=== PATIENT | male | born 1950 | race Caucasian/White ===

== ENCOUNTER 2024-02-05 09:58 | Outpatient (AMB) | payer MEDICARE, OTHER, SELFPAY ==
--- NOTE | 2024-02-05 10:40 | A.OFFVIS_ITS ---
Vital Signs 3 02/05/24 10:42 Height 6 ft Weight 185 lb 4 oz BMI 25.1 BP 123/82 Blood Pressure Location Rt brachial Position Sitting Pulse Source Pulse Oximeter Pulse Oximetry (%) 99 Oxygen Delivery Method Room Air Intake Visit Reasons: hand/elbow pain Intake Note: pain today 03/22 Vp Director Of Creative Strategy Required: No Accompanied by: Self / Same As Patient Allergies No Known Allergies Allergy (Verified 02/05/24 10:42) HPI HPI hand/elbow pain: Details: Patient is a pleasant 73-year-old male with prior history of cervical myelopathy, arthritis, s/p C5-C6 diskectomy and fusion (09/10/23) presents today for initial evaluation of chronic pain in the right hand and arm. Patient reports cervical spine surgery eliminated pressure pain but stiffness and numbness persist and can be quite debilitating to him. Patient denies any previous trauma, injury, or falls. 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 Preoperative cervical spine MRI showed cervical spinal stenosis with myelomalacia and nerve conduction study and EMG of upper extremities showed evidence of mild median neuropathy at the right wrist but also reduction of the right ulnar CMAP but no active denervation. His cervical myelopathy symptoms have significantly improved since surgery. Patient reports he tried to address right hand pain with physical therapy with no improvement, continues hand exercises. He tried pregabalin and baclofen which he stopped due to drowsiness. Patient recently started amitriptyline and noticed mild relief. He also states taking Magnesium 800 mg at bedtime. Patient reports hand exercises and light pressure or resting his arm against surfaces will significantly aggravate his right elbow and right 4th and 5th pain and cause numbness, stiffness and tingling. Pain is worst at night which he rates at 8/10 and least severe during middle of the day, rated it at 7/10. Pain affects his daily activities and functioning, sleep, social interactions and quality of life. Denies any fever, weight loss, chest pain, shortness of breath, dizziness, weakness, bladder or bowel dysfunction, or saddle anesthesia. Patient reports right upper extremity strength, numbness in the right hand and right foot has significantly improved since cervical spine surgery. He reports there is slight tingling in his right foot. Location: Right hand radiates to right elbow and distal forearm Duration: Chronic pain, worsened since 2022 Characteristics of symptom or complaint: Aching, stiffness, tingling, dull, sore, tight, stinging, burning Aggravating or associated factors: Movements, squeezing, gentle pressure, hand exercises Relieving factors: Ice packs, amitriptyline-mild relief; magnesium Treatment: PT, OT, acupunture, myofascial massage, TENS unit, C5-C6 fusion/diskectomy [facility] Medical History Anxiety Hearing loss in left ear Degenerative disc disease, cervical Cervical spondylosis Arthritis Right bundle branch block Right median nerve neuropathy Cervical myelopathy Surgical History (Updated 02/05/24 @ 20:41 by WILLIAM Monae) History of fusion of cervical spine (09/10/23) Review of Systems Const All systems reviewed & are unremarkable except as noted in HPI and below Physical Exam Vital Signs: Last Vital Signs BP 123/82 02/05/24 10:42 Pulse Ox 99 02/05/24 10:42 Oxygen Delivery Method Room Air 02/05/24 10:42 BMI result Body Mass Index 25.1 General: Appears afebrile. Alert and oriented. Mood and affect appropriate. Follows and participates in conversation appropriately. Respiratory effort is unlabored. No cough. Able to transition from sit to stand unassisted. Ambulates with bilaterally normal heel strike and toe off. Neck Neck: Yes no lymphadenopathy, Yes supple, No anterior neck swelling, Yes no JVD and No prominent dorsocervical fat pad Back/Spine/Pelvis Cervical Spine: No cervical muscular tenderness, No pain with cervical ROM, Cervical spine scars present and No Cervical spine tenderness Thoracic/Lumbar Spine: thoracic and lumbar spine normal to inspection, thoraco- lumbar ROM normal, Lasegue's sign negative, straight leg raise negative bilaterally, No thoracic spinal tenderness and No lumbar spinal tenderness Neuro Gait exam (Neuro): Normal gait present and No Assistive device used Motor exam (neuro): 5/5 motor strength present throughout (RUE 4/5) and Motor abnormalities not present Extrem General: Yes capillary refill normal, Yes no clubbing, cyanosis or edema and Yes no calf tenderness Right upper extremity: elbow/forearm Details: normal to inspection and normal ROM; no tenderness, no swelling and no ecchymosis and Extremity exam: right hand (Reports paresthesias 4th and 5th digits) Details: normal to inspection, normal capillary refill, normal ROM of fingers and no swelling; no tenderness, no unusual warmth, no ecchymosis and no crepitus Results Reviewed Results Reviewed: Assessment & Plan Assessment & Plan (1) Ulnar neuropathy of right upper extremity: Code(s): G56.21 - Lesion of ulnar nerve, right upper limb Category: Medical (2) Right hand pain: Code(s): M79.641 - Pain in right hand Category: Medical (3) Ulnar neuropathy of right upper extremity: Code(s): G56.21 - Lesion of ulnar nerve, right upper limb Category: Medical (4) Right hand pain: Code(s): M79.641 - Pain in right hand Category: Medical (5) Cervical spondylosis: Code(s): M47.812 - Spondylosis without myelopathy or radiculopathy, cervical region Category: Medical (6) Degenerative disc disease, cervical: Code(s): M50.30 - Other cervical disc degeneration, unspecified cervical region Category: Medical (7) History of fusion of cervical spine: Onset Date: 09/10/23 Comment: C5-C6 diskectomy and fusion Code(s): Z98.1 - Arthrodesis status Category: Surgical Plan Hand Surgery Referral to further evaluate chronic right hand and elbow numbness and tingling, which is worse at bedtime. Script provided for elbow bracing at bedtime. We will update his EMG and NVC studies and and follow-up on previous neurodiagnostic studies. Discuss interventional treatments for chronic right hand pain s/p recent cervical spine fusion, including PNS vs SCS trial and implants, diagnostic and therapeutic injections. Patient was encouraged to continue physical therapy and occupational therapy exercises to maintain strength and function. All questions and concerns have been answered and patient agreed with the plan. Follow-up for EMG/NCV results and sooner as needed. Orders: Orders 2 NE nerve conduction velocity Today G56.21 - Lesion of ulnar nerve, right upper limb, G95.9 - Disease of spinal cord, unspecified, M79.641 - Pain in right hand NE electromyogram (EMG) Today G56.21 - Lesion of ulnar nerve, right upper limb, G95.9 - Disease of spinal cord, unspecified, M79.641 - Pain in right hand Referrals 2 Hand Surgery Referral G56.21 - Lesion of ulnar nerve, right upper limb, M79.641 - Pain in right hand Medications: New 2 arm brace (FELICIA Elbow Brace) As directed 1 ea 0RF elbow support G56.21 - Lesion of ulnar nerve, right upper limb arm brace (FELICIA Elbow Brace) As directed 1 ea 0RF elbow support G56.21 - Lesion of ulnar nerve, right upper limb Coding Level of Care Code New Pt Level 4 (62206) Diagnoses Ulnar neuropathy of right upper extremity G56.21 Right hand pain M79.641 Cervical spondylosis M47.812 Degenerative disc disease, cervical M50.30 History of fusion of cervical spine Z98.1
[2024-02-05 10:42] VITALS: BP 123/82; O2SAT 99; BMI 25.1
== END 2024-02-05 11:36 | disposition home or self-care (01) ==
PROVIDERS: PCP Internal Medicine; Visit Provider Nurse Practitioner Family
DX: G56.21 Lesion of ulnar nerve, right upper limb (principal); M79.641 Pain in right hand; M47.812 Spondylosis without myelopathy or radiculopathy, cervical region; M50.30 Other cervical disc degeneration, unspecified cervical region; Z98.1 Arthrodesis status
CPT/HCPCS: 99204

== ENCOUNTER → 2024-02-05 09:58 | Outpatient (BNVA) | payer MEDICARE, OTHER, SELFPAY | PROVIDERS: PCP Internal Medicine; Visit Provider Nurse Practitioner Family | DX: G56.21 Lesion of ulnar nerve, right upper limb (principal); M79.641 Pain in right hand; M47.812 Spondylosis without myelopathy or radiculopathy, cervical region; M50.30 Other cervical disc degeneration, unspecified cervical region; Z98.1 Arthrodesis status | CPT/HCPCS: 99202 ==

== ENCOUNTER 2024-02-20 12:24 | Outpatient (REF) | payer MEDICARE, OTHER, SELFPAY ==
--- NOTE | 2024-02-20 12:27 | EMG_ITS ---
Chief complaint: Numbness along medial wrist, 4th and 5th digits, right prior history of cervical myelopathy, s/p C5-C6 diskectomy and fusion (09/10/[address] Zhang) Reason for referral: Evaluate for ulnar neuropathy Referred by: Mar Lopez NP Procedure done: Right upper extremity NCS/EMG Precautions and/or limitations: Prior cervical fusion The limb temperature was monitored continuously and remained between 32-36 degrees C during the performance of the NCS. Ulnar motor NCS was performed with moderate elbow flexion between 70-90 degrees, with across-elbow distance of 10 cm. Nerve Conduction Studies Anti Sensory Summary Table ?Stim Site NR Onset (ms) Norm Onset (ms) Peak (ms) Norm Peak (ms) O-P Amp (?V) Norm O-P Amp Site1 Site2 Delta-0 (ms) Dist (cm) Brandon (m/s) Norm Brandon (m/s) Left Median Anti Sensory (2nd Digit) Wrist ? 2.6 3.2 <3.6 13.2 >10 Wrist 2nd Digit 2.6 14.0 54 Left Radial Anti Sensory (Thumb) Forearm ? 1.5 1.9 <3.1 18.5 Forearm Thumb 1.5 0.0 Left Ulnar Anti Sensory (5th Digit) Wrist ? 2.8 3.7 <3.7 11.4 >15.0 Wrist 5th Digit 2.8 14.0 50 Motor Summary Table ?Stim Site NR Onset (ms) Norm Onset (ms) O-P Amp (mV) Norm O-P Amp iAmp (mV) Amp (1st) (%) Site1 Site2 Delta-0 (ms) Dist (cm) Brandon (m/s) Norm Brandon (m/s) Right Median Motor (Abd Poll Brev) Wrist ? 3.8 <3.9 13.1 >4.5 15.9 100.0 Elbow Wrist 4.2 22.0 52 >45 Elbow ? 8.0 12.8 16.1 97.7 Right Ulnar Motor (Abd Dig Minimi) Wrist ? 3.8 <3.0 3.5 >5 4.3 100.0 B Elbow Wrist 4.9 24.0 49 >45 B Elbow ? 8.7 3.5 4.2 100.0 A Elbow B Elbow 1.6 10.0 62 >45 A Elbow ? 10.3 3.5 4.1 100.0 Right Ulnar Motor (FDI) Wrist ? 5.2 <3.0 1.7 >5 2.0 100.0 B Elbow Wrist 4.5 24.0 53 >45 B Elbow ? 9.7 1.5 1.7 88.2 A Elbow B Elbow 1.6 10.0 62 >45 A Elbow ? 11.3 1.5 1.7 88.2 EMG ?Side Muscle Nerve Root Ins Act Fibs Psw Amp Dur Poly Recrt Int Pat Comment Right 1stDorInt Ulnar C8-T1 Incr 1+ 1+ Nml Nml 0 Reduced Complete Right FlexCarRad Median C6-7 Nml Nml Nml Nml Nml 0 Nml Complete Right Biceps Musculocut C5-6 Nml Nml Nml Nml Nml 0 Nml Complete Right Triceps Radial C6-7-8 Nml Nml Nml Incr Incr 0 Nml Complete Right Deltoid Axillary C5-6 Nml Nml Nml Nml Nml 0 Nml Complete Right FlexCarpiUln Ulnar C8,T1 Incr 1+ 1+ Nml Nml 0 Nml Complete Right ExtIndicis Radial (Post Int) C7-8 Nml Nml Nml Incr Incr 0 Nml Complete Right ExtDigCom Radial (Post Int) C7-8 Nml Nml Nml Incr Incr 0 Nml Complete FINDINGS: Right ulnar motor nerve, recording both ADM and FDI muscles, showed prolonged distal latency, small amplitudes but preserved conduction velocity. Right ulnar sensory nerve showed normal peak latency but small amplitude. All other nerves tested were within normal. Concentric needle EMG was performed in selected muscles of the right upper extremity. Study revealed signs of electric abnormalities as shown in the table below. Right triceps, EIP and EDC muscle showed increased duration and amplitude. Right FCU and FDI showed increased insertional activity, PSWs and fibrillations. Right FDI also showed reduced recruitment. IMPRESSION: 1. This is an abnormal study. 2. There is electrodiagnostic evidence for ulnar neuropathy, proximal to take off of FCU. 3. Chronic reinnervation changes are seen on muscles innervated by C7/C8 nerve roots, suggesting chronic radiculopathy. 4. There is no electrodiagnostic evidence for median neuropathy or brachial plexopathy. CLINICAL COMMENT: Comparison with previous EMG would be helpful. Thank you for your kind referral. Shima Rodarte MD, KAYLIE Board Certified, [place] Board [employer] and [employer] (ABPMR) Board Certified, [place] Board [employer] Electrodiagnostic Medicine (ABEM) [place] [id number] [facility]
== END 2024-02-20 12:25 | disposition home or self-care (01) ==
LOC: HO.NEURO 12:24
PROVIDERS: Visit Provider Nurse Practitioner Family
DX: G56.21 Lesion of ulnar nerve, right upper limb (principal); M79.641 Pain in right hand; G95.9 Disease of spinal cord, unspecified
CPT/HCPCS: 95886; 95909

== ENCOUNTER → 2024-02-20 12:27 | Outpatient (BNV) | payer MEDICARE, OTHER, SELFPAY | PROVIDERS: Visit Provider Physical Medicine & Rehabilitation | DX: G56.21 Lesion of ulnar nerve, right upper limb (principal) | CPT/HCPCS: 95886; 95909 ==

== ENCOUNTER 2024-03-25 10:46 | Outpatient (AMB) | payer MEDICARE, OTHER, SELFPAY ==
--- NOTE | 2024-03-25 10:54 | A.OFFVIS_ITS ---
Vital Signs 03/25/24 11:09 Height 6 ft Weight 185 lb BMI 25.1 Intake Visit Reasons: New Pt - right hand numbness Intake Note: Sha a 73 year old 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 male who presents today as a new patient for an evaluation of right hand numbness. EMG done. Patient reports pain, stiffness, and numbness in his right hand, mostly his 4th and 5th digit, radiating up to his shoulder. He states having a cervical surgery which had improved his symptoms however he continues to have discomfort that gets worse with activity. Finds no relief with amitriptyline, gabapentin, baclofen, or OTC ibuprofen/Tylenol as well as icing/heat and at home hand exercises that was given by PT. Allergies No Known Allergies Allergy (Verified 03/25/24 11:00) HPI HPI New Pt - right hand numbness: Details: 73-year-old 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 male who presents to the office today for an evaluation of right hand. He states he has pain, stiffness, numbness and tingling at the 4th and 5th metacarpal of right hand that radiates up to his shoulder. He has a history of cervical surgery which had improved his symptoms however he continues to have discomfort that is aggravated with activities. He finds no relief with amitriptyline, gabapentin, baclofen, OTC ibuprofen or Tylenol, ice, heat, and icy hot. He has tried hand exercises at home without benefits. 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 Review of Systems Const All systems reviewed & are unremarkable except as noted in HPI and below Physical Exam Vital Signs: BMI result Body Mass Index 25.1 Const General: cooperative, healthy appearing, comfortable, no acute distress, well developed and alert Orientation/consciousness: patient oriented x3 HEENT Head: Yes normal to inspection, Yes normocephalic and Yes atraumatic Eyes General: appearance normal, both eyes and all related structures Resp Effort & Inspection: normal respiratory effort and able to speak in complete sentences Cardio Rate: regular rate Peripheral pulses: Peripheral pulses 2+ throughout GI Palpation (GI): Soft to palpation Skin Lesions: no lesions Rashes: no rashes Neuro General: patient oriented x3 Extrem Other: Right wrist and elbow: Normal to inspection.? Mild Tenderness over the medial aspect of the elbow and Positive Tinel?s along the cubital tunnel.? He has good ROM of the elbow, no pain with supination or pronation. Negative Tinel?s along the carpal tunnel. Numbness and tingling over the ulnar nerve distribution of the left hand.? Able to make a full fist and fully extend all fingers. Results Reviewed Results Reviewed: IMPRESSION: 1. This is an abnormal study. 2. There is electrodiagnostic evidence for ulnar neuropathy, proximal to take off of FCU. 3. Chronic reinnervation changes are seen on muscles innervated by C7/C8 nerve roots, suggesting chronic radiculopathy. --> Patient is s/p cervical fusion 08/2023 4. There is no electrodiagnostic evidence for median neuropathy or brachial plexopathy. Assessment & Plan Assessment & Plan (1) Ulnar neuropathy of right upper extremity: Code(s): G56.21 - Lesion of ulnar nerve, right upper limb Category: Medical Plan We discussed the EMG findings at length and also discuss the benefits of steroid injection for what appears to be lateral epicondylitis of his right elbow. He will hold off on injection at this time and he will meet with Dr. Garg to discuss this further for cubital tunnel release for his right elbow which he is content with. Patient Instructions: Scribed for Harrison Antunez PA-C, by Rufino Pepe medical insurance coding specialist, on 03/25/2024 at 11:00 AM EST.? I, Harrison Antunez PA-C, have personally reviewed and agree with the information entered by the scribe. Coding Level of Care Code New Pt Level 3 (68958) Diagnoses Ulnar neuropathy of right upper extremity G56.21
[2024-03-25 11:09] VITALS: BMI 25.1
== END 2024-03-25 16:15 | disposition home or self-care (01) ==
PROVIDERS: PCP Internal Medicine; Visit Provider Physician Assistant
DX: G56.21 Lesion of ulnar nerve, right upper limb (principal); M77.11 Lateral epicondylitis, right elbow
CPT/HCPCS: 99203

== ENCOUNTER → 2024-03-25 10:46 | Outpatient (BNVA) | payer MEDICARE, OTHER, SELFPAY | PROVIDERS: PCP Internal Medicine; Visit Provider Physician Assistant ==

== ENCOUNTER 2024-05-12 10:05 | Outpatient (AMB) | payer MEDICARE, OTHER, SELFPAY ==
--- NOTE | 2024-05-12 10:35 | MHC.OFFVIS ---
Intake Visit Reasons: OV-RT ulnar neuropathy on EMG -Discuss surgery Intake Note: Sha is a 73 yo 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 male who presents today to discuss surgery for right ulnar neuropathy. Patient reports numbness and tingling on the right 4th and 5th fingers that radiate up the right elbow. There is also ocassional numbness on right 2nd and 3rd finger. Denies locking on fingers. Reports taking amitriptyline 30 mg QHS for pain, unsure if provides relief. Patient states EMG was done. Patient does not wish to have surgery. Allergies No Known Allergies Allergy (Verified 05/12/24 10:36) HPI HPI OV-RT ulnar neuropathy on EMG -Discuss surgery: Details: Sha is a 73 year old 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 man who presents for a NCS review of his right hand numbness. He complains of constant numbness primarily in his right ring & small fingers. He also reports some tingling in his right thumb. He complains of pain in his hand with overuse as well. He has a hx of a C5-C6 fusion in 08/2023, at an outside clinic. He says this somewhat helped his symptoms of numbness & pain. He has been working on strengthening his hand for the last few months. 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 He also complains of pain in the dorsal ulnar aspect of his right forearm, extending up to the lateral epicondyle. This primarily occurs with heavy lifting and gripping activities, and is not particularly symptomatic today in clinic. He says he recently had a Hernia repair a few weeks ago. 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 Review of Systems Const All systems reviewed & are unremarkable except as noted in HPI and below Physical Exam Const General: cooperative, healthy appearing and no acute distress Orientation/consciousness: patient oriented x3 HEENT Head: Yes normocephalic and Yes atraumatic Eyes EOM: EOMs intact bilaterally Resp Effort & Inspection: normal respiratory effort and able to speak in complete sentences Cardio Jugular venous distension: no JVD Skin General skin exam: turgor normal Rashes: no rashes Neuro General: patient oriented x3 Extrem Other: Evaluation of Right Upper Extremity: The patient is alert, oriented, and in no acute distress Neuro: Tingling in the thumb today in clinic, dense numbness in the ulnar nerve distribution today in clinic. Normal sensation to the index & middle fingers. Some intrinsic wasting & significant wasting of 1st interosseous Good APB muscle belly firing and good finger cross He can ABduct & ADduct his fingers, with only weak adduction of the small finger. Vascular: Cap refill brisk ROM: He can make a fist and extend all his digits No locking or catching Skin: No lacerations or abrasions. General: No Ecchymosis. No Erythema or evidence of infection. Patient reports pain in the dorsal ulnar aspect of his forearm, extending up to the lateral epicondyle. This primarily occurs with activities and is not particularly symptomatic today in clinic. No pain with resisted wrist or finger extension . He demonstrates a discomfort mostly when his arm is extended in his wrist is brought into flexion. Nerve Conduction Study: Right-side only IMPRESSION: 1. This is an abnormal study. 2. There is electrodiagnostic evidence for ulnar neuropathy, proximal to take off of FCU. 3. Chronic reinnervation changes are seen on muscles innervated by C7/C8 nerve roots, suggesting chronic radiculopathy. 4. There is no electrodiagnostic evidence for median neuropathy or brachial plexopathy. CLINICAL COMMENT: Comparison with previous EMG would be helpful. Shima Rodarte MD, KAYLIE 02/20/24 Psych Appearance: grossly normal Affect: normal affect Attitude: cooperative Assessment & Plan Assessment & Plan (1) Ulnar neuropathy of right upper extremity: Code(s): G56.21 - Lesion of ulnar nerve, right upper limb Category: Medical (2) History of fusion of cervical spine: Onset Date: 09/10/23 Comment: C5-C6 diskectomy and fusion Code(s): Z98.1 - Arthrodesis status Category: Surgical (3) Cervical radiculopathy: Comment: Affecting C7-C8, seen on NCS Code(s): M54.12 - Radiculopathy, cervical region Category: Medical (4) Right lateral epicondylitis: Code(s): M77.11 - Lateral epicondylitis, right elbow Category: Medical Plan Assessment & Plan: 1. Right cubital tunnel syndrome With some intrinsic wasting & significant wasting of 1st interosseous With dense numbness in the ulnar nerve distribution 2. Possible chronic right-side radiculopathy Affecting C7-C8, seen on NCS from 02/20/24 3. History of right C-spine fusion Of C5-C6, DOS: 09/10/23 at an outside clinic I educated him about this condition I discussed operative and non-operative treatment options I recommend surgery for his cubital tunnel syndrome, with the goal of hopefully preserving muscle function and prevent further loss. I explained that he is likely to not regain any sensation following surgery, but the goal again is to preserve the intrinsic muscle function that he has. I also explained the possibility that he has a double-crush injury and may need further C-spine surgery, which he should discuss with his spine surgeon. He expressed understanding & would like to proceed. He feels he is not ready to discuss surgery at this time He will follow up in 6-8 weeks to see how he is doing. He says he is meeting with his neurologist early next month and will discuss the C7-C8 radiculopathy findings on nerve conduction study.. 4. Right lateral epicondylitis I educated him about this condition I recommend activity modification, he should limit or avoid any heavy gripping or lifting activities. Please note that greater than 35 minutes was spent with this patient going over the history, evaluating the patient and radiographs, formulating possible treatment options, discussing them with the patient, and documenting the visit. Scribed for Miracle Garg MD by Sukh Lara, medical imaging director, on 05/12/24 at 11:20 AM, EST. Coding Level of Care Code Est Pt Level 4 (03957) Diagnoses Ulnar neuropathy of right upper extremity G56.21 History of fusion of cervical spine Z98.1 Cervical radiculopathy M54.12 Right lateral epicondylitis M77.11
== END 2024-05-12 11:54 | disposition home or self-care (01) ==
PROVIDERS: PCP Internal Medicine; Visit Provider Orthopaedic Surgery
DX: G56.21 Lesion of ulnar nerve, right upper limb (principal); M77.11 Lateral epicondylitis, right elbow; Z98.1 Arthrodesis status
CPT/HCPCS: 99214

== ENCOUNTER → 2024-05-12 10:05 | Outpatient (BNVA) | payer MEDICARE, OTHER, SELFPAY | PROVIDERS: PCP Internal Medicine; Visit Provider Orthopaedic Surgery | DX: G56.21 Lesion of ulnar nerve, right upper limb (principal); M54.12 Radiculopathy, cervical region; M77.11 Lateral epicondylitis, right elbow; Z98.1 Arthrodesis status | CPT/HCPCS: 99212 ==

== ENCOUNTER 2024-07-28 14:45 | Outpatient (AMB) | payer MEDICARE, OTHER, SELFPAY ==
--- NOTE | 2024-07-28 14:52 | A.OFFVIS_ITS ---
Vital Signs 07/28/24 14:53 Height 6 ft Weight 175 lb BMI 23.7 Handedness Left Intake Visit Reasons: OV- RT cubital tunnel Intake Note: Sha is a 73 year old 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 male who presents today for a follow up visit for his ulnar neuropathy of right upper extremity. Patient reports he is having numbness, tingling, and discomfort in his 4th and 5th digits that radiates into his elbow. He has been working on strengthening exercises but his symptoms have not improved but have not worsened. He is interested in discussing possible surgery. Allergies No Known Allergies Allergy (Verified 07/28/24 14:54) HPI HPI OV- RT cubital tunnel: Details: Sha is a 73 year old 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 man who returns to discuss his right cubital tunnel syndrome He complains of constant numbness primarily in his right ring & small fingers. He also reports some tingling in his right thumb. He complains of pain in his hand with overuse as well. He has a hx of a C5-C6 fusion in 08/2023, at an outside clinic. He says this somewhat helped his symptoms of numbness & pain. He has been working on strengthening his hand for the last few months. 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 He says he has had no improvement in his symptoms of ulnar-sided hand numbness and discomfort with these exercises. He feels ready to discuss surgery. He complains of weakness & stiffness in his ring and small fingers, and he says this has not improved with at-home exercises. He also complains of pain in the dorsal ulnar aspect of his right forearm, extending up to the lateral epicondyle. This primarily occurs with heavy lifting and gripping activities, and is not particularly symptomatic today in clinic. 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 Normal sensation to the median nerve distribution Some intrinsic wasting & significant wasting of 1st interosseous Pos Froment's sign Good APB muscle belly firing and good finger cross He can ABduct & ADduct his fingers, with only weak adduction of the small finger. Vascular: Cap refill brisk ROM: He can make a fist and extend all his digits No locking or catching Patient reports pain in the dorsal ulnar aspect of his forearm, extending up to the lateral epicondyle. This primarily occurs with activities and is not particularly symptomatic today in clinic. No pain with resisted wrist or finger extension. He demonstrates a discomfort mostly when his arm is extended in his wrist is brought into flexion. Nerve Conduction Study: Right-side only IMPRESSION: 1. This is an abnormal study. 2. There is electrodiagnostic evidence for ulnar neuropathy, proximal to take off of FCU. 3. Chronic reinnervation changes are seen on muscles innervated by C7/C8 nerve roots, suggesting chronic radiculopathy. 4. There is no electrodiagnostic evidence for median neuropathy or brachial plexopathy. CLINICAL COMMENT: Comparison with previous EMG would be helpful. Shima Rodarte MD, KAYLIE 02/20/24 Assessment & Plan Assessment & Plan (1) Ulnar neuropathy of right upper extremity: Code(s): G56.21 - Lesion of ulnar nerve, right upper limb Category: Medical (2) History of fusion of cervical spine: Onset Date: 09/10/23 Comment: C5-C6 diskectomy and fusion Code(s): Z98.1 - Arthrodesis status Category: Surgical (3) Cervical radiculopathy: Comment: Affecting C7-C8, seen on NCS Code(s): M54.12 - Radiculopathy, cervical region Category: Medical (4) Right lateral epicondylitis: Code(s): M77.11 - Lateral epicondylitis, right elbow Category: Medical Plan Assessment & Plan: 1. Right cubital tunnel syndrome With some intrinsic wasting & significant wasting of 1st interosseous With dense numbness in the ulnar nerve distribution 2. Possible chronic right-side radiculopathy Affecting C7-C8, seen on NCS from 02/20/24 3. History of right C-spine fusion Of C5-C6, DOS: 09/10/23 at an outside clinic I educated him about this condition I discussed operative and non-operative treatment options I recommend surgery for his cubital tunnel syndrome, with the goal of hopefully preserving muscle function and prevent further loss. I explained that he is likely to not regain any sensation following surgery, but the goal again is to preserve the intrinsic muscle function that he has. I also explained the possibility that he has a double-crush injury related to his C-spine nerve compression, which he should discuss with his spine surgeon. This may have been addressed in his surgery in August of 2023. He expressed understanding & would like to proceed. The risks and benefits of operative treatment were discussed with the patient and the patient wishes to proceed with surgery. These risks include, but are not limited to risk of damage to blood vessels, nerves, tendons, infection, recurrence, incomplete relief of preoperative symptoms, persistent pain, possible need for further surgery and the risks associated with regional blocks and anesthesia. The plan is to take the patient to the operating room sometime in the next few weeks for the following procedures: 1. Right cubital tunnel release, under general All of the preoperative paperwork including the consent was reviewed today. All the patient's questions were answered. The patient understands that they will be contacted by our supervisor print line soon to schedule this procedure He denies Diabetes, blood thinners, asthma, heart, lung, kidney issues 4. Right lateral epicondylitis vs radial tunnel sxs I educated him about this condition I explained that having a cubital tunnel release will not alleviate these symptoms. I recommend activity modification. Please note that greater than 40 minutes was spent with this patient going over the history, evaluating the patient and radiographs, formulating possible treatment options, discussing them with the patient, and documenting the visit. Scribed for Miracle Garg MD by Sukh Lara, medical assisting program director, on 07/28/24 at 3:25 PM, EST. Coding Level of Care Code Est Pt Level 5 (71774) Diagnoses Ulnar neuropathy of right upper extremity G56.21 History of fusion of cervical spine Z98.1 Cervical radiculopathy M54.12 Right lateral epicondylitis M77.11
[2024-07-28 14:53] VITALS: BMI 23.7
== END 2024-07-28 16:16 | disposition home or self-care (01) ==
PROVIDERS: PCP Internal Medicine; Visit Provider Orthopaedic Surgery
DX: G56.21 Lesion of ulnar nerve, right upper limb (principal); Z98.1 Arthrodesis status; M77.11 Lateral epicondylitis, right elbow
CPT/HCPCS: 99215

== ENCOUNTER → 2024-07-28 14:45 | Outpatient (BNVA) | payer MEDICARE, OTHER, SELFPAY | PROVIDERS: PCP Internal Medicine; Visit Provider Orthopaedic Surgery | DX: G56.21 Lesion of ulnar nerve, right upper limb (principal); M77.11 Lateral epicondylitis, right elbow; M54.12 Radiculopathy, cervical region; Z98.1 Arthrodesis status | CPT/HCPCS: 99212 ==

== ENCOUNTER 2024-10-04 09:48 | Outpatient (AMB) | payer MEDICARE, OTHER, SELFPAY ==
--- NOTE | 2024-10-04 09:50 | A.OFFVIS_ITS ---
Vital Signs 10/04/24 09:55 Height 6 ft Weight 175 lb BMI 23.7 Handedness Left Intake Visit Reasons: Preop RT Cubital 10/11/24 AR Intake Note: Sha is a 73 year old 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 male who presents today pre operatively for his scheduled left cubital tunnel release w/ Dr Garg DOS: 10/11/2024. Allergies No Known Allergies Allergy (Verified 10/04/24 09:55) HPI HPI Preop RT Cubital 10/11/24 AR: Details: Patient is a 73-year-old male who presents for preoperative evaluation prior to right cubital tunnel release, DOS 10/11/[address] Garg. Today, the patient reports that his symptoms have remained consistent since previous evaluation, and proceed with operative intervention. No other acute complaints or concerns at this time. 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 Normal sensation to the median nerve distribution Some intrinsic wasting & significant wasting of 1st interosseous Pos Froment's sign Good APB muscle belly firing and good finger cross He can ABduct & ADduct his fingers, with only weak adduction of the small finger. Vascular: Cap refill brisk ROM: He can make a fist and extend all his digits No locking or catching Patient reports pain in the dorsal ulnar aspect of his forearm, extending up to the lateral epicondyle. This primarily occurs with activities and is not particularly symptomatic today in clinic. No pain with resisted wrist or finger extension. He demonstrates a discomfort mostly when his arm is extended in his wrist is brought into flexion. Nerve Conduction Study: Right-side only IMPRESSION: 1. This is an abnormal study. 2. There is electrodiagnostic evidence for ulnar neuropathy, proximal to take off of FCU. 3. Chronic reinnervation changes are seen on muscles innervated by C7/C8 nerve roots, suggesting chronic radiculopathy. 4. There is no electrodiagnostic evidence for median neuropathy or brachial plexopathy. CLINICAL COMMENT: Comparison with previous EMG would be helpful. Shima Rodarte MD, KAYLIE 02/20/24 Assessment & Plan Assessment & Plan (1) Ulnar neuropathy of right upper extremity: Code(s): G56.21 - Lesion of ulnar nerve, right upper limb Category: Medical Plan 1. Right cubital tunnel syndrome I educated the patient about the condition. I discussed both operative and nonoperative treatment options. The patient would like to proceed with surgery. The risks and benefits of operative treatment were discussed with the patient and the patient wishes to proceed with surgery. These risks include, but are not limited to, risk of damage to blood vessels, nerves, tendons, infection, recurrence, incomplete relief of preoperative symptoms, persistent pain, possible need for further surgery, and the risks associated with regional blocks and/or anesthesia. Plan is to take the patient to the operating room at some point in the next few weeks for the following procedures: 1. Right cubital tunnel release under general anesthesia All of the preoperative paperwork including the consent was discussed today. All of the patient's questions were answered in the clinic today. The patient understands that they will be in contact with our surgical instruments inspector to discuss scheduling their procedure. Patient denies diabetes, blood thinners, asthma, heart issues, lung issues, kidney issues, or current smoking. Coding Level of Care Code Est Pt Level 4 (37639) Diagnoses Ulnar neuropathy of right upper extremity G56.21
--- OUTSIDE RECORDS SUMMARY | 2024-10-04 09:51 | XMS_ITS | Continuity of Care Document ---
Author Organization [facility] ter Address [address] [place] [id number]- Care Team Providers Care Fleet Sales Manager Name Role Phone Monie RIZVI, [facility] Primary Care Physician Encounter 10/01/24 - 10/02/[address] [address]- Attending Physician: Not on Staff, Attending MD Referring Physician: Not on Staff, Referring MD Encounter Type: [facility] Allergies, Adverse Reactions, Alerts No Known Allergies Immunizations Given and Recorded Vaccine Date Status Refusal Reason Hepatitis B Vaccine (old term) 1 05/19/12 Given Hepatitis B Vaccine (old term) 2 04/09/12 Given Poliovirus Vaccine, Inactivated 04/09/12 Given tetanus/diphtheria/pertussis, acel(Tdap) 04/09/12 Given Hepatitis A Vaccine (oldterm) 3 04/09/12 Given 1Admin Note: hep b #2 2Admin Note: hep B #1 3Admin Note: hep A #1 Medications Alprazolam 1 mg, By Mouth, Daily, PRN, Refills 0, Maintenance, as needed for anxiety, 09/09/23 2:25:00 PM EST,Partial fill upon patient request if the prescription is for a schedule II opioid drug. Start Date: 09/09/23 Status: Ordered Repeat number: 1 aspirin 81 mg oral capsule 1 capsule = 81 mg, By Mouth, Every 24 hours, 0 Refills, Maintenance, 08/21/23 8:14:00 AM EST, Partial fill upon patient request if the prescription is for a schedule II opioid drug. Start Date: 08/21/23 Status: Ordered Repeat number: 1 Compression Stockings See Instructions, # 1 pair, Refills 3, Tot. Refills 3, Maintenance, surgical, knee length 20-30 mm Hg, 06/07/13 1:27:46 PM EDT, Compound Start Date: 06/07/13 Status: Ordered Quantity: 1.0 Unit: pair Repeat number: 4 Docusate 0 Refills, Maintenance, 09/10/23 6:01:00 AM EST, Partial fill upon patient request if the prescription is for a schedule II opioid drug. Start Date: 09/10/23 Status: Ordered Repeat number: 1 Fish Oil = 2,000 mg, By Mouth, 0 Refills, Maintenance, 06/07/13 1:07:02 PM EDT Start Date: 06/07/13 Status: Ordered Repeat number: 1 Flax Seed Oil oral capsule 0 Refills, Maintenance, 06/07/13 1:06:42 PM EDT Start Date: 06/07/13 Status: Ordered Repeat number: 1 Gabapentin = 600 mg, By Mouth, Daily, 0 Refills, Maintenance, 08/21/23 8:14:00 AM EST, Partial fill upon patient request if the prescription is for a schedule II opioid drug. Start Date: 08/21/23 Status: Ordered Repeat number: 1 zolpidem 5 mg oral tablet 1 tablet = 5 mg, By Mouth, Daily at bedtime, PRN as needed for sleep, 0 Refills, Maintenance, 06/07/13 1:07:34 PM EDT Start Date: 06/07/13 Status: Ordered Repeat number: 1 Problem List Condition Confirmation Course Effective Dates Status Health St [facility] Informant Travel vaccinations Confirmed Active Patient Care team information Care Team Personnel Name: Sammi Lomax MD Position: [facility] Outreach Member Role: PCP Address: [address] [place], [place] [id number] Telecom: Care Team Related Persons Name: KAVITHA SAMPSON Insurance Providers Guarantor name: CELENA RAHAT Health Plan Information #: 1 Payer: MEDICARE PART B OUTPT Member Number: NA Policy Number: NA Group Number: NA Health Plan Information #: 2 Payer: NATE LYNN JUANI SUP Member Number: NA Policy Number: NA Group Number: NA
--- OUTSIDE RECORDS SUMMARY | 2024-10-04 09:52 | XMS_ITS | Data Portability ---
Author Organization [facility], [facility] Address [address] [place] [address] Care Team Providers Care Director Medical Science Name Role Phone YEMI LUCERO [facility] Sleep Medicine [facility]utter [phone] KAVON LOMAX Primary Care Provider [phone] [facility] OTHER [facility] NEUROSURGERY Neurosurgeon TAMICA EDUARDO General Surgeon ANDREI LIN Neurologist [facility] PAIN MANAGEMENT Pain Management [phone] [facility] Orthopedic Surgeon [phone] Assessment Encounter Date Assessment Date Assessment LastModified by Organization Details LastModified Time 08/01/2023 08/01/2023 Plan: 1-2 x/week for 12 weeks. OT visit # 1 A: Pt is a 72 year old referred to outpatient occupational therapy by Oscar Valerio NP with signs and symptoms consistent with: R ulnar nerve paresthesias Exam findings reveal: Constant numbness R hand ulnar n. 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 new Treatments may include (as appropriate/as indicated): Therapeutic exercise/Neuromus cular Reeducation/Thera peutic Activities/ROM, flexibility, endurance, power, functional mechanics/posture s/activities; coordination/gonsalo r planning/motor control; balance; proprioception; stability; self care/ADL management; home exercise instruction; modalities; taping; orthotics/splint fabrication/train ing/management [email or web address] Not available 08/01/2023 14:04:56 08/13/2023 08/13/2023 Patient agreed t o this visit via a secure telehealth platform. Patient understands this is a scheduled visit and the usual procedures with regard to billing and confidentiality apply. Patient was notified that [place] [facility] During the visit the patient? s medical history and medical record were reviewed. The patient was notified to call our office for worsening or urgent symptoms. [email or web address] Not available 08/13/2023 13:49:49 09/22/2023 09/22/2023 Patient agreed t o this visit via a secure telehealth platform. Patient understands this is a scheduled visit and the usual procedures with regard to billing and confidentiality apply. Patient was notified that the provider [place] [facility] [place] During the visit the patient? s medical history and medical record were reviewed. The patient was notified to call our office for worsening or urgent symptoms. [email or web address] Not available 09/22/2023 11:26:45 11/24/2023 11/24/2023 We completed you r Medicare Wellness exam today. This was an opportunity to assess your overall well being including your ability to care for yourself, your mobility, memory, mental health, as well as your safety. With advancing age, it is important to assign someone in your life as your Health Care Proxy (HCP). This person should know what is important to you and what your wishes are for medical procedures if you cannot communicate your wishes yourself (severe illness, unconsciousness). We discussed having a completed Health Care Proxy form today. This is in place. Vision and Hearing are senses that are critically important as we age. When impaired, they can contribute to memory loss, falls, and make it harder to drive, talk to family and friends, and engage in the world. Please get your vision checked yearly and your hearing checked when you start to notice hearing loss. We discussed approaches to lowering your risk of heart disease and stroke . Your blood pressure is at goal. Your cholesterol is at goal. We discussed cancer screening you may need as well as vaccines to prevent infections. Colon Cancer : Your risk of colon cancer is higher than average due to personal history of colon polyps. Due for colorectal screenin.. if you are not planning to have a colonoscopy please screen with stool cards yearly. Prostate Cancer : PSA testing for ages 55-69 risks and benefits discussed will not test. Aortic Aneurysm Screening : is indicated if you have a history of smoking and is due once at age 65. Influenza Vaccine : Flu shot yearly. Tetanus Vaccine : Every 10 years. Due: 2031. The following vaccines are available from your pharmacy: Pneumonia Vaccine : PCV20: once after age 65. Shingles Vaccine : 2 shots after age 50. Covid Vaccine : Make sure you have received the most up to date covid vaccine. Your personal health goal for the year is: continue with healthy life style choices. [email or web address] Not available 11/24/2023 10:50:21 Plan of Treatment Reminders Order Date Submit Date Provider Last Modified By Organization Details Last Modified Time Details Appointments LAB Follow- Up 2024 08:10A M [facility] Lab Not available Not available Not available Medicar william Rosenthal s Visit 2024 09:00A M ENRICO KEN MD Not available Not available Not available Lab HbA1c (hemogl obin A1c), blood [address] [facility], [address] [place], [address], 12/01/2023 14:32:09 lipid panel, serum [address] [facility], [address] [place], [address], 12/01/2023 16:08:10 CMP, serum or plasma 2023 024 [facility], [address] [facility], [place], [address], 12/01/2023 16:08:09 Referral general surgeon laura lorenz 2023 024 SARAH Eduardo MD, [address] , [place], [address], 12/09/2023 13:41:03 Procedures None recorde d. Surgeries None recorde d. Imaging None recorde d. Medication Orders nirmatr bienvenido 300 mg (150 mg x2)-rit onavir 100 mg tablet, dose pack 2022 023 [facility]/Pharmacy #[id number], [address] [place], [address], 11/23/2023 19:25:03 Paxlovi d 300 mg (150 mg x 2)-100 mg tablets in a dose pack 2023 024 [facility]/Pharmacy #[id number], [address] [place], [address], 03/04/2024 10:55:26 Patient TargetsNo targets recorded. Patient Instructions Encounter Date Encounter Id Patient Instructions Last Modified By Organization Details Last Modified Time 08/01/2023 [id number] Access Code: [email or web address] URL: [email or web address] Date: 08/01/2023 Prepared by: Marianna Jain Exercises - Ulnar Nerve [place]- Full Arm - 3 x daily - 7 x weekly - 1 sets - 10 reps - Ulnar nerve towel sliders - 1 x daily - 7 x weekly - 3 sets - 10 reps - Doorway Pec Stretch at 60 Elevation - 1 x daily - 7 x weekly - 3 sets - 10 reps -4 FA stretch ash Not available 08/01/2023 12:35:33 09/22/2023 [id number] A discussion regarding the use of Paxlovid treatment in the setting of COVID-19 infection was had with the patient. The patient qualifies for Paxlovid treatment. They are 12 years old or older and weight at least 40kg (88lbs). They have a positive COVID test (either PCR or antigen). Symptom onset was within 5 days. They do not have severe renal impairment (GFR >30). If the GFR is 30-60, the dose of the medication is reduced. eGFR >60: 300mg nirmatrelvir (two 150mg tablets) with 100mg ritonavir (one tablet). All 3 tablets taken together twice daily for 5 days, with or without food. ? ? eGFR 30-60: 150mg nirmatrelvir with 100mg ritonavir. Both tablets taken together twice daily for 5 days, with or without food. The patient was advised that the treatment is sent to a local pharmacy. We have checked availability through this website: https://www.[employer]. gov/info-details/ qexnucebkee-opv-k esgitzgh-odost-xl erapeflic-treatme jic-tie-jlbrz-19# [id number] tic-dial maker- This medication is authorized by the FDA for emergency use only. Data from clinical trials have shown that these treatments reduce the risk of ER visits, hospitalization, and in patients with mild to moderate symptoms, and those at high risk of complications. Side effects were discussed: 1. Allergic reactions are possible, notify the nurse with any concerning symptoms 2. Liver problems ? notify your provider if you experience loss of appetite, yellowing of the skin or eyes, dark colored urine, or pale colored stools. 3. Altered sense of taste 4. Nausea 5. High blood pressure 6. Muscle aches 7. This is medication is still being investigated so not all side effects are known at this time. 8. Risks for or women are currently unknown. 9. This medication may interact with oral control options. Please use condoms or a barrier method while on this medication. Your provider has reviewed interactions with all of your medications and the following need to be stopped or the dose reduced: xxx How do I take PAXLOVID? PAXLOVID consists of 2 medicines: nirmatrelvir and ritonavir. - Take 2 pink tablets of nirmatrelvir with 1 white tablet of ritonavir by mouth 2 times each day (in the morning and in the evening) for 5 days. For each dose, take all 3 tablets at the same time. - If you have kidney disease, talk to your healthcare provider. You may need a different dose. - Swallow the tablets whole. Do not chew, break, or crush the tablets. - Take PAXLOVID with or without food. - Do not stop taking PAXLOVID without talking to your healthcare provider, even if you feel better. - If you miss a dose of PAXLOVID within 8 hours of the time it is usually taken, take it as soon as you remember. If you miss a dose by more than 8 hours, skip the missed dose and take the next dose at your regular time. Do not take 2 doses of PAXLOVID at the same time. [email or web address] Not available 09/22/2023 11:37:08 11/24/2023 [id number] preventing falls : care instructions [email or web address] Not available 11/24/2023 10:53:27 hearing loss information [email or web address] Not available 11/24/2023 10:53:28 advance directives: care instructions [email or web address] Not available 11/24/2023 10:53:28 well visit, over 65: care instructions [email or web address] Not available 11/24/2023 10:53:28 Prostate Cancer Screening was discussed. The U.S. Preventive Services Task Force advises not to make a PSA test a part of the standard exam for men ages 55-69. Instead they recommend the uncertainties about the test be discussed and ordered only if a patient still wants it. Over their lifetimes as many as 50% or more of men will develop prostate cancer but only 2% of men will of prostate cancer. For men who chose to be screened for prostate cancer if 1000 men are screened with a psa test over a 15 year period there might be 1-2 deaths prevented however 235 men will have a biopsy with risk of infection, bleeding and Pain, 100 men will have their prostate removed by surgery or radiation treatments and 60-70 of those will suffer incontinence or impotence. There is also the risk of anesthesia or radiation complications. For men over 70 prostate cancer screening offered no benefit and risked pain, worry, expense and possibly shorter life expectancy. [email or web address] Not available 11/20/2023 17:00:23 Reason for Referral General Surgeon Referral for Left inguinal hernia Referring Physician: Kavon Lomax, Family Medicine, Encounter Date: 11/24/2023 Results Created Date Observation Date Name Description Value Unit Range Abnormal Flag Note LastModifiedBy Organization Detail LastModifiedTime 08/18/2008/19/2023 GLUCO SE glucose 102 mg/dL 70-100 high Not Available [address], [address], 08/19/2023 10:56:33 08/18/2008/20/2023 VITAM IN B12 vitamin B12 501 pg/mL 230-10 50 Not Available [address], [address], 08/20/2023 15:40:10 08/18/2008/20/2023 LYME SCREE N, REFLE X TO IGG AND IGM borrelia burgdorferi IgG/IgM Ab NEG negati ve normal <=0.9 0 - Negat sarahi 0.91 - 1.09 - Equiv ocal >=1.1 0 - Posit sarahi Inter preta tion: If Borre mahogany VlsE1 pep C10 (IgG, IgM) Antib adonis is posit sarahi, the sampl e is refle xed to B. burgd orfer i IgG and B. burgd orfer i IgM. If the infec tion is recen t and the B. burgd orfer i IgM is posit sarahi, then this is good evide nce to confi rm recen t infec tion. If the infec tion is more than 30 days, and B. burgd orfer i IgG resul t is posit sarahi, then this is good evide nce of curre nt or past infec tion. A negat sarahi B. burgd orfer i VlsE1 pepC1 0 (IgG, IgM) scree n is consi dered negat sarahi for infec tion. Not Available [address], [address], 08/20/2023 15:42:06 08/18/2008/21/2023 YESICA SCREE N, IFA, W/REF L TITER AND PATTE RN YESICA screen, ifa NEGATI VE negati ve normal YESICA IFA is a first line scree n for detec ting the prese nce of up to appro ximat cori 150 autoa ntibo dies in vario us autoi mmune disea ses. A negat sarahi YESICA IFA resul t sugge sts an YESICA-a ssoci ated autoi mmune disea se is not prese nt at this time, but is not defin itive . If there is high clini tr suspi cion for Sjogr en's syndr ome, testi ng for anti- SS-A/ Ro antib adonis shoul d be consi dered . Anti- Khushi-1 antib adonis shoul d be consi dered for clini stephani suspe cted infla mmato ry myopa vadim . AC-0: Negat sarahi Inter natio nal Conse nsus on YESICA Riojas rns (http s://d oi.or g/10. 5135/ [facility]- 2017- 0052) For addit ional infor joe acuña, madhavi e refer to http: //[facility] acuña.Que stDia gnost ics.c om/fa q/FAQ 177 (This link is being provi ded for infor matio nal/ educa monika l purpo ses only. ) Not Available [facility] [address] [place] [address], [place], [address], 08/21/2023 13:58:40 08/18/20 23 08/21/2023 ANCA SCREE N WITH REFLE X TO TITER anca screen NEGATI VE negati ve normal ANCA Scree n inclu tru evalu ation for p-ANC A, c-ANC A and atypi tr p-ANC A. A posit sarahi ANCA scree n refle xes to titer and beulah rn(s) , e.g., cytop glenn riojas rn (c-AN CA), perin madisyn riojas rn (p-AN CA), or atypi tr p-ANC A beulah rn. c-ANC A and p-ANC A are obser belle in vascu litis , where as atypi tr p-ANC A is obser belle in IBD (Infl ammat ory Bowel Disea se). Atypi tr p-ANC A is detec carmen in about 55% to 80% of patie nts with ulcer ative colit is but only 5% to 25% of patie nts with Crohn 's disea se. Not Available [facility] [address] [place], [place], [address], 08/21/2023 13:58:42 08/18/20 23 08/21/2023 RPR RPR NON-RE ACTIVE nonrea ctive Not Available [address], [address], 08/21/2023 14:44:38 12/01/19 24 12/01/2023 HGB A1C hemoglobin A1C 5.5 % 4.8-6. 0 Goal: <7% in Patie nts with Diabe gege An A1c betwe en 5.7-6 .4% is ident ified as pre-d iabet es and sugge sts risk for progr essio n to diabe gege Two a1c value s of 6.5% or highe r is consi stent with a diagn osis of diabe gege but may need furth er confi rmati on Not Available [address], [address], 12/01/2023 14:32:09 12/01/19 24 12/01/2023 HGB A1C estimated average glucose 111.2 mg/dL Not Available [address], [address], 12/01/2023 14:32:09 12/01/19 24 12/01/2023 COMP. METAB OLIC PANEL glucose 96 mg/dL 70-100 Not Available [address], [address], 12/01/2023 16:08:09 12/01/19 24 12/01/2023 COMP. METAB OLIC PANEL BUN 12 mg/dL 7-18 Not Available [address], [address], 12/01/2023 16:08:09 12/01/19 24 12/01/2023 COMP. METAB OLIC PANEL creatinine 1.1 mg/dL 0.8-1. 3 Not Available [address], [address], 12/01/2023 16:08:09 12/01/19 24 12/01/2023 COMP. METAB OLIC PANEL B/C 10.9 ratio Not Available [address], [address], 12/01/2023 16:08:09 12/01/19 24 12/01/2023 COMP. METAB OLIC PANEL GFR >=60ML /MIN mL/mi n normal >=60m L/min - Corina l or midly reduc ed <60mL /min- Decre ased kidne y funct ion <15mL /min - Kidne y failu re [facility] calcu lates estim ated Glome rular Filtr ation Rate (eGFR ) using the Chron ic Kidne y Disea se Epide miolo gy Colla borat ion (CKD- EPI) Equat ion (Fabiola r et. al 2020) as recom wang d by the Natio nal Kidne y Found ation . eGFR is based on age, serum creat inine , and sex. CKD-E PI does not calcu late eGFR by race, does not apply to child isauro (age <18 years ), and shoul d not be used in pregn gianna. Not Available [address], [address], 12/01/2023 16:08:09 12/01/19 24 12/01/2023 COMP. METAB OLIC PANEL sodium 141 mmol/ L 136-14 5 Not Available [address], [address], 12/01/2023 16:08:09 12/01/19 24 12/01/2023 COMP. METAB OLIC PANEL potassium 4.5 mmol/ L 3.5-5. 1 Not Available [address], [address], 12/01/2023 16:08:09 12/01/19 24 12/01/2023 COMP. METAB OLIC PANEL chloride 104 mmol/ L 96-107 Not Available [address], [address], 12/01/2023 16:08:09 12/01/19 24 12/01/2023 COMP. METAB OLIC PANEL anion gap 9.1 5.0-15 .0 Not Available [address], [address], 12/01/2023 16:08:09 12/01/19 24 12/01/2023 COMP. METAB OLIC PANEL CO2 28 mmol/ L 21-32 Not Available [address], [address], 12/01/2023 16:08:09 12/01/19 24 12/01/2023 COMP. METAB OLIC PANEL calcium 8.9 mg/dL 8.5-10 .3 Not Available [address], [address], 12/01/2023 16:08:09 12/01/19 24 12/01/2023 COMP. METAB OLIC PANEL total protein 6.1 g/dL 6.4-8. 2 low Not Available [address], [address], 12/01/2023 16:08:09 12/01/19 24 12/01/2023 COMP. METAB OLIC PANEL albumin 3.5 g/dL 3.4-5. 0 Not Available [address], [address], 12/01/2023 16:08:09 12/01/19 24 12/01/2023 COMP. METAB OLIC PANEL globulin 2.6 g/dL Not Available [address], [address], 12/01/2023 16:08:09 12/01/19 24 12/01/2023 COMP. METAB OLIC PANEL A/G 1.3 ratio 0.8-2. 0 Not Available [address], [address], 12/01/2023 16:08:09 12/01/19 24 12/01/2023 COMP. METAB OLIC PANEL total bilirubin 1.00 mg/dL 0.00-1 .00 Not Available [address], [address], 12/01/2023 16:08:09 12/01/19 24 12/01/2023 COMP. METAB OLIC PANEL AST 30 U/L 0-37 Not Available [address], [address], 12/01/2023 16:08:09 12/01/19 24 12/01/2023 COMP. METAB OLIC PANEL ALT 37 U/L 6-63 Not Available [address], [address], 12/01/2023 16:08:09 12/01/19 24 12/01/2023 COMP. METAB OLIC PANEL alk. phos. 67 U/L 50-136 Not Available [address], [address], 12/01/2023 16:08:09 12/01/19 24 12/01/2023 LIPID PANEL cholesterol 214 mg/dL <200 mg/dl Reginaldo able 200-2 39 mg/dl Borde rline High >240 mg/dl High Not Available [address], [address], 12/01/2023 16:08:10 12/01/19 24 12/01/2023 LIPID PANEL triglyceride s 74 mg/dL <150 mg/dL Corina l 150-1 99 mg/dL Borde rline High 200-4 99 mg/dL High >500 mg/dL Very High Not Available [address], [address], 12/01/2023 16:08:10 12/01/19 24 12/01/2023 LIPID PANEL direct HDL 70 mg/dL <40 mg/dl - Major Risk for CHD >60 mg/dl - Negat sarahi Risk for CHD Not Available [address], [address], 12/01/2023 16:08:10 12/01/19 24 12/01/2023 LDL - CALCU LATED LDL - calculated 129.2 RISK CATEG ORY LDL GOAL _ CHD or CHD Risk Equiv alent s <100 mg/dl (10-y ear risk >20%) 2+ Risk Facto rs <130 mg/dl (10-y ear risk <= 20%) 0-1 Risk Facto r??? <160 mg/dl ??? Almos t all peopl e with 0-1 risk facto r have a 10 year risk <10%, thus 10 year risk asses ment in peopl e with 0-1 risk facto r is not neces aviva. Not Available [address], [address], 12/01/2023 16:08:11 07/30/20 23 07/30/2023 XR, cervi tr spine CLINIC AL HISTOR Y: Pain and discom fort in the finger s. Radicu lopath y. No injury . TECHNI QUE: AP, latera l and odonto id views of the cervic al spine obtain ed. Bilate ral obliqu e views added. COMPAR HAIM: None. FINDIN GS: Verteb ral body alignm ent is within physio logic limits . There is diffus e modera te osteop hytic spurri ng from C3-4 throug h C6-7. There is severe disc space narrow ing at C5-6. There is modera te disc space narrow ing television news photographer iorly at C6-7. The neural forami na are not optima lly visual ized howeve r there appear s to be neural forami nal narrow ing at these levels bilate rally. There is no fractu re. The prever tebral soft tissue s are unrema rkable . IMPRES KEIRY: 1. Diffus e degene rative disc diseas e that is most severe at C5-6 and C6-7. Suspec t bilate ral C5, C6 and C7 neural forami nal narrow ing. 2. No acute bony abnorm ality. Marjorie estrada Physic paige: Dot Godfrey ms [facility] (Imaging) [address] [place], [address], 08/01/2023 14:14:33 08/16/2008/15/2023 nerve condu ction study No observ ation record ed. [facility] Available 01/2023 11:42:35 08/19/2008/16/2023 MRI, cervi tr spine , w/o contr ast No observ ation record ed. BAR[facility] Not Available 2022 07:43:01 08/05/20 24 08/04/2024 nerve condu ction study No observ ation record ed. [facility] [address], [place], [address], 08/05/2024 09:31:35 Result Notes None recorded. Problems Name Problem SNOMED Code Status Onset Date Resolution Date Notes Provider Name and Address Organization Details Recorded Time Mixed hyperlipi demia 377731752 Active 2003 Not Available [facility] 3 11:44:38 Injury of shoulder region 446958783 Completed 200402/15/2013 Not Available [facility] 3 03:03:32 Varicose veins of lower extremity 03339280 Completed 02/15/2013 Not Available [facility] 3 03:03:32 Presbyopi a 40305535 Completed 200501/31/2012 Not Available [facility] 3 03:03:32 Precordia l pain 95554409 Completed 200202/15/2013 Not Available [facility] 3 03:03:32 Migraine without aura 73306322 Completed 200708/17/2010 Not Available [facility] 3 03:03:32 Phlebitis and thromboph lebitis Completed 200008/17/2010 Not Available [facility] 3 03:03:32 Lateral epicondyl itis 092032723 Completed 200202/15/2013 Not Available [facility] 3 03:03:32 Neck pain 69256494 Completed 200401/31/2012 Not Available [facility] 3 03:03:32 Allergic rhinitis 70334453 Completed 200108/17/2010 Not Available [facility] 3 03:03:32 Epidermoi d cyst of skin 269572461 Completed 200201/31/2012 Not Available [facility] 3 03:03:32 Acute suppurati ve otitis media without spontaneo us rupture of ear drum 69753879 Completed 200008/17/2010 Not Available [facility] 3 03:03:32 Sciatica 03203576 Completed 200102/15/2013 Not Available [facility] 3 03:03:32 Knee pain Completed 200108/17/2010 Not Available [facility] 3 03:03:32 Sprain of shoulder and upper arm Completed 200402/15/2013 Not Available [facility] 3 03:03:32 Hyperlipi demia 75713088 Completed 200108/17/2010 Not Available [facility] 3 03:03:32 Acute bronchiti s 25669406 Completed 200502/15/2013 Not Available [facility] 3 03:03:32 Otogenic otalgia 37378461 Completed 200108/17/2010 Not Available [facility] 3 03:03:32 Headache 75353742 Completed 200508/17/2010 Not Available [facility] 3 03:03:32 Disorder of tendon of shoulder region 52000061 Completed 200408/17/2010 Not Available [facility] 3 03:03:32 Migraine variants 273388980 Completed 200608/17/2010 Not Available [facility] 3 03:03:32 Cough 30100495 Completed 200508/17/2010 Not Available [facility] 3 03:03:32 Shoulder pain 43475941 Completed 01/31/2012 Not Available [facility] 3 03:03:32 Shoulder pain 01332298 Completed 200408/17/2010 Not Available [facility] 3 03:03:32 Generaliz ed anxiety disorder 33718624 Active Not Available [facility] 3 11:44:38 Migraine with aura 9062054 Completed 200402/15/2013 Not Available [facility] 3 03:03:32 Astigmati sm 48363675 Completed 200502/15/2013 Not Available [facility] 3 03:03:32 Impacted cerumen 62956668 Completed 200708/17/2010 Not Available [facility] 3 03:03:32 Abnormali ty of systemic vein [id number] Completed 200002/15/2013 Not Available [facility] 3 03:03:32 Allergic asthma without status asthmatic 60892456 Completed 200102/15/2013 Not Available [facility] 3 03:03:32 Insomnia 465308928 Completed 01/31/2012 Harjinder Raymond MD [address] [place] [address], [phone] , [facility] 7 11:37:01 Common cold 12210933 Completed 200408/17/2010 Not Available [facility] 3 03:03:32 Hand joint pain 094636351 Completed 01/31/2012 Not Available [facility] 3 03:03:32 Inflammat ory disorder of extremity 895927961 Completed 200008/17/2010 Not Available [facility] 3 03:03:32 On examinati on - a rash Completed 200708/17/2010 Not Available [facility] 3 03:03:32 Non-organ ic sleep disorder 947021771 Completed 200501/31/2012 Not Available [facility] 3 03:03:32 Injury of knee 746613980 Completed 200102/15/2013 Not Available [facility] 3 03:03:32 Hearing loss 77047321 Active 2007 Not Available [facility] 3 11:44:38 Thromboph lebitis of superfici al veins of upper extremiti es 30003730 Completed 200002/15/2013 Not Available [facility] 3 03:03:32 Migraine 69772886 Completed 200602/15/2013 [facility] Available [facility] 3 03:03:32 Tinnitus 79505783 Completed 01/31/2012 Not Available [facility] 3 03:03:32 Pain in limb 90778784 Completed 200008/17/2010 Not Available [facility] 3 03:03:32 Inguinal hernia 843273422 Active 2016 Not Available [facility] 3 11:44:38 Venous varices 242821126 Active 2016 Not Available [facility] 3 11:44:38 Insomnia 090184863 Active 2016 Not Available [facility] 3 11:44:38 M??ni??re 's disease 90717808 Active 2016 Not Available [facility] 3 11:44:38 Bilateral arthritis of hip [id number] 57160 Active 2019 Not Available [facility] 3 11:44:38 Right bundle branch block 74436902 Active 2022 Not Available [facility] 3 11:44:38 Pruritus ani 59945531 Active 2022 Not Available [facility] 3 11:44:38 Impaired fasting glycemia 587836084 Active 2023 very mild Kavonousmane Lomax . [address] [place] [address], [phone] , [facility] 19:13:09 Cervical myelopath y 338871095 Active 2023 Kavon Lomax . [place], [address] , [facility] 19:13:33 Problem Notes None recorded. Procedures Surgical History Date Name Laterality Status Provider Name and Address Organization Details Recorded Time 11/24/19 Medicare Wellness Visit completed BRIAN Brown [facility] 11/20/2023 17:00:24 11/24/19 24 Cardiovascular disease risk reduction counseling completed BRIAN Brown [facility] 11/20/2023 17:01:00 11/24/19 prevention-annual alcohol misuse screening completed BRIAN Brown [facility] 11/20/2023 17:00:59 10/10/20 excision of cervical intervertebral disc completed [place], [address], [facility] 11/23/2023 19:32:02 08/19/20 23 16823: Therapeutic Exercise cancelled Marianna Jain, OTR/L, CHT [address] [place], [address], [facility] 08/17/2023 18:02:48 08/19/20 23 86962: Manual Therapy cancelled Marianna Cristobal, OTR/L, CHT [address] [place], [address], [facility] 08/17/2023 18:02:44 08/12/20 23 81630: Therapeutic Exercise cancelled Marianna Iapazitecelinai, OTR/L, CHT [address] [place], [address], [facility] 08/10/2023 19:40:25 08/12/20 23 54446: Manual Therapy cancelled Marianna Amyitecelinai, OTR/L, CHT [address] [place], [address], [facility] 08/10/2023 19:40:20 08/01/20 23 Physical Activity Counselling completed Marianna Jain, OTR/L, CHT [address] [place], [address], [facility] 08/01/2023 09:22:38 08/01/20 23 90568: OT Eval, Low Complexity completed Marianna Jain, OTR/L, CHT [address] [place], [address], [facility] 08/01/2023 09:22:35 11/21/19 23 Medicare Wellness Visit completed Christa Palma [facility] 11/20/2022 16:28:06 11/21/19 23 Depression Screening completed Kavon Shoushtari. [address] [place] [address], [phone], [facility] 11/21/2022 09:51:03 11/21/19 23 prevention-annual alcohol misuse screening completed Kavon Shoushtari. [address] [place] [address], [phone], [facility] 11/21/2022 09:51:13 07/26/20 21 Tassoni - Colonoscopy completed Jadon Gifford MD [address] [place], [address], [facility] 07/26/2021 10:17:09 07/26/20 21 colonoscopy completed Kavon Shoushtari. [address] [place], [address], [facility] 07/30/2021 20:12:48 04/19/20 21 Medicare Wellness Visit completed Liliya Pitt [facility] 04/19/2021 11:59:20 04/19/20 21 prevention-cardiov ascular risk reduction counseling completed Liliya Pitt [facility] 04/19/2021 11:59:20 04/19/20 21 prevention-annual alcohol misuse screening completed Liliya Pitt [facility] 04/19/2021 11:59:20 04/19/20 21 Advanced Care Planning completed Kavon Shoushtari. [address] [place], [place] [address] [place], [address], [facility] 04/19/2021 12:19:26 04/12/20 20 Medicare Wellness Visit completed [facility] 04/12/2020 09:44:58 04/12/20 20 prevention-cardiov ascular risk reduction counseling completed [facility] 04/12/2020 09:44:58 04/12/20 20 prevention-annual alcohol misuse screening completed [facility] 04/12/2020 09:44:58 01/14/20 19 Medicare Wellness Visit completed Carmina De Leon LPN [facility] 01/13/2019 10:28:26 01/09/20 18 Medicare Wellness Visit completed Chrissy Rust LPN [facility] 01/08/2018 11:15:16 06/30/20 14 Aspiration Intermediate Joint/Bursa completed Sushil Simmons PA-C [address] [place] [address], [phone], [facility] 06/30/2014 17:05:51 02/05/20 11 Treatment and Advice completed Nhi Collazo, OT [address] [place], [address], [facility] 02/04/2011 12:50:47 Imaging Results Imaging Date Name Status LastModified by Organiz ation Details LastModified Time 07/30/2023 XR, cervical spine completed [facility] ([facility] [address] [place], [address], 08/01/2023 14:14:33 08/15/2023 nerve conduction study completed [facility] Information not available 08/16/2023 11:42:35 08/16/2023 MRI, cervical spine, w/o contrast completed [facility] Information not available 08/19/2023 07:43:01 08/04/2024 nerve conduction study completed [facility] [address] [place], [address], 08/05/2024 09:31:35 Procedure Notes None recorded. Medical Equipment None Reported. Allergies No known drug allergies Medications Name Sig Start Date Stop Date Status Note LastModified by Organization Details LastModified Time cyclobenz aprine 10 mg tablet TAKE 1 TABLET BY MOUTH EVERY DAY AT BEDTIME FOR 20 DAYS 09/22 completed Not Available Not Available Not Available flaxseed oil 2000 mg active Not Available Not Available Not Available gabapenti n 600 mg tablet 09/22 completed Not Available Not Available Not Available trazodone 50 mg tablet take one half tab to begin and may increase up to 2 tabs for insomnia 2009 active Not Available Not Available Not Avai lable alprazola m 1 mg tablet TAKE 1 TABLET BY MOUTH EVERY DAY NEEDED active Not Available Not Available No t Available hydrocodo ne 5 mg-acetam inophen 325 mg tablet Take 1-2 TABLET EVERY 6 HOURS by oral route. For pain 2012 active Not Available Not Available Not Avai lable Keflex 500 mg capsule Take 1 capsule 4 times a day by oral route. 2013 active Not Available Not Available Not Avai lable ibuprofen 200 mg capsule active 2-3 daily prn Not Available Not Available Not Available Remeron 15 mg tablet Take 1 tablet every day by oral route at bedtime for 10 days. 06/11 completed Not Available Not Available Not Available prednison e 20 mg tablet TAKE 1 TABLET BY MOUTH TWICE A DAY IN THE MORNING & EARLY AFTERNOO N WITH FOOD FOR 5 DAYS 08/13 completed Not Available Not Available Not Available doxepin 10 mg capsule TAKE 1 CAPSULE BY MOUTH EVERY NIGHT AT BEDTIME 05/24 completed pt states not taken this med 04/12/2020 TG Not Available Not Available Not Available baclofen 20 mg tablet 1/2-1 tab HS 03/04 completed Not Available Not Available Not Available Kenalog 40 mg/mL suspensio n for injection 60 mg IM x 1 2012 active Not Available Not Available Not Avai lable alprazola m 0.5 mg tablet TAKE 1 TABLET BY MOUTH EVERY 6 HOURS NEEDED 2008 active Not Available Not Available Not Avai lable amitripty line 10 mg tablet TAKE 2 TABLETS BEFORE BED. active Not Available Not Available No t Available meclizine 25 mg tablet Take 1 tablet 3 times a day by oral route as needed for 5 days. 04/06 completed Not Available Not Available Not Available clotrimaz ole-betam ethasone 1 %-0.05 % topical cream APPLY TO AFFECTED AREA TWICE A DAY FOR 2 WEEKS TOPICALL Y IN THE MORNING AND EVENING active Not Available Not Available No t Available docusate sodium 100 mg capsule TAKE 1 CAPSULE BY MOUTH TWICE DAILY 09/22 completed Not Available Not Available Not Available gabapenti n 300 mg capsule TAKE 1 CAPSULE BY MOUTH EVERYDAY AT BEDTIME 11/23 completed NOT USING 09/22/23 mh Not Available Not Available Not Available hydrochlo rothiazid e 25 mg tablet Take 1 tablet every day by oral route. 2009 active Not Available Not Available Not Avai lable zolpidem 10 mg tablet TAKE 1 TABLET BY MOUTH EVERY DAY AT BEDTIME NEEDED active half tablest has needed -- 11/24/23 NR Not Available Not Available Not Available ketorolac 60 mg/2 mL intramusc ular solution 60 mg IM 06/26 completed Not Available Not Available Not Available celecoxib 100 mg capsule Take 1 capsule twice a day by oral route with meals for 10 days. 04/19 completed Not Available Not Available Not Available Percocet 5 mg-325 mg tablet Take 1 tablet every 6 hours by oral route as needed. 2012 active Not Available Not Available Not Avai lable fluticaso ne propionat e 50 mcg/actua tion nasal spray,kiki pension SPRAY 1 SPRAY BY INTRANAS AL ROUTE EVERY DAY DIRECTED FOR 30 DAYS 03/04 completed Not Available Not Available Not Available doxycycli ne hyclate 100 mg tablet TAKE 2 TABLETS BY MOUTH ONCE WITH FOOD 06/10 completed Not Available Not Available Not Available amoxicill in 875 mg-potass ium clavulana te 125 mg tablet Take 1 tablet every 12 hours by oral route for 10 days. 08/27 completed Not Available Not Available Not Available oxycodone 5 mg tablet TAKE 1 TABLET (5 MG TOTAL) BY MOUTH EVERY 4 HOURS NEEDED active Not Available Not Available No t Available Lyrica 100 mg capsule TAKE 1 CAPSULE BY MOUTH EVERYDAY AT BEDTIME 03/04 completed Not Available Not Available Not Available Rozerem 8 mg tablet Take 1 tablet every day by oral route. 07/20 completed Not Available Not Available Not Available Fish Oil active 1 daily Not Available Not Chelsey ilable Not Available Vitamin D 2000unit daily active Not Available Not Available No t Available Ginkoba 05/24 completed pt states not taken this med 04/12/2020 TG Not Available Not Available Not Available Baby Aspirin Takes half of 81mg daily active Not Available Not Available No t Available Vitamin D3 10 mcg (400 unit) capsule active 1 daily Not Available Not Available Not Available PreviDent 5000 Sensitive 1.1 %-5 % dental paste USE TWICE A DAY 01/08 completed Not Available Not Available Not Available oxycodone 10 mg tablet 11/23 completed NOT USING 09/22/23 mh Not Available Not Available Not Available GaviLyte- G 236 gram-22.7 4 gram-6.74 gram-5.86 gram oral solution DRINK 8 OUNCES OF LIQUID EVERY 10 MINUTES INTERVAL UNTIL RECTAL EFFULENT IS CLEAR OR BOWEL MOVEMENT 03/04 completed Not Available Not Available Not Available Fluzone High-Dose 2246-2196 (PF) 180 mcg/0.5 mL intramusc ular syringe TO BE ADMINIST ERED BY Vicampo FOR IMMUNIZA TION 01/02 completed Not Available Not Available Not Available Fish Oil 1,000 mg (120 mg-180 mg) capsule Take 1 capsule every day by oral route. active Not Available Not Available No t Available Afluria Qd 2019- (36 mos up)(PF)60 mcg (15 mcg x4)/0.5 mL IM syringe ADM 0.5ML IM UTD 01/04 completed Not Available Not Available Not Available Paxlovid 300 mg (150 mg x 2)-100 mg tablets in a dose pack TAKE 3 TABLETS BY MOUTH TWICE A DAY FOR 5 DAYS active Not Available Not Available No t Available Vitals Date Recorded Body height Body mass index (BMI) Body weight Provider Name and Address Organization Details Last Updated DateTime 08/13/2023 180.34 cm 25.1 kg/m2 39787.63 g Paola Marie Daiana [facility] 08/13/2023 13:11:04 Date Recorded Body height Provider Name an d Address Organization Details Last Updated DateTime 09/22/2023 180.34 cm Christa Palma [facility] 09/22/2023 11:20:42 Date Recorded Body height Body mass index (BMI) Body weight Oxygen saturation Oxygen saturation in Arterial blood by Pulse oximetry Heart rate Systolic blood pressure Diastolic blood pressure Provider Name and Address Organization Details Last Updated DateTime 4 180.34 cm 25.8 kg/m2 72307.5 9 g 98 % 98 % 63 /min 110 mm[Hg] 80 mm[Hg] BRIAN Brown [facility] 4 10:23:44 Date Recorded Body height Heart rate Body temperature Systolic blood pressure Diastolic blood pressure Provider Name and Address Organization Details Last Updated DateTime 03/04/2024 180.34 cm 62 /min 98.9 [degF] 127 mm[Hg] 78 mm[Hg] Kavon gastelum MD [address] [place] [address], [phone] [place] [address] 4 10:48:51 Social History Question Answer Notes LastModified by Organizat ion Details LastModified Time Tobacco Smoking Status Never Smoker LupemarvinBRIAN Neri [facility] 06/11/2022 13:30:52 What Is Your Level Of Alcohol Consumption? Moderate 1-2 Nightly. Information not available 11/24/2023 Do You Wear A Helmet When Biking? Yes Information not available 11/10/2015 What Is Your Level Of Caffeine Consumption? Moderate 2 Cups Coffee Qd Information not available 02/16/2013 How Much Tobacco Do You Chew? None Information not available 02/16/2013 Are You Currently Employed? Yes Information not available 11/21/2022 What Type Of Diet Are You Following? REGULAR Information not available 02/16/2013 Which Illicit Or Recreational Drugs Have You Used? None Information not available 04/19/2021 Do You Or Have You Ever Used E-cigarettes Or Vape? Never Used Electronic Cigarettes Information not available 06/11/2022 Education Post Graduate Masters Information not available 02/16/2013 What Is The Highest Grade Or Level Of School You Have Completed Or The Highest Degree You Have Received? 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 Yes Loss His Dog 3 Weeks Ago 11/24/23 NR [email or web address] Information not available 11/24/2023 How Many Days In The Past Year Have You Had A Heavy Drinking Consumption (4+ Female, 5+ Male)? 0 Information not available 11/10/2015 Are There Any Guns Present In Your Home? No Information not available 02/16/2013 Do You Use Insect Repellent Routinely? No [email or web address] Information not available 11/21/2022 Live Alone Or With Others? [email or web address] Information not available 04/19/2021 CSRP Contract Signed And Discussed Yes [email or web address] Information not available 03/25/2017 Does The Patient Have Difficulty Speaking Swedish? No Information not available 02/16/2013 Does The Patient Have Difficulty Reading Swedish? No Information not available 02/16/2013 Patient Has Health Care Proxy Signed And In Chart Yes 03/25/17 [email or web address] Information not available 04/20/2021 CCM Consent Discussion 03/26/2017 [email or web address] Information not available 09/25/2017 Marital Status [email or web address] Informatio n not available 02/16/2013 Mosquito Repellent Used Routinely Yes Information not available 02/16/2013 What Was The Date Of Your Most Recent Tobacco Screening? 09/22/2023 [email or web address] Information not available 11/24/2023 How Many Children Do You Have? [facility] Information not available 11/24/2023 What Is Your Relationship Status? Female [facility]ouse [facility] Information not available 11/21/2022 Do You Use Your Seat Belt Or Car Seat Routinely? Yes [email or web address] Information not available 11/21/2022 Seat Belts Used Routinely Yes Information not available 02/16/2013 Smoke Alarm In Home Yes Information not available 02/16/2013 Do You Have Smoke And Carbon Monoxide Detectors In Your Home? Yes [email or web address] Information not available 11/21/2022 Are You Passively Exposed To Smoke? No [email or web address] Information not available 11/21/2022 Do You Or Have You Ever Used Smokeless Tobacco? Never Used Smokeless Tobacco [email or web address] Information not available 06/11/2022 General Stress Level [email or web address] Information not available 02/16/2013 Do You Use Any Illicit Or Recreational Drugs? Yes Cannabis Information not available 11/21/2022 Do You Use Sunscreen Routinely? Yes Information not available 02/16/2013 Sex: Male Functional Status Question Answer Note LastModified by Organizat ion Details LastModified Time What is your exercise level? Moderate biking in good weather, home exercises, walking and light weight in winter [email or web address] Information not available 11/24/2023 Mental Status None recorded. Family History Relationship Description Onset Age of this Age Resolved Age Notes LastModified by Organization Details LastModified Time Father Essential hypertension 63 [email or web address] Not available 0 04/19/2021 12:11:27 Father Aortic aneurysm 63 [email or web address] Not available 05/2021 12:11:52 Father Hyperlipidem ia [email or web address] Not available 05/2021 12:12:42 Mother Crohn's disease 81 [email or web address] Not available 05/2021 12:12:16 Sister Diabetes mellitus [email or web address] Not available 05/2021 12:12:30 Sister Hyperlipidem ia [email or web address] Not available 05/2021 12:12:42 Sister Malignant tumor of breast [email or web address] Not available 05/2021 12:12:55 Notes:Cardiovascular: Family history is remarkable for hypertension. Gastrointestinal: Family history is remarkable for Crohn's disease. Endocrine: Family history is remarkable for diabetes mellitus and hyperlipidemia. Medical History No medical history recorded. Immunizations Vaccine Type Date Status Note Provider Nam e and Address Organization Details Recorded Time Td(adult) unspecified formulation 6 completed LISSETH Yeh, [facility] 06/30/2023 12:15:10 influenza, unspecified formulation 7 completed Laurence Pinto RN null, [facility] 06/30/2023 12:15:10 Influenza, split virus, quadrivalent, PF 5 completed Not Available [facility] 10/30/2019 02:27:11 zoster live 6 completed Not Available [facility] 10/30/2019 02:33:41 pneumococcal polysaccharide PPV23 6 completed Not Available [facility] 10/30/2019 02:20:15 Pneumococcal conjugate PCV 13 7 completed Not Available [facility] 10/30/2019 02:38:50 Tdap 2 completed Laurence Pinto RN null, [facility] 06/30/2023 12:15:10 influenza, unspecified formulation 4 completed Laurence Pinto RN null, [facility] 06/30/2023 12:15:10 Influenza, high-dose, trivalent, PF 7 completed Not Available [facility] 10/30/2019 02:21:40 Influenza, high-dose, trivalent, PF 8 completed Not Available [facility] 10/30/2019 02:23:02 Influenza, high-dose, trivalent, PF 6 completed Laurence Pinto RN null, [facility] 06/30/2023 12:15:10 Td (adult), 2 Lf tetanus toxoid, preservative free, adsorbed 2 completed Kavon Lomax. [address] [place] [address], [phone], [facility] 06/11/2022 14:22:55 pneumococcal polysaccharide PPV23 2 completed Kavon Lomax. [address] [place] [address], [phone], [facility] 06/11/2022 14:22:55 COVID-19, mRNA, LNP-S, PF, 30 mcg/0.3 mL dose 1 completed Laurence Pinto RN null, [facility] 06/30/2023 12:15:10 COVID-19, mRNA, LNP-S, PF, 30 mcg/0.3 mL dose 1 completed Laurence Pinto RN null, [facility] 06/30/2023 12:15:10 Influenza, split virus, quadrivalent, preservative 0 completed Laurence Pinto RN null, [facility] 06/30/2023 12:15:10 COVID-19, mRNA, LNP-S, PF, 30 mcg/0.3 mL dose 1 completed Laurence Pinto RN null, [facility] 06/30/2023 12:15:10 Influenza, split virus, quadrivalent, preservative 1 completed Laurence Pinto RN null, [facility] 06/30/2023 12:15:10 COVID-19, mRNA, LNP-S, PF, 30 mcg/0.3 mL dose 2 completed Laurence Pinto RN null, [facility] 06/30/2023 12:15:10 Influenza, split virus, quadrivalent, PF 0 completed Laurence Pinto RN null, [facility] 06/30/2023 12:15:10 influenza, unspecified formulation 2 completed Laurence Pinto RN null, [facility] 06/30/2023 12:15:10 COVID-19, mRNA, LNP-S, bivalent, PF, 3 mcg/0.2 mL dose 2 completed Laurence Pinto RN null, [facility] 06/30/2023 12:15:10 RSV, recombinant, protein subunit RSVpreF, adjuvant reconstituted, 0.5 mL, PF 3 completed Laurence Pinto RN null, [facility] 06/30/2023 12:15:10 zoster recombinant 1 completed BRIAN Brown null, [facility] 07/22/2023 16:16:01 zoster recombinant 1 completed BRIAN Brown null, [facility] 07/22/2023 16:16:11 Influenza, high-dose, quadrivalent, PF 3 completed BRIAN Brown null, [facility] 07/22/2023 16:16:41 COVID-19, mRNA, LNP-S, PF, willis-sucrose, 10 mcg/0.3 mL 3 completed Stephanie, BRIAN Daron [facility] 07/22/2023 16:16:55 Past Encounters Encounter ID Performer Location Encounter Start Date Encounter Closed Date Diagnosis/Indication Diagnosis SNOMED-CT Code Diagnosis ICD10 Code [id number] [facility] , [facility] [address] [place] [id number] 02/03/2001 15:00:00 11/02/2008 02:02:29 [id number] SADIE [facility], OFFICE [address] [place] [address] 02/03/2001 08:15:00 11/02/2008 02:02:29 [id number] SADIE [facility], OFFICE [address] [place] [address] 02/19/2001 13:30:00 11/02/2008 02:02:29 [id number] SADIE [facility], OFFICE [address] [place] [address] 03/12/2001 13:00:00 11/02/2008 02:02:29 [id number] Radiology , [facility] [address] [place] [id number] 03/20/2001 15:00:00 11/02/2008 02:02:29 [id number] [facility], OFFICE [address] [place] [address] 03/20/2001 10:00:00 11/02/2008 02:02:29 [id number] [facility], OFFICE [address] [place] [address] 04/10/2001 12:45:00 11/02/2008 02:02:29 [id number] SADIE [facility], OFFICE [address] [place] [address] 10/12/2001 14:30:00 11/02/2008 02:02:29 [id number] SADIE [facility], OFFICE [address] [place] [address] 10/26/2001 11:30:00 11/02/2008 02:02:29 [id number] SADIE [facility], OFFICE [address] [place] [address] 05/05/2002 09:03:50 11/02/2008 02:02:29 [id number] [facility] - [facility] [address] [place] [id number] 05/05/2002 07:41:57 11/02/2008 02:02:29 [id number] Radiology , [facility] [address] [place] [id number] 05/31/2002 17:21:50 11/02/2008 02:02:29 [id number] SADIE [facility], OFFICE [address] [place] [address] 05/31/2002 16:40:58 11/02/2008 02:02:29 [id number] SADIE [facility], OFFICE [address] [place] [address] 1 08/24/2002 11:25:12 11/02/2008 02:02:29 [id number] SADIE [facility], OFFICE [address] [place] [address] 1 06/29/2003 11:30:23 06/29/2003 17:45:12 [id number] LAB - [facility] [place] [address] 1 06/30/2003 07:39:51 06/30/2003 12:56:35 [id number] ASPC, [facility] [address] [place] [id number] 1 01/18/2004 10:14:28 01/18/2004 17:48:28 [id number] SADIE [facility], OFFICE [address] [place] [address] 1 05/15/2004 13:13:42 05/16/2004 08:39:31 [id number] LAB - [facility] [place] [address] 1 05/18/2004 07:31:25 05/18/2004 08:59:02 [id number] SADIE [facility], OFFICE [address] [place] [address] 1 01/15/2005 09:34:53 01/17/2005 08:36:24 [id number] Radiology , [facility] [address] [place] [id number] 1 02/01/2005 11:10:01 02/01/2005 15:52:52 [id number] Radiology , [facility] [address] [place] [address] 1 02/01/2005 00:00:00 11/02/2008 02:02:29 [id number] Physical Therapy, [facility] [place] [place] [address] 1 02/05/2005 08:12:44 02/05/2005 08:29:55 [id number] Physical Therapy, [facility] [address] [place] [address] 1 02/15/2005 08:24:31 02/18/2005 10:04:56 [id number] , [facility], OFFICE [address] [place] [address] 1 02/01/2005 10:54:42 02/01/2005 16:29:03 [id number] , [facility], OFFICE [address] [place] [address] 1 02/21/2005 14:22:21 02/21/2005 16:04:19 [id number] Radiology , [address] [place] [address] 1 02/21/2005 14:50:47 02/21/2005 15:41:55 [id number] Radiology , [address] [place] [address] 1 02/21/2005 00:00:00 11/02/2008 02:02:29 [id number] , [facility], OFFICE [address] [place] [address] 06/29/2005 13:33:03 06/30/2005 09:35:19 [id number] , [facility], OFFICE [address] [place] [address] 1 12/27/2005 11:49:15 12/30/2005 08:51:54 [id number] [facility], OFFICE [address] [place] [address] 1 01/13/2006 08:47:15 01/13/2006 14:43:40 [id number] Radiology , [address] [place] [address] 1 02/10/2006 09:05:08 02/10/2006 10:03:13 [id number] Radiology , [address] [place] [id number] 1 02/10/2006 00:00:00 11/02/2008 02:02:29 [id number] Eye Care, [facility] [place] [address] 1 04/21/2006 09:52:50 04/21/2006 12:55:24 [id number] , [facility], OFFICE [address] [place] [address] 1 07/09/2006 07:55:47 07/10/2006 07:11:21 [id number] [facility], OFFICE [address] [place] [address] 1 03/05/2007 16:39:52 03/06/2007 08:14:04 [id number] Radiology , [facility] [address] [place] [address] 1 03/05/2007 17:13:21 03/05/2007 17:23:05 [id number] Radiology , [facility] [address] [place] [address] 1 03/05/2007 00:00:00 11/02/2008 02:02:29 [id number] FP, [facility], OFFICE [address] [place] [address] 1 08/17/2007 10:02:01 08/18/2007 11:31:32 [id number] FP, [facility], OFFICE [address] [place] [address] 1 04/08/2008 12:04:44 11/02/2008 02:02:29 [id number] FP, [facility], OFFICE [address] [place] [address] 1 07/21/2008 10:26:14 11/02/2008 02:02:29 [id number] FP, [facility], OFFICE [address] [place] [address] 1 10/23/2009 14:46:20 10/23/2009 16:15:48 [id number] FP, [facility], OFFICE [address] [place] [address] 1 12/04/2009 13:29:35 12/05/2009 10:05:56 [id number] FP, [facility], OFFICE [address] [place] [address] 1 05/29/2010 09:11:13 05/29/2010 14:06:34 [id number] FP, [facility], OFFICE [address] [place] [address] 1 07/17/2010 10:03:30 07/17/2010 11:20:53 [id number] Radiology , [facility] [address] [place] [id number] 1 07/17/2010 10:22:12 07/18/2010 11:06:53 [id number] FP, [facility], OFFICE [address] [place] [address] 1 08/17/2010 08:49:20 08/17/2010 09:26:46 [id number] Radiology , [facility] [address] [place] [id number] 1 09/21/2010 08:56:13 09/24/2010 11:02:45 [id number] FP, [facility], OFFICE [address] [place] [address] 1 01/31/2011 09:03:08 02/01/2011 08:54:47 [id number] Physical Therapy, [facility] [place] [address] 1 02/04/2011 12:02:28 02/05/2011 11:15:33 [id number] Physical Therapy, [facility] [place] [address] 1 02/07/2011 09:23:39 02/08/2011 10:04:06 [id number] Physical Therapy, [facility] [place] [address] 1 02/13/2011 09:23:27 02/14/2011 11:16:55 [id number] SADIE [facility], OFFICE [address] [place] [address] 1 11/25/2011 08:43:52 11/25/2011 09:18:15 [id number] Physical Therapy, [facility] [place] [address] 1 01/07/2012 13:41:13 01/08/2012 16:15:11 [id number] Physical Therapy, [facility] [place] [address] 1 01/20/2012 14:26:25 01/21/2012 14:31:15 [id number] SADIE [facility], OFFICE [address] [place] [address] 1 01/31/2012 14:59:37 01/31/2012 15:57:55 [id number] Physical Therapy, [facility] [place] [address] 1 02/10/2012 15:00:15 02/11/2012 09:24:11 [id number] Physical Therapy, [facility] [place] [address] 1 02/18/2012 14:32:02 02/19/2012 10:14:44 [id number] Physical Therapy, [facility] [place] [address] 1 02/25/2012 14:28:13 02/26/2012 09:51:59 [id number] Physical Therapy, [facility] [place] [address] 1 03/11/2012 14:25:26 03/12/2012 10:23:45 [id number] Physical Therapy, [facility] [place] [address] 1 03/12/2012 12:41:13 03/12/2012 12:41:20 [id number] Fabrizio Dotson III, MD , [facility], OFFICE [address] [place] [address] [place] [address] 1 11/12/2012 14:31:15 11/12/2012 14:47:44 [id number] Karon Sims LPN , [facility], OFFICE [address] [place] [address] [place] [address] 1 02/16/2013 09:23:45 02/16/2013 09:57:11 [id number] Fabrizio Dotson III, MD , [facility], OFFICE [address] [place] [address] 1 04/07/2013 14:22:56 04/07/2013 14:47:16 [id number] Karon Sims LPN , [facility], OFFICE [address] [place] [address] [place] [address] 1 07/02/2013 16:42:01 07/02/2013 17:38:01 Low back pain 356335077 [id number] Deanna Prasad , [facility], OFFICE [address] [place] [address] [place] [address] 1 07/06/2013 14:21:27 07/06/2013 14:51:25 Low back pain 067801400 Acute sciatica 556828264 [id number] Skye BowenKatharina holloway Physical Therapy, [address] [place] [address] 1 07/12/2013 14:58:33 07/13/2013 15:26:03 [id number] Sandrita Ron, PT Physical Therapy, [address] [place] [id number] 1 07/13/2013 14:45:20 07/13/2013 14:45:32 [id number] [facility], [address] [place] [id number] 1 07/16/2013 08:17:59 07/20/2013 11:08:26 [id number] Skye BowenKatharina holloway Physical Therapy, [address] [place] [address] 1 07/23/2013 08:56:20 07/26/2013 07:39:55 [id number] Skye BowenKatharina holloway Physical Therapy, [address] [place] [address] 1 08/06/2013 08:55:56 08/11/2013 08:46:05 [id number] [facility], [facility] [address] [place] [address] 1 08/13/2013 09:24:57 08/16/2013 08:52:10 Low back pain 646382956 [id number] Sherin Carlin MA , [facility], OFFICE [address] [place] [address] 1 06/30/2014 15:41:30 06/30/2014 17:00:50 Varicella vaccination 19465377 Olecranon bursitis 62535 0002 [id number] Rose España MA , [facility], OFFICE [address] [place] [address] 1 07/01/2014 13:36:10 07/01/2014 14:16:28 Olecranon bursitis 776853558 [id number] Deanna Prasad , [facility], OFFICE [address] [place] [address] 1 08/04/2014 10:30:44 08/04/2014 11:00:48 Mixed hyperlipidemia 993272436 Adult heal th examination 920068544 Counseling 651493308 Hearing loss 68834538 Olecranon bursitis 93001 0002 Primary insomnia 1024988 Anxiety disorder 2425913 06 Hernia of abdominal cavity 98065852 [id number] [facility], OFFICE [address] [place] [address] 1 08/11/2014 10:10:49 08/11/2014 10:32:15 Olecranon bursitis 000461843 [id number] [facility], OFFICE [address] [place] [address] 1 06/27/2015 08:59:18 06/28/2015 13:33:20 Generalized anxiety disorder 98883777 Primary insomnia 2104803 Influenza vaccine needed 5647255622 106 Cervical radiculitis 110 20825 Spinal bruno nosis in cervical region 92127790 [id number] Harjinder Raymond MD , [facility], OFFICE [address] [place] [address] 1 11/10/2015 13:39:27 11/10/2015 14:50:46 Screening for disorder 696273315 Z11.59 Varicella vaccination 68 239011 Z23 Mixed hyperlipidemia 267 562442 E78.2 Adult heal th examination 729358165 Z00.00 Counseling 340184316 Z71 .9 Generalize d anxiety disorder 74648073 F41.1 Hernia of abdominal cavity 36332902 K46.9 Lesion of eyelid 1977554 02 H02.89 Active or passive immunization 474746915 Z23 [id number] Harjinder Raymond MD , [facility], OFFICE [address] [place] [address] 1 01/02/2017 10:57:07 01/03/2017 13:21:00 Mixed hyperlipidemia 679473260 E78.2 Adult heal th examination 833696342 Z00.00 Counseling 729240919 Z71 .9 Insomnia 875069756 G47.0 0 Active or passive immunization 040657341 Z23 Venous varices 156328688 I83.90 [id number] Cristal Butt NP , [facility], OFFICE [address] [place] [address] 1 03/25/2017 09:00:16 03/26/2017 09:41:26 Screening for malignant neoplasm of colon 697386752 Z12.11 Laceration of finger 274 942842 S61.211A [id number] Harjinder Raymond MD , [facility], OFFICE [address] [place] [address] 1 06/11/2017 11:29:52 06/11/2017 11:58:15 Venous varices 823086319 I83.90 Active or passive immunization 253898656 Z23 M??ni??re's disease 1344 5001 H81.03 [id number] Carmina De Leon LPN , [facility], OFFICE [address] [place] [address] 1 09/25/2017 09:43:27 09/25/2017 10:12:01 M??ni??re's disease 94916935 H81.03 Generalize d anxiety disorder 15534430 F41.1 Mixed hyperlipidemia 267 599520 E78.2 Insomnia 460547559 G47.0 0 [id number] Harjinder Raymond MD , [facility], OFFICE [address] [place] [address] 1 01/08/2018 10:56:52 01/08/2018 11:59:03 Mixed hyperlipidemia 393739100 E78.2 Adult heal th examination 487494988 Z00.00 Counseling 579354649 Z71 .9 Depression screening 171 021786 Z13.89 Anxiety 48364685 F41.9 Insomnia 819120176 G47.0 0 [id number] Chen Lopez NP , [facility], OFFICE [address] [place] [address] 1 04/06/2018 09:31:46 04/06/2018 10:52:18 Strain of tendon of medial thigh muscle 628317996 S76.811A Injury of hip region 125 768034 S79.911A [id number] Harjinder Raymond MD , [facility], OFFICE [address] [place] [address] 1 07/09/2018 09:05:49 07/09/2018 09:38:29 Insomnia 471032275 G47.00 Anxiety 75476712 F41.9 Active or passive immunization 881483823 Z23 [id number] Harjinder Raymond MD , [facility], OFFICE [address] [place] [address] 1 01/13/2019 10:13:48 01/13/2019 11:00:12 Adult health examination 522651663 Z00.00 Counseling 336234595 Z71 .9 Depression screening 171 772405 Z13.89 Mixed hyperlipidemia 267 338301 E78.2 Venous varices 032474037 I83.90 Anxiety 39887742 F41.9 Insomnia 124882709 G47.0 0 [id number] Harjinder Raymond MD , [facility], OFFICE [address] [place] [address] 1 04/12/2020 10:23:57 04/12/2020 10:47:45 Adult health examination 856472032 Z00.00 Counseling 517225546 Z71 .9 Depression screening 171 767536 Z13.89 Screening for alcohol abuse 014404110 Z13.39 Mixed hyperlipidemia 267 430498 E78.2 Venous varices 658004931 I83.90 Insomnia 964053702 G47.0 0 Bilateral arthritis of hip 0149994737 015335 M13.672 [id number] Harjinder Raymond MD , [facility], OFFICE [address] [place] [address] 1 05/24/2020 14:48:22 05/25/2020 11:40:31 Low back pain 669495421 M54.5 Bilateral arthritis of hip 7229465632 200682 M13.261 [id number] Олег Garcia MD , [facility], OFFICE [address] [place] [address] 1 06/23/2020 13:37:45 06/28/2020 18:18:58 Headache 33279382 R51 [id number] Harjinder Raymond MD , [facility], OFFICE [address] [place] [address] 1 06/26/2020 14:35:48 06/28/2020 16:55:15 Groin mass 067683457 R19.00 [id number] Harjinder Raymond MD , [facility], OFFICE [address] [place] [address] 1 07/06/2020 10:46:06 07/07/2020 15:51:20 Epidermoid cyst 050054500 L72.0 [id number] Kavon Shoushtari . , [facility], OFFICE [address] [place] [address] 1 01/04/2021 14:24:38 01/05/2021 13:41:45 Sacroiliac joint pain 403063291 M53.3 Insomnia 956285531 G47.0 0 [id number] Kavon Shoushtari . , [facility], OFFICE [address] [place] [address] 1 02/23/2021 11:27:32 02/23/2021 12:16:41 Sacroiliac joint pain 617562302 M53.3 [id number] Kavon Shoushtari . , [facility], OFFICE [address] [place] [address] 1 04/19/2021 11:17:44 04/19/2021 12:39:47 Adult health examination 371615285 Z00.00 Counseling 641406138 Z71 .9 Depression screening 171 892991 Z13.31 Screening for alcohol abuse 857588488 Z13.39 Advance di rective discussed with patient 770650011 Z71.89 Mixed hyperlipidemia 267 263847 E78.2 Bilateral arthritis of hip 1223782218 768663 M13.851 Varicose v eins of lower extremity 02447238 I83.93 M??ni??re's disease 1344 5001 H81.01 Insomnia 074967612 G47.0 0 Generalize d anxiety disorder 20194537 F41.1 Screening for malignant neoplasm of colon 626232160 Z12.11 [id number] Agustina Romero RN ASP, [facility] [address] [place] [address] 1 07/26/2021 08:52:26 07/26/2021 14:11:05 [id number] Maria A Hernández , [facility], OFFICE [address] [place] [address] 1 06/11/2022 13:24:58 06/11/2022 16:31:57 Active or passive immunization 167994331 Z23 Swelling of eyelid 48258 7004 R22.0 Insomnia 267908401 G47.0 0 Generalize d anxiety disorder 53270820 F41.1 Mixed hyperlipidemia 267 889122 E78.2 Venous varices 285389513 I83.90 Tachycardia 0431259 R00. 0 [id number] Carmina De Leon LPN , [facility], OFFICE [address] [place] [address] 1 06/13/2022 11:27:04 06/13/2022 11:33:07 Tachycardia 2721209 R00.0 [id number] Kavon Lomax . MD NOEL, [facility], OFFICE [address] [place] [address] 1 11/21/2022 08:45:31 11/21/2022 09:52:26 Adult health examination 947211178 Z00.00 Depression screening 171 025037 Z13.31 Screening for alcohol abuse 621962578 Z13.39 Mixed hyperlipidemia 267 025714 E78.2 Venous varices 397328681 I83.90 Pruritus ani 62133350 L2 9.0 Right bund le branch block 74229866 I45.0 Bilateral arthritis of hip 5254997853 124897 M13.851 M??ni??re's disease 1344 5001 H81.01 Insomnia 370049669 G47.0 0 Generalize d anxiety disorder 04124307 F41.1 Pain in left thumb 30100 33081 843903 M79.645 Family his tory of Aortic aneurysm 428360736 Z82.49 [id number] MITRA PIPER DNP , [facility], OFFICE [address] [place] [address] 1 06/10/2023 16:03:33 06/10/2023 16:57:07 Congestion of nasal sinus 33913130 R09.81 [id number] , [facility], OFFICE [address] [place] [address] [place] [address] 1 07/24/2023 10:32:50 07/24/2023 12:17:14 Paresthesia of lower extremity 229956332 R20.2 Paresthesi a of upper limb 19348629 R20.2 [id number] Bethanie Ricketts er, CD REACTOR OPERATOR HEAD , [facility], OFFICE [address] [place] [address] 1 07/30/2023 08:25:43 07/30/2023 16:38:24 Paresthesia of upper limb 72882261 R20.2 Paresthesi a of lower extremity 239549094 R20.2 Insomnia 593311429 G47.0 0 [id number] Marianna Jain , OTR/L, CHT Physical Therapy, [address] [place] [address] 08/01/2023 11:45:05 08/01/2023 14:17:16 Neuritis of left ulnar nerve 4049839335 2602476 G56.22 [id number] Cristal De La Rosa MD , [facility], OFFICE [address] [place] [address] [place] [address] 1 08/13/2023 13:07:51 08/13/2023 15:19:40 Spinal stenosis in cervical region 29795967 M48.02 [id number] Bethanie hubbard, CD REACTOR OPERATOR HEAD , [facility], OFFICE [address] [place] [address] [place] [address] 1 09/22/2023 11:18:00 09/22/2023 17:14:47 COVID-19 927888737 U07.1 Generalize d anxiety disorder 79351531 F41.1 Spinal bruno nosis in cervical region 22689906 M48.02 [id number] Kavon Nettles MD , [facility], OFFICE [address] [place] [address] [place] [address] 1 11/24/2023 10:02:26 11/24/2023 11:01:03 Adult health examination 732311599 Z00.00 Depression screening 171 546905 Z13.31 Screening for alcohol abuse 938013843 Z13.39 Screening for malignant neoplasm of prostate 892988941 Z12.5 Cervical myelopathy 2025 12111 G95.9 Impaired f asting glycemia 454576900 R73.01 Right bund le branch block 54636571 I45.0 M??ni??re's disease 1344 5001 H81.01 Insomnia 804611130 G47.0 0 Generalize d anxiety disorder 12424289 F41.1 Mixed hyperlipidemia 267 460425 E78.2 Left inguinal hernia 236 568582 K40.90 [id number] Kavon Lomax . MD NOEL, [facility], OFFICE [address] [place] [address] 1 03/04/2024 10:37:03 03/04/2024 14:30:38 COVID-19 942573078 U07.1 Health Concerns Section Related Observation LastModified by Organization Detai ls LastModified Time None Recorded Concern Status LastModified by Organization Details LastModified Time None Recorded Advance Directives Directive None Recorded Payers Encounter Date Sequence Insurance Name Policy Number Policy Vega Covered Member ID Vega Member ID Guarantor Name 08/01/2023 1 [place] [employer] Sha Batista [id number] Sha Batista 08/01/2023 2 [facility] (MEDICARE SUPPLEMENT) Sha Batista [id number] Sha Batista 08/13/2023 1 [place] Sha Batista [id number] Sha Batista 08/13/2023 2 [facility] (MEDICARE SUPPLEMENT) Sha Batista [id number] Sha Batista 09/22/2023 1 [place] [employer] Sha Batista [id number] Sha Batista 09/22/2023 2 [facility] (MEDICARE SUPPLEMENT) Sha Batista [id number] Sha Batista 11/24/2023 1 [place] [employer] Sha Batista [id number] Sha Batista 11/24/2023 2 [facility] (MEDICARE SUPPLEMENT) Sha Batista [id number] Sha Batista 03/04/2024 1 [place] [employer] Sha Batista [id number] Sha Batista 03/04/2024 2 [facility] (MEDICARE SUPPLEMENT) Sha Batista [id number] Sha Batista Notes Date Note Type Note Provider Name and Address Organization Details Recorded Time 08/01/2023 text/html Physical Therapy History of Present IllnessReported bypatient.History:72 y.o. referred to OT w/ dx of R ulnar n. numbness. Has taken gabapentin over 2 weeks. 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 Flaherty 72yo non-smoker with known cervical spinal stenosis (see MRI 2011), now with R arm pain and R lateral toe paresthesias x 1mo.Can identify no trigger/trauma. Started with tingling R last 2 fingers.Kept biking and ? exacerbated it. Now also involving lateral arm to neck dull continuous ache. Worse at night and first thing in am when after getting up.As a result of neck/arm pain, feels like all surrounding mm very tight and that is why he is requesting muscle relaxant.Although he initially denied weakness, now he is wondering if R hand is weak. 2016 treated for L C7 radiculopathy (primarily neck pain) with PT; benefited from manual manipulation, HEP. Has been treated with acupuncture, po steroid burst, gabapentin 300mg + Aleve tid, PT (only 1 session so far) without lasting benefit. Has been doing home cervical traction off/on; again feels good only while doing it.Has appt with Dr. Lin in 2d ? to include EMGs.Will also be seeing [facility] later that day on 08/15. Cristal De La Rosa MD [address] [place] [address], [phone], [facility] 08/13/2023 14:06:08 11/24/2023 text/html Risk Assessment and Lifestyle Change Counseling 65+ (Medicare)Reported bypatient.Coronary Artery Disease Risk Assessment:No Family history of coronary artery disease; No personal history of diabetes; No history of peripheral vascular disease, AAA, or carotid disease; No personal history of coronary artery disease Breast Cancer Risk Assessment:Family history of breast cancer one first degree relative; No history of breast cancer or dcis Colon Cancer Risk Assessment:No family history of pre cancerous colon polyps or cancer; history of colon polyp Lung Cancer Risk Assessment:Never smoked Fracture Risk Assessment:No unexplained fracture; balance is normal Cognitive/Behavioral Risk Assessment:No personal history of mental illness; No family history of mental illness; Do you or anyone else have concerns about your memory? no; BMI reviewed normal ; Reviewed depression screening less than 7.5 minutes; no cognitive impairment Safety Risk Assessment:No grab bars in bathroom; Has rails on steps; No falls; No evidence of abuse/neglect; Do you feel safe in your current relationship?YES; Have you ever been a victim of physical/emotional/sex ual abuse?NO Functional Status:Patient has trouble hearing the television or radio when others do not.;Patient has to strain or struggle to hear/understand conversations.; Patient does not need help with preparing meals, transportation, shopping, taking medicine, managing finances, or other activities of daily living.; Patient does not have visual loss that interferes with daily activities; Does not live alone; Patient was not unsteady and did not take longer than 30 seconds during the timed get up and go test.; Patient reports no falls in the past 6 months.; related to Meniere's, left ear significant hearing loss, no hearing aids Diet:Counseled about appropriate portion size; Counseled about eating a diet low in trans and saturated fats and high in fiber, fruits and vegetables Exercise counseling:Discussed the importance of daily physical activity; Discussed the importance of weight bearing exercise Safety:Counseled about protecting skin from the sun and lowering the risk of skin cancer; Counseled about use of helmets for high velocity activiities; Counseled about home safety including use of smoke detectors, CO detectors, keeping home water temperature less than 120; Counseled about use of seat belts; Counseled about fall risk from throw rugs and the need for hand rails on steps and in bath Patient with history of Meniere's, osteoarthritis of hips, hyperlipidemia, mild IFG, RBBB, insomnia and anxiety presents for wellness exam. Wants to have a hernia checked, it is chronic, left side, states he notices it more. He uses alprazolam as needed for sleep. Not on a daily basis. Takes a half tablet at most 2 x week.Uses about 30 tablets every 6 months.Zolpidem, takes half a tablet may be once a week. Years ago had sudden hearing loss, saw ENT and was told could be a capillary that feeds inner ear. As soon as he stopped salt vertigo resolved, he may have it once a year. Also has had phlebitis of varicose veins so he takes an aspirin daily.No bleeding or excessive bruising. HLD is not treated. 10 Y CV risk 15.5%. does not want to take a statin. Hx of cervical myelopathy with residual pain in right forearm and R 4, 5 fingers and numbness R 4th and 5th finger. Had discectomy and fusion C5-C6 by Dr. Zhang 10-10-23. saw Dr. Lin recently, told to continue with PT. His fingers feel swollen but they are not.He started lyrica recently for nerve pain. Constitutional; no feverENT; no LAROSE, no dizzinessCardiac; no CP, no QUIÑONES, no palpitations, no orthopneaPulmonary; no shortness of breath, no cough, no wheezingGI; no abdominal pain, No N/V, no bloody stoolsUrinary; No hematuria, no dysuriaMusculoskeletal ; no myalgia, arthritis left thumb, does not hurt anymore Kavon Lomax. [address] [place] [address], [phone], [facility] 11/24/2023 11:00:02 03/04/2024 text/html tested Positive for COVID yesterdaysymptoms of fatigue, fever and cough started yesterday using ibuprofen, not today.No shortness of breath.No fever today yet.No severe LAROSE. No new neurologic sx or abdominal pain. Kavon Lomax. [address] [place] [address], [phone], [facility] 03/04/2024 10:57:24
[2024-10-04 09:55] VITALS: BMI 23.7
== END 2024-10-04 10:08 | disposition home or self-care (01) ==
PROVIDERS: PCP Internal Medicine
DX: G56.21 Lesion of ulnar nerve, right upper limb (principal)
CPT/HCPCS: 99214

== ENCOUNTER → 2024-10-04 09:48 | Outpatient (BNVA) | payer MEDICARE, OTHER, SELFPAY | PROVIDERS: PCP Internal Medicine | DX: G56.21 Lesion of ulnar nerve, right upper limb (principal) | CPT/HCPCS: 99212 ==

== ENCOUNTER 2024-10-11 09:56 | Day surgery (SDC) | payer MEDICARE, OTHER, SELFPAY ==
[2024-10-07 08:22] VITALS: BMI 23.7
--- OUTSIDE RECORDS SUMMARY | 2024-10-11 10:01 | XMS_ITS | Data Portability ---
Author Organization [facility], [facility] Address [address] [place] [address] Care Team Providers Care Hearing Aid Mechanic Name Role Phone YEMI LUCERO Forms Analyst [facility] Sleep Medicine [facility] Knife Blade Polisher [phone] KAVON LOMAX Primary Care Provider [phone] [facility] OTHER [facility] NEUROSURGERY Neurosurgeon TAMICA EDUARDO General Surgeon ANDREI LIN Neurologist [facility] PAIN MANAGEMENT Pain Management [phone] [facility] Orthopedic Surgeon [phone] Assessment Encounter Date Assessment Date Assessment LastModified [...] ADL new STG 4 weeks 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 new Treatments may include (as appropriate/as indicated): [...] was notified that the provider location is [facility] Patient location: home During the visit the [...] was notified that the provider location is [facility] Patient location: home During the visit the [...] Appointments LAB Follow- Up 2024 08:10A [place] [facility] Not available Not available Not available Medicar william Rosenthal s Visit 2024 09:00A M ENRICO KEN MD Not available Not available Not available Lab HbA1c (hemogl obin A1c), blood [address] [facility], [address] [place], [address], 12/01/2023 14:32:09 lipid panel, serum [address] [facility], [address] [place], [address], 12/01/2023 16:08:10 CMP, serum or plasma 2023 024 [facility], [address] [facility], [place], [address], 12/01/2023 16:08:09 Referral general surgeon laura lorenz 2023 024 SARAH Eduardo MD, [address] , [place], [address], 12/09/2023 13:41:03 Procedures None recorde d. Surgeries None recorde d. Imaging None recorde d. Medication Orders nirmatr bienvenido 300 mg (150 mg x2)-rit onavir 100 mg tablet, dose pack 2022 023 [facility]acy #[id number], [address] [place], [address], 11/23/2023 19:25:03 Paxlovi d 300 mg (150 mg x 2)-100 mg tablets in a dose pack 2023 024 [facility]/Pharmacy #[id number], [address] [place], [address], 03/04/2024 10:55:26 Patient TargetsNo targets recorded. Patient Instructions Encounter Date Encounter Id Patient Instructions Last Modified By Organization Details Last Modified Time 08/01/2023 [id number] Access Code: [email or web address] URL: [email or web address] Date: 08/01/2023 Prepared by: Marianna Jain Exercises - Ulnar Nerve [place]- Full Arm - 3 x daily - [...] stretch ash Not available 08/01/2023 12:35:33 09/22/2023 [id number] A discussion regarding the use of Paxlovid [...] We have checked availability through this website: [email or web address]://[email or web address]. gov/info-details/ vfutqamikvx-xad-e jweyxrox-ljprt-ol erapegaic-treatme yee-dvv-fsymk-19# noziq-96-vvxkvgxi tic-pourer buggy ladle- This medication is authorized by the FDA [...] time. danyelle Not available 09/22/2023 11:37:08 11/24/2023 [id number] preventing falls : care instructions nshoushtari Not [...] worry, expense and possibly shorter life expectancy. Not available 11/20/2023 17:00:23 Reason for Referral General Surgeon Referral for Left inguinal hernia Referring Physician: Kavon Lomax, Family Medicine, Encounter Date: 11/24/2023 Results Created Date Observation Date Name Description Value Unit Range Abnormal Flag Note LastModifiedBy Organization Detail LastModifiedTime 08/18/2008/19/2023 GLUCO SE glucose 102 mg/dL 70-100 high Not Available [address], [address], 08/19/2023 10:56:33 08/18/2008/20/2023 VITAM IN B12 vitamin B12 501 pg/mL 230-10 50 Not Available [address], [address], 08/20/2023 15:40:10 08/18/2008/20/2023 LYME SCREE N, REFLE [...] negat sarahi for infec tion. Not Available [address], [address], 08/20/2023 15:42:06 08/18/2008/21/2023 YESICA SCREE N, IFA, [...] YESICA Riojas rns (http s://d oi.or g/10. 1275/ [facility]- 2017- 0052) For addit ional infor joe acuña, madhavi e refer to http: //[facility] acuña.Que stDia gnost ics.c om/fa q/FAQ 177 (This link is being provi ded for infor matio nal/ educa monika l purpo ses only. ) Not Available [facility] [address] [place] [address], [place], [address], 08/21/2023 13:58:40 08/18/20 23 08/21/2023 ANCA SCREE [...] with Crohn 's disea se. Not Available [facility] [address] Bruno B, [place], [address], 08/21/2023 13:58:42 08/18/20 23 08/21/2023 RPR RPR NON-RE ACTIVE nonrea ctive Not Available [address], [address], 08/21/2023 14:44:38 12/01/19 24 12/01/2023 HGB A1C [...] furth er confi rmati on Not Available [address], [address], 12/01/2023 14:32:09 12/01/19 24 12/01/2023 HGB A1C estimated average glucose 111.2 mg/dL Not Available [address], [address], 12/01/2023 14:32:09 12/01/19 24 12/01/2023 COMP. METAB OLIC PANEL glucose 96 mg/dL 70-100 Not Available [address], [address], 12/01/2023 16:08:09 12/01/19 24 12/01/2023 COMP. METAB OLIC PANEL BUN 12 mg/dL 7-18 Not Available [address], [address], 12/01/2023 16:08:09 12/01/19 24 12/01/2023 COMP. METAB OLIC PANEL creatinine 1.1 mg/dL 0.8-1. 3 Not Available [address], [address], 12/01/2023 16:08:09 12/01/19 24 12/01/2023 COMP. METAB OLIC PANEL B/C 10.9 ratio Not Available [address], [address], 12/01/2023 16:08:09 12/01/19 24 12/01/2023 COMP. METAB [...] be used in pregn gianna. Not Available [address], [address], 12/01/2023 16:08:09 12/01/19 24 12/01/2023 COMP. METAB OLIC PANEL sodium 141 mmol/ L 136-14 5 Not Available [address], [address], 12/01/2023 16:08:09 12/01/19 24 12/01/2023 COMP. METAB OLIC PANEL potassium 4.5 mmol/ L 3.5-5. 1 Not Available [address], [address], 12/01/2023 16:08:09 12/01/19 24 12/01/2023 COMP. METAB OLIC PANEL chloride 104 mmol/ L 96-107 Not Available [address], [address], 12/01/2023 16:08:09 12/01/19 24 12/01/2023 COMP. METAB OLIC PANEL anion gap 9.1 5.0-15 .0 Not Available [address], [address], 12/01/2023 16:08:09 12/01/19 24 12/01/2023 COMP. METAB OLIC PANEL CO2 28 mmol/ L 21-32 Not Available [address], [address], 12/01/2023 16:08:09 12/01/19 24 12/01/2023 COMP. METAB OLIC PANEL calcium 8.9 mg/dL 8.5-10 .3 Not Available [address], [address], 12/01/2023 16:08:09 12/01/19 24 12/01/2023 COMP. METAB OLIC PANEL total protein 6.1 g/dL 6.4-8. 2 low Not Available [address], [address], 12/01/2023 16:08:09 12/01/19 24 12/01/2023 COMP. METAB OLIC PANEL albumin 3.5 g/dL 3.4-5. 0 Not Available [address], [address], 12/01/2023 16:08:09 12/01/19 24 12/01/2023 COMP. METAB OLIC PANEL globulin 2.6 g/dL Not Available [address], [address], 12/01/2023 16:08:09 12/01/19 24 12/01/2023 COMP. METAB OLIC PANEL A/G 1.3 ratio 0.8-2. 0 Not Available [address], [address], 12/01/2023 16:08:09 12/01/19 24 12/01/2023 COMP. METAB OLIC PANEL total bilirubin 1.00 mg/dL 0.00-1 .00 Not Available [address], [address], 12/01/2023 16:08:09 12/01/19 24 12/01/2023 COMP. METAB OLIC PANEL AST 30 U/L 0-37 Not Available [address], [address], 12/01/2023 16:08:09 12/01/19 24 12/01/2023 COMP. METAB OLIC PANEL ALT 37 U/L 6-63 Not Available [address], [address], 12/01/2023 16:08:09 12/01/19 24 12/01/2023 COMP. METAB OLIC PANEL alk. phos. 67 U/L 50-136 Not Available [address], [address], 12/01/2023 16:08:09 12/01/19 24 12/01/2023 LIPID PANEL cholesterol 214 mg/dL <200 mg/dl Reginaldo able 200-2 39 mg/dl Borde rline High >240 mg/dl High Not Available [address], [address], 12/01/2023 16:08:10 12/01/19 24 12/01/2023 LIPID PANEL triglyceride s 74 mg/dL <150 mg/dL Corina l 150-1 99 mg/dL Borde rline High 200-4 99 mg/dL High >500 mg/dL Very High Not Available [address], [address], 12/01/2023 16:08:10 12/01/19 24 12/01/2023 LIPID PANEL direct HDL 70 mg/dL <40 mg/dl - Major Risk for CHD >60 mg/dl - Negat sarahi Risk for CHD Not Available [address], [address], 12/01/2023 16:08:10 12/01/19 24 12/01/2023 LDL - [...] r is not neces aviva. 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 The neural forami na [...] estrada Physic paige: Dot Godfrey ms [facility] (Imaging) [address] [place], [address], 08/01/2023 14:14:33 08/16/2008/15/2023 nerve condu ction study No observ ation record ed. [facility] Available 01/2023 11:42:35 08/19/2008/16/2023 MRI, cervi tr spine , w/o contr ast No observ ation record ed. [facility] Not Available 2022 07:43:01 08/05/20 24 08/04/2024 nerve condu ction study No observ ation record ed. [facility] [address], [place], [address], 08/05/2024 09:31:35 Result Notes None recorded. Problems Name Problem SNOMED Code Status Onset Date Resolution Date Notes Provider Name and Address Organization Details Recorded Time Mixed hyperlipi demia 200357383 Active 2003 Not Available [facility] 3 11:44:38 Injury of shoulder region 709402982 Completed 200402/15/2013 Not Available [facility] 3 03:03:32 Varicose veins of lower extremity 91955617 Completed 02/15/2013 Not Available [facility] 3 03:03:32 Presbyopi a 56965385 Completed 200501/31/2012 Not Available [facility] 3 03:03:32 Precordia l pain 74768147 Completed 200202/15/2013 Not Available [facility] 3 03:03:32 Migraine without aura 99091133 Completed 200708/17/2010 Not Available [facility] 3 03:03:32 Phlebitis and thromboph lebitis Completed 200008/17/2010 Not Available [facility] 3 03:03:32 Lateral epicondyl itis 603972880 Completed 200202/15/2013 Not Available [facility] 3 03:03:32 Neck pain 95450092 Completed 200401/31/2012 Not Available [facility] 3 03:03:32 Allergic rhinitis 55895046 Completed 200108/17/2010 Not Available [facility] 3 03:03:32 Epidermoi d cyst of skin 754738176 Completed 200201/31/2012 Not Available [facility] 3 03:03:32 Acute suppurati ve otitis media without spontaneo us rupture of ear drum 00093366 Completed 200008/17/2010 Not Available [facility] 3 03:03:32 Sciatica 41664586 Completed 200102/15/2013 Not Available [facility] 3 03:03:32 Knee pain Completed 200108/17/2010 Not Available [facility] 3 03:03:32 Sprain of shoulder and upper arm Completed 200402/15/2013 Not Available [facility] 3 03:03:32 Hyperlipi demia 17158599 Completed 200108/17/2010 Not Available [facility] 3 03:03:32 Acute bronchiti s 69285356 Completed 200502/15/2013 Not Available [facility] 3 03:03:32 Otogenic otalgia 78038472 Completed 200108/17/2010 Not Available [facility] 3 03:03:32 Headache 83696413 Completed 200508/17/2010 Not Available [facility] 3 03:03:32 Disorder of tendon of shoulder region 27362438 Completed 200408/17/2010 Not Available [facility] 3 03:03:32 Migraine variants 178924092 Completed 200608/17/2010 Not Available [facility] 3 03:03:32 Cough 26783571 Completed 200508/17/2010 Not Available [facility] 3 03:03:32 Shoulder pain 09290457 Completed 01/31/2012 Not Available [facility] 3 03:03:32 Shoulder pain 33495924 Completed 200408/17/2010 Not Available [facility] 3 03:03:32 Generaliz ed anxiety disorder 81544109 Active Not Available [facility] 3 11:44:38 Migraine with aura 9648303 Completed 200402/15/2013 Not Available [facility] 3 03:03:32 Astigmati sm 58583525 Completed 200502/15/2013 Not Available [facility] 3 03:03:32 Impacted cerumen 53501265 Completed 200708/17/2010 Not Available [facility] 3 03:03:32 Abnormali ty of systemic vein 221544681 Completed 200002/15/2013 Not Available [facility] 3 03:03:32 Allergic asthma without status asthmatic 99125616 Completed 200102/15/2013 Not Available [facility] 3 03:03:32 Insomnia 295192573 Completed 01/31/2012 Harjinder Raymond MD [address] [place] [address], [address] , [facility] 7 11:37:01 Common cold 50436672 Completed 200408/17/2010 Not Available [facility] 3 03:03:32 Hand joint pain 445066387 Completed 01/31/2012 Not Available [facility] 3 03:03:32 Inflammat ory disorder of extremity 655572560 Completed 200008/17/2010 Not Available [facility] 3 03:03:32 On examinati on - a rash Completed 200708/17/2010 Not Available [facility] 3 03:03:32 Non-organ ic sleep disorder 282970926 Completed 200501/31/2012 Not Available [facility] 3 03:03:32 Injury of knee 732270138 Completed 200102/15/2013 Not Available [facility] 3 03:03:32 Hearing loss 89760340 Active 2007 Not Available [facility] 3 11:44:38 Thromboph lebitis of superfici al veins of upper extremiti es 87336375 Completed 200002/15/2013 Not Available [facility] 3 03:03:32 Migraine 10107000 Completed 200602/15/2013 Not Available [facility] 3 03:03:32 Tinnitus 02754124 Completed 01/31/2012 Not Available [facility] 3 03:03:32 Pain in limb 79951361 Completed 200008/17/2010 Not Available [facility] 3 03:03:32 Inguinal hernia 930806774 Active 2016 Not Available [facility] 3 11:44:38 Venous varices 846690674 Active 2016 Not Available [facility] 3 11:44:38 Insomnia 441627991 Active 2016 Not Available [facility] 3 11:44:38 M??ni??re 's disease 03738151 Active 2016 Not Available [facility] 3 11:44:38 Bilateral arthritis of hip 87159725728 93155 Active 2019 Not Available [facility] 3 11:44:38 Right bundle branch block 37686300 Active 2022 Not Available [facility] 3 11:44:38 Pruritus ani 03457458 Active 2022 Not Available [facility] 3 11:44:38 Impaired fasting glycemia 937246885 Active 2023 very mild Kavonousmane Lomax . [address] [place] [address], [address] , [facility] 19:13:09 Cervical myelopath y 053441086 Active 2023 Kavon Lomax [place], [address] , [facility] 19:13:33 Problem Notes None recorded. Procedures Surgical History Date Name Laterality Status Provider Name and Address Organization Details Recorded Time 11/24/19 Medicare Wellness Visit completed BRIAN Brown [facility] 11/20/2023 17:00:24 11/24/19 24 Cardiovascular disease risk reduction counseling completed BRIAN Brown [facility] 11/20/2023 17:01:00 11/24/19 prevention-annual alcohol misuse screening completed BRIAN Brown [facility] 11/20/2023 17:00:59 10/10/20 excision of cervical intervertebral disc completed Kavon [place], [address], [facility] 11/23/2023 19:32:02 08/19/20 23 [address]: Therapeutic Exercise cancelled Marianna Jain, OTR/L, CHT [address] [place], [address], [facility] 08/17/2023 18:02:48 08/19/20 23 [address]: Manual Therapy cancelled Marianna Cristobal, OTR/L, CHT [address] [place], [address], [facility] 08/17/2023 18:02:44 08/12/20 23 [address]: Therapeutic Exercise cancelled Marianna Iapazitecelinai, OTR/L, CHT [address] [place], [address], [facility] 08/10/2023 19:40:25 08/12/20 23 [id number]: Manual Therapy cancelled Marianna Amyitecelinai, OTR/L, CHT [address] [place], [address], [facility] 08/10/2023 19:40:20 08/01/20 23 Physical Activity Counselling completed Marianna Jain, OTR/L, CHT [address] [place], [address], [facility] 08/01/2023 09:22:38 08/01/20 23 [address]: OT Eval, Low Complexity completed Marianna Jain, OTR/L, CHT [address] [place], [address], [facility] 08/01/2023 09:22:35 11/21/19 23 Medicare Wellness Visit completed Christa Palma [facility] 11/20/2022 16:28:06 11/21/19 23 Depression Screening completed Kavon Shoushtari. [address] [place] [address], [address], [facility] 11/21/2022 09:51:03 11/21/19 23 prevention-annual alcohol misuse screening completed Kavon Shoushtari. [address] [place] [address], [address], [facility] 11/21/2022 09:51:13 07/26/20 21 Tassoni - Colonoscopy completed Jadon Gifford MD [address] [place], [address], [facility] 07/26/2021 10:17:09 07/26/20 21 colonoscopy completed Kavon Shoushtari. [address] [place], [address], [facility] 07/30/2021 20:12:48 04/19/20 21 Medicare Wellness Visit completed Liliya Pitt [facility] 04/19/2021 11:59:20 04/19/20 21 prevention-cardiov ascular risk reduction counseling completed Liliya Pitt [facility] 04/19/2021 11:59:20 04/19/20 21 prevention-annual alcohol misuse screening completed Liliya Pitt [facility] 04/19/2021 11:59:20 04/19/20 21 Advanced Care Planning completed Kavon Shoushtari. [address] [place], [place] [address] [place], [address], [facility] 04/19/2021 12:19:26 04/12/20 20 Medicare Wellness Visit completed [facility] 04/12/2020 09:44:58 04/12/20 20 prevention-cardiov ascular risk reduction counseling completed [facility] 04/12/2020 09:44:58 04/12/20 20 prevention-annual alcohol misuse screening completed [facility] 04/12/2020 09:44:58 01/14/20 19 Medicare Wellness Visit completed Carmina De Leon LPN [facility] 01/13/2019 10:28:26 01/09/20 18 Medicare Wellness Visit completed Chrissy Rust LPN [facility] 01/08/2018 11:15:16 06/30/20 14 Aspiration Intermediate Joint/Bursa completed Sushil Simmons PA-C [address] [place] [address], [address], [facility] 06/30/2014 17:05:51 02/05/20 11 Treatment and Advice completed Nhi Collazo, OT [address] [place], [address], [facility] 02/04/2011 12:50:47 Imaging Results Imaging Date Name Status LastModified by Organiz ation Details LastModified Time 07/30/2023 XR, cervical spine completed [facility] [address] [place], [address], 08/01/2023 14:14:33 08/15/2023 nerve conduction study completed [facility] Information not available 08/16/2023 11:42:35 08/16/2023 MRI, cervical spine, w/o contrast completed [facility] Information not available 08/19/2023 07:43:01 08/04/2024 nerve conduction study completed [facility] [address] [place], [address], 08/05/2024 09:31:35 Procedure Notes None recorded. Medical [...] Available Not Available Not Available Fluzone High-Dose 1680-2701 (PF) 180 mcg/0.5 mL intramusc ular syringe TO BE ADMINIST ERED BY Elastra FOR IMMUNIZA TION 01/02 completed Not Available [...] Updated DateTime 08/13/2023 180.34 cm 25.1 kg/m2 48262.63 g Paola Marie Daiana [facility] 08/13/2023 13:11:04 Date Recorded Body height Provider Name an d Address Organization Details Last Updated DateTime 09/22/2023 180.34 cm Christa Palma [facility] 09/22/2023 11:20:42 Date Recorded Body height Body mass index (BMI) Body weight Oxygen saturation Oxygen saturation in Arterial blood by Pulse oximetry Heart rate Systolic blood pressure Diastolic blood pressure Provider Name and Address Organization Details Last Updated DateTime 4 180.34 cm 25.8 kg/m2 34232.5 9 g 98 % 98 % 63 /min 110 mm[Hg] 80 mm[Hg] BRIAN Brown [facility] 4 10:23:44 Date Recorded Body height Heart rate Body temperature Systolic blood pressure Diastolic blood pressure Provider Name and Address Organization Details Last Updated DateTime 03/04/2024 180.34 cm 62 /min 98.9 [degF] 127 mm[Hg] 78 mm[Hg] Kavon gastelum MD [address] [place] [address], [phone] [place] [address] 4 10:48:51 Social History Question Answer Notes LastModified by Organizat ion Details LastModified Time Tobacco Smoking Status Never Smoker LupemarvinBRIAN Neri [facility] 06/11/2022 13:30:52 What Is Your Level Of [...] E-cigarettes Or Vape? Never Used Electronic Cigarettes [email or web address] Information not available 06/11/2022 Education Post Graduate Masters Information not available 02/16/2013 What Is The Highest Grade Or Level Of School You Have Completed Or The Highest Degree You Have Received? 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 Yes Loss His Dog 3 Weeks Ago 11/24/23 NR [email or web address] Information not available 11/24/2023 How Many Days In The Past Year Have You Had A Heavy Drinking Consumption (4+ Female, 5+ Male)? 0 Information not available 11/10/2015 Are There Any Guns Present In Your Home? No Information not available 02/16/2013 Do You Use Insect Repellent Routinely? No [email or web address] Information not available 11/21/2022 Live Alone Or With Others? [facility] Information not available 04/19/2021 CSRP Contract Signed And Discussed Yes [email or web address] Information not available 03/25/2017 Does The Patient Have Difficulty Speaking Tamazight? No Information not available 02/16/2013 Does The Patient Have Difficulty Reading Tamazight? No Information not available 02/16/2013 Patient Has Health Care Proxy Signed And In Chart Yes 03/25/17 [email or web address] Information not available 04/20/2021 CCM Consent Discussion 03/26/2017 [email or web address] Information not available 09/25/2017 Marital Status [email or web address] Informatio n not available 02/16/2013 Mosquito Repellent Used Routinely Yes Information not available 02/16/2013 What Was The Date Of Your Most Recent Tobacco Screening? 09/22/2023 [email or web address] Information not available 11/24/2023 How Many Children Do You Have? 1 D[facility] In [facility] Information not available 11/24/2023 What Is Your Relationship Status? Female [facility] Information not available 11/21/2022 Do You Use Your Seat Belt Or Car Seat Routinely? Yes [email or web address] Information not available 11/21/2022 Seat Belts Used Routinely Yes Information not available 02/16/2013 Smoke Alarm In Home Yes Information not available 02/16/2013 Do You Have Smoke And Carbon Monoxide Detectors In Your Home? Yes [email or web address] Information not available 11/21/2022 Are You Passively Exposed To Smoke? No [email or web address] Information not available 11/21/2022 Do You Or Have You Ever Used Smokeless Tobacco? Never Used Smokeless Tobacco Information not available 06/11/2022 General Stress Level Medium [email or web address] Information not available 02/16/2013 Do You Use Any Illicit Or Recreational Drugs? Yes Cannabis Information not available 11/21/2022 Do You Use Sunscreen Routinely? Yes Information not available 02/16/2013 Sex: Male Functional Status Question Answer Note LastModified by Organizat ion Details LastModified Time What is your exercise level? Moderate biking in good weather, home exercises, walking and light weight in winter Information not available 11/24/2023 Mental Status None [...] Td(adult) unspecified formulation 6 completed LISSETH Yeh, [facility] 06/30/2023 12:15:10 influenza, unspecified formulation 7 completed Laurence Pinto RN null, [facility] 06/30/2023 12:15:10 Influenza, split virus, quadrivalent, PF 5 completed Not Available [facility] 10/30/2019 02:27:11 [email or web address] live 6 completed Not Available [facility] 10/30/2019 02:33:41 pneumococcal polysaccharide PPV23 6 completed Not Available [facility] 10/30/2019 02:20:15 Pneumococcal conjugate PCV 13 7 completed Not Available [facility] 10/30/2019 02:38:50 Tdap 2 completed Laurence Pinto RN null, [facility] 06/30/2023 12:15:10 influenza, unspecified formulation 4 completed Laurence Pnito RN null, [facility] 06/30/2023 12:15:10 Influenza, high-dose, trivalent, PF 7 completed Not Available [facility] 10/30/2019 02:21:40 Influenza, high-dose, trivalent, PF 8 completed Not Available [facility] 10/30/2019 02:23:02 Influenza, high-dose, trivalent, PF 6 completed Laurence Pinto RN null, [facility] 06/30/2023 12:15:10 Td (adult), 2 Lf tetanus toxoid, preservative free, adsorbed 2 completed Kavon Lomax. [address] [place] [address], [phone], [facility] 06/11/2022 14:22:55 pneumococcal polysaccharide PPV23 2 completed Kavon Lomax. [address] [place] [address], [id number], [facility] 06/11/2022 14:22:55 COVID-19, mRNA, LNP-S, PF, 30 mcg/0.3 mL dose 1 completed Laurence Pinto RN null, [facility] 06/30/2023 12:15:10 COVID-19, mRNA, LNP-S, PF, 30 mcg/0.3 mL dose 1 completed Laurence Pinto RN null, [facility] 06/30/2023 12:15:10 Influenza, split virus, quadrivalent, preservative 0 completed Laurence Pinto RN null, [facility] 06/30/2023 12:15:10 COVID-19, mRNA, LNP-S, PF, 30 mcg/0.3 mL dose 1 completed Laurence Pinto RN null, [facility] 06/30/2023 12:15:10 Influenza, split virus, quadrivalent, preservative 1 completed Laurence Pinto RN null, [facility] 06/30/2023 12:15:10 COVID-19, mRNA, LNP-S, PF, 30 mcg/0.3 mL dose 2 completed Laurence Pinto RN null, [facility] 06/30/2023 12:15:10 Influenza, split virus, quadrivalent, PF 0 completed Laurence Pinto RN null, [facility] 06/30/2023 12:15:10 influenza, unspecified formulation 2 completed Laurence Pinto RN null, [facility] 06/30/2023 12:15:10 COVID-19, mRNA, LNP-S, bivalent, PF, 3 mcg/0.2 mL dose 2 completed Laurence Pinto RN null, [facility] 06/30/2023 12:15:10 RSV, recombinant, protein subunit RSVpreF, adjuvant reconstituted, 0.5 mL, PF 3 completed Laurence Pinto RN null, [facility] 06/30/2023 12:15:10 zoster recombinant 1 completed BRIAN Brown null, [facility] 07/22/2023 16:16:01 zoster recombinant 1 completed BRIAN Brown null, [facility] 07/22/2023 16:16:11 Influenza, high-dose, quadrivalent, PF 3 completed BRIAN Brown null, [facility] 07/22/2023 16:16:41 COVID-19, mRNA, LNP-S, PF, willis-sucrose, 10 mcg/0.3 mL 3 completed Stephanie, BRIAN Daron [facility] 07/22/2023 16:16:55 Past Encounters Encounter ID Performer Location Encounter Start Date Encounter Closed Date Diagnosis/Indication Diagnosis SNOMED-CT Code Diagnosis ICD10 Code [id number] [facility] , [facility] [address] [place] [id number] 02/03/2001 15:00:00 11/02/2008 02:02:29 [id number] [facility] [address] [place] [address] 1 02/03/2001 08:15:00 11/02/2008 02:02:29 [id number] [facility]ICE [address] [place] [address] 1 02/19/2001 13:30:00 11/02/2008 02:02:29 [id number] [facility] [place]ICE [address] [place] [address] 1 03/12/2001 13:00:00 11/02/2008 02:02:29 [id number] Radiology , [facility] [address] [place] [id number] 03/20/2001 15:00:00 11/02/2008 02:02:29 [id number] [facility] [place]ICE [address] [place] [address] 1 03/20/2001 10:00:00 11/02/2008 02:02:29 [id number] [facility] OFFICE [address] [place] [address] 1 04/10/2001 12:45:00 11/02/2008 02:02:29 [id number] [facility] [place]ICE [address] [place] [id number] 1 10/12/2001 14:30:00 11/02/2008 02:02:29 [id number] [facility] OFFICE [address] [place] [address] 1 10/26/2001 11:30:00 11/02/2008 02:02:29 [id number] [facility] [place]ICE [address] [place] [address] 1 05/05/2002 09:03:50 11/02/2008 02:02:29 [id number] [facility] [address] [id number] 05/05/2002 07:41:57 11/02/2008 02:02:29 [id number] Radiology , [facility] [address] [place] [id number] 1 05/31/2002 17:21:50 11/02/2008 02:02:29 [id number] [facility] [place]ICE [address] [place] [address] 1 05/31/2002 16:40:58 11/02/2008 02:02:29 [id number] [facility] OFFICE [address] [place] [address] 1 08/24/2002 11:25:12 11/02/2008 02:02:29 [id number] [facility] [place]ICE [address] [place] [address] 1 06/29/2003 11:30:23 06/29/2003 17:45:12 [id number] LAB - [facility] [place] [id number] 1 06/30/2003 07:39:51 06/30/2003 12:56:35 [id number] [facility], [facility] [address] [place] [id number] 01/18/2004 10:14:28 01/18/2004 17:48:28 [id number] [facility] OFFICE [address] [place] [address] 1 05/15/2004 13:13:42 05/16/2004 08:39:31 [id number] LAB - [facility] [place] [id number] 1 05/18/2004 07:31:25 05/18/2004 08:59:02 [id number] [facility] OFFICE [address] [place] [id number] 01/15/2005 09:34:53 01/17/2005 08:36:24 [id number] Radiology , [facility] [address] [place] [id number] 02/01/2005 11:10:01 02/01/2005 15:52:52 [id number] Radiology , [facility] [address] [place] [id number] 1 02/01/2005 00:00:00 11/02/2008 02:02:29 [id number] Physical Therapy, [facility] [place] [id number] 1 02/05/2005 08:12:44 02/05/2005 08:29:55 [id number] Physical Therapy, [facility] [address] [place] [id number] 1 02/15/2005 08:24:31 02/18/2005 10:04:56 [id number] , [facility], OFFICE [address] [place] [address] 1 02/01/2005 10:54:42 02/01/2005 16:29:03 [id number] , [facility] OFFICE [address] [place] [address] 1 02/21/2005 14:22:21 02/21/2005 16:04:19 [id number] Radiology , [address] [place] [address] 02/21/2005 14:50:47 02/21/2005 15:41:55 [id number] Radiology , [address] [place] [id number] 1 02/21/2005 00:00:00 11/02/2008 02:02:29 [id number] , [facility], OFFICE [address] [place] [address] 06/29/2005 13:33:03 06/30/2005 09:35:19 [id number] , [facility], OFFICE [address] [place] [address] 1 12/27/2005 11:49:15 12/30/2005 08:51:54 [id number] [facility], OFFICE [address] [place] [id number] 01/13/2006 08:47:15 01/13/2006 14:43:40 [id number] Radiology , [address] [place] [address] 1 02/10/2006 09:05:08 02/10/2006 10:03:13 [id number] Radiology , [address] [place] [id number] 02/10/2006 00:00:00 11/02/2008 02:02:29 [id number] Eye Care, [facility] [place] [id number] 1 04/21/2006 09:52:50 04/21/2006 12:55:24 [id number] , [facility], OFFICE [address] [place] [place] [id number] 07/09/2006 07:55:47 07/10/2006 07:11:21 [id number] [facility], OFFICE [address] [place] [id number] 03/05/2007 16:39:52 03/06/2007 08:14:04 [id number] Radiology , [facility] [address] [place] [id number] 03/05/2007 17:13:21 03/05/2007 17:23:05 [id number] Radiology , [facility] [address] [place] [id number] 03/05/2007 00:00:00 11/02/2008 02:02:29 [id number] FP, [facility], OFFICE [address] [place] [id number] 1 08/17/2007 10:02:01 08/18/2007 11:31:32 [id number] FP, [facility], OFF[address] [place] [id number] 04/08/2008 12:04:44 11/02/2008 02:02:29 [id number] FP, [facility], OFFICE [address] [place] [address] 1 07/21/2008 10:26:14 11/02/2008 02:02:29 [id number] FP, [facility], OFFICE [address] [place] [id number] 1 10/23/2009 14:46:20 10/23/2009 16:15:48 [id number] FP, [facility], OFF[address] [place] [id number] 1 12/04/2009 13:29:35 12/05/2009 10:05:56 [id number] FP, [facility], OFF[address] [place] [id number] 1 05/29/2010 09:11:13 05/29/2010 14:06:34 [id number] FP, [facility], OFFICE [address] [place] [id number] 1 07/17/2010 10:03:30 07/17/2010 11:20:53 [id number] Radiology , [facility] [address] [place] [id number] 07/17/2010 10:22:12 07/18/2010 11:06:53 [id number] FP, [facility], OFFICE [address] [place] [id number] 08/17/2010 08:49:20 08/17/2010 09:26:46 [id number] Radiology , [facility] [address] [place] [id number] 09/21/2010 08:56:13 09/24/2010 11:02:45 [id number] FP, [facility], OFFICE [address] [place] [id number] 1 01/31/2011 09:03:08 02/01/2011 08:54:47 [id number] Physical Therapy, [facility] [place] [id number] 1 02/04/2011 12:02:28 02/05/2011 11:15:33 [id number] Physical Therapy, [facility] [place] [id number] 1 02/07/2011 09:23:39 02/08/2011 10:04:06 [id number] Physical Therapy, [facility] [place] [id number] 1 02/13/2011 09:23:27 02/14/2011 11:16:55 [id number] [facility], OFFICE [address] [place] [id number] 1 11/25/2011 08:43:52 11/25/2011 09:18:15 [id number] Physical Therapy, [facility] [place] [id number] 1 01/07/2012 13:41:13 01/08/2012 16:15:11 [id number] Physical Therapy, [facility] [place] [id number] 1 01/20/2012 14:26:25 01/21/2012 14:31:15 [id number] [facility], OFFICE [address] [place] [id number] 1 01/31/2012 14:59:37 01/31/2012 15:57:55 [id number] Physical Therapy, [facility] [place] [id number] 1 02/10/2012 15:00:15 02/11/2012 09:24:11 [id number] Physical Therapy, [facility] [place] [id number] 1 02/18/2012 14:32:02 02/19/2012 10:14:44 [id number] Physical Therapy, [facility] [place] [id number] 1 02/25/2012 14:28:13 02/26/2012 09:51:59 [id number] Physical Therapy, [facility] [place] [address] 1 03/11/2012 14:25:26 03/12/2012 10:23:45 [id number] Physical Therapy, [facility] [place] [id number] 1 03/12/2012 12:41:13 03/12/2012 12:41:20 [id number] Fabrizio Dotson III, MD , [facility], OFFICE [address] [place] [address] [place] [address] 1 11/12/2012 14:31:15 11/12/2012 14:47:44 [id number] Karon Sims LPN , [facility], OFFICE [address] [place] [address] [place] [id number] 1 02/16/2013 09:23:45 02/16/2013 09:57:11 [id number] Fabrizio Dotson III, MD , [facility], OFFICE [address] [place] [address] 1 04/07/2013 14:22:56 04/07/2013 14:47:16 [id number] Karon Sims LPN , [facility], OFFICE [address] [place] [address] [place] [id number] 1 07/02/2013 16:42:01 07/02/2013 17:38:01 Low back pain 670584632 [id number] Deanna Prasad , [facility], OFFICE [address] [place] [address] [place] [address] 1 07/06/2013 14:21:27 07/06/2013 14:51:25 Low back pain 302437510 Acute sciatica 517746215 [id number] Skye BowenKatharina holloway Physical Therapy, [address] [place] [id number] 07/12/2013 14:58:33 07/13/2013 15:26:03 [id number] Sandrita Ron, PT Physical Therapy, [address] [place] [id number] 07/13/2013 14:45:20 07/13/2013 14:45:32 [id number] [facility], [address] [place] [id number] 1 07/16/2013 08:17:59 07/20/2013 11:08:26 [id number] Skye BowenKatharina holloway Physical Therapy, [address] [place] [id number] 1 07/23/2013 08:56:20 07/26/2013 07:39:55 [id number] Skye BowenKatharina holloway Physical Therapy, [address] [place] [id number] 1 08/06/2013 08:55:56 08/11/2013 08:46:05 [id number] [facility], [facility] [address] [place] [id number] 08/13/2013 09:24:57 08/16/2013 08:52:10 Low back pain 113408113 [id number] Sherin Carlin MA , [facility], OFFICE [address] [place] [address] 1 06/30/2014 15:41:30 06/30/2014 17:00:50 Varicella vaccination 81576157 Olecranon bursitis 53973 0002 [id number] Rose España MA , [facility], OFFICE [address] [place] [address] 1 07/01/2014 13:36:10 07/01/2014 14:16:28 Olecranon bursitis 001107857 [id number] Deanna Prasad , [facility], OFFICE [address] [place] [address] 1 08/04/2014 10:30:44 08/04/2014 11:00:48 Mixed hyperlipidemia 545928931 Adult heal th examination 627132464 Counseling 704660726 Hearing loss 82162742 Olecranon bursitis 06258 0002 Primary insomnia 2454696 Anxiety disorder 6165863 06 Hernia of abdominal cavity 49928623 [id number] [facility], OFFICE [address] [place] [address] 1 08/11/2014 10:10:49 08/11/2014 10:32:15 Olecranon bursitis 372866859 [id number] [facility] OFFICE [address] [place] [address] 1 06/27/2015 08:59:18 06/28/2015 13:33:20 Generalized anxiety disorder 83347906 Primary insomnia 0353345 Influenza vaccine needed 3377869769 106 Cervical radiculitis 110 10995 Spinal bruno nosis in cervical region 60676007 [id number] Harjinder Raymond MD , [facility], OFFICE [address] [place] [address] 1 11/10/2015 13:39:27 11/10/2015 14:50:46 Screening for disorder 112522142 Z11.59 Varicella vaccination 68 810882 Z23 Mixed hyperlipidemia 267 452746 E78.2 Adult heal th examination 974056169 Z00.00 Counseling 225174979 Z71 .9 Generalize d anxiety disorder 00550968 F41.1 Hernia of abdominal cavity 23524837 K46.9 Lesion of eyelid 8702927 02 H02.89 Active or passive immunization 479999142 Z23 [id number] Harjinder Raymond MD , [facility], OFFICE [address] [place] [address] 1 01/02/2017 10:57:07 01/03/2017 13:21:00 Mixed hyperlipidemia 501741198 E78.2 Adult heal th examination 783609363 Z00.00 Counseling 815272874 Z71 .9 Insomnia 363540974 G47.0 0 Active or passive immunization 113367324 Z23 Venous varices 170420104 I83.90 [id number] Cristal Butt NP , [facility], OFFICE [address] [place] [address] 1 03/25/2017 09:00:16 03/26/2017 09:41:26 Screening for malignant neoplasm of colon 858510627 Z12.11 Laceration of finger 274 821309 S61.211A [id number] Harjinder Raymond MD , [facility], OFFICE [address] [place] [address] 1 06/11/2017 11:29:52 06/11/2017 11:58:15 Venous varices 829642974 I83.90 Active or passive immunization 057978745 Z23 M??ni??re's disease 1344 5001 H81.03 [id number] Carmina De Leon LPN , [facility], OFFICE [address] [place] [address] 1 09/25/2017 09:43:27 09/25/2017 10:12:01 M??ni??re's disease 38472457 H81.03 Generalize d anxiety disorder 15606721 F41.1 Mixed hyperlipidemia 267 523532 E78.2 Insomnia 404327925 G47.0 0 [id number] Harjinder Raymond MD , [facility], OFFICE [address] [place] [address] 1 01/08/2018 10:56:52 01/08/2018 11:59:03 Mixed hyperlipidemia 478754681 E78.2 Adult heal th examination 140285238 Z00.00 Counseling 651685554 Z71 .9 Depression screening 171 623381 Z13.89 Anxiety 60398514 F41.9 Insomnia 088124098 G47.0 0 [id number] Chen Lopez NP , [facility], OFFICE [address] [place] [address] 1 04/06/2018 09:31:46 04/06/2018 10:52:18 Strain of tendon of medial thigh muscle 250150555 S76.811A Injury of hip region 125 980961 S79.911A [id number] Harjinder Raymond MD , [facility], OFFICE [address] [place] [address] 1 07/09/2018 09:05:49 07/09/2018 09:38:29 Insomnia 297134106 G47.00 Anxiety 61590811 F41.9 Active or passive immunization 669473702 Z23 [id number] Harjinder Raymond MD , [facility], OFFICE [address] [place] [address] 1 01/13/2019 10:13:48 01/13/2019 11:00:12 Adult health examination 905623960 Z00.00 Counseling 831780032 Z71 .9 Depression screening 171 256784 Z13.89 Mixed hyperlipidemia 267 669367 E78.2 Venous varices 292052873 I83.90 Anxiety 63106393 F41.9 Insomnia 326227300 G47.0 0 [id number] Harjinder Raymond MD , [facility], OFFICE [address] [place] [address] 1 04/12/2020 10:23:57 04/12/2020 10:47:45 Adult health examination 063937102 Z00.00 Counseling 352881654 Z71 .9 Depression screening 171 539854 Z13.89 Screening for alcohol abuse 595304101 Z13.39 Mixed hyperlipidemia 267 705748 E78.2 Venous varices 664545844 I83.90 Insomnia 024219119 G47.0 0 Bilateral arthritis of hip 8310162730 833142 M13.117 [id number] Harjinder Raymond MD , [facility], OFFICE [address] [place] [address] 1 05/24/2020 14:48:22 05/25/2020 11:40:31 Low back pain 169488973 M54.5 Bilateral arthritis of hip 8395834531 018346 M13.531 [id number] Олег Garcia MD , [facility], OFFICE [address] [place] [address] 1 06/23/2020 13:37:45 06/28/2020 18:18:58 Headache 36958399 R51 [id number] Harjinder Raymond MD , [facility], OFFICE [address] [place] [address] 1 06/26/2020 14:35:48 06/28/2020 16:55:15 Groin mass 186898023 R19.00 [id number] Harjinder Raymond MD , [facility], OFFICE [address] [place] [address] 1 07/06/2020 10:46:06 07/07/2020 15:51:20 Epidermoid cyst 108374754 L72.0 [id number] Kavon Shoushtari . , [facility], OFFICE [address] [place] [address] 1 01/04/2021 14:24:38 01/05/2021 13:41:45 Sacroiliac joint pain 073452930 M53.3 Insomnia 228969300 G47.0 0 [id number] Kavon Shoushtari . , [facility], OFFICE [address] [place] [address] 1 02/23/2021 11:27:32 02/23/2021 12:16:41 Sacroiliac joint pain 072008863 M53.3 [id number] Kavon Shoushtari . , [facility], OFFICE [address] [place] [address] 1 04/19/2021 11:17:44 04/19/2021 12:39:47 Adult health examination 832233241 Z00.00 Counseling 636947675 Z71 .9 Depression screening 171 892947 Z13.31 Screening for alcohol abuse 932681668 Z13.39 Advance di rective discussed with patient 210669902 Z71.89 Mixed hyperlipidemia 267 376654 E78.2 Bilateral arthritis of hip 0217620329 139076 M13.851 Varicose v eins of lower extremity 27564018 I83.93 M??ni??re's disease 1344 5001 H81.01 Insomnia 697256814 G47.0 0 Generalize d anxiety disorder 46747306 F41.1 Screening for malignant neoplasm of colon 222323947 Z12.11 [id number] Agustina Romero RN ASP, [facility] [address] [place] [address] 07/26/2021 08:52:26 07/26/2021 14:11:05 [id number] Maria A Hernández , [facility], OFFICE [address] [place] [address] 1 06/11/2022 13:24:58 06/11/2022 16:31:57 Active or passive immunization 707892489 Z23 Swelling of eyelid 96764 7004 R22.0 Insomnia 788880018 G47.0 0 Generalize d anxiety disorder 58479919 F41.1 Mixed hyperlipidemia 267 332380 E78.2 Venous varices 269201328 I83.90 Tachycardia 5130029 R00. 0 [id number] Carmina De Leon LPN , [facility], OFFICE [address] [place] [address] 1 06/13/2022 11:27:04 06/13/2022 11:33:07 Tachycardia 5475000 R00.0 [id number] Kavon Lomax . MD NOEL, [facility], OFFICE [address] [place] [address] 1 11/21/2022 08:45:31 11/21/2022 09:52:26 Adult health examination 194336206 Z00.00 Depression screening 171 062260 Z13.31 Screening for alcohol abuse 650093839 Z13.39 Mixed hyperlipidemia 267 173948 E78.2 Venous varices 235812594 I83.90 Pruritus ani 14099105 L2 9.0 Right bund le branch block 94913776 I45.0 Bilateral arthritis of hip 0675867963 929108 M13.851 M??ni??re's disease 1344 5001 H81.01 Insomnia 329093290 G47.0 0 Generalize d anxiety disorder 63155841 F41.1 Pain in left thumb 34060 80198 155952 M79.645 Family his tory of Aortic aneurysm 966609573 Z82.49 [id number] MITRA PIPER DNP , [facility], OFFICE [address] [place] [address] 1 06/10/2023 16:03:33 06/10/2023 16:57:07 Congestion of nasal sinus 75064928 R09.81 [id number] , [facility], OFFICE [address] [place] [address] [place] [address] 1 07/24/2023 10:32:50 07/24/2023 12:17:14 Paresthesia of lower extremity 699035420 R20.2 Paresthesi a of upper limb 61032556 R20.2 [id number] Bethanie Ricketts er, [employer]IST , [facility] [place] [address] [place] [id number] 07/30/2023 08:25:43 07/30/2023 16:38:24 Paresthesia of upper limb 68015484 R20.2 Paresthesi a of lower extremity 757129049 R20.2 Insomnia 202741140 G47.0 0 [id number] Marianna Jain , OTR/L, [facility], [address] [place] [id number] 08/01/2023 11:45:05 08/01/2023 14:17:16 Neuritis of left ulnar nerve [id number] G56.22 [id number] Cristal De La Rosa MD , [facility] [place] [address] [place] [address] [place] [address] 08/13/2023 13:07:51 08/13/2023 15:19:40 Spinal stenosis in cervical region 98659364 M48.02 [id number] Bethanie hubbard, [employer]IST , [facility] [place] [address] [place] [address] [place] [id number] 09/22/2023 11:18:00 09/22/2023 17:14:47 COVID-19 [id number] U07.1 Generalize d anxiety disorder 01909499 F41.1 Spinal bruno nosis in cervical region 17828713 M48.02 [id number] Kavon Nettles MD , [facility] [place] [address] [place] [address] [place] [address] 11/24/2023 10:02:26 11/24/2023 11:01:03 Adult health examination 836506189 Z00.00 Depression screening 171 004438 Z13.31 Screening for alcohol abuse 956653962 Z13.39 Screening for malignant neoplasm of prostate 028014543 Z12.5 Cervical myelopathy 2025 82116 G95.9 Impaired f asting glycemia 072124304 R73.01 Right bund le branch block 55894029 I45.0 M??ni??re's disease 1344 5001 H81.01 Insomnia 116534280 G47.0 0 Generalize d anxiety disorder 03273924 F41.1 Mixed hyperlipidemia 267 719423 E78.2 Left inguinal hernia 236 790342 K40.90 [id number] Kavon Lomax . MD NOEL, [facility] [place] [address] [place] [address] 03/04/2024 10:37:03 03/04/2024 14:30:38 COVID-19 012047043 U07.1 Health Concerns Section Related Observation LastModified by Organization Detai ls LastModified Time None Recorded Concern Status LastModified by Organization Details LastModified Time None Recorded Advance Directives Directive None Recorded Payers Encounter Date Sequence Insurance Name Policy Number Policy Vega Covered Member ID Vega Member ID Guarantor Name 08/01/2023 1 [place] [employer] Sha Batista [id number] Sha Batista 08/01/2023 2 [facility] (MEDICARE SUPPLEMENT) Sha Batista [id number] Sha Batista 08/13/2023 1 [place] Sha Batista [id number] Sha Batista 08/13/2023 2 [facility] (MEDICARE SUPPLEMENT) Sha Batista [id number] Sha Batista 09/22/2023 1 [place] [employer]ERNMENT SERVICES Sha Batista [id number] Sha Batista 09/22/2023 2 [facility] (MEDICARE SUPPLEMENT) Sha Batista [id number] Sha Batista 11/24/2023 1 [place] NATIONAL G[employer]ERNMENT SERVICES Sha Batista [id number] Sha Batista 11/24/2023 2 [facility] (MEDICARE SUPPLEMENT) Sha Batista [id number] Sha Batista 03/04/2024 1 [place]MENT [place] Sha Batista [id number] Sha Batista 03/04/2024 2 [facility] (MEDICARE SUPPLEMENT) Sha Batista [id number] Sha Batista Notes Date Note Type [...] pain: yes 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 08/01/2023 14:06:25 08/13/2023 text/html [address] [...] on 08/15. Cristal De La Rosa MD [address] [place] [address], [phone], [facility] 08/13/2023 14:06:08 11/24/2023 text/html Risk Assessment and [...] thumb, does not hurt anymore Kavon Lomax. [address] [place] [address], [phone], [facility] 11/24/2023 11:00:02 03/04/2024 text/html tested Positive for COVID yesterdaysymptoms of fatigue, fever and cough started yesterday using ibuprofen, not today.No shortness of breath.No fever today yet.No severe LAROSE. No new neurologic sx or abdominal pain. Kavon Lomax. [address] [place] [address], [phone], [facility] 03/04/2024 10:57:24
[2024-10-11 10:18] VITALS: BMI 23.5
--- NOTE | 2024-10-11 10:35 | MHC.SHP ---
Pre-Procedural Eval Section A - 24 Hr Update-Section A only Date of Service: 10/11/24 The patient is an INPATIENT: No Changes since office visit: No Cold of Flu in the past 2 weeks, No New Medical Problems, No Changes in Medication and No Patient answered all questions The patient has been examined within 24 hours of the surgical procedure. The History & Physical has been completed within 30 days and I have reviewed it.: Yes Section B - Complete if H&P > 30 days Chief Complaint: Lesion of ulnar nerve, right upper limb Allergies: Allergies Allergy/AdvReac Type Severity Reaction Status Date / Time No Known Allergies Allergy Verified 10/11/24 10:20 Plan I have reviewed the history and physical and performed a pertinent physical examination on my patient. No changes have occurred unless specified. Time Spent With Patient Time: Total time managing care of this patient today ____ minutes.
--- NOTE | 2024-10-11 10:35 | W.PM.OPN ---
Operative Note Operative Note Date of Service: 10/11/24 Narrative: Operative Note Narrative: Preop diagnosis: 1. Right Cubital tunnel syndrome Postop diagnosis: Same Procedure: 1. Right Cubital Tunnel Release Surgeon: Miracle Garg MD Train Reservation Clerk: None Anesthesia: General Anesthesia Findings: Thickening and fibrosis about the ulnar nerve at the cubital tunnel Implants: none Tourniquet time: 20 minutes EBL: 5.0 ml Specimen: none Drains: None Complications: None Disposition: Brought to the recovery room in stable condition Plan: Follow-up in 10-14 days for wound check, and suture removal Indications: The patient is 73 years old with right cubital tunnel syndrome and dense numbness . The risks and benefits of operative treatment, including but not limited to risk of damage to blood vessels, nerves, tendons, infection, recurrence, persistent pain or numbness, incomplete resolution of preoperative symptoms, or need for further surgery were discussed with the patient and they wished to proceed with surgery. Procedure: Once consent was obtained patient was brought back to the operating suite and placed in the operating table in a supine position. Perioperative antibiotics and anesthesia was administered by the anesthesia team. The limb was prepped and draped in a standard surgical fashion, and a sterile tourniquet applied to the proximal aspect of the right upper extremity. The limb was elevated exsanguinated with Esmarch bandage and the tourniquet inflated to 250 mm of mercury for a total tourniquet time of 20 minutes. A 6 cm gently curved but longitudinally oriented incision was made centered over the cubital tunnel of the right upper extremity. Incision was made through the skin to the subcutaneous tissues using a # 15 Blade. I then dissected down to the level of the medial epicondyle and the cubital tunnel using tenotomy scissors. Care was taken to protect the medial antebrachial cutaneous nerve. The ulnar nerve was identified just posterior to the medial intermuscular septum. The ulnar nerve was released in a proximal to distal direction using tenotomy in iris scissors while directly visualizing and protecting the ulnar nerve. Thickening and fibrosis was appreciated about the ulnar nerve as it passed through the cubital tunnel. The ulnar nerve was assessed as I passed the elbow through full flexion and extension and was found to remain stable within its groove. At this point the tourniquet was deflated and hemostasis obtained with a brief period of local pressure and bipolar electrocautery. The wound was copiously irrigated with normal saline. The subcutaneous layer was closed with 4-0 Vicryl suture, and the skin edges were reapproximated with 5-0 nylon suture. The wound was infiltrated with some 1% lidocaine with epinephrine for postop pain control and sterile dressings were applied. The patient appears to have tolerated the procedure well and with no complications. All digits were well vascularized at the conclusion of the case.
[2024-10-11 10:52] VITALS: BP 129/78; PULSE 56; RESP 18; TEMP 36.8; O2SAT 100
[2024-10-11] MEDS: Lactated Ringers 1,000 ML 50 ML IVCONT (10:54)
--- NOTE | 2024-10-11 12:09 | HO.ANESPROP2 ---
FORMERLY [facility] Active Problems Active Problems: All Active Problems Right lateral epicondylitis (Acute) Cervical radiculopathy (Acute) Right hand pain (Acute) Ulnar neuropathy of right upper extremity (Acute) History of fusion of cervical spine (Acute 09/10/23) Degenerative disc disease, cervical (Acute) Cervical spondylosis (Acute) Cervical myelopathy (Acute) Past Medical History Medical History Anxiety Hearing loss in left ear Degenerative disc disease, cervical Cervical spondylosis Arthritis Right bundle branch block Right median nerve neuropathy Cervical myelopathy Functional capacity: independent ambulation Family History Family history of problems with anesthesia: No Surgical History Surgical History Hx of colonoscopy Hx of hernia repair History of fusion of cervical spine (09/10/23) History of Problems with Anesthesia: No Social History Social History Are you a primary child care provider to a significant other at home: No Do you presently have visiting nurse or other home services: No Patient Tobacco Use Status: Never used Tobacco Substance Use Frequency: Occasionally Have you been hit, kicked, punched, or otherwise hurt by someone within the past year? 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 Meds Allergies Allergy/AdvReac Type Severity Reaction Status Date / Time No Known Allergies Allergy Verified 10/11/24 10:20 Active Medications: Current Medications Lactated Ringer's (Lr) 1,000 mls @ 50 mls/hr IVCONT .Q20H GAGANDEEP Last Admin: 10/11/24 10:54 Dose: 50 mls/hr Home Medications ?Medication ?Instructions ?Recorded ?Confirmed ?Last Taken ?Type Baby Aspirin 81 mg 10/11/24 10/10/24 History alprazolam 1 mg tablet 1 mg PO DAILY PRN Insomnia 10/11/24 10/11/24 Unknown History Exam Height,Weight and Vital Signs: Height 6 ft Weight 78.471 kg Last Vital Signs Temp 98.2 F 10/11/24 10:52 Pulse 56 10/11/24 10:52 Resp 18 10/11/24 10:52 BP 129/78 10/11/24 10:52 Pulse Ox 100 10/11/24 10:52 O2 Del Method Room Air 10/11/24 10:52 Airway Heart: RRR Lungs: CTA Assessment and Plan Assessment Anesthesia Assessment: Anesthesia Plan Discussed and Chart Reviewed Final Anesthetic Review Family History of Problems with Anesthesia: No History of Problems with Anesthesia: No NPO: Yes ASA Class: II Final Preanesthetic Review: Meds/Allgs Chart Reviewed, Consent Obtained/Reviewed and Anes Risks/Benef Reviewed Patient Risk: Low Procedure Risk: Low Anesthetic Plan Anesthetic Plan: GA Disposition: Standard PACU
[2024-10-11 14:11] VITALS: BP 123/74; PULSE 56; RESP 11; TEMP 36.4; O2SAT 94
[2024-10-11 14:16] VITALS: BP 113/71; PULSE 62; RESP 14; O2SAT 95
[2024-10-11 14:21] VITALS: BP 113/68; PULSE 62; RESP 14; O2SAT 95
[2024-10-11 14:26] VITALS: BP 136/67; PULSE 61; RESP 14; O2SAT 97
[2024-10-11 14:41] VITALS: BP 140/75; PULSE 54; RESP 16; TEMP 36.3; O2SAT 96
--- NOTE | 2024-10-11 15:24 | HO.POSTANES ---
Post Anesthesia Evaluation Post Anesthesia Evaluation Date of Service: 10/11/24 Vital Signs: Vital Signs Temp Pulse Resp BP Pulse Ox O2 Del Method 10/11/24 14:41 97.3 F 54 16 140/75 H 96 Room Air 10/11/24 14:26 61 14 136/67 97 Room Air 10/11/24 14:21 62 14 113/68 95 Room Air 10/11/24 14:16 62 14 113/71 95 Room Air 10/11/24 14:11 97.5 F 56 11 L 123/74 94 Room Air 10/11/24 10:52 98.2 F 56 18 129/78 100 Room Air Anesthesia: General LMA Mental Status: Awake Pain Control: Satisfactory Nausea/Vomiting: None Hydration: Adequate Anesthesia-Related Issues: No Anes. Related Issues
== END 2024-10-11 15:16 | disposition home or self-care (01) ==
PROVIDERS: PCP Physician Assistant; Visit Provider Orthopaedic Surgery
PROC: (CPT 64718; principal; 2024-10-11 12:00)
DX: G56.21 Lesion of ulnar nerve, right upper limb (principal); M77.11 Lateral epicondylitis, right elbow; M79.644 Pain in right finger(s); M25.521 Pain in right elbow; M47.12 Other spondylosis with myelopathy, cervical region; R20.0 Anesthesia of skin; R20.2 Paresthesia of skin; F41.9 Anxiety disorder, unspecified; H91.92 Unspecified hearing loss, left ear; I45.10 Unspecified right bundle-branch block; M50.30 Other cervical disc degeneration, unspecified cervical region; Z98.1 Arthrodesis status; Z79.82 Long term (current) use of aspirin; Z79.899 Other long term (current) drug therapy
CPT/HCPCS: 64718; J0690; J1100; J2003; J2004; J2250; J2405; J2704; J2795; J3010

== ENCOUNTER → 2024-10-11 09:56 | Outpatient (BNV) | payer MEDICARE, OTHER, SELFPAY | PROVIDERS: PCP Physician Assistant; Visit Provider Orthopaedic Surgery | DX: G56.21 Lesion of ulnar nerve, right upper limb (principal) | CPT/HCPCS: 64718 ==

== ENCOUNTER 2024-10-26 13:04 | Outpatient (AMB) | payer MEDICARE, OTHER, SELFPAY ==
--- NOTE | 2024-10-26 13:20 | MHC.OFFVIS ---
Intake Visit Reasons: PO RT Cubital 10/11/24 AR Intake Note: Sha is a 73 year old 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 male who presents today for a post operative visit s/p Right Cubital Tunnel Release DOS: 10/11/2024 w/ Dr Garg. Patient reports he has been doing well, states his pain has been tolerable after surgery. Allergies No Known Allergies Allergy (Verified 10/26/24 13:38) HPI HPI PO RT Cubital 10/11/24 AR: Details: Sha is a 73 year old 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 male who presents today for a post operative visit s/p Right Cubital Tunnel Release DOS: 10/11/2024 w/ Dr Garg. Patient reports he has been doing well, states his pain has been tolerable after surgery. Numbness and tingling has remained constant since surgery, but patient was densely numb prior. No other acute complaints concerns at this time. FOR[facility]LY [facility], [facility] Medical History Anxiety Hearing loss in left ear Degenerative disc disease, cervical Cervical spondylosis Arthritis Right bundle branch block Right median nerve neuropathy Cervical myelopathy Surgical History Hx of colonoscopy Hx of hernia repair History of fusion of cervical spine (09/10/23) Social History Are you a primary career services director to a significant other at home: No Do you presently have visiting nurse or other home services: No Patient Tobacco Use Status: Never used Tobacco Current occupational status: employed 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 Neuro: Diminished sensation of the tips of the digits of the ulnar nerve distribution of the right hand Normal sensation to all other digits of the right hand at this time Vascular: Cap refill brisk Pain: No tenderness to palpation about the incision site Pain with range of motion of the right elbow and wrist in the forearm ROM: Patient is able to flex and extend all digits of the right hand fully and without difficulty Skin: Well approximated and well healing incision site noted on the medial aspect patient's right elbow General: No ecchymosis, erythema, or evidence of infection. Psych: Appears grossly normal Affect normal Attitude cooperative Assessment & Plan Assessment & Plan (1) Ulnar neuropathy of right upper extremity: Code(s): G56.21 - Lesion of ulnar nerve, right upper limb Category: Medical Plan 1. Cubital tunnel syndrome of right elbow status post cubital tunnel release DOS 10/11/2024 Patient appears to be recovering well postoperatively Patient is educated about typical recovery course Patient is referred to occupational therapy for range of motion and strengthening of the right hand and elbow in the setting of postoperative stiffness after cubital tunnel release Patient was amenable to this plan Patient is in the clinic it take up to 9 months for normal sensation to return, and there is an increased risk of ongoing numbness even after This time due to the patient being densely numb before surgery Patient expresses understanding of the Patient follow-up as needed with any acute concerns Orders: Orders OT Evaluation and Treatment Today G56.21 - Lesion of ulnar nerve, right upper limb Coding Level of Care Code Global (59332) Diagnoses Ulnar neuropathy of right upper extremity G56.21
--- OUTSIDE RECORDS SUMMARY | 2024-10-26 15:19 | XMS_ITS | Data Portability ---
Author Organization [facility], FORMERLY [facility] Address [address] [place] [address] Care Team Providers Care Allied Health Professional Name Role Phone YEMI LUCERO Halftone Operator [facility] Sleep Medicine [phone] [facility] Examiner Rating Clerk [phone] KAVON LOMAX Primary Care Provider [phone] [facility] OTHER [facility] NEUR[facility] Neurosurgeon TAMICA EDUARDO General Surgeon [phone] ANDREI LIN Neurologist [facility] Pain Management [phone] [facility] Orthopedic Surgeon [phone] Assessment Encounter Date Assessment Date Assessment LastModified [...] ADL new STG 4 weeks Inc R set off blocker by 5lb for improvement in function new LTG 8 weeks new LTG 8 weeks new LTG 8 weeks Independent in comprehensive [facility]. new Treatments may include [...] was notified that the provider location is [facility] Patient location: home During the visit the [...] was notified that the provider location is [facility] Patient location: home During the visit the [...] HbA1c (hemogl obin A1c), blood 2023 024 [facility], [address] [place], [address], 12/01/2023 14:32:09 lipid panel, serum 2023 024 [facility], [address] [place], [address], 12/01/2023 16:08:10 CMP, serum or plasma 2023 024 [facility], [address] [facility], [place], [address], 12/01/2023 16:08:09 Referral general surgeon laura lorenz 2023 024 SARAH Eduardo MD, [address] , [place], [address], 12/09/2023 13:41:03 Procedures None recorde d. Surgeries None recorde d. Imaging None recorde d. Medication Orders nirmatr bienvenido 300 mg (150 mg x2)-rit onavir 100 mg tablet, dose pack [address] [facility]armacy #[id number], [address] [place], [address], 11/23/2023 19:25:03 Paxlovi d 300 mg (150 mg x 2)-100 mg tablets in a dose pack 2023 024 [facility]acy #[id number], [address] [place], [address], 03/04/2024 10:55:26 Patient TargetsNo targets recorded. Patient Instructions Encounter Date Encounter Id Patient Instructions Last Modified By Organization Details Last Modified Time 08/01/2023 [id number] Access Code: [email or web address] URL: [email or web address] Date: 08/01/2023 Prepared by: Marianna Jain Exercises - Ulnar Nerve Canadian- Full Arm - 3 x daily - [...] stretch ash Not available 08/01/2023 12:35:33 09/22/2023 [id number] A discussion regarding the use of Paxlovid [...] We have checked availability through this website: [email or web address]://[email or web address] gov/info-details/ ugrhuwpknjt-xnf-w xtrjoain-ehqfk-tf erapenjic-treatme bjk-crd-mvneg-19# [email or web address] tic-student development dean- This medication is authorized by the FDA [...] time. [email or web address] Not available 09/22/2023 11:37:08 11/24/2023 [id number] preventing falls : care instructions [email or web address] Not [...] worry, expense and possibly shorter life expectancy. [email or web address] Not available 11/20/2023 17:00:23 Reason for Referral General Surgeon Referral for Left inguinal hernia Referring Physician: Kavon Lomax, Family Medicine, Encounter Date: 11/24/2023 Results Created Date Observation Date Name Description Value Unit Range Abnormal Flag Note LastModifiedBy Organization Detail LastModifiedTime 08/18/2008/19/2023 GLUCO SE glucose 102 mg/dL 70-100 high Not Available [address], [address], 08/19/2023 10:56:33 08/18/2008/20/2023 VITAM IN B12 vitamin B12 501 pg/mL 230-10 50 Not Available [address], [address], 08/20/2023 15:40:10 08/18/2008/20/2023 LYME SCREE N, REFLE [...] negat sarahi for infec tion. Not Available [address], [address], 08/20/2023 15:42:06 08/18/2008/21/2023 YESICA SCREE N, IFA, [...] YESICA Riojas rns (http s://d oi.or g/10. 6475/ [facility]- 2017- 0052) For addit ional infor joe acuña, madhavi e refer to http: //[facility] acuña.Que stDia gnost ics.c om/fa q/FAQ 177 (This link is being provi ded for infor matio nal/ educa monika l purpo ses only. ) Not Available [facility] [address] [place] [address], [place], [address], 08/21/2023 13:58:40 08/18/20 23 08/21/2023 ANCA SCREE [...] with Crohn 's disea se. Not Available [employer] [facility] [address] Bruno B, [place], [address], 08/21/2023 13:58:42 08/18/20 23 08/21/2023 RPR RPR NON-RE ACTIVE nonrea ctive Not Available [address], [address], 08/21/2023 14:44:38 12/01/19 24 12/01/2023 HGB A1C [...] furth er confi rmati on Not Available [address], [address], 12/01/2023 14:32:09 12/01/19 24 12/01/2023 HGB A1C estimated average glucose 111.2 mg/dL Not Available [address], [address], 12/01/2023 14:32:09 12/01/19 24 12/01/2023 COMP. METAB OLIC PANEL glucose 96 mg/dL 70-100 Not Available [address], [address], 12/01/2023 16:08:09 12/01/19 24 12/01/2023 COMP. METAB OLIC PANEL BUN 12 mg/dL 7-18 Not Available [address], [address], 12/01/2023 16:08:09 12/01/19 24 12/01/2023 COMP. METAB OLIC PANEL creatinine 1.1 mg/dL 0.8-1. 3 Not Available [address], [address], 12/01/2023 16:08:09 12/01/19 24 12/01/2023 COMP. METAB OLIC PANEL B/C 10.9 ratio Not Available [address], [address], 12/01/2023 16:08:09 12/01/19 24 12/01/2023 COMP. METAB [...] shoul d not be used in pregn gianan. Not Available [address], [address], 12/01/2023 16:08:09 12/01/19 24 12/01/2023 COMP. METAB OLIC PANEL sodium 141 mmol/ L 136-14 5 Not Available [address], [address], 12/01/2023 16:08:09 12/01/19 24 12/01/2023 COMP. METAB OLIC PANEL potassium 4.5 mmol/ L 3.5-5. 1 Not Available [address], [address], 12/01/2023 16:08:09 12/01/19 24 12/01/2023 COMP. METAB OLIC PANEL chloride 104 mmol/ L 96-107 Not Available [address], [address], 12/01/2023 16:08:09 12/01/19 24 12/01/2023 COMP. METAB OLIC PANEL anion gap 9.1 5.0-15 .0 Not Available [address], [address], 12/01/2023 16:08:09 12/01/19 24 12/01/2023 COMP. METAB OLIC PANEL CO2 28 mmol/ L 21-32 Not Available [address], [address], 12/01/2023 16:08:09 12/01/19 24 12/01/2023 COMP. METAB OLIC PANEL calcium 8.9 mg/dL 8.5-10 .3 Not Available [address], [address], 12/01/2023 16:08:09 12/01/19 24 12/01/2023 COMP. METAB OLIC PANEL total protein 6.1 g/dL 6.4-8. 2 low Not Available [address], [address], 12/01/2023 16:08:09 12/01/19 24 12/01/2023 COMP. METAB OLIC PANEL albumin 3.5 g/dL 3.4-5. 0 Not Available [address], [address], 12/01/2023 16:08:09 12/01/19 24 12/01/2023 COMP. METAB OLIC PANEL globulin 2.6 g/dL Not Available [address], [address], 12/01/2023 16:08:09 12/01/19 24 12/01/2023 COMP. METAB OLIC PANEL A/G 1.3 ratio 0.8-2. 0 Not Available [address], [address], 12/01/2023 16:08:09 12/01/19 24 12/01/2023 COMP. METAB OLIC PANEL total bilirubin 1.00 mg/dL 0.00-1 .00 Not Available [address], [address], 12/01/2023 16:08:09 12/01/19 24 12/01/2023 COMP. METAB OLIC PANEL AST 30 U/L 0-37 Not Available [address], [address], 12/01/2023 16:08:09 12/01/19 24 12/01/2023 COMP. METAB OLIC PANEL ALT 37 U/L 6-63 Not Available [address], [address], 12/01/2023 16:08:09 12/01/19 24 12/01/2023 COMP. METAB OLIC PANEL alk. phos. 67 U/L 50-136 Not Available [address], [address], 12/01/2023 16:08:09 12/01/19 24 12/01/2023 LIPID PANEL cholesterol 214 mg/dL <200 mg/dl Reginaldo able 200-2 39 mg/dl Borde rline High >240 mg/dl High Not Available [address], [address], 12/01/2023 16:08:10 12/01/19 24 12/01/2023 LIPID PANEL triglyceride s 74 mg/dL <150 mg/dL Corina l 150-1 99 mg/dL Borde rline High 200-4 99 mg/dL High >500 mg/dL Very High Not Available [address], [address], 12/01/2023 16:08:10 12/01/19 24 12/01/2023 LIPID PANEL direct HDL 70 mg/dL <40 mg/dl - Major Risk for CHD >60 mg/dl - Negat sarahi Risk for CHD Not Available [address], [address], 12/01/2023 16:08:10 12/01/19 24 12/01/2023 LDL - [...] r is not neces aviva. 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 The neural forami na [...] Marjorie estrada Physic paige: Dot Godfrey ms [facility] ([facility]) [address] [place], [address], 08/01/2023 14:14:33 08/16/2008/15/2023 nerve condu ction study No observ ation record ed. [facility] Available 01/2023 11:42:35 08/19/2008/16/2023 MRI, cervi tr spine , w/o contr ast No observ ation record ed. [facility] Not Available 2022 07:43:01 08/05/20 24 08/04/2024 nerve condu ction study No observ ation record ed. [facility] [address], [place], [address], 08/05/2024 09:31:35 Result Notes None recorded. Problems Name Problem SNOMED Code Status Onset Date Resolution Date Notes Provider Name and Address Organization Details Recorded Time Mixed hyperlipi demia 543541168 Active 2003 Not Available [facility] 3 11:44:38 Injury of shoulder region 798357761 Completed 200402/15/2013 Not Available [facility] 3 03:03:32 Varicose veins of lower extremity 84123965 Completed 02/15/2013 Not Available [facility] 3 03:03:32 Presbyopi a 99167423 Completed 200501/31/2012 Not Available [facility] 3 03:03:32 Precordia l pain 19718646 Completed 200202/15/2013 Not Available [facility] 3 03:03:32 Migraine without aura 18564708 Completed 200708/17/2010 Not Available [facility] 3 03:03:32 Phlebitis and thromboph lebitis Completed 200008/17/2010 Not Available [facility] 3 03:03:32 Lateral epicondyl itis 104756850 Completed 200202/15/2013 Not Available [facility] 3 03:03:32 Neck pain 74056644 Completed 200401/31/2012 Not Available [facility] 3 03:03:32 Allergic rhinitis 96380091 Completed 200108/17/2010 Not Available [facility] 3 03:03:32 Epidermoi d cyst of skin 595934464 Completed 200201/31/2012 Not Available [facility] 3 03:03:32 Acute suppurati ve otitis media without spontaneo us rupture of ear drum 82618306 Completed 200008/17/2010 Not Available [facility] 3 03:03:32 Sciatica 75441883 Completed 200102/15/2013 Not Available [facility] 3 03:03:32 Knee pain Completed 200108/17/2010 Not Available [facility] 3 03:03:32 Sprain of shoulder and upper arm Completed 200402/15/2013 Not Available [facility] 3 03:03:32 Hyperlipi demia 92721378 Completed 200108/17/2010 Not Available [facility] 3 03:03:32 Acute bronchiti s 29085401 Completed 200502/15/2013 Not Available [facility] 3 03:03:32 Otogenic otalgia 12454744 Completed 200108/17/2010 Not Available [facility] 3 03:03:32 Headache 14232382 Completed 200508/17/2010 Not Available [facility] 3 03:03:32 Disorder of tendon of shoulder region 50730213 Completed 200408/17/2010 Not Available [facility] 3 03:03:32 Migraine variants 586079116 Completed 200608/17/2010 Not Available [facility] 3 03:03:32 Cough 20508581 Completed 200508/17/2010 Not Available [facility] 3 03:03:32 Shoulder pain 56687604 Completed 01/31/2012 Not Available [facility] 3 03:03:32 Shoulder pain 88571729 Completed 200408/17/2010 Not Available [facility] 3 03:03:32 Generaliz ed anxiety disorder 64038151 Active Not Available [facility] 3 11:44:38 Migraine with aura 4345179 Completed 200402/15/2013 Not Available [facility] 3 03:03:32 Astigmati sm 19032187 Completed 200502/15/2013 Not Available [facility] 3 03:03:32 Impacted cerumen 40776120 Completed 200708/17/2010 Not Available [facility] 3 03:03:32 Abnormali ty of systemic vein 694145728 Completed 200002/15/2013 Not Available [facility] 3 03:03:32 Allergic asthma without status asthmatic 09221939 Completed 200102/15/2013 Not Available [facility] 3 03:03:32 Insomnia 811630976 Completed 01/31/2012 Harjinder Raymond MD [address] [place] [address], [address] , [facility] 7 11:37:01 Common cold 15136947 Completed 200408/17/2010 Not Available [facility] 3 03:03:32 Hand joint pain 305240717 Completed 01/31/2012 Not Available [facility] 3 03:03:32 Inflammat ory disorder of extremity 217242948 Completed 200008/17/2010 Not Available [facility] 3 03:03:32 On examinati on - a rash Completed 200708/17/2010 Not Available [facility] 3 03:03:32 Non-organ ic sleep disorder 595790637 Completed 200501/31/2012 Not Available [facility] 3 03:03:32 Injury of knee 810455741 Completed 200102/15/2013 Not Available [facility] 3 03:03:32 Hearing loss 14047149 Active 2007 Not Available [facility] 3 11:44:38 Thromboph lebitis of superfici al veins of upper extremiti es 22930739 Completed 200002/15/2013 Not Available [facility] 3 03:03:32 Migraine 13899180 Completed 200602/15/2013 Not Available [facility] 3 03:03:32 Tinnitus 61518050 Completed 01/31/2012 Not Available [facility] 3 03:03:32 Pain in limb 78789827 Completed 200008/17/2010 Not Available [facility] 3 03:03:32 Inguinal hernia 028958839 Active 2016 Not Available [facility] 3 11:44:38 Venous varices 769874070 Active 2016 Not Available [facility] 3 11:44:38 Insomnia 659868507 Active 2016 Not Available [facility] 3 11:44:38 M??ni??re 's disease 71626003 Active 2016 Not Available [facility] 3 11:44:38 Bilateral arthritis of hip 88944746805 72081 Active 2019 Not Available [facility] 3 11:44:38 Right bundle branch block 74553901 Active 2022 Not Available [facility] 3 11:44:38 Pruritus ani 20789575 Active 2022 Not Available [facility] 3 11:44:38 Impaired fasting glycemia 983803817 Active 2023 very mild Kavonousmane Lomax . [address] [place] [address], [address] , [facility] 19:13:09 Cervical myelopath y 412223595 Active 2023 Kavon Lomax . [place], [address] , [facility] 19:13:33 Problem Notes None recorded. Procedures Surgical History Date Name Laterality Status Provider Name and Address Organization Details Recorded Time 11/24/19 Medicare Wellness Visit completed BRIAN Brown [facility] 11/20/2023 17:00:24 11/24/19 24 Cardiovascular disease risk reduction counseling completed BRIAN Brown [facility] 11/20/2023 17:01:00 11/24/19 prevention-annual alcohol misuse screening completed BRIAN Brown [facility] 11/20/2023 17:00:59 10/10/20 excision of cervical intervertebral disc completed K[place], [address], [facility] 11/23/2023 19:32:02 08/19/20 23 [address]: Therapeutic Exercise cancelled Marianna Jain, OTR/L, CHT [address] [place], [address], [facility] 08/17/2023 18:02:48 08/19/20 23 [address]: Manual Therapy cancelled Marianna Cristobal, OTR/L, CHT [address] [place], [address], [facility] 08/17/2023 18:02:44 08/12/20 23 [address]: Therapeutic Exercise cancelled Marianna Iapazitecelinai, OTR/L, CHT [address] [place], [address], [facility] 08/10/2023 19:40:25 08/12/20 23 [address]: Manual Therapy cancelled Marianna Amyitecelinai, OTR/L, CHT [address] [place], [address], [facility] 08/10/2023 19:40:20 08/01/20 23 Physical Activity Counselling completed Marianna Jain, OTR/L, CHT [address] [place], [address], [facility] 08/01/2023 09:22:38 08/01/20 23 [address]: OT Eval, Low Complexity completed Marianna Jain, OTR/L, CHT [address] [place], [address], [facility] 08/01/2023 09:22:35 11/21/19 23 Medicare Wellness Visit completed Christa Palma [facility] 11/20/2022 16:28:06 11/21/19 23 Depression Screening completed Kavon Shoushtari. [address] [place] [address], [address], [facility] 11/21/2022 09:51:03 11/21/19 23 prevention-annual alcohol misuse screening completed Kavon Shoushtari. [address] [place] [address], [address], [facility] 11/21/2022 09:51:13 07/26/20 21 Tassoni - Colonoscopy completed Jadon Gifford MD [address] [place], [address], [facility] 07/26/2021 10:17:09 07/26/20 21 colonoscopy completed Kavon Shoushtari. [address] [place], [address], [facility] 07/30/2021 20:12:48 04/19/20 21 Medicare Wellness Visit completed Liliya Pitt [facility] 04/19/2021 11:59:20 04/19/20 21 prevention-cardiov ascular risk reduction counseling completed Liliya Pitt [facility] 04/19/2021 11:59:20 04/19/20 21 prevention-annual alcohol misuse screening completed Liliya Pitt [facility] 04/19/2021 11:59:20 04/19/20 21 Advanced Care Planning completed Kavon Shoushtari. [address] [place], [place] [address] [place], [address], [facility] 04/19/2021 12:19:26 04/12/20 20 Medicare Wellness Visit completed [facility] 04/12/2020 09:44:58 04/12/20 20 prevention-cardiov ascular risk reduction counseling completed [facility] 04/12/2020 09:44:58 04/12/20 20 prevention-annual alcohol misuse screening completed [facility] 04/12/2020 09:44:58 01/14/20 19 Medicare Wellness Visit completed Carmina De Leon LPN [facility] 01/13/2019 10:28:26 01/09/20 18 Medicare Wellness Visit completed Chrissy Rust LPN [facility] 01/08/2018 11:15:16 06/30/20 14 Aspiration Intermediate Joint/Bursa completed Sushil Simmons PA-C [address] [place] [address], [address], [facility] 06/30/2014 17:05:51 02/05/20 11 Treatment and Advice completed Nhi Collazo, OT [address] [place], [address], [facility] 02/04/2011 12:50:47 Imaging Results Imaging Date Name Status LastModified by Organiz ation Details LastModified Time 07/30/2023 XR, cervical spine completed [facility] [address] [place], [address], 08/01/2023 14:14:33 08/15/2023 nerve conduction study completed [email or web address] Information not available 08/16/2023 11:42:35 08/16/2023 MRI, cervical spine, w/o contrast completed [facility] Information not available 08/19/2023 07:43:01 08/04/2024 nerve conduction study completed [facility] [address] [place], [address], 08/05/2024 09:31:35 Procedure Notes None recorded. Medical [...] Available Not Available Not Available Fluzone High-Dose 5261-0515 (PF) 180 mcg/0.5 mL intramusc ular syringe TO BE ADMINIST ERED BY [employer] FOR IMMUNIZA TION 01/02 completed Not Available [...] Updated DateTime 08/13/2023 180.34 cm 25.1 kg/m2 08132.[address] [facility] 08/13/2023 13:11:04 Date Recorded Body height Provider Name an d Address Organization Details Last Updated DateTime 09/22/2023 180.34 cm Christa Palma [facility] 09/22/2023 11:20:42 Date Recorded Body height Body mass index (BMI) Body weight Oxygen saturation Oxygen saturation in Arterial blood by Pulse oximetry Heart rate Systolic blood pressure Diastolic blood pressure Provider Name and Address Organization Details Last Updated DateTime 4 180.34 cm 25.8 kg/m2 63031.5 9 g 98 % 98 % 63 /min 110 mm[Hg] 80 mm[Hg] BRIAN Brown [facility] 4 10:23:44 Date Recorded Body height Heart rate Body temperature Systolic blood pressure Diastolic blood pressure Provider Name and Address Organization Details Last Updated DateTime 03/04/2024 180.34 cm 62 /min 98.9 [degF] 127 mm[Hg] 78 mm[Hg] Kavon gastelum MD [address] [place] [address], [address] [place] [address] 4 10:48:51 Social History Question Answer Notes LastModified by Organizat ion Details LastModified Time Tobacco Smoking Status Never Smoker LupemarvinBRIAN Neri [facility] 06/11/2022 13:30:52 What Is Your Level [...] E-cigarettes Or Vape? Never Used Electronic Cigarettes [email or web address] Information not available 06/11/2022 Education Post Graduate Masters Information not available 02/16/2013 What Is The Highest Grade Or Level Of School You Have Completed Or The Highest Degree You Have Received? 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 Yes Loss His Dog 3 Weeks Ago 11/24/23 NR Information not available 11/24/2023 How Many Days In The Past Year Have You Had A Heavy Drinking Consumption (4+ Female, 5+ Male)? 0 Information not available 11/10/2015 Are There Any Guns Present In Your Home? No Information not available 02/16/2013 Do You Use Insect Repellent Routinely? No [email or web address] Information not available 11/21/2022 Live Alone Or With Others? With Others [email or web address] Information not available 04/19/2021 CSRP Contract Signed And Discussed Yes [email or web address] Information not available 03/25/2017 Does The Patient Have Difficulty Speaking Guyanese? No Information not available 02/16/2013 Does The Patient Have Difficulty Reading Guyanese? No Information not available 02/16/2013 Patient Has Health Care Proxy Signed And In Chart Yes 03/25/17 [email or web address] Information not available 04/20/2021 CCM Consent Discussion 03/26/2017 [email or web address] Information not available 09/25/2017 Marital Status [email or web address] Informatio n not available 02/16/2013 Mosquito Repellent Used Routinely Yes Information not available 02/16/2013 What Was The Date Of Your Most Recent Tobacco Screening? 09/22/2023 [email or web address] Information not available 11/24/2023 How Many Children Do You Have? 1 Daughter In [facility], [place] [facility] Information not available 11/24/2023 What Is Your Relationship Status? Female Sp[email or web address] Information not available 11/21/2022 Do You Use Your Seat Belt Or Car Seat Routinely? Yes Information not available 11/21/2022 Seat Belts Used Routinely Yes Information not available 02/16/2013 Smoke Alarm In Home Yes Information not available 02/16/2013 Do You Have Smoke And Carbon Monoxide Detectors In Your Home? Yes [email or web address] Information not available 11/21/2022 Are You Passively Exposed To Smoke? No [email or web address] Information not available 11/21/2022 Do You Or Have You Ever Used Smokeless Tobacco? Never Used Smokeless Tobacco Information not available 06/11/2022 General Stress Level Medium [email or web address] Information not available 02/16/2013 Do You [...] Td(adult) unspecified formulation 6 completed LISSETH Yeh, [facility] 06/30/2023 12:15:10 influenza, unspecified formulation 7 completed Laurence Pinto RN null, [facility] 06/30/2023 12:15:10 Influenza, split virus, quadrivalent, PF 5 completed Not Available [facility] 10/30/2019 02:27:11 zoster live 6 completed Not Available [facility] 10/30/2019 02:33:41 pneumococcal polysaccharide PPV23 6 completed Not Available [facility] 10/30/2019 02:20:15 Pneumococcal conjugate PCV 13 7 completed Not Available [facility] 10/30/2019 02:38:50 Tdap 2 completed Laurence Pinto RN null, [facility] 06/30/2023 12:15:10 influenza, unspecified formulation 4 completed Laurence Pinto RN null, [facility] 06/30/2023 12:15:10 Influenza, high-dose, trivalent, PF 7 completed Not Available [facility] 10/30/2019 02:21:40 Influenza, high-dose, trivalent, PF 8 completed Not Available [facility] 10/30/2019 02:23:02 Influenza, high-dose, trivalent, PF 6 completed Laurence Pinto RN null, [facility] 06/30/2023 12:15:10 Td (adult), 2 Lf tetanus toxoid, preservative free, adsorbed 2 completed Kavon Lomax. [address] [place] [address], [phone], [facility] 06/11/2022 14:22:55 pneumococcal polysaccharide PPV23 2 completed Kavon Lomax. [address] [place] [address], [id number], [facility] 06/11/2022 14:22:55 COVID-19, mRNA, LNP-S, PF, 30 mcg/0.3 mL dose 1 completed Laurence Pinto RN null, [facility] 06/30/2023 12:15:10 COVID-19, mRNA, LNP-S, PF, 30 mcg/0.3 mL dose 1 completed Laurence Pinto RN null, [facility] 06/30/2023 12:15:10 Influenza, split virus, quadrivalent, preservative 0 completed Laurence Pinto RN null, [facility] 06/30/2023 12:15:10 COVID-19, mRNA, LNP-S, PF, 30 mcg/0.3 mL dose 1 completed Laurence Pinto RN null, [facility] 06/30/2023 12:15:10 Influenza, split virus, quadrivalent, preservative 1 completed Laurence Pinto RN null, [facility] 06/30/2023 12:15:10 COVID-19, mRNA, LNP-S, PF, 30 mcg/0.3 mL dose 2 completed Laurence Pinto RN null, [facility] 06/30/2023 12:15:10 Influenza, split virus, quadrivalent, PF 0 completed Laurence Pinto RN null, [facility] 06/30/2023 12:15:10 influenza, unspecified formulation 2 completed Laurence Pinto RN null, [facility] 06/30/2023 12:15:10 COVID-19, mRNA, LNP-S, bivalent, PF, 3 mcg/0.2 mL dose 2 completed Laurence Pinto RN null, [facility] 06/30/2023 12:15:10 RSV, recombinant, protein subunit RSVpreF, adjuvant reconstituted, 0.5 mL, PF 3 completed Laurence Pinto RN null, [facility] 06/30/2023 12:15:10 zoster recombinant 1 completed BRIAN Brown null, [facility] 07/22/2023 16:16:01 zoster recombinant 1 completed BRIAN Brown null, [facility] 07/22/2023 16:16:11 Influenza, high-dose, quadrivalent, PF 3 completed BRIAN Brown null, [facility] 07/22/2023 16:16:41 COVID-19, mRNA, LNP-S, PF, willis-sucrose, 10 mcg/0.3 mL 3 completed BRIAN Brown [facility] 07/22/2023 16:16:55 Past Encounters Encounter ID Performer Location Encounter Start Date Encounter Closed Date Diagnosis/Indication Diagnosis SNOMED-CT Code Diagnosis ICD10 Code Diagnosis Note [id number] [facility] , [facility] [address] [place] [id number] 02/03/2001 15:00:00 11/02/2008 02:02:29 [id number] SADIE [facility], OFFICE [address] [place] [address] 1 02/03/2001 08:15:00 11/02/2008 02:02:29 [id number] SADIE [facility], OFFICE [address] [place] [address] 1 02/19/2001 13:30:00 11/02/2008 02:02:29 [id number] SADIE [facility], OFFICE [address] [place] [address] 1 03/12/2001 13:00:00 11/02/2008 02:02:29 [id number] Radiology , [facility] [address] [place] [id number] 03/20/2001 15:00:00 11/02/2008 02:02:29 [id number] SADIE [facility], OFFICE [address] [place] [address] 1 03/20/2001 10:00:00 11/02/2008 02:02:29 [id number] [facility], OFFICE [address] [place] [address] 1 04/10/2001 12:45:00 11/02/2008 02:02:29 [id number] SADIE [facility] [address] [place] [address] 1 10/12/2001 14:30:00 11/02/2008 02:02:29 [id number] SADIE [facility], OFFICE [address] [place] [address] 1 10/26/2001 11:30:00 11/02/2008 02:02:29 [id number] SADIE [facility], OFFICE [address] [place] [address] 1 05/05/2002 09:03:50 11/02/2008 02:02:29 [id number] [facility] - [facility] [address] [id number] 05/05/2002 07:41:57 11/02/2008 02:02:29 [id number] Radiology , [facility] [address] [place] [id number] 05/31/2002 17:21:50 11/02/2008 02:02:29 [id number] SADIE [facility], OFFICE [address] [place] [address] 1 05/31/2002 16:40:58 11/02/2008 02:02:29 [id number] SADIE [facility], OFFICE [address] [place] [address] 1 08/24/2002 11:25:12 11/02/2008 02:02:29 [id number] SADIE [facility], OFFICE [address] [place] [address] 1 06/29/2003 11:30:23 06/29/2003 17:45:12 [id number] LAB - [facility] [place] [place] [id number] 1 06/30/2003 07:39:51 06/30/2003 12:56:35 [id number] [facility], [facility] [address] [place] [id number] 01/18/2004 10:14:28 01/18/2004 17:48:28 [id number] SADIE [facility], OFFICE [address] [place] [address] 1 05/15/2004 13:13:42 05/16/2004 08:39:31 [id number] LAB - [facility] [address] [place] [address] 1 05/18/2004 07:31:25 05/18/2004 08:59:02 [id number] SADIE [facility], OFFICE [address] [place] [address] 1 01/15/2005 09:34:53 01/17/2005 08:36:24 [id number] Radiology , [facility] [address] [place] [id number] 02/01/2005 11:10:01 02/01/2005 15:52:52 [id number] Radiology , [facility] [address] [place] [id number] 02/01/2005 00:00:00 11/02/2008 02:02:29 [id number] Physical Therapy, [facility] [address] [place] [id number] 1 02/05/2005 08:12:44 02/05/2005 08:29:55 [id number] Physical Therapy, [facility] [address] [place] [id number] 02/15/2005 08:24:31 02/18/2005 10:04:56 [id number] [facility], OFFICE [address] [place] [id number] 02/01/2005 10:54:42 02/01/2005 16:29:03 [id number] [facility], OFFICE [address] [place] [id number] 02/21/2005 14:22:21 02/21/2005 16:04:19 [id number] Radiology , [address] [place] [address] 02/21/2005 14:50:47 02/21/2005 15:41:55 [id number] Radiology , [address] [place] [address] 1 02/21/2005 00:00:00 11/02/2008 02:02:29 [id number] [facility], OFFICE [address] [place] [address] 06/29/2005 13:33:03 06/30/2005 09:35:19 [id number] SADIE [facility], OFFICE [address] [place] [address] 1 12/27/2005 11:49:15 12/30/2005 08:51:54 [id number] [facility], OFFICE [address] [place] [address] 01/13/2006 08:47:15 01/13/2006 14:43:40 [id number] Radiology , [address] [place] [address] 1 02/10/2006 09:05:08 02/10/2006 10:03:13 [id number] Radiology , [address] [place] [id number] 02/10/2006 00:00:00 11/02/2008 02:02:29 [id number] Eye Care, [address] [place] [address] 1 04/21/2006 09:52:50 04/21/2006 12:55:24 [id number] [facility], OFFICE [address] [place] [id number] 07/09/2006 07:55:47 07/10/2006 07:11:21 [id number] SADIE [facility], OFFICE [address] [place] [id number] 03/05/2007 16:39:52 03/06/2007 08:14:04 [id number] Radiology , [facility] [address] [place] [id number] 03/05/2007 17:13:21 03/05/2007 17:23:05 [id number] Radiology , [facility] [address] [place] [id number] 03/05/2007 00:00:00 11/02/2008 02:02:29 [id number] FP, [facility], OFFICE [address] [place] [address] 1 08/17/2007 10:02:01 08/18/2007 11:31:32 [id number] FP, [facility], OFFICE [address] [place] [address] 1 04/08/2008 12:04:44 11/02/2008 02:02:29 [id number] FP, [facility], OFFICE [address] [place] [address] 1 07/21/2008 10:26:14 11/02/2008 02:02:29 [id number] FP, [facility], OFFICE [address] [place] [id number] 10/23/2009 14:46:20 10/23/2009 16:15:48 [id number] FP, [facility], OFFICE [address] [place] [id number] 12/04/2009 13:29:35 12/05/2009 10:05:56 [id number] , [facility], OFFICE [address] [place] [id number] 1 05/29/2010 09:11:13 05/29/2010 14:06:34 [id number] FP, [facility], OFFICE [address] [place] [id number] 07/17/2010 10:03:30 07/17/2010 11:20:53 [id number] Radiology , [facility] [address] [place] [id number] 07/17/2010 10:22:12 07/18/2010 11:06:53 [id number] FP, [facility], OFFICE [address] [place] [id number] 08/17/2010 08:49:20 08/17/2010 09:26:46 [id number] Radiology , [facility] [address] [place] [id number] 09/21/2010 08:56:13 09/24/2010 11:02:45 [id number] FP, [facility], OFFICE [address] [place] [address] 1 01/31/2011 09:03:08 02/01/2011 08:54:47 [id number] Physical Therapy, [facility] [place] [address] 1 02/04/2011 12:02:28 02/05/2011 11:15:33 [id number] Physical Therapy, [facility] [place] [address] 1 02/07/2011 09:23:39 02/08/2011 10:04:06 [id number] Physical Therapy, [facility] [place] [address] 1 02/13/2011 09:23:27 02/14/2011 11:16:55 [id number] SADIE [facility], OFFICE [address] [place] [address] 1 11/25/2011 08:43:52 11/25/2011 09:18:15 [id number] Physical Therapy, [facility] [place] [address] 1 01/07/2012 13:41:13 01/08/2012 16:15:11 [id number] Physical Therapy, [facility] [place] [id number] 1 01/20/2012 14:26:25 01/21/2012 14:31:15 [id number] [facility], OFFICE [address] [place] [id number] 1 01/31/2012 14:59:37 01/31/2012 15:57:55 [id number] Physical Therapy, [facility] [place] [address] 1 02/10/2012 15:00:15 02/11/2012 09:24:11 [id number] Physical Therapy, [facility] [place] [address] 1 02/18/2012 14:32:02 02/19/2012 10:14:44 [id number] Physical Therapy, [facility] [place] [address] 1 02/25/2012 14:28:13 02/26/2012 09:51:59 [id number] Physical Therapy, [facility] [place] [address] 1 03/11/2012 14:25:26 03/12/2012 10:23:45 [id number] Physical Therapy, [facility] [place] [id number] 1 03/12/2012 12:41:13 03/12/2012 12:41:20 [id number] Fabrizio Dotson III, MD , [facility], OFFICE [address] [place] [address] 11/12/2012 14:31:15 11/12/2012 14:47:44 [id number] Karon Sims LPN [facility], OFFICE [address] [place] [address] 02/16/2013 09:23:45 02/16/2013 09:57:11 [id number] Fabrizio Dotson III, MD , [facility], OFFICE [address] [place] [id number] 04/07/2013 14:22:56 04/07/2013 14:47:16 [id number] Karon Sims LPN [facility], OFFICE [address] [place] [id number] 07/02/2013 16:42:01 07/02/2013 17:38:01 Low back pain [id number] left sided pain, acute onset with radiculopa thy. no known injury or precipitan t. some mild weakness of left leg. suspect herniated disc. discussed xray or mri, which he prefers to defer for now will have close f.u with PCP within 7 days. if any numbness or weakness, will call. if slowly improving, recommend PT in 1 week [id number] Deanna Prasad , [facility], OFFICE [address] [place] [address] 07/06/2013 14:21:27 07/06/2013 14:51:25 Low back pain [id number] Acute sciatica 591439660 [id number] Skye holloway Physical Therapy, [facility] [address] [place] [id number] 07/12/2013 14:58:33 07/13/2013 15:26:03 [id number] Sandrita Ron, JACQUELYN Physical Therapy, [address] [place] [id number] 07/13/2013 14:45:20 07/13/2013 14:45:32 [id number] Skye holloway Physical Therapy, [address] [place] [id number] 07/16/2013 08:17:59 07/20/2013 11:08:26 [id number] [facility], [address] [place] [address] 07/23/2013 08:56:20 07/26/2013 07:39:55 [id number] [facility] [address] [place] [address] 1 08/06/2013 08:55:56 08/11/2013 08:46:05 [id number] [facility], [address] [place] [address] 1 08/13/2013 09:24:57 08/16/2013 08:52:10 Low back pain 540501021 [id number] Sherin Carlin MA , [facility], OFFICE [address] [place] [address] 06/30/2014 15:41:30 06/30/2014 17:00:50 Varicella vaccination 26997986 Olecranon bursitis 471296798 drained 10cc and injected. compressio n bandage aplied. rest/ice/n saids [id number] Rose España MA , [facility], OFFICE [address] [place] [address] 1 07/01/2014 13:36:10 07/01/2014 14:16:28 Olecranon bursitis 680951091 NSAIDS and a warm pack. Possible cellulitis . [id number] Deanna Prasad [facility], OFFICE [address] [place] [address] 1 08/04/2014 10:30:44 08/04/2014 11:00:48 Mixed hyperlipidemia 306618392 Cholestero l is at goal Continue to work on diet and exercise as discussed Adult heal th examination 811826230 see Risk Assessment and Lifestyle Change Counseling section above Counseling [id number] Hearing loss 33526792 Olecranon bursitis 303847905 Gradually healing Primary insomnia 9149341 Anxiety disorder 178334653 Uses prn meds Hernia of abdominal cavity 87849063 [id number] [facility], OFFICE [address] [place] [address] 1 08/11/2014 10:10:49 08/11/2014 10:32:15 Olecranon bursitis 609109691 Discomfort persisting . [id number] [facility], OFFICE [address] [place] [address] 1 06/27/2015 08:59:18 06/28/2015 13:33:20 Generalized anxiety disorder 75097455 Primary insomnia 4033890 Influenza vaccine needed 6711317993 106 Cervical radiculitis 66643289 Spinal bruno nosis in cervical region 70941621 [id number] Harjinder Raymond MD [facility], OFFICE [address] [place] [address] 1 11/10/2015 13:39:27 11/10/2015 14:50:46 Screening for disorder 796394815 Z11.59 Varicella vaccination 68 823964 Z23 Mixed hyperlipidemia 267 293216 E78.2 Cholestero l is at goal Cholestero l is not at goal Continue to work on diet and exercise as discussed Adult heal th examination 895248261 Z00.00 see Risk Assessment and Lifestyle Change Counseling section above Counseling 947315448 Z71 .9 Generalize d anxiety disorder 63608938 F41.1 Hernia of abdominal cavity 92509763 K46.9 Lesion of eyelid 1429154 02 H02.89 Active or passive immunization 534268622 Z23 [id number] Harjinder Raymond MD [facility], OFFICE [address] [place] [address] 1 01/02/2017 10:57:07 01/03/2017 13:21:00 Mixed hyperlipidemia 879995885 E78.2 Cholestero l is at goal Cholestero l is not at goal Continue to work on diet and exercise as discussed Adult heal th examination 059440405 Z00.00 see Risk Assessment and Lifestyle Change Counseling section above Counseling 011505947 Z71 .9 Insomnia 939059702 G47.0 0 Active or passive immunization 001247597 Z23 Venous varices 131231532 I83.90 [id number] Cristal Butt NP , [facility], OFFICE [address] [place] [address] 03/25/2017 09:00:16 03/26/2017 09:41:26 Screening for malignant neoplasm of colon 296789604 Z12.11 done 04/24/2011 with 10 yr repeat Laceration of finger 274 709612 S61.211A L finger wound closed5 sutures removed easilyf/u prn [id number] Harjinder Raymond MD [facility], OFFICE [address] [place] [address] 1 06/11/2017 11:29:52 06/11/2017 11:58:15 Venous varices 525725341 I83.90 Active or passive immunization 950760194 Z23 M??ni??re's disease 1344 5001 H81.03 [id number] Carmina De Leon LPN [facility], OFFICE [address] [place] [address] 1 09/25/2017 09:43:27 09/25/2017 10:12:01 M??ni??re's disease 34615511 H81.03 Generalize d anxiety disorder 14301959 F41.1 Mixed hyperlipidemia 267 632164 E78.2 Cholestero l is at goal Cholestero l is not at goal Continue to work on diet and exercise as discussed Insomnia 790800493 G47.0 0 [id number] Harjinder Raymond MD , [facility], OFFICE [address] [place] [address] 1 01/08/2018 10:56:52 01/08/2018 11:59:03 Mixed hyperlipidemia 284660006 E78.2 Cholestero l is at goal Cholestero l is not at goal Continue to work on diet and exercise as discussed Adult heal th examination 540874555 Z00.00 see Risk Assessment and Lifestyle Change Counseling section above Counseling 570330857 Z71 .9 Depression screening 171 780118 Z13.89 depression screening tool administer ed, entered into emr, scored and discussed, time greater than 7.5 minutes Anxiety 10738474 F41.9 Insomnia 274467405 G47.0 0 [id number] Chen Lopez NP , [facility], OFFICE [address] [place] [address] 1 04/06/2018 09:31:46 04/06/2018 10:52:18 Strain of tendon of medial thigh muscle 541028121 S76.811A Injury of hip region 125 224589 S79.911A [id number] Harjinder Raymond MD , [facility], OFFICE [address] [place] [address] 1 07/09/2018 09:05:49 07/09/2018 09:38:29 Insomnia 958179713 G47.00 Anxiety 59883064 F41.9 Active or passive immunization 720338280 Z23 [id number] Harjinder Raymond MD , [facility], OFFICE [address] [place] [address] 1 01/13/2019 10:13:48 01/13/2019 11:00:12 Adult health examination 045532635 Z00.00 see Risk Assessment and Lifestyle Change Counseling section above Counseling 290740528 Z71 .9 Depression screening 171 445592 Z13.89 depression screening tool administer ed, entered into emr, scored and discussed, time greater than 7.5 minutes Mixed hyperlipidemia 267 914373 E78.2 Cholestero l is at goal Cholestero l is not at goal Continue to work on diet and exercise as discussed Venous varices 923793016 I83.90 Anxiety 77685164 F41.9 Insomnia 453437574 G47.0 0 [id number] Harjinder Raymond MD , [facility], OFFICE [address] [place] [address] 1 04/12/2020 10:23:57 04/12/2020 10:47:45 Adult health examination 888094407 Z00.00 see Risk Assessment and Lifestyle Change Counseling section above Counseling 185723937 Z71 .9 including cardiovasc ular risk reduction counseling Depression screening 171 202656 Z13.89 depression screening tool administer ed, entered into emr, scored and discussed, time greater than 7.5 minutes Screening for alcohol abuse 845371036 Z13.39 Mixed hyperlipidemia 267 223555 E78.2 Cholestero l is at goal Cholestero l is not at goal Continue to work on diet and exercise as discussed Venous varices 667173462 I83.90 Insomnia 213961438 G47.0 0 Bilateral arthritis of hip 8327653974 978094 M13.830 [id number] Harjinder Raymond MD , [facility], OFFICE [address] [place] [address] 1 05/24/2020 14:48:22 05/25/2020 11:40:31 Low back pain 803353359 M54.5 Bilateral arthritis of hip 4922854762 819840 M13.673 [id number] Олег Garcia MD , [facility], OFFICE [address] [place] [address] 1 06/23/2020 13:37:45 06/28/2020 18:18:58 Headache 43690931 R51 band like temples parietal to occiputawo joi from bed with same, r/w naproxenis caffeine addicted - as a routine gets intense ROBERSON if misses his 3 AM cupsbut this ROBERSON persists despite caffineuse d to get migraines with visual aura, warded off my ibuprofen , last 2014this event was preceeded by visual auras (periphera l spots sat morning)no other symptomscy cling still will schedule toradol 60 IMseen on office , no TA tenderness , optic disc seen and is normal ODNAD, MAEWtorado l givenrto if needed [id number] Harjinder Raymond MD , [facility], OFFICE [address] [place] [address] 1 06/26/2020 14:35:48 06/28/2020 16:55:15 Groin mass 696524243 R19.00 [id number] Harjinder Raymond MD , [facility], OFFICE [address] [place] [address] 1 07/06/2020 10:46:06 07/07/2020 15:51:20 Epidermoid cyst 971306195 L72.0 [id number] Kavon Lomax . MD NOEL, [facility], OFFICE [address] [place] [address] 1 01/04/2021 14:24:38 01/05/2021 13:41:45 Sacroiliac joint pain 852393932 M53.3 I am going to refer him to physical therapy and obtain x-ray of his SI joints. He may continue low-dose ibuprofen if needed in the evening. Call with any concerns. Insomnia 714282448 G47.0 0 He wishes to have a refill on his alprazolam . Warned of dependency , also chronic use may lead to cognitive impairment with aging. He is not using it on a regular basis. Will refill today and revisit the issue at next visit. [id number] Kavon Lomax . , [facility], OFFICE [address] [place] [address] 02/23/2021 11:27:32 02/23/2021 12:16:41 Sacroiliac joint pain 371159147 M53.3 He will continue with physical therapy, stop ibuprofen and I will put him on Celebrex as well as a muscle relaxer for bedtime. Call with any concerns. [id number] Kavon Lomax . MD NOEL, [facility], OFFICE [address] [place] [address] 04/19/2021 11:17:44 04/19/2021 12:39:47 Adult health examination 664329212 Z00.00 USPSTF guidelines reviewed and discussed with patient.wi ll need tetanus booster in October.roberson s first Shingrix end of March.colon oscopy April 2011, refer back. Counseling 645435405 Z71 .9 including cardiovasc ular risk reduction counseling , on asa, declines statin with 10 Y CV event risk 13%, see below. Depression screening 171 462440 Z13.31 depression screening tool administer ed, entered into emr, scored and discussed, time greater than 7.5 minutes, negative screen. Screening for alcohol abuse 743984531 Z13.39 negative screen. Advance di rective discussed with patient 748243605 Z71.89 discussed, form given to complete. Mixed hyperlipidemia 267 335420 E78.2 LDL ideally should be below 100, is hesitant to take statin, 10 Y CV event geovanna is mildly elevated at 13%, work on diet further, less cheese, more vegetables . Bilateral arthritis of hip [id number] 200057 M13.851 celebrex, PT and myofascial massage helped. Varicose v eins of lower extremity [id number] I83.93 has had phlebitis on the left, has spider veins and bluish hue on the left foot with good pedal pulses. remains on asa. M??ni??re's disease 1344 5001 H81.01 no recent vertigo since cutting back on salt, has left hearing loss much worse than right. Insomnia [id number] G47.0 0 uses lorazepam and alprazolam , not daily. Warned of dependency if used regularly. also chronic use may lead to cognitive impairment with aging. He is not using it on a regular basis. Generalize d anxiety disorder [id number] F41.1 gets sx only if he cannot sleep. Screening for malignant neoplasm of colon [id number] Z12.11 last colonoscop y on record April 2011. refer for repeat. [id number] Agustina Romero RN ASP, [facility] [address] [place] [address] 07/26/2021 08:52:26 07/26/2021 14:11:05 [id number] Maria A Hernández , [facility], OFFICE [address] [place] [address] 06/11/2022 13:24:58 06/11/2022 16:31:57 Active or passive immunization [id number] Z23 needs Td and Pneumovax today. Swelling of eyelid [id number] [id number] R22.0 I do not find any stye or redundant tissue in lower eyelids, wonder about problems with his tear ducts, I advised him to see his ophthalmol ogist first, use warm compresses meanwhile, may need to discuss it with a plastic surgeon. Insomnia [id number] G47.0 0 uses lorazepam and alprazolam , not daily. Warned of dependency if used regularly. He is not using it on a regular basis. will call when needs a refill. Generalize d anxiety disorder 72739400 F41.1 gets sx only if he cannot sleep. Mixed hyperlipidemia 267 011062 E78.2 LDL ideally should be below 100, is hesitant to take statin, 10 Y CV event risk was mildly elevated at 13%, work on diet further, less cheese, more vegetables . recheck labs. Venous varices [id number] I83.90 left leg with large varicositi es since he had phlebitis several years ago, now takes half a baby aspirin daily, no phlebitis recurrence . Tachycardia 0586379 R00. 0 ECH showed SR at 68 BPM, axis 66, RBBB, no old tracing available. will do a 24 H Holter and schedule for stress echo to rule out cardiac ischemia or arrhythmia as cause for his sx. [id number] aCrmina De Leon LPN , [facility], OFFICE [address] [place] [address] 06/13/2022 11:27:04 06/13/2022 11:33:07 Tachycardia 9950398 R00.0 ECH showed SR at 68 BPM, axis 66, RBBB, no old tracing available. will do a 24 H Holter and schedule for stress echo to rule out cardiac ischemia or arrhythmia as cause for his sx. [id number] Kavon Lomax . , [facility], OFFICE [address] [place] [address] 11/21/2022 08:45:31 11/21/2022 09:52:26 Adult health examination [id number] Z00.00 USPSTF guidelines reviewed and discussed with patient. Depression screening 171 771472 Z13.31 depression screening tool administer ed, negative screen Screening for alcohol abuse 533064981 Z13.39 Alcohol use screening tool administer ed, negative screen Mixed hyperlipidemia 267 370155 E78.2 Cholestero l is at goal, LDL below 19317 Y CV risk is over 10% but given lack of other CV risks he does not wish to take a statin.Con micheal to work on diet and exercise as discussed Venous varices 557605271 I83.90 left leg with large varicositi es since he had phlebitis several years ago, now takes half a baby aspirin daily, ( on hold for eye surgery) no phlebitis recurrence . Pruritus ani 24389366 L2 9.0 uses topical cream prn. 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 Bilateral arthritis of hip [id number] 811998 M13.851 PT and myofascial massage helped. M??ni??re's disease 1344 5001 H81.01 no recent vertigo since cutting back on salt, has left hearing loss much worse than right. Insomnia 400333060 G47.0 0 uses lorazepam and alprazolam , not daily. aware of risk of dependency if used regularly. He is not using it on a regular basis. will call when needs a refill. Generalize d anxiety disorder 29716708 F41.1 gets sx only if he cannot sleep. Pain in left thumb 29786 47269 175287 M79.645 He may use a short course of over-the-c ounter NSAIDs and use a thumb spica splint to immobilize the thumb and help to decrease inflammati on. Joint hypertroph y will persist. Family his tory of Aortic aneurysm 268347683 Z82.49 Father of ruptured aortic aneurysm in his 60s. The patient never smoked but he would be prudent to screen for aortic aneurysm. [id number] JANUARY KAREN PIPER DNP FP, [facility], OFFICE [address] [place] [address] 06/10/2023 16:03:33 06/10/2023 16:57:07 Congestion of nasal sinus 67549037 R09.81 URI symptoms started 1.5 weeks ago and were improving on Friday and rebounded Friday. Congestant main complaint- no longer with fever. No facial pain. LCTA egophony EE>AA, no bronchospa stic coughing.- -Has been doing conservati ve care rest, pushing fluids, Luana pot, afrin, tea, decongesta nts, antihistam ine(s).--w ill send in flonase and mucinex to use as directed.- -will reach out in the next 2-3 days; should consider abx for continued symptomsRe turn precaution s discussed [id number] , [facility], OFFICE [address] [place] [address] 07/24/2023 10:32:50 07/24/2023 12:17:14 Paresthesia of lower extremity 331607098 R20.2 it would be dermatome C7-C8, ? ulnar nerve neuropathy , but he also has paresthesi as of feet toes 4 and 5 right side, ? more central nerve entrapment . may need EMG or imaging, refer to neurology to decide. Paresthesi a of upper limb 34529066 R20.2 it would be dermatome L5-S1, as above. [id number] Bethanie Ricketts er, NURSE , [facility], OFFICE [address] [place] [address] 07/30/2023 08:25:43 07/30/2023 16:38:24 Paresthesia of upper limb 16726799 R20.2 See last week by Dr Lomax ,possibly ulnar nerve entraptmen t, but has pain radiation from neck down whole arm, also has paresthesi as of R LE, was referred to Neuro for eval, emg vs imaging Pt reports pain bothersome , difficulty sleeping-- referred to OT for further eval / treatment of possible ulnar nerve injury-- gabapentin 300 mg HS prn for pain, reviewed possible side effects, pt aware to not take zolpidem with the gabapentin - x-ray of c-spine Paresthesi a of lower extremity 791434993 R20.2 see above Insomnia 268654847 G47.0 0 start gabapentin for pain and sleepdo not take zolpidem if taking gabapentin [id number] Marianna Jain , OTR/L, CHT Physical Therapy, [facility] [address] [place] [id number] 08/01/2023 11:45:05 08/01/2023 14:17:16 Neuritis of left ulnar nerve [id number] 2965172 G56.22 [id number] Cristal De La Rosa MD , [facility], [address]ICE [address] [place] [address] 08/13/2023 13:07:51 08/13/2023 15:19:40 Spinal stenosis in cervical region 01586564 M48.02 So far has not had lasting benefit from conservati ve therapy, but has just started PT and home traction. Did not benefit from po steroid. New c/o weakness concerning . Advised upcoming licensed tax consultant appts to help delineate if other pathology present, ? direct to neurosurge ry consult. He may trial half dose alprazolam and requested muscle relaxant as he already has this on hand, and familiar with med side effects. He will start weaning gabapentin , since not effective. [id number] Bethanie Ricketts er, NURSE , [facility], [address]ICE [address] [place] [address] 09/22/2023 11:18:00 09/22/2023 17:14:47 COVID-19 987425643 U07.1 Tested positive Sat night.Symp toms started Friday night include fever, chills, lethargy, dry cough. No dyspneaHad neck surgery 10 days agoFully vaccinated against covid Risk factors include age Shared decision to treat w paxlovid. Normal renal function. Advised to HOLD alprazolam while on med. Discussed risks, benefits, side effects including rebound covid.COus neled on CDC isolation recommenda tionsRest, fluids, apap/nsaid s prn for fever and pain advised If worsening, dyspnea call office Generalize d anxiety disorder 07570123 F41.1 hold alprazolam while on paxlovid (takes PRN) Spinal bruno nosis in cervical region 86534418 M48.02 reports spinal surgery 10 days ago went well, consult note not on file will request [id number] Kavon Lomax . , [facility], OFFICE [address] [place] [address] 11/24/2023 10:02:26 11/24/2023 11:01:03 Adult health examination 955688925 Z00.00 USPSTF guidelines reviewed and discussed with patient.co lonoscopy 07-26-21, redo 5 Y.Health care proxy in place.vacc inations UTD.CV counseling done. takes aspirin daily for V Veins. declines statin. Depression screening 171 956339 Z13.31 depression screening tool administer ed, negative Screening for alcohol abuse 680890855 Z13.39 Alcohol use screening tool administer ed, negative Screening for malignant neoplasm of prostate 388057574 Z12.5 PSA testing for ages 55-69 risks and benefits discussed {{patient declines testing te st ordered wi ll not test#}}. Cervical myelopathy 2025 42619 G95.9 right forearm and fingers with pain, started lyrica, also numb 4 and 5th fingers. Impaired f asting glycemia 183333076 R73.01 very mild, BS 102-103 fasting. Right bund le branch block 09270143 I45.0 benign, no sx. M??ni??re's disease 1344 5001 H81.01 no recent vertigo since cutting back on salt, has left hearing loss much worse than right. Insomnia 147959515 G47.0 0 uses lorazepam and alprazolam , not daily. aware of risk of dependency if used regularly. He is not using it on a regular basis. will call when needs a refill. Generalize d anxiety disorder 17655271 F41.1 gets sx only if he cannot sleep. Mixed hyperlipidemia 267 713439 E78.2 Cholestero l is at goal, LDL below 02232 Y CV risk is over 10% but given lack of other CV risks he does not wish to take a statin.Con tinue to work on diet and exercise as discussed Left inguinal hernia 236 770313 K40.90 he feels it is larger, would like surgical consult. [id number] Kavon Lomax . , [facility], OFFICE [address] [place] [address] 03/04/2024 10:37:03 03/04/2024 14:30:38 COVID-19 767532601 U07.1 A discussion regarding the use of Paxlovid treatment in the setting of COVID-19 infection was had with the patient.Th e patient qualifies for Paxlovid treatment. They are 12 years old or older and weight at least 40kg (88lbs). They have a positive COVID test (either PCR or antigen). Symptom onset was within 5 days. They do not have severe renal impairment (GFR >30). If the GFR is 30-60, the dose of the medication is reduced. eGFR >60: 300mg nirmatrelv ir (two 150mg tablets) with 100mg ritonavir (one tablet). All 3 tablets taken together twice daily for 5 days, with or without food. ? ? eGFR 30-60: 150mg nirmatrelv ir with 100mg ritonavir. Both tablets taken together twice daily for 5 days, with or without food. The patient was advised that the treatment is sent to a local pharmacy. We have checked availabili ty through this website: https://ww w.[employer].gov /info-deta ils/inform ation-for- providers- about-ther apeutic-tr eatments-f or-covid-1 9#covid-19 -therapeut ic-student development dean - This medication is authorized by the FDA for emergency use only. Data from clinical trials have shown that these treatments reduce the risk of ER visits, hospitaliz ation, and in patients with mild to moderate symptoms, and those at high risk of complicati ons. Side effects were discussed: 1. Allergic reactions are possible, notify the nurse with any concerning symptoms2. Liver problems ? notify your provider if you experience loss of appetite, yellowing of the skin or eyes, dark colored urine, or pale colored stools.3. Altered sense of taste4. Nausea5. High blood pressure6. Muscle aches7. This is medication is still being investigat ed so not all side effects are known at this time.8. Risks for or breastfeed ing women are currently unknown.9. This medication may interact with oral control options. Please use condoms or a barrier method while on this medication .Your provider has reviewed interactio ns with all of your medication s and the following need to be stopped or the dose reduced: xxxHow do I take PAXLOVID?P AXLOVID consists of 2 medicines: nirmatrelv ir and ritonavir. - Take 2 pink tablets of nirmatrelv ir with 1 white tablet of ritonavir by mouth 2 times each day (in the morning and in the evening) for 5 days. For each dose, take all 3 tablets at the same time.- If you have kidney disease, talk to your healthcare provider. You may need a different dose.- Swallow the tablets whole. Do not chew, break, or crush the tablets.- Take PAXLOVID with or without food.- Do not stop taking PAXLOVID without talking to your healthcare provider, even if you feel better.- If you miss a dose of PAXLOVID within 8 hours of the time it is usually taken, take it as soon as you remember. If you miss a dose by more than 8 hours, skip the missed dose and take the next dose at your regular time. Do not take 2 doses of PAXLOVID at the same time. isolation and mask precaution s reviewed.n l GFR. full dose Paxlovid prescribed .warned of risk of rebound with paxlovid. we do not treat rebound.Fl uids, rest, Tylenol.re ach out with any concerns or new symptoms, shortness of breath, chest pain.Drug interactio ns checked. He wishes to have Paxlovid prescribed , if improves he will not take it, if feels worse tomorrow he will start it.Hold zolpidem and alprazolam with paxlovid.n l GFR. Health Concerns Section Related Observation LastModified by Organization Detai ls LastModified Time None Recorded Concern Status LastModified by Organization Details LastModified Time None Recorded Advance Directives Directive None Recorded Payers Encounter Date Sequence Insurance Name Policy Number Policy Vega Covered Member ID Vega Member ID Guarantor Name 08/01/2023 1 MEDICARE B-AL: [facility] [employer] Sha Batista [id number] Sha Batista 08/01/2023 2 [facility] (MEDICARE SUPPLEMENT) Sha Batista [id number] Sha Batista 08/13/2023 1 MEDICARE B-[place]: [facility] Sha Batista [id number] Sha Batista 08/13/2023 2 [facility] (MEDICARE SUPPLEMENT) Sha Batista [id number] Sha Batista 09/22/2023 1 MEDICARE B-AL: [facility] Sha Batista [id number] Sha Batista 09/22/2023 2 [facility] (MEDICARE SUPPLEMENT) Sha Soler Lynne [id number] Sha Batista 11/24/2023 1 MEDICARE B-AL: [facility] Sha Batista [id number] Sha Batista 11/24/2023 2 [facility] (MEDICARE SUPPLEMENT) Sha Ceeler [id number] Sha Batista 03/04/2024 1 MEDICARE B-AL: [facility] Sha Batista [id number] Sha Batista 03/04/2024 2 [facility] (MEDICARE SUPPLEMENT) Sha Ceeler [id number] Sha Batista Notes Date Note Type [...] due to pain: yes 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 [...] on 08/15. Cristal De La Rosa MD [address] [place] [address], [phone], [facility] 08/13/2023 14:06:08 11/24/2023 text/html Risk Assessment and [...] for nerve pain. Constitutional; no feverENT; no ROBERSON, no dizzinessCardiac; no CP, no QUIÑONES, no palpitations, no orthopneaPulmonary; no shortness of breath, no cough, no wheezingGI; no abdominal pain, No N/V, no bloody stoolsUrinary; No hematuria, no dysuriaMusculoskeletal ; no myalgia, arthritis left thumb, does not hurt anymore Kavon Lomax. [address] [place], [phone], [facility] 11/24/2023 11:00:02 03/04/2024 text/html tested Positive for COVID yesterdaysymptoms of fatigue, fever and cough started yesterday using ibuprofen, not today.No shortness of breath.No fever today yet.No severe ROBERSON. No new neurologic sx or abdominal pain. Kavon Lomax. [address] [place] [address], [phone], [facility] 03/04/2024 10:57:24
== END 2024-10-26 14:00 | disposition home or self-care (01) ==
PROVIDERS: PCP Physician Assistant
DX: G56.21 Lesion of ulnar nerve, right upper limb (principal)
CPT/HCPCS: 99024

== ENCOUNTER → 2024-10-26 13:04 | Outpatient (BNVA) | payer MEDICARE, OTHER, SELFPAY | PROVIDERS: PCP Physician Assistant | DX: Z47.89 Encounter for other orthopedic aftercare (principal); Z98.890 Other specified postprocedural states | CPT/HCPCS: 99212 ==

== ENCOUNTER 2024-12-31 10:15 | Outpatient (AMB) | payer MEDICARE, OTHER, SELFPAY ==
--- NOTE | 2024-12-31 10:34 | MHC.OFFVIS ---
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 States this started in jun 2023 after having due to spinal discectomy in his neck. States he has constant numbness, tingling and swelling in his right hand. States its worse when using his hand and weakness. He is currently attending O.T for the last 4 weeks with some improvement. EMG done. Hx of cubital repair jun [address]24 Dr. Garg. Allergies No Known Allergies Allergy (Verified 12/31/24 10:44) Medication List - Last Reconciled 12/31/24 by Shima Rodarte MD alprazolam 1 mg PO DAILY PRN arm brace (FELICIA Elbow Brace) As directed [Baby Aspirin 81 mg] HPI Comments Details: I have seen patient for EMG upper extremity 02/2024. He is now s/p Right Cubital Tunnel Release DOS: 10/11/2024 w/ Dr Garg. He did have OT few months after surgery. History of cervical fusion by Dr. Zhang 08/2023 for cervical fusion. Continues to have forearm burning and numbness on 4th, 5th and lateral hand. Original symptom in 2022 were acute onset right arm symptoms that spread as numbness on both legs/feet related to past cervical spine issue. Follows neurology for Dr. Babar [place]. Last time he saw Dr. Zhang 2022. Last MRI 4 months ago [facility]. Shows spinal stenosis but no nerve impingement. He is saying numbness on legs have gotten worse, numbness on hands spreading to other fingers. He understands etiology. He is here to see what we can do with pain. Tried gabapentin, lyrica, amitriptyline, baclofen. Tried accupuncture and TENS unit. Tried myofascial release. [ ] numbness [ ] weakness Treatment done so far: NSAIDs - [ ] therapy - [ ] injection - [ ] surgery - [ ] [facility] Medical History Anxiety Hearing loss in left ear Degenerative disc disease, cervical Cervical spondylosis Arthritis Right bundle branch block Right median nerve neuropathy Cervical myelopathy Surgical History Hx of colonoscopy Hx of hernia repair History of fusion of cervical spine (09/10/23) Social History Are you a primary director long term care to a significant other at home: No Do you presently have visiting nurse or other home services: No Patient Tobacco Use Status: Never used Tobacco Current occupational status: employed 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 Patient was appropriately conversant and oriented. Good historian. MSK: Inspection reveals appropriate head and neck positioning. Cervical ROM was full. Bilateral shoulder, elbow and wrist ROM WNL. No ligamentous laxity or crepitance. No increased effusion. Noted atrophy and FDI muscle. There is no intrinsic hand weakness. Tenderness over right wrist extensor tendons. +fasciculation. Neurological: Neurologic examination of the upper and lower extremities was nonfocal with intact sensation, muscle stretch reflexes and without focal motor deficits . Salas?s negative bilaterally. Gait is non-antalgic without loss of balance. Office Procedures Therapeutic Injection Therapeutic Injection Details: Trigger point injection, right wrist extensor tendon. Consent obtained. Needling performed with gauge 27 needle, subsequently injecting 1 ml of 2% Lidocaine. into proximal wrist extensor tendon. Patient tolerated procedure well. Post-injection instructions given. [id number]-[id number] Point Injection 1 or 2 sites All charges added?: Procedure code (CPT) selection complete Results Reviewed Results Reviewed: We went back and reviewed the EMG findings from 02/2024. IMPRESSION: 1. This is an abnormal study. 2. There is electrodiagnostic evidence for ulnar neuropathy, proximal to take off of FCU. 3. Chronic reinnervation changes are seen on muscles innervated by C7/C8 nerve roots, suggesting chronic radiculopathy. 4. There is no electrodiagnostic evidence for median neuropathy or brachial plexopathy. I reviewed records from the following: Ortho Pain management Assessment & Plan Assessment & Plan (1) Cervical radiculopathy: Comment: Affecting C7-C8, seen on NCS Code(s): M54.12 - Radiculopathy, cervical region Category: Medical (2) Muscle spasm: Code(s): M62.838 - Other muscle spasm Category: Medical (3) Ulnar neuropathy of right upper extremity: Code(s): G56.21 - Lesion of ulnar nerve, right upper limb Category: Medical Plan We went over past history and records. We agree that he continues to have symptoms of chronic radiculopathy, as seen on EMG. His pain/paresthesia/spasm/burning is mostly on right forearm, at/on wrist extensor muscles/tendons. The longer I look at it, the more I noticed that it tremors (almost like fasciculation seen in chronic radiculopathy) and it is prominent as compared to left. He is asking about trying Botox injection. We discussed how/why Botulinum toxin injections are done. I suggested trial of lidocain injection, like a trigger point injection, to that wrist extensor muscle. If it helps for at least 1 hour, there may be benefit into doing botulinum toxin injection. He will let me know by next week of any effects. Continue exercises to strengthen right upper extremity and hand. Assessment and plan discussed with patient, and patient was agreeable. All questions were answered thoroughly. Shima Rodarte MD, KAYLIE Board Certified, [place] [employer] and Rehabilitation (ABPMR) Board Certified, [place] Board of Electrodiagnostic Medicine (ABEM) Orders: Orders AMB Trigger Point Injection Today M62.838 - Other muscle spasm Coding Level of Care Code Est Pt Level 4 (24393) Diagnoses Cervical radiculopathy M54.12 Muscle spasm M62.838 Ulnar neuropathy of right upper extremity G56.21 CPT Codes Therapeutic Injection - Ther Injection 1: 68710-Xnwxxme Point Injection 1 or 2 sites ([id number])
[2024-12-31 10:45] VITALS: BMI 23.7
== END 2024-12-31 11:36 | disposition home or self-care (01) ==
LOC: HO.HOS 10:16
PROVIDERS: Visit Provider Physical Medicine & Rehabilitation
DX: M54.12 Radiculopathy, cervical region (principal); M62.838 Other muscle spasm; G56.21 Lesion of ulnar nerve, right upper limb
CPT/HCPCS: 20550; 99214

== ENCOUNTER → 2024-12-31 10:15 | Outpatient (BNVA) | payer MEDICARE, OTHER, SELFPAY | PROVIDERS: Visit Provider Physical Medicine & Rehabilitation | DX: M62.838 Other muscle spasm (principal); M54.12 Radiculopathy, cervical region | CPT/HCPCS: 20550; 20552; 99212; J2003 ==

== ENCOUNTER 2025-01-04 10:14 | Outpatient (RCR) | payer MEDICARE, OTHER, SELFPAY ==
--- NOTE | 2024-12-07 14:14 | MHC.OT.EP ---
[address] [phone] Occupational Therapy Plan of Care Patient Name: Sha Batista Date of Evaluation: 12/07/24 Diagnosis: R cubital Tunnel Release 10/11 Pain Location: FOREARM Pain Score: 3 Pain Scale Used: Numeric (0 - 10) Aggravating Factors: Alleviating Factors: Assessment: Pt is a L hand dominant 73 yr. old male who reports sx's from an ulnar nerve lesion for over a year before having Cubital Tunnel Release surgery. He reports numbness/ tingling is improving but still present (educated today on nerve regeneration), and an overall decrease of pain/ discomfort. 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 Pt is also concerned in regards to his intermittent swelling in his SF. Pt presents today w/ WNL AROM, inflammation of his SF, and decreased ulnar sided hand strength, pt. would benefit from skilled OT therapy to address these deficits and increase the functional use of his R UE. Frequency and Duration: The patient will be seen 1 x a week for weeks Short Term Goals: SEE BELOW Skilled Nursing Goals: Pt will have an ulnar sided (SF/RF/ thumb) pinch of 8 lbs Pt's SF edema will decrease to 6.5 cm Pt will be complaint w/ his HEP Treatment Plan: Therapeutic Exercise Therapeutic Activity Home Exercise Program Splinting Neuro Re-ed Patient Education Desensitization/Sensory Re-ed Edema Control ADL Training Ultrasound NMES Iontophoresis Paraffin Fluidotherapy MHP Cold Packs Joint Mobilization Soft Tissue Mobilization Kinesiotaping Other (see comments) Electronically Signed By: Roxana Pitts OTR/L Please Sign and return to therapist. Thank you once again for your referral.
== END 2025-01-28 14:39 | disposition home or self-care (01) ==
LOC: HO.OT 10:14
DX: G56.21 Lesion of ulnar nerve, right upper limb (principal)
CPT/HCPCS: 97110; 97140; 97165; 97535

== ENCOUNTER 2025-02-17 08:55 | Outpatient (AMB) | payer MEDICARE, OTHER, SELFPAY ==
--- NOTE | 2025-02-17 09:00 | MHC.OFFVIS ---
Vital Signs 02/17/25 09:04 Height 6 ft Weight 175 lb BMI 23.7 Intake Visit Reasons: OV f/u Spinal cord disease Intake Note: Sha 74 yr old male presents today for his follow up visit for his cervical radiculopathy & Muscle spasm s/p trigger injection from 12/31/24. States injection did not help not even for 1 hour. Allergies No Known Allergies Allergy (Verified 02/17/25 09:04) Medication List - Last Reconciled 02/17/25 by Shima Rodarte MD alprazolam 1 mg PO DAILY PRN arm brace (FELICIA Elbow Brace) As directed [Baby Aspirin 81 mg] HPI Comments Details: I have seen patient for EMG upper extremity 02/2024. He is now s/p Right Cubital Tunnel Release DOS: 10/11/2024 w/ Dr Garg. He did have OT few months after surgery. History of cervical fusion by Dr. Zhang 08/2023 for cervical fusion. Continues to have forearm burning and numbness on 4th, 5th and lateral hand. Original symptom in 2022 were acute onset right arm symptoms that spread as numbness on both legs/feet related to past cervical spine issue. Follows neurology for Dr. Babar [place]. Last time he saw Dr. Zhang 2022. Last MRI 4 months ago [facility]. Shows spinal stenosis but no nerve impingement. He is saying numbness on legs have gotten worse, numbness on hands spreading to other fingers. He understands etiology. He is here to see what we can do with pain. Tried gabapentin, lyrica, amitriptyline, baclofen. Tried accupuncture and TENS unit. Tried myofascial release. On last visit, we trialed a lidocaine trigger point injection to wrist extensor muscles as both diagnostic and therapeutic intervention. However patient reports no relief at all, even for less than an hour. That trial was done to see if his symptoms could be related to spasticity seen in cervical myelopathy, and would botulinum toxin injection in the future be beneficial. He has not felt any change. He mentions swelling on right 5th digit. 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 Patient was appropriately conversant and oriented. Good historian. MSK: Inspection reveals appropriate head and neck positioning. Cervical ROM was full. Bilateral shoulder, elbow and wrist ROM WNL. No ligamentous laxity or crepitance. No increased effusion. Noted atrophy on FDI muscle (1st webspace) There is no intrinsic hand weakness. Fasciculations seen on right forearm. Neurological: Neurologic examination of the upper and lower extremities was nonfocal with intact sensation, muscle stretch reflexes and without focal motor deficits. Reflexes intact and symmetric. Strength 5/5 upper and lower extremities. Salas?s negative bilaterally. Gait is non-antalgic without loss of balance. Assessment & Plan Assessment & Plan (1) Cervical radiculopathy: Comment: Affecting C7-C8, seen on NCS Code(s): M54.12 - Radiculopathy, cervical region Category: Medical (2) Ulnar neuropathy of right upper extremity: Code(s): G56.21 - Lesion of ulnar nerve, right upper limb Category: Medical Plan I can still see the chronic fasciculations he has on right forearm. He still has the atrophy in right FDI muscle. He complains of paresthesias and swelling on right 5th digit. All of these were present even prior to cervical surgery August 2023. And prior to ulnar surgery September 2024. Suspect this is a double crush injury: Chronic right cervical radiculopathy plus ulnar neuropathy. Unfortunately despite surgeries and physical therapy, the symptoms have not gotten better yet. He does not have any other fasciculations or any part of his body. There is no weakness on exam today even in the right arm. Right 5th digit does not really appears swollen to me in the sense that it does not appear to be arthritic joint related. We have trialed trigger point injection on those forearm/wrist extensor muscles without relief. I do not think botulinum toxin injection would really be helpful and there is a danger that it would further weekend his right forearm/wrist to the point of nonfunctional. We do not want that to happen. He is wondering about further intervention for the right 5th digits such as steroid injection. And he had questions regarding previous ulnar/elbow surgery. Therefore would defer him back to Dr. Garg. Advised to watch for any development of new weakness or new fasciculations on any other parts of his body besides right upper extremity. Assessment and plan discussed with patient, and patient was agreeable. All questions were answered thoroughly. Would like to see him again in 3 months to see where he is at. Total of 30 minute spent today including chart review, results review, history taking, physical examination, discussion of assessment and plan, and coordination of care. Shima Rodarte MD, KAYLIE Board Certified, [place] [employer] and [employer] (ABPMR) Board Certified, [place] [employer] Electro[employer] (ABEM) Coding Level of Care Code Est Pt Level 4 (24023) Diagnoses Cervical radiculopathy M54.12 Ulnar neuropathy of right upper extremity G56.21
[2025-02-17 09:04] VITALS: BMI 23.7
--- OUTSIDE RECORDS SUMMARY | 2025-02-17 09:21 | XMS_ITS | Data Portability ---
Author Organization [facility], [facility] Address [address] [place] [address] Care Team Providers Care Target Aircraft Technician Name Role Phone YEMI LUCERO Foster Care Worker [facility] Sleep Medicine [facility] Certified Recreational Therapist [facility] Neurosurgeon [phone] TAMICA EDUARDO General Surgeon ANDREI LIN Neurologist [facility] PAIN MANAGEMENT Pain Management [facility] Orthopedic Surgeon ENRICO KEN Primary Care Provider [phone] Assessment Encounter Date Assessment Date Assessment LastModified by Organization Details LastModified Time 11/24/2023 11/24/2023 We completed your Medicare Wellness exam today. This was an [...] cannot communicate your wishes yourself (severe illness, unconsciousness) . We discussed having a completed Health Care [...] is: continue with healthy life style choices. [email or web address] Not available 11/24/2023 10:50:21 01/10/2025 01/10/2025 We completed your Medicare Wellness exam today. This was an [...] cannot communicate your wishes yourself (severe illness, unconsciousness) . We discussed having a completed Health Care [...] testing for ages 55-69 risks and benefits not discussed today. Aortic Aneurysm Screening : is indicated if [...] is: continue with healthy life style choices. Not available 01/10/2025 12:39:34 02/10/2025 02/10/2025 We reviewed your chronic medical conditions and updated your plan for management. Please review instructions below. We have discussed your personal goals and discussed how to reach your goals. Please reach out to us via the Portal or phone if you have questions about your chronic conditions or if you or your caregivers require assistance in meeting your goals. Please visit our website [employer] for more patient resources. As part of your care plan, we will help coordinate your ongoing medical needs, arrange for durable medical equipment, renew prescriptions and necessary prior authorizations, facilitate getting referrals and collaborating with specialist, referrals for VNA services. [email or web address] Not available 02/10/2025 10:24:50 Plan of Treatment Reminders Order Date Submit Date Provider Last Modified By Organization Details Last Modified Time Details Appointments LAB Follow-Up 2025 09:05A [place] [facility] Not available Not available Not available Wellness Visit 30 2025 11:30A M ENRICO KEN MD Not available Not available Not available Lab [id number] genotype, blood 2024 025 [facility], [address] [place], [address], 02/16/2025 22:38:05 ESR (erythroc yte sedimenta tion rate), blood 2024 025 [facility], [address] [place], [address], 02/14/2025 15:18:49 C-reactiv e protein, quantitat sarahi, serum or plasma 2024 025 [facility], [address] [place] [address], [address], 02/14/2025 14:56:20 HbA1c (hemoglob in A1c), blood 2023 024 [facility], [address] [place] [address], [address], 12/01/2023 14:32:09 lipid panel, serum 2023 024 [facility], [address] [place] [address], [address], 12/01/2023 16:08:10 CMP, serum or plasma 2023 024 [facility], [address] [place] [address], [address], 12/01/2023 16:08:09 Referral general surgeon referral 2023 024 SARAH Eduardo MD, [address], [place], [address], 12/09/2023 13:41:03 Procedures None recorded. Surgeries None recorded. Imaging XR, sacroilia c joint(s) 2024 025 [facility] (Imaging), [address], [place], [address], 02/14/2025 13:35:28 XR, lumbar spine 2024 025 [facility] (Imaging), [address], [place], [address], 02/14/2025 13:33:39 Medication Orders celecoxib 400 mg capsule 2024 025 [facility] #[id number], [address], [place], [address], 02/10/2025 12:45:54 clotrimaz ole-betam ethasone 1 %-0.05 % topical cream 2024 025 [facility] #[id number], [address] [place], [address], 01/10/2025 12:29:52 acetazola mide 125 mg tablet 2024 025 [id number] [address] [place], [address], 01/10/2025 12:00:21 Paxlovid 300 mg (150 mg x 2)-100 mg tablets in a dose pack 2023 025 [id number] [address] [place], [address], 11/10/2024 11:55:22 Patient TargetsNo targets recorded. Patient Instructions Encounter Date Encounter Id Patient Instructions Last Modified By Organization Details Last Modified Time 11/24/2023 [id number] preventing falls : care instructions [email or web address] Not [...] worry, expense and possibly shorter life expectancy. [email or web address] Not available 11/20/2023 17:00:23 01/10/2025 [id number] preventing falls : care instructions Not available 01/10/2025 12:29:50 hearing loss information Not available 01/10/2025 12:29:50 advance directives: care instructions Not available 01/10/2025 12:29:50 well visit, over 65: care instructions Not available 01/10/2025 12:29:50 Reason for Referral General Surgeon Referral for Left inguinal hernia Referring Physician: Sammi Lomax, Family Medicine, Encounter Date: 11/24/2023 Results Created Date Observation Date Name Description Value Unit Range Abnormal Flag Note LastModifiedBy Organization Detail LastModifiedTime 12/01/19 24 12/01/2023 HGB A1C hemoglobin A1C [...] furth er confi rmati on Not Available [address], [address], 12/01/2023 14:32:09 12/01/19 24 12/01/2023 HGB A1C estimated average glucose 111.2 mg/dL Not Available [address], [address], 12/01/2023 14:32:09 12/01/19 24 12/01/2023 COMP. METAB OLIC PANEL glucose 96 mg/dL 70-100 Not Available [address], [address], 12/01/2023 16:08:09 12/01/19 24 12/01/2023 COMP. METAB OLIC PANEL BUN 12 mg/dL 7-18 Not Available [address], [address], 12/01/2023 16:08:09 12/01/19 24 12/01/2023 COMP. METAB OLIC PANEL creatinine 1.1 mg/dL 0.8-1. 3 Not Available [address], [address], 12/01/2023 16:08:09 12/01/19 24 12/01/2023 COMP. METAB OLIC PANEL B/C 10.9 ratio Not Available [address], [address], 12/01/2023 16:08:09 12/01/19 24 12/01/2023 COMP. METAB [...] be used in pregn gianna. Not Available [address], [address], 12/01/2023 16:08:09 12/01/19 24 12/01/2023 COMP. METAB OLIC PANEL sodium 141 mmol/ L 136-14 5 Not Available [address], [address], 12/01/2023 16:08:09 12/01/19 24 12/01/2023 COMP. METAB OLIC PANEL potassium 4.5 mmol/ L 3.5-5. 1 Not Available [address], [address], 12/01/2023 16:08:09 12/01/19 24 12/01/2023 COMP. METAB OLIC PANEL chloride 104 mmol/ L 96-107 Not Available [address], [address], 12/01/2023 16:08:09 12/01/19 24 12/01/2023 COMP. METAB OLIC PANEL anion gap 9.1 5.0-15 .0 Not Available [address], [address], 12/01/2023 16:08:09 12/01/19 24 12/01/2023 COMP. METAB OLIC PANEL CO2 28 mmol/ L 21-32 Not Available [address], [address], 12/01/2023 16:08:09 12/01/19 24 12/01/2023 COMP. METAB OLIC PANEL calcium 8.9 mg/dL 8.5-10 .3 Not Available [address], [address], 12/01/2023 16:08:09 12/01/19 24 12/01/2023 COMP. METAB OLIC PANEL total protein 6.1 g/dL 6.4-8. 2 low Not Available [address], [address], 12/01/2023 16:08:09 12/01/19 24 12/01/2023 COMP. METAB OLIC PANEL albumin 3.5 g/dL 3.4-5. 0 Not Available [address], [address], 12/01/2023 16:08:09 12/01/19 24 12/01/2023 COMP. METAB OLIC PANEL globulin 2.6 g/dL Not Available [address] [place], [address], 12/01/2023 16:08:09 12/01/19 24 12/01/2023 COMP. METAB OLIC PANEL A/G 1.3 ratio 0.8-2. 0 Not Available [address], [address], 12/01/2023 16:08:09 12/01/19 24 12/01/2023 COMP. METAB OLIC PANEL total bilirubin 1.00 mg/dL 0.00-1 .00 Not Available [address], [address], 12/01/2023 16:08:09 12/01/19 24 12/01/2023 COMP. METAB OLIC PANEL AST 30 U/L 0-37 Not Available [address], [address], 12/01/2023 16:08:09 12/01/19 24 12/01/2023 COMP. METAB OLIC PANEL ALT 37 U/L 6-63 Not Available [address], [address], 12/01/2023 16:08:09 12/01/19 24 12/01/2023 COMP. METAB OLIC PANEL alk. phos. 67 U/L 50-136 Not Available [address], [address], 12/01/2023 16:08:09 12/01/19 24 12/01/2023 LIPID PANEL cholesterol 214 mg/dL <200 mg/dl Reginaldo able 200-2 39 mg/dl Borde rline High >240 mg/dl High Not Available [address], [address], 12/01/2023 16:08:10 12/01/19 24 12/01/2023 LIPID PANEL triglyceride s 74 mg/dL <150 mg/dL Corina l 150-1 99 mg/dL Borde rline High 200-4 99 mg/dL High >500 mg/dL Very High Not Available [address], [address], 12/01/2023 16:08:10 12/01/19 24 12/01/2023 LIPID PANEL direct HDL 70 mg/dL <40 mg/dl - Major Risk for CHD >60 mg/dl - Negat sarahi Risk for CHD Not Available [address], [address], 12/01/2023 16:08:10 12/01/19 24 12/01/2023 LDL - CALCU LATED LDL - calculated 129.2 RISK CATEG ORY LDL GOAL _ CHD or CHD Risk Equiv alent s <100 mg/dl (10-y ear risk >20%) 2+ Risk Facto rs <130 mg/dl (10-y ear risk <= 20%) 0-1 Risk Facto r? <160 mg/dl ? Almos t all peopl e with 0-1 risk facto r have a 10 year risk <10%, thus 10 year risk asses ment in peopl e with 0-1 risk facto r is not neces aviva. Not Available [address], [address], 12/01/2023 16:08:11 12/09/1912/09/2024 HGB A1C hemoglobin A1C 5.6 % 4.8-6. 0 Goal: <7% in Patie [...] furth er confi rmati on Not Available [address], [address], 12/09/2024 11:54:15 12/09/1912/09/2024 HGB A1C estimated average glucose 114.0 mg/dL Not Available [address], [address], 12/09/2024 11:54:15 12/09/19 25 12/10/2024 LIPID PANEL cholesterol 146 mg/dL <200 mg/dl Reginaldo able 200-2 39 mg/dl Borde rline High >240 mg/dl High Not Available [address], [address], 12/10/2024 10:30:00 12/09/19 25 12/10/2024 LIPID PANEL triglyceride s 64 mg/dL <150 mg/dL Corina l 150-1 99 mg/dL Borde rline High 200-4 99 mg/dL High >500 mg/dL Very High Not Available [address], [address], 12/10/2024 10:30:00 12/09/19 25 12/10/2024 LIPID PANEL direct HDL 57 mg/dL <40 mg/dl - Major Risk for CHD >60 mg/dl - Negat sarahi Risk for CHD Not Available [address], [address], 12/10/2024 10:30:00 12/09/19 25 12/10/2024 GLUCO SE glucose 100 mg/dL 70-100 Not Available [address], [address], 12/10/2024 10:30:02 12/09/1912/10/2024 LDL - CALCU LATED LDL - calculated 76 RISK CATEG ORY LDL GOAL _ CHD or CHD Risk Equiv alent s <100 mg/dl (10-y ear risk >20%) 2+ Risk Facto rs <130 mg/dl (10-y ear risk <= 20%) 0-1 Risk Facto r? <160 mg/dl ? Almos t all peopl e with 0-1 risk facto r have a 10 year risk <10%, thus 10 year risk asses ment in peopl e with 0-1 risk facto r is not vinicio aviva. Not Available [address], [address], 12/10/2024 10:30:04 02/15/20 25 02/14/2025 C-BRENT CTIVE PROTE IN (RCRP ) C-reactive protein (rcrp) 1.1 mg/L 0.5-9. 0 Not Available [address], [address], 02/14/2025 14:56:20 02/15/20 25 02/14/2025 ESR sed rate 0.0 0.0-20 .0 Not Available [address], [address], 02/14/2025 15:18:49 08/05/20 24 08/04/2024 nerve condu ction study No observ ation record ed. [facility] [address] , [place], [address], 08/05/2024 09:31:35 02/15/20 25 02/14/2025 XR, lumba r spine CLINIC AL HISTOR Y: Pain in LB, especi ally on right side. TECHNI QUE: 3 views, 4 images FINDIN GS: Grade 1 kyree listhe sis at L4/L5. Grade 1 retrol isthes is of L3/L4. Grade 1 retrol isthes is of L2/L3. Degene rative disc and endpla te change s at multip le levels . Degene rative facet joint change s, most pronou nced within the lower lumbar spine. No substa ntial lumbar verteb ral body compre ssion deform ity seen. IMPRES KEIRY: Degene rative change s within the lumbar spine. Spondy lolist hesis at multip le levels . Readin g Physic paige: Javad miller [email or web address] [facility] (Imaging) [address], [place], [address], 02/16/2025 10:09:55 02/15/20 25 02/14/2025 XR, sacro iliac joint (s) CLINIC AL HISTOR Y: Pain in LB, especi ally on the right side. TECHNI QUE: 3 views of the sacroi liac joints are obtain ed. COMPAR HAIM: Lumbar spine radiog raph same day. FINDIN GS: [ No sacroi liac joint disloc ation seen. Sclero sis of both sacroi liac joints , right greate r than left, likely relate d to osteoa rthrit ic change s. Degene rative change s within the lumbar spine. No acute fractu re seen. IMPRES KEIRY: No acute bony abnorm ality seen. Marjorie estrada Physic paige: Javad miller [id number] [facility] (Imaging) [address], [place], [address], 02/16/2025 10:09:55 Result Notes None recorded. Problems Name Problem SNOMED Code Status Onset Date Resolution Date Notes Provider Name and Address Organization Details Recorded Time Mixed hyperlipi demia 202333216 Active 2003 Not Available [facility] 3 11:44:38 Injury of shoulder region 347022184 Completed 200402/15/2013 Not Available [facility] 3 03:03:32 Varicose veins of lower extremity 27591535 Completed 02/15/2013 Not Available [facility] 3 03:03:32 Presbyopi a 69564582 Completed 200501/31/2012 Not Available [facility] 3 03:03:32 Precordia l pain 94282622 Completed 200202/15/2013 Not Available [facility] 3 03:03:32 Migraine without aura 07962469 Completed 200708/17/2010 Not Available [facility] 3 03:03:32 Phlebitis and thromboph lebitis Completed 200008/17/2010 Not Available [facility] 3 03:03:32 Lateral epicondyl itis 469853855 Completed 200202/15/2013 Not Available [facility] 3 03:03:32 Neck pain 48045163 Completed 200401/31/2012 Not Available [facility] 3 03:03:32 Allergic rhinitis 01034583 Completed 200108/17/2010 Not Available [facility] 3 03:03:32 Epidermoi d cyst of skin 361495561 Completed 200201/31/2012 Not Available [facility] 3 03:03:32 Acute suppurati ve otitis media without spontaneo us rupture of ear drum 67240380 Completed 200008/17/2010 Not Available [facility] 3 03:03:32 Sciatica 52568119 Completed 200102/15/2013 Not Available [facility] 3 03:03:32 Knee pain Completed 200108/17/2010 Not Available [facility] 3 03:03:32 Sprain of shoulder and upper arm Completed 200402/15/2013 Not Available [facility] 3 03:03:32 Hyperlipi demia 33410412 Completed 200108/17/2010 Not Available [facility] 3 03:03:32 Acute bronchiti s 99032911 Completed 200502/15/2013 Not Available [facility] 3 03:03:32 Otogenic otalgia 15500746 Completed 200108/17/2010 Not Available [facility] 3 03:03:32 Headache 12273109 Completed 200508/17/2010 Not Available [facility] 3 03:03:32 Disorder of tendon of shoulder region 83660517 Completed 200408/17/2010 Not Available [facility] 3 03:03:32 Migraine variants 862655803 Completed 200608/17/2010 Not Available [facility] 3 03:03:32 Cough 19455178 Completed 200508/17/2010 Not Available [facility] 3 03:03:32 Pain of shoulder region 36639833 Completed 01/31/2012 Not Available [facility] 3 03:03:32 Pain of shoulder region 62310474 Completed 200408/17/2010 Not Available [facility] 3 03:03:32 Generaliz ed anxiety disorder 44192307 Active Not Available [facility] 3 11:44:38 Migraine with aura 9213279 Completed 200402/15/2013 Not Available [facility] 3 03:03:32 Astigmati sm 00360347 Completed 200502/15/2013 Not Available [facility] 3 03:03:32 Impacted cerumen 48590768 Completed 200708/17/2010 Not Available [facility] 3 03:03:32 Abnormali ty of systemic vein 993377130 Completed 200002/15/2013 Not Available [facility] 3 03:03:32 Allergic asthma without status asthmatic us 41059556 Completed 200102/15/2013 Not Available [facility] 3 03:03:32 Insomnia 265744439 Completed 01/31/2012 Harjinder Raymond MD [address] [place] [address], [address] , [facility] 7 11:37:01 Common cold 26467556 Completed 200408/17/2010 Not Available [facility] 3 03:03:32 Pain of joint of hand 422081241 Completed 01/31/2012 Not Available [facility] 3 03:03:32 Inflammat ory disorder of extremity 349939990 Completed 200008/17/2010 Not Available [facility] 3 03:03:32 On examinati on - a rash Completed 200708/17/2010 Not Available [facility] 3 03:03:32 Non-organ ic sleep disorder 448077607 Completed 200501/31/2012 Not Available [facility] 3 03:03:32 Injury of knee 651094346 Completed 200102/15/2013 Not Available [facility] 3 03:03:32 Hearing loss 54126322 Active 2007 Not Available [facility] 3 11:44:38 Thromboph lebitis of superfici al veins of upper extremiti es 96277947 Completed 200002/15/2013 Not Available [facility] 3 03:03:32 Migraine 23996793 Completed 200602/15/2013 Not Available [facility] 3 03:03:32 Tinnitus 80581792 Completed 01/31/2012 Not Available [facility] 3 03:03:32 Pain in limb 13122881 Completed 200008/17/2010 Not Available [facility] 3 03:03:32 Inguinal hernia 480402693 Active 2016 Not Available [facility] 3 11:44:38 Venous varices 947292205 Active 2016 Not Available [facility] 3 11:44:38 Insomnia 017777681 Active 2016 Not Available [facility] 3 11:44:38 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 [address] [place] [address], [address] , [facility] 4 19:13:09 Cervical myelopath y 516177245 Active 2023 Sammi Lomax . [place], [address] , [facility] 19:13:33 Problem Notes None recorded. Procedures Surgical History Date Name Laterality Status Provider Name and Address Organization Details Recorded Time 01/11/20 25 Medicare Wellness Visit completed Brittanie Colón CMA [facility] 01/10/2025 09:15:27 11/24/19 24 Medicare Wellness Visit completed BRIAN Brown [facility] 11/20/2023 17:00:24 11/24/19 24 Cardiovascular disease risk reduction counseling completed BRIAN Brown [facility] 11/20/2023 17:01:00 11/24/19 24 prevention-annual alcohol misuse screening completed BRIAN Brown [facility] 11/20/2023 17:00:59 10/10/20 23 excision of cervical intervertebral disc completed Sammi [place], [address], [facility] 11/23/2023 19:32:02 08/19/20 23 [address]: Therapeutic Exercise cancelled Marianna Jain, OTR/L, CHT [address] [place], [address], [facility] 08/17/2023 18:02:48 08/19/20 23 [address]: Manual Therapy cancelled Marianna Jain, OTR/L, CHT [address] [place], [address], [facility] 08/17/2023 18:02:44 08/12/20 23 [address]: Therapeutic Exercise cancelled Marianna Jain, OTR/L, CHT [address] [place], [address], [facility] 08/10/2023 19:40:25 08/12/20 23 [address]: Manual Therapy cancelled Marianna Jain, OTR/L, CHT [address] [place], [address], [facility] 08/10/2023 19:40:20 08/01/20 23 Physical Activity Counselling completed Marianna Jain OTR/L, CHT [address] [place] [address], [phone], [facility] 08/01/2023 09:22:38 08/01/20 23 [address]: OT Eval, Low Complexity completed Marianna Jain OTR/L, CHT [address] [place], [address], [facility] 08/01/2023 09:22:35 11/21/19 23 Medicare Wellness Visit completed Christa Palma [facility] 11/20/2022 16:28:06 11/21/19 23 Depression Screening completed Sammi Shoushtari. [address] [place] [address], [phone], [facility] 11/21/2022 09:51:03 11/21/19 23 prevention-annual alcohol misuse screening completed Sammi Shoushtazeke. [address] [place] [address], [address], [facility] 11/21/2022 09:51:13 07/26/20 21 Tassoni - Colonoscopy completed Jadon Gifford MD [address] [place] [address], [address], [facility] 07/26/2021 10:17:09 07/26/20 21 colonoscopy completed Sammi Shoushtazeke. [address] [place] [address], [address], [facility] 07/30/2021 20:12:48 04/19/20 21 Medicare Wellness Visit completed Liliya Pitt [facility] 04/19/2021 11:59:20 04/19/20 21 prevention-cardiov ascular risk reduction counseling completed Liliya Pitt [facility] 04/19/2021 11:59:20 04/19/20 21 prevention-annual alcohol misuse screening completed Liliya Pitt [facility] 04/19/2021 11:59:20 04/19/20 21 Advanced Care Planning completed Sammi [place]ous[place], [address], [facility] 04/19/2021 12:19:26 04/12/20 20 Medicare Wellness Visit completed [facility] 04/12/2020 09:44:58 04/12/20 20 prevention-cardiov ascular risk reduction counseling completed [facility] 04/12/2020 09:44:58 04/12/20 20 prevention-annual alcohol misuse screening completed [facility] 04/12/2020 09:44:58 01/14/20 19 Medicare Wellness Visit completed Carmina De Leon LPN [facility] 01/13/2019 10:28:26 01/09/20 18 Medicare Wellness Visit completed Chrissy Rust MANDARIN TUTOR [facility] 01/08/2018 11:15:16 06/30/20 14 Aspiration Intermediate Joint/Bursa completed Sushil Simmons PA-C [address] [place] [address], [address], [facility] 06/30/2014 17:05:51 02/05/20 11 Treatment and Advice completed Nhi Collazo, OT [address] [place], [address], [facility] 02/04/2011 12:50:47 Imaging Results Imaging Date Name Status LastModified by Organiz ation Details LastModified Time 08/04/2024 nerve conduction study completed [facility] [address], [place], [address], 08/05/2024 09:31:35 02/14/2025 XR, lumbar spine active [address] (Imaging) [address] [place], [address], 02/16/2025 10:09:55 02/14/2025 XR, sacroiliac joint(s) active [address] (Imaging) [address] [place], [address], 02/16/2025 10:09:55 Procedure Notes None recorded. Medical Equipment None [...] Not Available Not Available No t Available acetazola mide 125 mg tablet PLEASE SEE ATTACHED FOR DETAILED DIRECTIO NS 01/10 completed Not Available Not Available Not Available hydrocodo ne 5 mg-acetam inophen 325 [...] Not Available Not Available Not Avai lable oxycodone -acetamin ophen 5 mg-325 mg tablet Take 1 tablet every 6 hours by oral route as needed. 11/10 completed Not Available Not Available Not Available alprazola m 0.5 mg tablet TAKE 1 TABLET BY MOUTH EVERY 6 HOURS NEEDED 2008 active Not Available Not Available Not Avai lable amitripty line 10 mg tablet TAKE 2 TABLETS BEFORE BED. 11/10 completed Not Available Not Available Not Available meclizine 25 mg tablet Take 1 tablet 3 times a day by oral route as needed for 5 days. 04/06 completed Not Available Not Available Not Available clotrimaz ole-betam ethasone 1 %-0.05 % topical cream APPLY TO AFFECTED AREA TWICE A DAY FOR 2 WEEKS IN THE MORNING AND EVENING (AND SURROUND ING AREAS) active Not Available Not Available No t [...] completed Not Available Not Available Not Available fluticaso ne propionat e 50 mcg/actua tion [...] TOTAL) BY MOUTH EVERY 4 HOURS NEEDED 01/29 /2025 completed Not Available Not Available Not Available celecoxib 400 mg capsule TAKE 1 CAPSULE BY MOUTH EVERY DAY active Not Available Not Available No t Available Lyrica 100 mg capsule TAKE 1 CAPSULE BY MOUTH EVERYDAY AT BEDTIME 03/04 completed Not Available Not Available Not Available Rozerem 8 mg tablet Take 1 tablet every day by oral route. 07/20 completed Not Available Not Available Not Available Fish Oil active 1 daily Not Available Not Chelsey ilable Not Available magnesium gluconate active Not Available Not Available No t Available Vitamin D 2000unit daily active Not [...] completed Not Available Not Available Not Available B12 active Not Available Not Availa ble Not Available Fluzone High-Dose 7767-1909 (PF) 180 mcg/0.5 mL intramusc ular syringe TO BE ADMINIST ERED BY PHARMACI ST FOR IMMUNIZA TION 01/02 completed Not Available [...] MOUTH TWICE A DAY FOR 5 DAYS 11/10 completed Not Available Not Available Not Available Vitals Date Recorded Body height Body mass index (BMI) Body weight Oxygen saturation Oxygen saturation in Arterial blood by Pulse oximetry Heart rate Systolic blood pressure Diastolic blood pressure Provider Name and Address Organization Details Last Updated DateTime 4 180.34 cm 25.8 kg/m2 06344.5 9 g 98 % 98 % 63 /min 110 mm[Hg] 80 mm[Hg] LupeallanALEX alvarezDaiana Daron [facility] 4 10:23:44 Date Recorded Body height Heart rate Body temperature Systolic blood pressure Diastolic blood pressure Provider Name and Address Organization Details Last Updated DateTime 03/04/2024 180.34 cm 62 /min 98.9 [degF] 127 mm[Hg] 78 mm[Hg] Sammi gastelum MD [address] [place] [address], [phone] 1[facility] 4 10:48:51 Date Recorded Body height Body mass index (BMI) Body weight Oxygen saturation Oxygen saturation in Arterial blood by Pulse oximetry Heart rate Systolic blood pressure Diastolic blood pressure Provider Name and Address Organization Details Last Updated DateTime 5 180.34 cm 24.5 kg/m2 79764.2 6 g 98 % 98 % 90 /min 126 mm[Hg] 66 mm[Hg] Liliya Pitt [facility] 5 12:05:38 Date Recorded Body height Body mass index (BMI) Body weight Heart rate Oxygen saturation Oxygen saturation in Arterial blood by Pulse oximetry Systolic blood pressure Diastolic blood pressure Provider Name and Address Organization Details Last Updated DateTime 5 180.34 cm 24.4 kg/m2 74562.6 6 g 103 /min 98 % 98 % 128 mm[Hg] 78 mm[Hg] Brittanie Colón [facility] 5 11:58:46 Social History Question Answer Notes LastModified by Organizat ion Details LastModified Time Tobacco Smoking Status Never Smoker [facility] 11/10/2024 11:48:26 What Is Your Level Of Alcohol Consumption? [...] Type Of Diet Are You Following? REGULAR Low Sugar And Carb [email or web address] Information not available 01/10/2025 Which Illicit Or Recreational Drugs Have You Used? None Information not available 04/19/2021 Do You Or Have You Ever Used E-cigarettes Or Vape? Never Used Electronic Cigarettes Information not available 06/11/2022 Education Post Graduate Masters Information not available 02/16/2013 What Is The Highest Grade Or Level Of School You Have Completed Or The Highest Degree You Have Received? 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 No Loss His Dog 3 Weeks Ago 11/24/23 NR Information not available 01/10/2025 How Many Days In The Past Year Have You Had A Heavy Drinking Consumption (4+ Female, 5+ Male)? 0 Information not available 11/10/2015 Are There Any Guns Present In Your Home? No Information not available 02/16/2013 Do You Use Insect Repellent Routinely? No [email or web address] Information not available 11/21/2022 Live Alone Or With Others? With Others [email or web address] Information not available 04/19/2021 CSRP Contract Signed And Discussed Yes [email or web address] Information not available 03/25/2017 Patient Has Health Care Proxy Signed And In Chart Yes 03/25/17 [email or web address] Information not available 04/20/2021 CCM Consent Discussion 03/26/2017 [email or web address] Information not available 09/25/2017 Marital Status [email or web address] Informatio n not available 02/16/2013 Mosquito Repellent Used Routinely Yes Information not available 02/16/2013 What Was The Date Of Your Most Recent Tobacco Screening? 02/10/2025 [email or web address] Information not available 02/10/2025 How Many Children Do You Have? 1 Daughter In [place], [place] [facility] Information not available 11/24/2023 What Is Your Relationship Status? Female Spouse [facility] Information not available 11/21/2022 Do You Use Your Seat Belt Or Car Seat Routinely? Yes [email or web address] Information not available 11/21/2022 Seat Belts Used Routinely Yes Information not available 02/16/2013 Smoke Alarm In Home Yes Information not available 02/16/2013 Do You Have Smoke And Carbon Monoxide Detectors In Your Home? Yes [email or web address] Information not available 11/21/2022 Are You Passively Exposed To Smoke? No [email or web address] Information not available 11/21/2022 Do You Or Have You Ever Used Smokeless Tobacco? Never Used Smokeless Tobacco [email or web address] Information not available 06/11/2022 General Stress Level Medium Information not available 02/16/2013 Do You Use Any Illicit Or Recreational Drugs? Yes Cannabis [facility] Information not available 11/21/2022 Do You Use Sunscreen Routinely? Yes Information not available 02/16/2013 Sex: Male Functional Status Question Answer Note LastModified by Organizat ion Details LastModified Time What is your exercise level? Moderate biking in good weather, home exercises, walking and light weight in winter [email or web address] Information not available 11/24/2023 Mental Status None recorded. Family History Relationship Description Onset Age of this Age Resolved Age Notes LastModified by Organization Details LastModified Time Father Essential hypertension 63 [email or web address] Not available 0 04/19/2021 12:11:27 Father Aortic aneurysm 63 [email or web address] Not available 05/2021 12:11:52 Father Hyperlipidem ia [email or web address] Not available 05/2021 12:12:42 Mother Crohn's disease 81 [email or web address] Not available 05/2021 12:12:16 Sister Diabetes mellitus [email or web address] Not available 05/2021 12:12:30 Sister Hyperlipidem ia [email or web address] Not available 05/2021 12:12:42 Sister Malignant tumor of breast [email or web address] Not available 05/2021 12:12:55 Medical History No medical history recorded. Immunizations Vaccine Type Date Status Note Provider Nam e and Address Organization Details Recorded Time Td(adult) unspecified formulation 6 completed Laurence Pinto RN null, [facility] 06/30/2023 12:15:10 influenza, unspecified formulation 7 completed Laurence Pinto RN null, [facility] 06/30/2023 12:15:10 Influenza, split virus, quadrivalent, PF 5 completed Not Available [facility] 10/30/2019 02:27:11 zoster live 6 completed Not Available [facility] 10/30/2019 02:33:41 pneumococcal polysaccharide PPV23 6 completed Not Available [facility] 10/30/2019 02:20:15 Pneumococcal conjugate PCV 13 7 completed Not Available [facility] 10/30/2019 02:38:50 Tdap 2 completed Laurnece Pinto RN null, [facility] 06/30/2023 12:15:10 influenza, unspecified formulation 4 completed Laurence Pinto RN null, [facility] 06/30/2023 12:15:10 Influenza, high-dose, trivalent, PF 7 completed Not Available [facility] 10/30/2019 02:21:40 Influenza, high-dose, trivalent, PF 8 completed Not Available [facility] 10/30/2019 02:23:02 Influenza, high-dose, trivalent, PF 6 completed Laurence Pinto RN null, [facility] 06/30/2023 12:15:10 Td (adult), 2 Lf tetanus toxoid, preservative free, adsorbed 2 completed Sammi Lomax. [address] [place] [address], [phone], [facility] 06/11/2022 14:22:55 pneumococcal polysaccharide PPV23 2 completed Sammi Lomax. [address] [place] [address], [phone], [facility] 06/11/2022 14:22:55 COVID-19, mRNA, LNP-S, PF, 30 mcg/0.3 mL dose 1 completed Laurence Pinto RN null, [facility] 06/30/2023 12:15:10 COVID-19, mRNA, LNP-S, PF, 30 mcg/0.3 mL dose 1 completed Laurence Pinto RN null, [facility] 06/30/2023 12:15:10 Influenza, split virus, quadrivalent, preservative 0 completed LISSETH Yeh, [facility] 06/30/2023 12:15:10 COVID-19, mRNA, LNP-S, PF, 30 mcg/0.3 mL dose 1 completed Laurence Pinto RN null, [facility] 06/30/2023 12:15:10 Influenza, split virus, quadrivalent, preservative 1 completed LISSETH Yeh, [facility] 06/30/2023 12:15:10 COVID-19, mRNA, LNP-S, PF, 30 mcg/0.3 mL dose 2 completed LISSETH Yeh, [facility] 06/30/2023 12:15:10 Influenza, split virus, quadrivalent, PF 0 completed Laurence Pinto RN null, [facility] 06/30/2023 12:15:10 influenza, unspecified formulation 2 completed LISSETH Yeh, [facility] 06/30/2023 12:15:10 COVID-19, mRNA, LNP-S, bivalent, PF, 3 mcg/0.2 mL dose 2 completed LISSETH Yeh, [facility] 06/30/2023 12:15:10 RSV, recombinant, protein subunit RSVpreF, adjuvant reconstituted, 0.5 mL, PF 3 completed LISSETH Yeh, [facility] 06/30/2023 12:15:10 zoster recombinant 1 completed Nilmari, RMA Neri null, [facility] 07/22/2023 16:16:01 zoster recombinant 1 completed Nilmari, RMA Neri null, [facility] 07/22/2023 16:16:11 Influenza, high-dose, quadrivalent, PF 3 completed Nilmari, RMA Neri null, [facility] 07/22/2023 16:16:41 COVID-19, mRNA, LNP-S, PF, willis-sucrose, 10 mcg/0.3 mL 3 completed Nilmari, RMA Neri null, [facility] 07/22/2023 16:16:55 Past Encounters Encounter ID Performer Location Encounter Start Date Encounter Closed Date Diagnosis/Indication Diagnosis SNOMED-CT Code Diagnosis ICD10 Code Diagnosis Note [id number] [facility] , [facility] [id number] 1 02/03/2001 15:00:00 11/02/2008 02:02:29 [id number] Giovanni Orozco MD , [facility] [address] [place] [address] [place] [address] 1 02/03/2001 08:15:00 11/02/2008 02:02:29 [id number] Giovanni Orozco MD , [facility] [address] [place] [address] [place] [id number] 1 02/19/2001 13:30:00 11/02/2008 02:02:29 [id number] Chen Lopez NP , [facility] [address] [place] [address] [place] [id number] 1 03/12/2001 13:00:00 11/02/2008 02:02:29 [id number] [facility] Technolog[facility] st Radiology , [facility] [place] [id number] 1 03/20/2001 15:00:00 11/02/2008 02:02:29 [id number] Giovanni Orozco MD , [facility] [address] [place] [address] [place] [address] 1 03/20/2001 10:00:00 11/02/2008 02:02:29 [id number] Sue Vargas MD , [facility] [address] [place] [id number] 1 04/10/2001 12:45:00 11/02/2008 02:02:29 [id number] Sue Maki , [facility] [address] [place] [id number] 1 10/12/2001 14:30:00 11/02/2008 02:02:29 [id number] MD SADIE John, [facility] [place] [address] [place]VIACony [place] [id number] 1 10/26/2001 11:30:00 11/02/2008 02:02:29 [id number] AMY Patel, [facility] [address] [place] [id number] 1 05/05/2002 09:03:50 11/02/2008 02:02:29 [id number] [facility] - [facility] [address] [place] [id number] 1 05/05/2002 07:41:57 11/02/2008 02:02:29 [id number] [facility] Technologi Radiology , [facility] [address] [place] [id number] 1 05/31/2002 17:21:50 11/02/2008 02:02:29 [id number] MD SADIE John, [facility] [address] [place] [id number] 1 05/31/2002 16:40:58 11/02/2008 02:02:29 [id number] Dima Larios PA-C , [facility] [address] [place] [id number] 1 08/24/2002 11:25:12 11/02/2008 02:02:29 [id number] MD SADIE John, [facility] [address] [place] [id number] 1 06/29/2003 11:30:23 06/29/2003 17:45:12 [id number] [facility] - [facility] [address] [place] [id number] 1 06/30/2003 07:39:51 06/30/2003 12:56:35 [id number] ASP, CELENA BEGUM MD ASP, [facility] [address] [place] [id number] 1 01/18/2004 10:14:28 01/18/2004 17:48:28 [id number] Dima Larios PA-C , [facility] [place] [address] [place] [address] 1 05/15/2004 13:13:42 05/16/2004 08:39:31 [id number] [facility] - [address] [place] [id number] 1 05/18/2004 07:31:25 05/18/2004 08:59:02 [id number] Honey Luther NP , [facility] [place] [address] [place] [address] 1 01/15/2005 09:34:53 01/17/2005 08:36:24 [id number] [facility] Technologi st Radiology , [address] [place] [id number] 1 02/01/2005 11:10:01 02/01/2005 15:52:52 [id number] [facility] Techn[facility] Radiology , [address] [place] [id number] 1 02/01/2005 00:00:00 11/02/2008 02:02:29 [id number] Sandrita Ron, PT Physical Therapy, [address] [place] [id number] 02/05/2005 08:12:44 02/05/2005 08:29:55 [id number] Sandrita Ron, PT Physical Therapy, [address] [place] [id number] 1 02/15/2005 08:24:31 02/18/2005 10:04:56 [id number] Fabrizio Dotson III, MD , [facility] [address] [place] [id number] 02/01/2005 10:54:42 02/01/2005 16:29:03 [id number] Fabrizio Dotson III, MD , [facility] [address] [place] [id number] 1 02/21/2005 14:22:21 02/21/2005 16:04:19 [id number] [facility] Technologi st Radiology , [address] [place] [address] 1 02/21/2005 14:50:47 02/21/2005 15:41:55 [id number] [facility] Techn[facility] Radiology , [address] [place] [id number] 1 02/21/2005 00:00:00 11/02/2008 02:02:29 [id number] Oly Gregg M.D . , [facility], OFFICE [address] [place] [address] 06/29/2005 13:33:03 06/30/2005 09:35:19 [id number] Giovanni Orozco MD , [facility] [place] [address] [place] [id number] 1 12/27/2005 11:49:15 12/30/2005 08:51:54 [id number] Giovanni Orozco MD , [facility] [place] [address] [place] [id number] 1 01/13/2006 08:47:15 01/13/2006 14:43:40 [id number] [facility] Technologi st Radiology , [facility] 31 [facility] [place] [address] 1 02/10/2006 09:05:08 02/10/2006 10:03:13 [id number] [facility] Technologi st Radiology , [address] [place] [address] 02/10/2006 00:00:00 11/02/2008 02:02:29 [id number] Kevon Jones OD Eye Care, [facility] 31 [facility] [place] [address] 1 04/21/2006 09:52:50 04/21/2006 12:55:24 [id number] Giovanni Orozco MD , [facility] [place] [address] [place] [id number] 1 07/09/2006 07:55:47 07/10/2006 07:11:21 [id number] Eugenie ECHEVARRIA , [facility] [place] [address] [place] [id number] 1 03/05/2007 16:39:52 03/06/2007 08:14:04 [id number] [facility] Techn[facility]i [facility] Radiology , [address] [place] [address] 1 03/05/2007 17:13:21 03/05/2007 17:23:05 [id number] [facility] Techn[facility] Radiology , [address] [place] [address] 1 03/05/2007 00:00:00 11/02/2008 02:02:29 [id number] Giovanni Orozco MD , [facility] [place] [address] [place] [id number] 1 08/17/2007 10:02:01 08/18/2007 11:31:32 [id number] Giovanni Orozco MD , [facility] [address] [place] [id number] 1 04/08/2008 12:04:44 11/02/2008 02:02:29 [id number] Giovanni Orozco MD , [facility] [address] [place] [id number] 1 07/21/2008 10:26:14 11/02/2008 02:02:29 [id number] Kristie Dixon D.O. , [facility] [place] [id number] 1 10/23/2009 14:46:20 10/23/2009 16:15:48 [id number] Fabrizio Dotson III, MD , [facility] [address] [place] [address] [place] [id number] 1 12/04/2009 13:29:35 12/05/2009 10:05:56 [id number] Олег Garcia MD , [address] [place] [id number] 1 05/29/2010 09:11:13 05/29/2010 14:06:34 [id number] Cristal Butt NP , [address] [place], [place] [id number] 07/17/2010 10:03:30 07/17/2010 11:20:53 [id number] [facility] Technolog[facility] Radiology , [address] [place] [id number] 1 07/17/2010 10:22:12 07/18/2010 11:06:53 [id number] Fabrizio Dotson III, MD , [address] [place] [id number] 1 08/17/2010 08:49:20 08/17/2010 09:26:46 [id number] [facility] Techn[facility] Radiology , [address] [place] [id number] 1 09/21/2010 08:56:13 09/24/2010 11:02:45 [id number] Fabrizio Dotson III, MD , [facility] [address] [place] [address] [place] [id number] 1 01/31/2011 09:03:08 02/01/2011 08:54:47 [id number] Nhi Collazo, OT Physical Therapy, [address] [place] [address] 1 02/04/2011 12:02:28 02/05/2011 11:15:33 [id number] Nhi Collazo, OT Physical Therapy, [facility] [place] [address] 1 02/07/2011 09:23:39 02/08/2011 10:04:06 [id number] Nhi Collazo, OT Physical Therapy, [address] [place] [id number] 1 02/13/2011 09:23:27 02/14/2011 11:16:55 [id number] Fabrizio Dotson III, MD , [facility] [place] [address] [place] [address] 1 11/25/2011 08:43:52 11/25/2011 09:18:15 [id number] Sandrita Ron, PT Physical Therapy, [address] [place] [id number] 1 01/07/2012 13:41:13 01/08/2012 16:15:11 [id number] Sandrita Ron, PT Physical Therapy, [address] [place] [address] 1 01/20/2012 14:26:25 01/21/2012 14:31:15 [id number] Олег Garcia MD , [facility] [place] [address] [place] [address] 1 01/31/2012 14:59:37 01/31/2012 15:57:55 [id number] Sandrita Ron PT Physical Therapy, [address] [place] [id number] 1 02/10/2012 15:00:15 02/11/2012 09:24:11 [id number] Sandrita Ron PT Physical Therapy, [address] [place] [address] 1 02/18/2012 14:32:02 02/19/2012 10:14:44 [id number] Sandrita Ron PT Physical Therapy, [address] [place] [address] 1 02/25/2012 14:28:13 02/26/2012 09:51:59 [id number] Sandrita Ron PT Physical Therapy, [address] [place] [address] 1 03/11/2012 14:25:26 03/12/2012 10:23:45 [id number] Sandrita Ron PT Physical Therapy, [address] [place] [id number] 1 03/12/2012 12:41:13 03/12/2012 12:41:20 [id number] Fabrizio Dotson III, MD , [facility] [place] [address] [place] [address] [place] [address] 1 11/12/2012 14:31:15 11/12/2012 14:47:44 [id number] Fabrizio Dotson III, MD , [facility] [place] [address] [place] [address] [place] [id number] 1 02/16/2013 09:23:45 02/16/2013 09:57:11 [id number] Fabrizio Dotson III, MD , [facility] [address] [place] [address] [place] [id number] 1 04/07/2013 14:22:56 04/07/2013 14:47:16 [id number] Kristie Dixon D.O. , [facility], [address] [place] [address] 1 07/02/2013 16:42:01 07/02/2013 17:38:01 Low back pain 655617285 left sided pain, acute onset with radiculopa thy. no known injury or precipitan t. some mild weakness of left leg. suspect herniated disc. discussed xray or mri, which he prefers to defer for now will have close f.u with PCP within 7 days. if any numbness or weakness, will call. if slowly improving, recommend PT in 1 week [id number] Fabrizio Dotson III, MD , [facility] [address] [place] [address] [place] [id number] 1 07/06/2013 14:21:27 07/06/2013 14:51:25 Low back pain 698366861 Acute sciatica 550281239 [id number] Sandrita Ron PT Physical Therapy, [address] [place] [address] 1 07/12/2013 14:58:33 07/13/2013 15:26:03 [id number] Sandrita Ron PT Physical Therapy, [address] [place] [address] 1 07/13/2013 14:45:20 07/13/2013 14:45:32 [id number] Sandrita Ron, PT Physical Therapy, [address] [address] 1 07/16/2013 08:17:59 07/20/2013 11:08:26 [id number] Sandrita Ron PT Physical Therapy, [address] [id number] 1 07/23/2013 08:56:20 07/26/2013 07:39:55 [id number] Sandrita Ron, PT Physical Therapy, [address] [address] 1 08/06/2013 08:55:56 08/11/2013 08:46:05 [id number] Sandrita Ron, PT Physical Therapy, [address] [address] 1 08/13/2013 09:24:57 08/16/2013 08:52:10 Low back pain 393474277 [id number] Thai Irving MD , [facility] [address] [place] [address] [place] [id number] 1 06/30/2014 15:41:30 06/30/2014 17:00:50 Varicella vaccination 72483283 Olecranon bursitis 146978986 drained 10cc and injected. compressio n bandage aplied. rest/ice/n saids [id number] Fabrizio Dotson III, MD , [facility] [place] [address] [place] [address] [place] [address] 1 07/01/2014 13:36:10 07/01/2014 14:16:28 Olecranon bursitis 028376617 NSAIDS and a warm pack. Possible cellulitis . [id number] Fabrizio Dotson III, MD , [facility] OFFICE [address] [place] [address] [place] [address] 1 08/04/2014 10:30:44 08/04/2014 11:00:48 Mixed hyperlipidemia 850450083 Cholestero l is at goal Continue to work on diet and exercise as discussed Adult [facility] th examination [id number] see Risk Assessment and Lifestyle Change Counseling section above Counseling [id number] Hearing loss 80511374 Olecranon bursitis 111572588 Gradually healing Primary insomnia 4255498 Anxiety disorder 654952276 Uses prn meds Hernia of abdominal cavity 87453783 [id number] Fabrizio Dotson III, MD , [facility] [place] [address] [place] [address] 1 08/11/2014 10:10:49 08/11/2014 10:32:15 Olecranon bursitis 584767473 Discomfort persisting . 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 89326616 [id number] Harjinder Raymond MD , [facility] [place] [address] [place] [address] 1 11/10/2015 13:39:27 11/10/2015 14:50:46 Screening for disorder 050876899 Z11.59 Varicella vaccination 68 144084 Z23 Mixed hyperlipidemia 267 331291 E78.2 Cholestero l is at goal Cholestero l is not at goal Continue to work on diet and exercise as discussed Adult heal th examination 636699357 Z00.00 see Risk Assessment and Lifestyle Change Counseling section above Counseling 070803592 Z71 .9 Generalize d anxiety disorder 72925307 F41.1 Hernia of abdominal cavity 30467346 K46.9 Lesion of eyelid 3922441 02 H02.89 Active or passive immunization 638895633 Z23 [id number] Harjinder Raymond MD , [facility] [place] [address] [place] [address] 1 01/02/2017 10:57:07 01/03/2017 13:21:00 Mixed hyperlipidemia 205434484 E78.2 Cholestero l is at goal Cholestero l is not at goal Continue to work on diet and exercise as discussed Adult heal th examination 799252562 Z00.00 see Risk Assessment and Lifestyle Change Counseling section above Counseling 637923212 Z71 .9 Insomnia 871196330 G47.0 0 Active or passive immunization 873302661 Z23 Venous varices 073352653 I83.90 [id number] Kristie Dixon D.O. 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 11110154 H81.03 Generalize d anxiety disorder 32371275 F41.1 Mixed hyperlipidemia 267 949680 E78.2 Cholestero l is at goal Cholestero l is not at goal Continue to work on diet and exercise as discussed Insomnia 956292149 G47.0 0 [id number] Harjinder Raymond MD , [facility] [place] [address] [place] [address] 01/08/2018 10:56:52 01/08/2018 11:59:03 Mixed hyperlipidemia 533060948 E78.2 Cholestero l is at goal Cholestero l is not at goal Continue to work on diet and exercise as discussed Adult heal th examination 244810479 Z00.00 see Risk Assessment and Lifestyle Change Counseling section above Counseling 079189717 Z71 .9 Depression screening 171 138351 Z13.89 depression screening tool administer ed, entered into emr, scored and discussed, time greater than 7.5 minutes Anxiety 14505086 F41.9 Insomnia 272226971 G47.0 0 [id number] Kristie Dixon D.O. , [facility] [place] [address] [place] [address] 04/06/2018 09:31:46 04/06/2018 10:52:18 Strain of tendon of medial thigh muscle 334776627 S76.811A Injury of hip region 125 652456 S79.911A [id number] Harjinder Raymond MD , [facility] [place] [address] [place] [address] 07/09/2018 09:05:49 07/09/2018 09:38:29 Insomnia 869146370 G47.00 Anxiety 72155769 F41.9 Active or passive immunization 799462386 Z23 [id number] Harjinder Raymond MD , [facility] [place] [address] [place] [address] 01/13/2019 10:13:48 01/13/2019 11:00:12 Adult health examination 499550398 Z00.00 see Risk Assessment and Lifestyle Change Counseling section above Counseling 377313067 Z71 .9 Depression screening 171 172126 Z13.89 depression screening tool administer ed, entered into emr, scored and discussed, time greater than 7.5 minutes Mixed hyperlipidemia 267 460538 E78.2 Cholestero l is at goal Cholestero l is not at goal Continue to work on diet and exercise as discussed Venous varices 309643988 I83.90 Anxiety 46264247 F41.9 Insomnia 966181872 G47.0 0 [id number] Harjinder Raymond MD , [facility] [place] [address] [place] [address] 04/12/2020 10:23:57 04/12/2020 10:47:45 Adult health examination 174226195 Z00.00 see Risk Assessment and Lifestyle Change Counseling section above Counseling 188097451 Z71 .9 including cardiovasc ular risk reduction counseling Depression screening 171 929697 Z13.89 depression screening tool administer ed, entered into emr, scored and discussed, time greater than 7.5 minutes Screening for alcohol abuse 836073895 Z13.39 Mixed hyperlipidemia 267 824476 E78.2 Cholestero l is at goal Cholestero l is not at goal Continue to work on diet and exercise as discussed Venous varices 078941109 I83.90 Insomnia 894103869 G47.0 0 Bilateral arthritis of hip 7365113332 910196 M13.549 [id number] Harjinder Raymond MD , [facility] [place] [address] [place] [address] 05/24/2020 14:48:22 05/25/2020 11:40:31 Low back pain 494900850 M54.5 Bilateral arthritis of hip 2725989697 464103 M13.165 [id number] Олег Garcia MD , [facility] [place] [address] [place] [address] 06/23/2020 13:37:45 06/28/2020 18:18:58 Headache 91907678 R51 band like temples parietal to occiputawo [...] optic disc seen and is normal ODNAD, MAAhsan l givenrto if needed [id number] Harjinder Raymond MD , [facility] [place] [address] [place] [address] 06/26/2020 14:35:48 06/28/2020 16:55:15 Groin mass 848046654 R19.00 [id number] Harjinder Raymond MD , [facility] [place] [address] [place] [address] 07/06/2020 10:46:06 07/07/2020 15:51:20 Epidermoid cyst 224731313 L72.0 [id number] Sammi Lomax . , [facility] [place] [address] [place] [address] 01/04/2021 14:24:38 01/05/2021 13:41:45 Pain of sacroiliac joint 987938437 M53.3 I am going to refer him to physical therapy and obtain x-ray of his SI joints. He may continue low-dose ibuprofen if needed in the evening. Call with any concerns. Insomnia 998475180 G47.0 0 He wishes to have a refill on his alprazolam . Warned of dependency , also chronic use may lead to cognitive impairment with aging. He is not using it on a regular basis. Will refill today and revisit the issue at next visit. [id number] Sammi Lomax . , [facility] [place] [address] [place] [address] 02/23/2021 11:27:32 02/23/2021 12:16:41 Pain of sacroiliac joint 736505929 M53.3 He will continue with physical therapy, stop ibuprofen and I will put him on Celebrex as well as a muscle relaxer for bedtime. Call with any concerns. [id number] Sammi Lomax . MD NOEL, [facility] [address] [place], [place] [address] 04/19/2021 11:17:44 04/19/2021 12:39:47 Adult health examination 209259775 Z00.00 USPSTF guidelines reviewed and discussed with patient.wi ll need tetanus booster in October.roberson s first Shingrix end of March.colon oscopy April 2011, refer back. Counseling 371664322 Z71 .9 including cardiovasc ular risk reduction counseling , on asa, declines statin with 10 Y CV event risk 13%, see below. Depression screening 171 686117 Z13.31 depression screening tool administer ed, entered into emr, scored and discussed, time greater than 7.5 minutes, negative screen. Screening for alcohol abuse 939349226 Z13.39 negative screen. Advance di rective discussed with patient 691839908 Z71.89 discussed, form given to complete. Mixed hyperlipidemia 267 895480 E78.2 LDL ideally should be below 100, is hesitant to take statin, 10 Y CV event geovanna is mildly elevated at 13%, work on diet further, less cheese, more vegetables . Bilateral arthritis of hip 9622108594 840442 M13.851 celebrex, PT and myofascial massage helped. Varicose v eins of lower extremity 85862014 I83.93 has had phlebitis on the left, has spider veins and bluish hue on the left foot with good pedal pulses. remains on asa. 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 Insomnia 723571158 G47.0 0 uses lorazepam and alprazolam , not daily. Warned of dependency if used regularly. also chronic use may lead to cognitive impairment with aging. He is not using it on a regular basis. Generalize d anxiety disorder 97726312 F41.1 gets sx only if he cannot sleep. Screening for malignant neoplasm of colon 513039081 Z12.11 last colonoscop y on record April 2011. refer for repeat. [id number] Jadon Gifford MD [facility], [facility] [address] [place] [address] 07/26/2021 08:52:26 07/26/2021 14:11:05 [id number] Sammi Lomax . , [facility] [address] [place] [address] 06/11/2022 13:24:58 06/11/2022 16:31:57 Active or passive immunization 938602053 Z23 needs Td and Pneumovax today. Swelling of eyelid 04589 7004 R22.0 I do not find any stye or redundant tissue in lower eyelids, wonder about problems with his tear ducts, I advised him to see his ophthalmol ogist first, use warm compresses meanwhile, may need to discuss it with a plastic surgeon. Insomnia 589607210 G47.0 0 uses lorazepam and alprazolam , not daily. Warned of dependency if used regularly. He is not using it on a regular basis. will call when needs a refill. Generalize d anxiety disorder 67395048 F41.1 gets sx only if he cannot sleep. Mixed hyperlipidemia 267 665116 E78.2 LDL ideally should be below 100, is hesitant to take statin, 10 Y CV event risk was mildly elevated at 13%, work on diet further, less cheese, more vegetables . recheck labs. Venous varices 130906189 I83.90 left leg with large varicositi es since he had phlebitis several years ago, now takes half a baby aspirin daily, no phlebitis recurrence . Tachycardia 3247485 R00. 0 ECH showed SR at 68 BPM, axis 66, RBBB, no old tracing available. will do a 24 H Holter and schedule for stress echo to rule out cardiac ischemia or arrhythmia as cause for his sx. [id number] Sammi Lomax . , [facility] [place] [address] [place] [address] 06/13/2022 11:27:04 06/13/2022 11:33:07 Tachycardia 2427174 R00.0 ECH showed SR at 68 BPM, axis 66, RBBB, no old tracing available. will do a 24 H Holter and schedule for stress echo to rule out cardiac ischemia or arrhythmia as cause for his sx. [id number] Sammi Lomax . MD NOEL, [facility] [place] [address] [place] [address] 11/21/2022 08:45:31 11/21/2022 09:52:26 Adult health examination 629029279 Z00.00 USPSTF guidelines reviewed and discussed with patient. Depression screening 171 133643 Z13.31 depression screening tool administer ed, negative screen Screening for alcohol abuse 256409863 Z13.39 Alcohol use screening tool administer ed, negative screen Mixed hyperlipidemia 267 335503 E78.2 Cholestero l is at goal, LDL below 48612 Y CV risk is over 10% but given lack of other CV risks he does not wish to take a statin.Con micheal to work on diet and exercise as discussed Venous varices 263352397 I83.90 left leg with large varicositi es since he had phlebitis several years ago, now takes half a baby aspirin daily, ( on hold for eye surgery) no phlebitis recurrence . Pruritus ani 87717719 L2 9.0 uses topical cream prn. Right bund le branch block 23818753 I45.0 benign, no sx. Bilateral arthritis of hip 0962573777 888817 M13.851 PT and myofascial massage helped. 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 Insomnia 433671788 G47.0 0 uses lorazepam and alprazolam , not daily. aware of risk of dependency if used regularly. He is not using it on a regular basis. will call when needs a refill. Generalize d anxiety disorder 13339795 F41.1 gets sx only if he cannot sleep. Pain in left thumb 06661 01542 864556 M79.645 He may use a short course of over-the-c ounter NSAIDs and use a thumb spica splint to immobilize the thumb and help to decrease inflammati on. Joint hypertroph y will persist. Family his tory of Aortic aneurysm 067232900 Z82.49 Father of ruptured aortic aneurysm in his 60s. The patient never smoked but he would be prudent to screen for aortic aneurysm. [id number] Kristie Dixon D.O. , [facility] [place] [address] [place] [address] 06/10/2023 16:03:33 06/10/2023 16:57:07 Congestion of nasal sinus 80971631 R09.81 URI symptoms started 1.5 weeks ago [...] for continued symptomsRe turn precaution s discussed [id number] Sammi Lomax . , [facility] [place] [address] [place] [address] 07/24/2023 10:32:50 07/24/2023 12:17:14 Paresthesia of lower extremity 781325919 R20.2 it would be dermatome C7-C8, ? ulnar nerve neuropathy , but he also has paresthesi as of feet toes 4 and 5 right side, ? more central nerve entrapment . may need EMG or imaging, refer to neurology to decide. Paresthesi a of upper limb 29584360 R20.2 it would be dermatome L5-S1, as above. [id number] Sammi Lomax . MD NOEL, [facility] [place] [address] [place] [address] 07/30/2023 08:25:43 07/30/2023 16:38:24 Paresthesia of upper limb 99014677 R20.2 See last week by Dr Lomax [...] of c-spine Paresthesi a of lower extremity 928176657 R20.2 see above Insomnia 968654660 G47.0 0 start gabapentin for pain and sleepdo not take zolpidem if taking gabapentin [id number] Marianna Jain , OTR/L, [facility], [facility] [address] [place] [address] 08/01/2023 11:45:05 08/01/2023 14:17:16 Neuritis of left ulnar nerve 4461149417 7469564 G56.22 [id number] Cristal De La Rosa MD , [facility] [place] [address] [place] [address] 08/13/2023 13:07:51 08/13/2023 15:19:40 Spinal stenosis in cervical region 45501077 M48.02 So far has not had lasting benefit from conservati ve therapy, but has just started PT and home traction. Did not benefit from po steroid. New c/o weakness concerning . Advised upcoming sales consultant appts to help delineate if other pathology present, ? direct to neurosurge ry consult. He may trial half dose alprazolam and requested muscle relaxant as he already has this on hand, and familiar with med side effects. He will start weaning gabapentin , since not effective. [id number] Sammi Lomax . , [facility] [place] [address] [place] [address] 09/22/2023 11:18:00 09/22/2023 17:14:47 COVID-19 485228631 U07.1 Tested positive Sat night.Symp toms started Friday night include fever, chills, lethargy, dry cough. No dyspneaHad neck surgery 10 days agoFully vaccinated against covid Risk factors include age Shared decision to treat w paxlovid. Normal renal function. Advised to HOLD alprazolam while on med. Discussed risks, benefits, side effects including rebound covid.COus neled on [facility] isolation recommenda tionsRest, fluids, apap/nsaid s prn for fever and pain advised If worsening, dyspnea call office Generalize d anxiety disorder 60210390 F41.1 hold alprazolam while on paxlovid (takes PRN) Spinal sharon nosis in cervical region 20667057 M48.02 reports spinal surgery 10 days ago went well, consult note not on file will request [id number] Sammi Lomax . MD NOEL, [facility] [place] [address] [place] [address] 11/24/2023 10:02:26 11/24/2023 11:01:03 Adult health examination 506834278 Z00.00 USPSTF guidelines reviewed and discussed with patient.co lonoscopy 07-26-21, redo 5 Y.Health care proxy in place.vacc inations UTD.CV counseling done. takes aspirin daily for V Veins. declines statin. Depression screening 171 892507 Z13.31 depression screening tool administer ed, negative Screening for alcohol abuse 197665314 Z13.39 Alcohol use screening tool administer ed, negative Screening for malignant neoplasm of prostate 527877924 Z12.5 PSA testing for ages 55-69 risks and benefits discussed {{patient declines testing te st ordered wi ll not test#}}. Cervical myelopathy 2025 54667 G95.9 right forearm and fingers with pain, started lyrica, also numb 4 and 5th fingers. Impaired f asting glycemia 322752121 R73.01 very mild, BS 102-103 fasting. Right bund le branch block 83121310 I45.0 benign, no sx. 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 Insomnia 286880385 G47.0 0 uses lorazepam and alprazolam , not daily. aware of risk of dependency if used regularly. He is not using it on a regular basis. will call when needs a refill. Generalize d anxiety disorder 97625576 F41.1 gets sx only if he cannot sleep. Mixed hyperlipidemia 267 209349 E78.2 Cholestero l is at goal, LDL below 71443 Y CV risk is over 10% but given lack of other CV risks he does not wish to take a statin.Con tinue to work on diet and exercise as discussed Left inguinal hernia 236 813322 K40.90 he feels it is larger, would like surgical consult. [id number] Sammi Lomax . MD NOEL, [facility] [place] [address] [place] [address] 03/04/2024 10:37:03 03/04/2024 14:30:38 COVID-19 894128302 U07.1 A discussion regarding the use of [...] 5 days, with or without food. ? eGFR 30-60: 150mg nirmatrelv ir with 100mg ritonavir. Both tablets taken together twice daily for 5 days, with or without food. The patient was advised that the treatment is sent to a local pharmacy. 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 [id number] ENRICO KEN MD , [facility] [address] [place], [place] [address] 11/10/2024 10:27:53 11/10/2024 13:34:38 Effects of high altitude 37752162 T70.20XA Pt traveling to [facility], will be there for 6-7 days. Pt requesting diamox. No prior problems at high altitude. No contraindi cations for use. Normal renal function, liver function, electrolyt es-- med sent in as below, reviewed possible side effects-- adivsed to push fluids, avoid alcohol at mariia altitude [id number] ENRICO KEN MD , [facility] [place] [address] [place] [address] 01/10/2025 11:55:06 01/10/2025 13:40:39 Adult health examination 415382106 Z00.00 Doing well. Up to date with screenings . Continue healthy lifestyle measures including a diet rich in fruits and vegetables as well as regular exercise. Depression screening 171 614106 Z13.31 depression screening tool administer ed Screening for alcohol abuse 991090761 Z13.39 Alcohol use screening tool administer ed Impaired f asting glycemia 201481719 R73.01 A1c at 5.6%, at goal. Will continue to monitor. 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 Insomnia 901179990 G47.0 0 uses lorazepam and alprazolam , not daily. Mixed hyperlipidemia 267 877640 E78.2 Cholestero l is at goal, LDL below 95586 Y CV risk is over 10% but given lack of other CV risks he does not wish to take a statin.Con tinue to work on diet and exercise as discussed Pruritus ani 69195826 L2 9.0 Intermitte nt anal rash, improves with cream, will refill. Low back pain 427249288 M54.50 Some tightness/ tenderness to muscles of R lower back. Muscle tightness noted to that area on exam. Working on stretching . Discussed PT, he will call if he wants to pursue. [id number] Cristal De La Rosa MD , [facility] [place] [address] [place] [address] 02/10/2025 11:42:13 02/10/2025 13:21:56 Chronic low back pain 596331913 M54.50 G89.29 in a gentleman with hx ulnar neuropathy /cubital tunnel syndrome, FHx IBD, and prior SI Xrays showing early spondylosi s. Will rx antiinflam matory (celecoxib helped in past), and update xrays, inflammato ry markers and check HLA-B27 Health Concerns Section Related Observation LastModified by Organization Detai ls LastModified Time None Recorded Concern Status LastModified by Organization Details LastModified Time None Recorded Advance Directives Directive None Recorded Payers Encounter Date Sequence Insurance Name Policy Number Policy Vega Covered Member ID Vega Member ID Guarantor Name 11/24/2023 1 MEDICARE [place]: [facility] Celena Batista [id number] Celena Batista 11/24/2023 2 [facility] (MEDICARE SUPPLEMENT) Celena Batista [id number] Celena Batista 03/04/2024 1 MEDICARE [place]: [facility] Celena Batista [id number] Celena Batista 03/04/2024 2 [facility] (MEDICARE SUPPLEMENT) Celena Batista [id number] Celena Batista 11/10/2024 1 MEDICARE [place]: [facility] Celena Batista [id number] 24 Celena Batista 11/10/2024 2 [facility] (MEDICARE SUPPLEMENT) Celena Batista [id number] Celena Batista 01/10/2025 1 MEDICARE [place]: [facility] Celena Batista [id number] 24 Celena Batista 01/10/2025 2 [facility] (MEDICARE SUPPLEMENT) Celena Batista [id number] Celena Batista 02/10/2025 1 MEDICARE [place]: [facility] Celena Batista [id number] Celena Batista 02/10/2025 2 [facility] (MEDICARE SUPPLEMENT) Celena Batista [id number] Celena Batista Notes Date Note Type Note Provider Name and Address Organization Details Recorded Time 11/24/2023 text/html Risk Assessment and Lifestyle Change [...] arthritis left thumb, does not hurt anymore Sammi Lomax. [address] [place] [address], [phone], [facility] 11/24/2023 11:00:02 03/04/2024 text/html tested Positive for COVID yesterdaysymptoms of fatigue, fever and cough started yesterday using ibuprofen, not today.No shortness of breath.No fever today yet.No severe ROBERSON. No new neurologic sx or abdominal pain. Sammi Lomax. [address] [place] [address], [phone], [facility] 03/04/2024 10:57:24 01/10/2025 text/html Risk Assessment and Lifestyle Change Counseling (Medicare)Reported bypatient.Coronary Artery Disease Risk Assessment:No Family [...] illness; No family history of mental illness; no cognitive impairment Safety Risk Assessment:No grab bars in bathroom; Has rails on steps; No falls; No evidence of abuse/neglect Functional Status:Patient has trouble hearing the television [...] no falls in the past 6 months.; left ear significant hearing loss, R ear age related hearing loss Diet:Counseled about appropriate portion size; Counseled about eating a diet low in trans and saturated fats and high in fiber, fruits and vegetables Exercise counseling:Discussed the importance of daily physical activity; Discussed the importance of weight bearing exercise Patient with history of neuropathy, osteoarthritis of hips, hyperlipidemia, mild IFG, RBBB, insomnia presents for wellness exam. He uses alprazolam as needed for sleep. Not on a daily basis. Takes a half tablet at most 2 x week.Zolpidem, takes 1/3 a tablet may be once a week. Years ago had sudden hearing loss, saw ENT. No hearing in L ear. Right ear normal age related hearing loss. LDL improved significantly from last year. 10 Y CV risk elevated but does not want to take a statin. Elevated fasting glucose/pre-diabetes. A1c is 5.6%. Sister is diabetic. Hx of cervical myelopathy with residual pain in right forearm and R 4, 5 fingers and numbness R 4th and 5th finger. Had discectomy and fusion C5-C6 by Dr. Zhang 10-10-23. Sees Dr. Lin. Had an ulnar nerve entrapment fixed a few months ago. Still has pain in the right upper extremity. 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 Degroot. ENRICO KEN MD [address] [place] [address], [phone], [facility] 01/10/2025 12:42:09 02/10/2025 text/html Acute Low Back P ain - SciaticaReported bypatient.Patient presents for evaluation of acute low back pain.Present for 6 days (taking ibuprofen 600mg tid); no recent trauma; not experiencing fever/chills; no saddle anesthesia; no weakness in legs; no history of cancer; no change in bowel or bladder function; no history of osteoporosis; known severe c spine degenerative changes 2020 xray SI joints + ankylosis, ? early sacroiliitis 74yo non-smoker with hx OA hips, spine, IFG, Meniere's disease, TREVOR. Several months hx R low back pain, staying the same or slightly more problematic over time.Initially OK on arising, then worse after sitting/standing as day goes on.Localizes to R low back and feels deep.No radiating sx.Still biking.Sleeping is OK. 08/2023 c spine surgery C5-7 for spinal stenosis. Otherwise has been well/stable. rCistal De La Rosa MD [address] [place] [address], [place], [phone], [facility] 02/10/2025 12:46:21
== END 2025-02-17 09:27 | disposition home or self-care (01) ==
LOC: HO.HOS 08:56
PROVIDERS: Visit Provider Physical Medicine & Rehabilitation
DX: G56.21 Lesion of ulnar nerve, right upper limb (principal)
CPT/HCPCS: 99214

== ENCOUNTER → 2025-02-17 08:55 | Outpatient (BNVA) | payer MEDICARE, OTHER, SELFPAY | PROVIDERS: Visit Provider Physical Medicine & Rehabilitation | DX: M54.12 Radiculopathy, cervical region (principal) | CPT/HCPCS: 99212 ==

== ENCOUNTER 2025-03-16 14:08 | Outpatient (AMB) | payer MEDICARE, OTHER, SELFPAY ==
--- NOTE | 2025-03-16 14:21 | A.OFFVIS_ITS ---
Vital Signs 03/16/25 14:23 Height 6 ft Weight 175 lb BMI 23.7 Intake Visit Reasons: O/V rt hand S/P cubital tunnel 10/11/24 Intake Note: Sha 74 yr old 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 male presents today for follow up visit for his right hand s/p Right Cubital Tunnel Release DOS: 10/11/2024 w/ Dr Garg. States he is having increase numbness and tingling in his small finger. EMG done 02/2024 IMPRESSION: 1. This is an abnormal study. 2. There is electrodiagnostic evidence for ulnar neuropathy, proximal to take off of FCU. 3. Chronic reinnervation changes are seen on muscles innervated by C7/C8 nerve roots, suggesting chronic radiculopathy. 4. There is no electrodiagnostic evidence for median neuropathy or brachial plexopathy. Allergies No Known Allergies Allergy (Verified 03/16/25 14:24) HPI HPI O/V rt hand S/P cubital tunnel 10/11/24: Details: Sha is a 74 year old right hand dominant man who returns with complaints of right hand pain & numbness, S/P right cubital tunnel release, DOS: 10/11/24. His chief complaint is of pain in his small & ring fingers, which he radiates into his dorsal ulnar aspect of his forearm, extending up to the lateral epicondyle. This primarily occurs with heavy lifting and gripping activities He complains of ongoing numbness in the right ulnar nerve distribution, particularly the small finger. He continues to work on strengthening & ROM exercises at home but he feels he has not been able to improve his strength, or decrease the muscle loss in the 1st dorsal compartment. He also says that he can feel something snap across his elbow when he bends his arm. He had dense numbness prior to his cubital tunnel release, and dense numbness post-operatively in the small finger. He has a hx of a C5-C6 fusion in 08/2023, at an outside clinic. He says this somewhat helped his symptoms of numbness & pain. 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 Normal sensation to the median nerve distribution Some intrinsic wasting & significant wasting of 1st dorsal interosseous Pos Froment's sign Good APB muscle belly firing and good finger cross He can ABduct & ADduct his fingers, with only weak adduction of the small finger. Vascular: Cap refill brisk ROM: He can make a fist and extend all his digits No locking or catching Patient reports pain in the dorsal ulnar aspect of his forearm, extending up to the lateral epicondyle. This primarily occurs with activities and is not particularly symptomatic today in clinic. No pain with resisted wrist or finger extension. He demonstrates a discomfort mostly when his arm is extended in his wrist is brought into flexion. Nerve Conduction Study: Right-side only IMPRESSION: 1. This is an abnormal study. 2. There is electrodiagnostic evidence for ulnar neuropathy, proximal to take off of FCU. 3. Chronic reinnervation changes are seen on muscles innervated by C7/C8 nerve roots, suggesting chronic radiculopathy. 4. There is no electrodiagnostic evidence for median neuropathy or brachial plexopathy. CLINICAL COMMENT: Comparison with previous EMG would be helpful. Shima Rodarte MD, KAYLIE 02/20/24 Assessment & Plan Assessment & Plan (1) Right lateral epicondylitis: Code(s): M77.11 - Lateral epicondylitis, right elbow Category: Medical (2) Ulnar neuropathy of right upper extremity: Code(s): G56.21 - Lesion of ulnar nerve, right upper limb Category: Medical (3) History of fusion of cervical spine: Onset Date: 09/10/23 Comment: C5-C6 diskectomy and fusion Code(s): Z98.1 - Arthrodesis status Category: Surgical (4) Cervical radiculopathy: Comment: Affecting C7-C8, seen on NCS Code(s): M54.12 - Radiculopathy, cervical region Category: Medical (5) Right forearm pain: Code(s): M79.631 - Pain in right forearm Category: Medical Plan Assessment & Plan: 1. Right lateral epicondylitis vs radial tunnel sxs I educated him about this condition I explained that having a cubital tunnel release will not alleviate these symptoms. I recommend activity modification. I ordered an MRI to visualize his forearm to look for any possible inflammation or impingement I referred him to Dr. Du in pain Management for assessment, this should be scheduled after his MRI is completed. He will follow up when completed for review, this should be a 30 minute appointment 2. Right cubital tunnel syndrome, S/P release DOS: 10/11/24 With some intrinsic wasting & significant wasting of 1st interosseous Pre-operatively with dense numbness in the ulnar nerve distribution Post-operatively with dense numbness, unchanged following surgery 3. Possible chronic right-side radiculopathy Affecting C7-C8, seen on NCS from 02/20/24 4. History of right C-spine fusion Of C5-C6, DOS: 09/10/23 at an outside clinic Please note that greater than 30 minutes was spent with this patient going over the history, evaluating the patient and radiographs, formulating possible treatment options, discussing them with the patient, and documenting the visit. Scribed for Miracle Garg MD by Sukh Lara, medical coding auditor, on 03/16/25 at 2:35 PM, EST. Orders: Orders MR forearm RT wo con 03/16/25 G56.21 - Lesion of ulnar nerve, right upper limb, M77.11 - Lateral epicondylitis, right elbow, M79.631 - Pain in right forearm Referrals Pain Management Referral G56.21 - Lesion of ulnar nerve, right upper limb, M54.12 - Radiculopathy, cervical region, M77.11 - Lateral epicondylitis, right elbow, M79.631 - Pain in right forearm, Z98.1 - Arthrodesis status Coding Level of Care Code Est Pt Level 4 (95052) Diagnoses Right lateral epicondylitis M77.11 Ulnar neuropathy of right upper extremity G56.21 History of fusion of cervical spine Z98.1 Cervical radiculopathy M54.12 Right forearm pain M79.631
[2025-03-16 14:23] VITALS: BMI 23.7
== END 2025-03-16 15:05 | disposition home or self-care (01) ==
LOC: HO.HOS 14:09
PROVIDERS: Visit Provider Orthopaedic Surgery
DX: M77.11 Lateral epicondylitis, right elbow (principal); G56.21 Lesion of ulnar nerve, right upper limb; Z98.1 Arthrodesis status; M54.12 Radiculopathy, cervical region; M79.631 Pain in right forearm
CPT/HCPCS: 99214

== ENCOUNTER → 2025-03-16 14:08 | Outpatient (BNVA) | payer MEDICARE, OTHER, SELFPAY | PROVIDERS: Visit Provider Orthopaedic Surgery | DX: R20.0 Anesthesia of skin (principal); R20.2 Paresthesia of skin; M77.11 Lateral epicondylitis, right elbow; M54.12 Radiculopathy, cervical region; M79.631 Pain in right forearm; Z98.1 Arthrodesis status; Z98.890 Other specified postprocedural states | CPT/HCPCS: 99212 ==

== ENCOUNTER 2025-04-11 10:20 | Outpatient (AMB) | payer MEDICARE, OTHER, SELFPAY ==
[2025-04-11 10:23] VITALS: BP 136/76; PULSE 63; RESP 16; O2SAT 99; BMI 23.1
--- NOTE | 2025-04-11 10:23 | MHC.OFFVIS ---
Vital Signs 04/11/25 10:23 Height 6 ft Weight 170 lb BMI 23.1 BP 136/76 Blood Pressure Location Lt brachial Position Sitting Respiration 16 Pulse 63 Pulse Source Pulse Oximeter Pulse Oximetry (%) 99 Oxygen Delivery Method Room Air Intake Visit Reasons: Lateral Epicondylitis VITALIY 02/05/24 Prop Attendant Required: No Allergies No Known Allergies Allergy (Verified 04/11/25 10:26) Medication List - Last Reconciled 04/11/25 by Christine Gallegos, KAREEM alprazolam 1 mg PO DAILY PRN arm brace (FELICIA Elbow Brace) As directed [Baby Aspirin 81 mg] HPI HPI Lateral Epicondylitis VITALIY 02/05/24: Details: History of Present Illness The patient is a 74-year-old male presenting with persistent pain and numbness in the right upper extremity. The symptoms began acutely in 2022, initially presenting as forearm burning and numbness in the 4th and 5th digits, and later spreading to numbness in both legs and feet. He underwent cervical spine decompression and fusion surgery in August 2023 and right cubital tunnel release in September 2024, followed by occupational therapy. Despite these interventions, he continues to experience forearm burning and numbness, particularly in the 4th and 5th digits, with occasional swelling in the right fifth digit. The patient has tried various treatments including gabapentin, pregabalin, amitriptyline, baclofen, acupuncture, TENS units, myofascial release, and trigger point injections without significant relief. A recent MRI showed improved cervical spinal stenosis but persistent severe C7/T1 NF impingement, and physiatry noted atrophy in the right FDI muscle and fasciculations in the right forearm. He was deemed unsuitable for Botox injections due to lack of response to trigger point injections. The patient reports that the pain worsens with use of the affected arm and is not alleviated by topical treatments or anti-inflammatory medications. He experiences stiffness, particularly at night, and has a history of myelomalacia, which may contribute to his symptoms. Pain Description - Onset: Symptoms began acutely in 2022. - Quality: Burning and numbness in the forearm, particularly in the 4th and 5th digits. - Location: Right upper extremity, spreading to both legs and feet. - Exacerbating factors: Worsens with use of the affected arm. - Relieving factors: Not alleviated by topical treatments or anti-inflammatory medications. - Interference: Causes stiffness, particularly at night. Physical Exam - Appears afebrile. - Alert and oriented. - Mood and affect appropriate. - Follows and participates in conversation appropriately. - Respiratory effort is unlabored. - Burning, pain in the right C7/8 dermatomal distribution Results - MRI: Cervical spinal stenosis with multilevel neural foraminal narrowing, including severe neuroforaminal stenosis at C7-T1 bilaterally - Physiatry assessment: Atrophy in the right FDI muscle and fasciculations in the right forearm. Pain Management - Affect: Pain is bothersome and impacts daily activities. - Analgesia: Tried gabapentin, pregabalin, amitriptyline, baclofen without significant relief. - Adverse Effects: No specific adverse effects discussed. - Activities of Daily Living: Pain worsens with use of the affected arm, causing stiffness at night. - Aberrant Drug Related Behaviors: No aberrant behaviors discussed. 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, 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 Physical Exam Vital Signs: Last Vital Signs Pulse 63 04/11/25 10:23 Resp 16 04/11/25 10:23 BP 136/76 04/11/25 10:23 Pulse Ox 99 04/11/25 10:23 Oxygen Delivery Method Room Air 04/11/25 10:23 BMI result Body Mass Index 23.1 Assessment & Plan Assessment & Plan (1) Cervical myelopathy: Code(s): G95.9 - Disease of spinal cord, unspecified Category: Medical (2) History of fusion of cervical spine: Onset Date: 09/10/23 Comment: C5-C6 diskectomy and fusion Code(s): Z98.1 - Arthrodesis status Category: Medical (3) Cervical radiculopathy: Comment: Affecting C7-C8, seen on NCS Code(s): M54.12 - Radiculopathy, cervical region Category: Medical Plan Plan - Plan for a right C7-T1 interlaminar epidural steroid injection to address right cervical radicular symptoms. - Request insurance authorization for the procedure. - Consider spinal cord stimulation if the injection provides only temporary relief. - F/u w/ MRI of the right forearm to rule out right lateral epicondylitis. Patient was informed and verbally consented to the use of an ambient scribe for clinic note documentation during this visit. Discussion Notes I discussed with the patient the plan to perform a right C7-T1 interlaminar epidural steroid injection to address his right cervical symptoms, which have not responded to previous treatments. We reviewed the potential outcomes of the injection, including the possibility of temporary relief and the consideration of spinal cord stimulation if necessary. The patient was informed about the need for insurance authorization before scheduling the procedure. We also discussed the upcoming MRI of the right forearm to rule out right lateral epicondylitis. Patient Instructions - Await contact from the office regarding insurance authorization for the injection. - Prepare for the MRI of the right forearm as scheduled. - Arrange for transportation on the day of the injection procedure. Coding Level of Care Code New Pt Level 4 (72856) Diagnoses Cervical myelopathy G95.9 History of fusion of cervical spine Z98.1 Cervical radiculopathy M54.12
--- OUTSIDE RECORDS SUMMARY | 2025-04-11 10:59 | XMS_ITS | Data Portability ---
Author Organization [facility], [facility] Address [address] [place] [address] Care Team Providers Care Tie Man Name Role Phone YEMI LUCERO Billing Assistant [facility] Sleep Medicine [facility] Contract Technical Writer [phone] [facility] OTHER [facility] NEUROSURGERY Neurosurgeon [phone] TAMICA WHARTON General Surgeon ANDREI LIN Neurologist [facility] PAIN MANAGEMENT Pain Management [phone] [facility] Orthopedic Surgeon [phone] NATALIIA EDGE Primary Care Provider Assessment Encounter Date Assessment Date Assessment LastModified by Organization Details LastModified Time 01/10/2025 01/10/2025 We completed you Medicare Wellness exam today. This was an [...] meeting your goals. Please visit our website [employer] for more patient resources. As part of your care plan, we will help coordinate your ongoing medical needs, arrange for durable medical equipment, renew prescriptions and necessary prior authorizations, facilitate getting referrals and collaborating with specialist, referrals for VNA services. [email or web address] Not available 02/10/2025 10:24:50 03/02/2025 03/02/2025 Patient agreed t o this visit via a secure telehealth platform. Patient understands this is a scheduled visit and the usual procedures with regard to billing and confidentiality apply. Patient was notified that the provider location is [facility] [place] [facility] Patient location: home During the visit the patient s medical history and medical record were reviewed. The patient was notified to call our office for worsening or urgent symptoms. We reviewed your chronic medical conditions and updated your plan for management. Please review instructions below. We have discussed your personal goals and discussed how to reach your goals. Please reach out to us via the Portal or phone if you have questions about your chronic conditions or if you or your caregivers require assistance in meeting your goals. Please visit our website [employer] for more patient resources. As part of your care plan, we will help coordinate your ongoing medical needs, arrange for durable medical equipment, renew prescriptions and necessary prior authorizations, facilitate getting referrals and collaborating with specialist, referrals for VNA services. Not available 03/02/2025 11:14:49 03/21/2025 03/21/2025 A: Pt is a 74 ye ar old M referred to outpatient physical therapy with signs and symptoms consistent with low back pain. Please refer to ROS for PMH and chart for medications. Pt presents with impairments including increased low back pain pain and +TTP, decreased low back A/PROM, decreased core strength, decreased hip and low back flexibility, decreased balance, and compensatory gait pattern. The above impairments limits the patients ability to functionally perform ADL's, IADL's, walking, and lifting. Pt would benefit from skilled PT intervention 1-2x/week for 12 weeks in order to address the aforementioned impairments, maximize patient function, and achieve patient specific goals. Physical Therapy Treatments may include (as appropriate): 78000 Therapeutic exercise 66164 Neuromuscular Re-education, Taping. 66730 Gait Training 77947 Manual 34455 Therapeutic Activities, Patient education, HEP instruction. 95224 Self-care Management 93941 Attended Electrical Stimulation for strength, ROM, flexibility, endurance, power, functional mechanics. 61497: Ultrasound Rehab potential is . Next visit: review HEP. modify/progress/re janet as needed. RA Date: 06/21/25, Visit # 10/24 STG/LTG Time to Achieve Goal Progress per IE Comment STG 4 weeks Improve understanding of exacerbating movements contributing to pain. new STG 4 weeks Patient will improve low back PROM WNL in all planes with pain less than 2/10. new STG 8 weeks Patient will improve core MMT to 4/5 in all planes. new LTG 8 weeks Patient will improve B hip ext AROM 5 degrees back to promote neutral pelvic tilt in standing. new LTG 12 weeks Patient will low back AROM WNL in all planes and without pain. new LTG 12 weeks Independent in comprehensive HEP. new [email or web address] Not available 03/24/2025 08:07:39 Plan of Treatment Reminders Order Date Submit Date Provider Last Modified By Organization Details Last Modified Time Details Appointments Follow Up, 2024 08:30A M Ernesto Cardona DPT Not available Not available Not available LAB Follow-Up 2025 09:05A M [facility] Lab Not available Not available Not available Wellness Visit 2025 11:30A M NATALIIA EDGE MD Not available Not available Not available Lab hla-B27 genotype, blood 2024 025 [facility], [address] [place] [address], [id number], 02/16/2025 22:38:05 ESR (erythroc yte sedimenta tion rate), blood 2024 025 [facility], [address] [place] [address], [address], 02/14/2025 15:18:49 C-reactiv e protein, quantitat sarahi, serum or plasma 2024 025 [facility], [address] [place] [address], [address], 02/14/2025 14:56:20 Referral physical medicine and rehabilit ation referral 2024 025 [email or web address] [facility], [address] [place], [address], 03/16/2025 10:48:52 physical therapist referral 2024 025 [email or web address] [facility] [facility], [address], [place], [address], 03/24/2025 09:43:10 Procedures None recorded. Surgeries None recorded. Imaging XR, sacroilia c joint(s) 2024 025 [facility] (Imaging), [address], [place], [address], 02/14/2025 13:35:28 XR, lumbar spine 2024 025 [facility] ([facility]), [address], [place], [address], 02/14/2025 13:33:39 Medication Orders celecoxib 400 mg capsule 2024 025 [facility] #[id number], [address] [place], [address], 02/10/2025 12:45:54 clotrimaz ole-betam ethasone 1 %-0.05 % topical cream 2024 025 [facility] #[id number], [address] [place], [address], 01/10/2025 12:29:52 acetazola mide 125 mg tablet 2024 025 [id number] [address] [place], [address], 01/10/2025 12:00:21 Patient TargetsNo targets recorded. Patient Instructions Encounter Date Encounter Id Patient Instructions Last Modified By Organization Details Last Modified Time 01/10/2025 [id number] preventing falls : care instructions Not available 01/10/2025 12:29:50 hearing loss information Not available 01/10/2025 12:29:50 advance directives: care instructions Not available 01/10/2025 12:29:50 well visit, over 65: care instructions Not available 01/10/2025 12:29:50 Reason for Referral Physical Medicine And Rehabi litation Referral for Chronic low back pain Referring Physician: [facility], Encounter Date: 03/02/2025 Physical Therapist Referral for Chronic low back pain Referring Physician: [facility], Encounter Date: 03/02/2025 Results Created Date Observation Date Name Description Value Unit Range Abnormal Flag Note LastModifiedBy Organization Detail LastModifiedTime 12/09/1912/09/2024 HGB A1C hemoglobin A1C 5.6 % [...] furth er confi rmati on Not Available [address], [address], 12/09/2024 11:54:15 12/09/1912/09/2024 HGB A1C estimated average glucose 114.0 mg/dL Not Available [address], [address], 12/09/2024 11:54:15 12/09/1912/10/2024 LIPID PANEL cholesterol 146 mg/dL <200 mg/dl Reginaldo able 200-2 39 mg/dl Borde rline High >240 mg/dl High Not Available [address], [address], 12/10/2024 10:30:00 12/09/1912/10/2024 LIPID PANEL triglyceride s 64 mg/dL <150 mg/dL Corina l 150-1 99 mg/dL Borde rline High 200-4 99 mg/dL High >500 mg/dL Very High Not Available [address], [address], 12/10/2024 10:30:00 12/09/1912/10/2024 LIPID PANEL direct HDL 57 mg/dL <40 mg/dl - Major Risk for CHD >60 mg/dl - Negat sarahi Risk for CHD Not Available [address], [address], 12/10/2024 10:30:00 12/09/19 25 12/10/2024 GLUCO SE glucose 100 mg/dL 70-100 Not Available [address], [address], 12/10/2024 10:30:02 12/09/19 25 12/10/2024 LDL - CALCU LATED LDL - calculated 76 RISK CATEG ORY LDL GOAL _ CHD or CHD Risk Equiv alent s <100 mg/dl (10-y ear risk >20%) 2+ Risk Facto rs <130 mg/dl (10-y ear risk <= 20%) 0-1 Risk Facto r <160 mg/dl Almo st all peopl e with 0-1 risk facto r have a 10 year risk <10%, thus 10 year risk asses ment in peopl e with 0-1 risk facto r is not necjordyn aviva. Not Available [address], [address], 12/10/2024 10:30:04 02/15/20 25 02/14/2025 C-BRENT CTIVE PROTE IN (RCRP ) C-reactive protein (rcrp) 1.1 mg/L 0.5-9. 0 Not Available [address], [address], 02/14/2025 14:56:20 02/15/20 25 02/14/2025 ESR sed rate 0.0 0.0-20 .0 Not Available [address], [address], 02/14/2025 15:18:49 02/15/20 25 02/16/2025 HLA-B 27 ANTIG EN hla-B27 antigen NEGATI VE negati ve Not Available [facility] [address] [place] [address], [address], 02/16/2025 22:38:05 02/15/20 25 02/14/2025 XR, lumba r spine [...] lolist hesis at multip le levels . Marjorie estrada Physic paige: Javad miller [facility] (Imaging) [address] [place], [address], 02/23/2025 12:05:40 02/15/2002/14/2025 XR, sacro iliac joint (s) CLINIC AL [...] seen. Marjorie estrada Physic paige: Javad miller [email or web address] [facility] (Imaging) [address] [place], [address], 02/23/2025 12:05:40 Result Notes Documentation Provider Name and Address Organization Details Recorded Time Xr, Lumbar Spine : CLINICAL HISTORY: Pain in LB, especially on right side. TECHNIQUE: 3 views, 4 images FINDINGS: Grade 1 anterolisthesis at L4/L5. Grade 1 retrolisthesis of L3/L4. Grade 1 retrolisthesis of L2/L3. Degenerative disc and endplate changes at multiple levels. Degenerative facet joint changes, most pronounced within the lower lumbar spine. No substantial lumbar vertebral body compression deformity seen. IMPRESSION: Degenerative changes within the lumbar spine. Spondylolisthesis at multiple levels. Reading Physician: LISSETH Healy, [facility] 02/23/2025 12:05:40 Xr, Sacroiliac Joint(s) : CLINICAL HISTORY: Pain in LB, especially on the right side. TECHNIQUE: 3 views of the sacroiliac joints are obtained. COMPARISON: Lumbar spine radiograph same day. FINDINGS: [ No sacroiliac joint dislocation seen. Sclerosis of both sacroiliac joints, right greater than left, likely related to osteoarthritic changes. Degenerative changes within the lumbar spine. No acute fracture seen. IMPRESSION: No acute bony abnormality seen. Reading Physician: LISSETH Healy, [facility] 02/23/2025 12:05:40 Problems Name Problem SNOMED Code Status Onset Date Resolution Date Notes Provider Name and Address Organization Details Recorded Time Mixed hyperlipi demia 010519862 Active 2003 Not Available [facility] 3 11:44:38 Injury of shoulder region 805366926 Completed 200402/15/2013 Not Available [facility] 3 03:03:32 Varicose veins of lower extremity 49940233 Completed 02/15/2013 Not Available [facility] 3 03:03:32 Presbyopi a 11629437 Completed 200501/31/2012 Not Available [facility] 3 03:03:32 Precordia l pain 79612502 Completed 200202/15/2013 Not Available [facility] 3 03:03:32 Migraine without aura 71987044 Completed 200708/17/2010 Not Available [facility] 3 03:03:32 Phlebitis and thromboph lebitis Completed 200008/17/2010 Not Available [facility] 3 03:03:32 Lateral epicondyl itis 681756573 Completed 200202/15/2013 Not Available [facility] 3 03:03:32 Neck pain 05828836 Completed 200401/31/2012 Not Available [facility] 3 03:03:32 Allergic rhinitis 65441975 Completed 200108/17/2010 Not Available [facility] 3 03:03:32 Epidermoi d cyst of skin 706017001 Completed 200201/31/2012 Not Available [facility] 3 03:03:32 Acute suppurati ve otitis media without spontaneo us rupture of ear drum 63521543 Completed 200008/17/2010 Not Available [facility] 3 03:03:32 Sciatica 87479154 Completed 200102/15/2013 Not Available [facility] 3 03:03:32 Knee pain Completed 200108/17/2010 Not Available [facility] 3 03:03:32 Sprain of shoulder and upper arm Completed 200402/15/2013 Not Available [facility] 3 03:03:32 Hyperlipi demia 00607343 Completed 200108/17/2010 Not Available [facility] 3 03:03:32 Acute bronchiti s 21079694 Completed 200502/15/2013 Not Available [facility] 3 03:03:32 Otogenic otalgia 34198606 Completed 200108/17/2010 Not Available [facility] 3 03:03:32 Headache 81615244 Completed 200508/17/2010 Not Available [facility] 3 03:03:32 Disorder of tendon of shoulder region 05175341 Completed 200408/17/2010 Not Available [facility] 3 03:03:32 Migraine variants 965792630 Completed 200608/17/2010 Not Available [facility] 3 03:03:32 Cough 61992639 Completed 200508/17/2010 Not Available [facility] 3 03:03:32 Pain of shoulder region 90558390 Completed 01/31/2012 Not Available [facility] 3 03:03:32 Pain of shoulder region 33957302 Completed 200408/17/2010 Not Available [facility] 3 03:03:32 Generaliz ed anxiety disorder 79730763 Active Not Available [facility] 3 11:44:38 Migraine with aura 8656237 Completed 200402/15/2013 Not Available [facility] 3 03:03:32 Astigmati sm 37611776 Completed 200502/15/2013 Not Available [facility] 3 03:03:32 Impacted cerumen 21385056 Completed 200708/17/2010 Not Available [facility] 3 03:03:32 Abnormali ty of systemic vein 829137331 Completed 200002/15/2013 Not Available [facility] 3 03:03:32 Allergic asthma without status asthmatic us 03689117 Completed 200102/15/2013 Not Available [facility] 3 03:03:32 Insomnia 996703796 Completed 01/31/2012 Harjinder Raymond MD [address] [place] [address], [address] , [facility] 7 11:37:01 Common cold 04895665 Completed 200408/17/2010 Not Available [facility] 3 03:03:32 Pain of joint of hand 095487223 Completed 01/31/2012 Not Available [facility] 3 03:03:32 Inflammat ory disorder of extremity 449275047 Completed 200008/17/2010 Not Available [facility] 3 03:03:32 On examinati on - a rash Completed 200708/17/2010 Not Available [facility] 3 03:03:32 Non-organ ic sleep disorder 563000461 Completed 200501/31/2012 Not Available [facility] 3 03:03:32 Injury of knee 609953157 Completed 200102/15/2013 Not Available [facility] 3 03:03:32 Hearing loss 97923546 Active 2007 Not Available [facility] 3 11:44:38 Thromboph lebitis of superfici al veins of upper extremiti es 46547963 Completed 200002/15/2013 Not Available [facility] 3 03:03:32 Migraine 55136470 Completed 200602/15/2013 Not Available [facility] 3 03:03:32 Tinnitus 14541700 Completed 01/31/2012 Not Available [facility] 3 03:03:32 Pain in limb 72720534 Completed 200008/17/2010 Not Available [facility] 3 03:03:32 Inguinal hernia 454401793 Active 2016 Not Available [facility] 3 11:44:38 Venous varices 178789842 Active 2016 Not Available [facility] 3 11:44:38 Insomnia 301089746 Active 2016 Not Available [facility] 3 11:44:38 M ni re's disease 40379513 Active 2016 Not Available [facility] 3 11:44:38 Bilateral arthritis of hip 73045294661 20984 Active 2019 Not Available [facility] 3 11:44:38 Right bundle branch block 48100060 Active 2022 Not Available [facility] 3 11:44:38 Pruritus ani 35825290 Active 2022 Not Available [facility] 3 11:44:38 Impaired fasting glycemia 528995554 Active 2023 very mild Sammi Lomax . [address] [place] [address], [address] , [facility] 4 19:13:09 Cervical myelopath y 431087596 Active 2023 Sammi Lomax . [address] [place] [address], [address] , [facility] 4 19:13:33 Problem Notes None recorded. Procedures Surgical History Date Name Laterality Status Provider Name and Address Organization Details Recorded Time 03/21/20 25 25129: Therapeutic Exercise completed Ernesto Cardona DPT [address] [place] [address], [address], [facility] 03/24/2025 08:07:48 03/21/20 25 Smoking Cessation Counselling completed Ernesto Cardona DPT [address] [place], [address], [facility] 03/21/2025 09:00:34 03/21/20 25 Physical Activity Counselling completed Ernesto Cardona DPT [address] [place], [address], [facility] 03/21/2025 09:00:34 03/21/20 25 81441: PT Eval Low Complexity completed Ernesto Cardona DPT [address] [place], [address], [facility] 03/21/2025 09:00:34 03/21/20 25 Treatment and Advice completed Ernesto Cardona DPT [address] [place], [address], [facility] 03/21/2025 09:45:19 01/11/20 25 Medicare Wellness Visit completed Brittanie Colón [facility] 01/10/2025 09:15:27 11/24/19 24 Medicare Wellness Visit completed BRIAN Brown [facility] 11/20/2023 17:00:24 11/24/19 24 Cardiovascular disease risk reduction counseling completed BRIAN Brown [facility] 11/20/2023 17:01:00 11/24/19 24 prevention-annual alcohol misuse screening completed BRIAN Brown [facility] 11/20/2023 17:00:59 10/10/20 23 excision of cervical intervertebral disc completed Sammi Lomax. [address] [place], [address], [facility] 11/23/2023 19:32:02 08/19/20 23 54504: Therapeutic Exercise cancelled Marianna Jain OTR/L, CHT [address] [place], [address], [facility] 08/17/2023 18:02:48 08/19/20 23 [address]: Manual Therapy cancelled Marianna Jain, OTR/L, CHT [address] [place], [address], [facility] 08/17/2023 18:02:44 08/12/20 23 [address]: Therapeutic Exercise cancelled Marianna Jain, OTR/L, CHT [address] [place], [address], [facility] 08/10/2023 19:40:25 08/12/20 23 70005: Manual Therapy cancelled Marianna Jain, OTR/L, CHT [address] [place], [address], [facility] 08/10/2023 19:40:20 08/01/20 23 Physical Activity Counselling completed Marianna Jain, OTR/L, CHT [address] [place], [address], [facility] 08/01/2023 09:22:38 08/01/20 23 42053: OT Eval, Low Complexity completed Marianna Jain, OTR/L, CHT [address] [place], [address], [facility] 08/01/2023 09:22:35 11/21/19 23 Medicare Wellness Visit completed Christa Palma [facility] 11/20/2022 16:28:06 11/21/19 23 Depression Screening completed Sammi [place], [address], [facility] 11/21/2022 09:51:03 11/21/19 23 prevention-annual alcohol misuse screening completed Sammi Lomax. [place], [address], [facility] 11/21/2022 09:51:13 07/26/20 21 Tassoni - Colonoscopy completed Jadon Gifford MD [address] [place] [address], [address], [facility] 07/26/2021 10:17:09 07/26/20 21 colonoscopy completed Sammi Lomax. [address] [place] [address], [address], [facility] 07/30/2021 20:12:48 04/19/20 21 Medicare Wellness Visit completed Liliya Pitt [facility] 04/19/2021 11:59:20 04/19/20 21 prevention-cardiov ascular risk reduction counseling completed Liliya Pitt [facility] 04/19/2021 11:59:20 04/19/20 21 prevention-annual alcohol misuse screening completed Liliya Pitt [facility] 04/19/2021 11:59:20 04/19/20 21 Advanced Care Planning completed Sammi Lomax. [address] [place] [address], [address], [facility] 04/19/2021 12:19:26 04/12/20 20 [facility] Well[facility] 04/12/2020 09:44:58 04/12/20 20 prevention-cardiov ascular risk reduction counseling completed [facility] 04/12/2020 09:44:58 04/12/20 20 prevention-annual alcohol misuse screening completed [facility] 04/12/2020 09:44:58 01/14/20 19 Medicare Wellness Visit completed Carmina De Leon LPN [facility] 01/13/2019 10:28:26 01/09/20 18 Medicare Wellness Visit completed Chrissy Rust LPN [facility] 01/08/2018 11:15:16 06/30/20 14 Aspiration Intermediate Joint/Bursa completed Sushil Simmons PA-C [address] [place] [address], [address], [facility] 06/30/2014 17:05:51 02/05/20 11 Treatment and Advice completed Nhi Collazo OT [address] [place] [address], [address], [facility] 02/04/2011 12:50:47 Imaging Results None recorded. Procedure Notes None recorded. Medical Equipment None [...] TOTAL) BY MOUTH EVERY 4 HOURS NEEDED 11/10 completed Not Available Not Available Not [...] Not Availa ble Not Available Fluzone High-Dose (PF) 180 mcg/0.5 mL intramusc ular syringe TO BE ADMINIST ERED BY [employer] FOR IMMUNIZA TION 01/02 completed Not [...] Updated DateTime 5 180.34 cm 24.5 kg/m2 52272.2 6 g 98 % 98 % 90 /min 126 mm[Hg] 66 mm[Hg] Liliya Pitt [facility] 12:05:38 Date Recorded Body height Body mass index (BMI) Body weight Heart rate Oxygen saturation Oxygen saturation in Arterial blood by Pulse oximetry Systolic blood pressure Diastolic blood pressure Provider Name and Address Organization Details Last Updated DateTime 180.34 cm 24.4 kg/m2 58532.6 6 g 103 /min 98 % 98 % 128 mm[Hg] 78 mm[Hg] Brittanie Colón [facility] 11:58:46 Date Recorded Body height Body mass index (BMI) Body weight Provider Name and Address Organization Details Last Updated DateTime 03/02/2025 180.34 cm 23.6 kg/m2 41513.11 g [facility] 03/02/2025 10:50:17 Social History Question Answer Notes LastModified by Organizat ion Details LastModified Time Tobacco Smoking Status Never Smoker 11/10/24[facility] 11/10/2024 11:48:26 Do You Wear A Helmet When Biking? Yes Information not available 11/10/2015 What Is Your Level Of Caffeine Consumption? Moderate 2 Cups Coffee Qd Information not available 02/16/2013 How Much Tobacco Do You Chew? None Information not available 02/16/2013 What Type Of Diet Are You Following? REGULAR Low Sugar And Carb [email or web address] Information not available 01/10/2025 Which Illicit Or Recreational Drugs Have You Used? None Information not available 04/19/2021 Education Post Graduate Masters Information not available 02/16/2013 What Is The Highest Grade Or Level Of School You Have Completed Or The Highest Degree You Have Received? [id number] [email or web address] Information not available 11/24/2023 Have There Been Any Changes To Your Family Or Social Situation? No Loss His Dog 3 Weeks Ago 11/24/23 NR [email or web address] Information not available 01/10/2025 How Many Days In The Past Year Have You Had A Heavy Drinking Consumption (4+ Female, 5+ Male)? 0 Information not available 11/10/2015 Are There Any Guns Present In Your Home? No Information not available 02/16/2013 Do You Use Insect Repellent Routinely? No [email or web address] Information not available 11/21/2022 Live Alone Or With Others? [email or web address] Information not available 04/19/2021 CSRP Contract Signed And Discussed Yes [email or web address] Information not available 03/25/2017 Patient Has Health Care Proxy Signed And In Chart Yes 03/25/17 [email or web address] Information not available 04/20/2021 CCM Consent Discussion 03/26/2017 [email or web address] Information not available 09/25/2017 Marital Status vasile Informatio n not available 02/16/2013 Mosquito Repellent Used Routinely Yes Information not available 02/16/2013 What Was The Date Of Your Most Recent Tobacco Screening? 02/10/2025 [email or web address] Information not available 02/10/2025 How Many Children Do You Have? 1 Daughter In [place], [place] Information not available 11/24/2023 What Is Your Relationship Status? Female Spouse Information not available 11/21/2022 Do You Use Your Seat Belt Or Car Seat Routinely? Yes [email or web address] Information not available 11/21/2022 Seat Belts Used Routinely Yes Information not available 02/16/2013 Smoke Alarm In Home Yes Information not available 02/16/2013 Do You Have Smoke And Carbon Monoxide Detectors In Your Home? Yes [email or web address] Information not available 11/21/2022 Are You Passively Exposed To Smoke? No [email or web address] Information not available 11/21/2022 General Stress Level Medium Information not available 02/16/2013 Do You Use Sunscreen Routinely? Yes Information not available 02/16/2013 Sex: Male Functional Status Question Answer Note LastModified by Organizat ion Details LastModified Time Do you use any illicit or recreational drugs? Yes [facility] Information not available 11/21/2022 What is your level of alcohol consumption? Moderate 1-2 nightly. Information not available 11/24/2023 Do you or have you ever used smokeless tobacco? Never used smokeless tobacco [email or web address] Information not available 06/11/2022 Are you currently employed? Yes Information not available 11/21/2022 What is your occupation? Other [email or web address] Information not available 03/15/2025 Do you or have you ever used e-cigarettes or vape? Never used electronic cigarettes [email or web address] Information not available 06/11/2022 What is your exercise level? Moderate biking in good weather, home exercises, walking and light weight in winter [email or web address] Information not available 11/24/2023 Mental Status None [...] 05/2021 12:12:42 Sister Malignant tumor [email or web address] Not available 05/2021 12:12:55 Medical History No medical history recorded. Immunizations Vaccine Type Date Status Note Provider Nam e and Address Organization Details Recorded Time Td(adult) unspecified formulation 6 completed Laurence Pinto RN null, [facility] 06/30/2023 12:15:10 influenza, unspecified formulation 7 completed Laurence Pinto RN null, [facility] 06/30/2023 12:15:10 Influenza, split virus, quadrivalent, PF 5 completed Not Available [facility] 10/30/2019 02:27:11 zoster live 6 completed Not Available [facility] 10/30/2019 02:33:41 pneumococcal polysaccharide PPV23 6 completed Not Available [facility] 10/30/2019 02:20:15 Pneumococcal conjugate PCV 13 7 completed Not Available [facility] 10/30/2019 02:38:50 Tdap 2 completed Laurence Pinto RN null, [facility] 06/30/2023 12:15:10 influenza, unspecified formulation 4 completed Laurence Pinto RN null, [facility] 06/30/2023 12:15:10 Influenza, high-dose, trivalent, PF 7 completed Not Available [facility] 10/30/2019 02:21:40 Influenza, high-dose, trivalent, PF 8 completed Not Available [facility] 10/30/2019 02:23:02 Influenza, high-dose, trivalent, PF 6 completed Laurence Pinto RN null, [facility] 06/30/2023 12:15:10 Td (adult), 2 Lf tetanus toxoid, preservative free, adsorbed 2 completed Sammi Monie. [address] [place] [address], [phone], [facility] 06/11/2022 14:22:55 pneumococcal polysaccharide PPV23 2 completed Sammi Monie. [address] [place] [address], [phone], [facility] 06/11/2022 14:22:55 COVID-19, mRNA, LNP-S, PF, 30 mcg/0.3 mL dose 1 completed Laurence Pinto RN null, [facility] 06/30/2023 12:15:10 COVID-19, mRNA, LNP-S, PF, 30 mcg/0.3 mL dose 1 completed Laurence Pinto RN null, [facility] 06/30/2023 12:15:10 Influenza, split virus, quadrivalent, preservative 0 completed Laurence Pinto RN null, [facility] 06/30/2023 12:15:10 COVID-19, mRNA, LNP-S, PF, 30 mcg/0.3 mL dose 1 completed Laurence Pinto RN null, [facility] 06/30/2023 12:15:10 Influenza, split virus, quadrivalent, preservative 1 completed Laurence Pinto RN null, [facility] 06/30/2023 12:15:10 COVID-19, mRNA, LNP-S, PF, 30 mcg/0.3 mL dose 2 completed Laurence Pinto RN null, [facility] 06/30/2023 12:15:10 Influenza, split virus, quadrivalent, PF 0 completed Laurence Pinto RN null, [facility] 06/30/2023 12:15:10 influenza, unspecified formulation 2 completed Laurence Pinto RN null, [facility] 06/30/2023 12:15:10 COVID-19, mRNA, LNP-S, bivalent, PF, 3 mcg/0.2 mL dose 2 completed Laurence Pinto RN null, [facility] 06/30/2023 12:15:10 RSV, recombinant, protein subunit RSVpreF, adjuvant reconstituted, 0.5 mL, PF 3 completed Laurence Pinto RN null, [facility] 06/30/2023 12:15:10 zoster recombinant 1 completed NilallaniALEXA Daron null, [facility] 07/22/2023 16:16:01 zoster recombinant 1 completed Nilmari RMA Neri null, [facility] 07/22/2023 16:16:11 Influenza, high-dose, quadrivalent, PF 3 completed Nilmari RMA Daron null, [facility] 07/22/2023 16:16:41 COVID-19, mRNA, LNP-S, PF, willis-sucrose, 10 mcg/0.3 mL 3 completed Nilmari RMDaiana rinaldi [facility] 07/22/2023 16:16:55 Past Encounters Encounter ID Performer Location Encounter Start Date Encounter Closed Date Diagnosis/Indication Diagnosis SNOMED-CT Code Diagnosis ICD10 Code Diagnosis Note [id number] [facility] , [facility] [address] [place], [place] [address] 02/03/2001 15:00:00 11/02/2008 02:02:29 [id number] Giovanni Orozco MD , [facility] OFFICE [address] [place] [address] [place] [id number] 1 02/03/2001 08:15:00 11/02/2008 02:02:29 [id number] Giovanni Orozco MD , [facility] OFF[facility] [address] [place] [address] [place] [address] 1 02/19/2001 13:30:00 11/02/2008 02:02:29 [id number] Chen Lopez NP , [facility] OFF[facility] [address] [place] [address] [place] [id number] 1 03/12/2001 13:00:00 11/02/2008 02:02:29 [id number] [facility] , [facility] [address] [place], [place] [address] 03/20/2001 15:00:00 11/02/2008 02:02:29 [id number] Giovanni Orozco MD , [address] [place] [address] 1 03/20/2001 10:00:00 11/02/2008 02:02:29 [id number] Sue Vargas MD , [address] [place] [address] 1 04/10/2001 12:45:00 11/02/2008 02:02:29 [id number] Sue NOEL, [facility] OFF[facility] [address] [place] [address] [place] [address] 1 10/12/2001 14:30:00 11/02/2008 02:02:29 [id number] MD SADIE John, [address] [place] [address] 1 10/26/2001 11:30:00 11/02/2008 02:02:29 [id number] AMY Patel, [address] [place] [address] 1 05/05/2002 09:03:50 11/02/2008 02:02:29 [id number] [facility] LAB - [address] [place] [id number] 05/05/2002 07:41:57 11/02/2008 02:02:29 [id number] [facility] , [address] [place] [id number] 05/31/2002 17:21:50 11/02/2008 02:02:29 [id number] Giovanni Orozco MD , [facility], OFFICE [address] [place] [id number] 05/31/2002 16:40:58 11/02/2008 02:02:29 [id number] AMY Patel, [facility], OFFICE [address] [place] [id number] 1 08/24/2002 11:25:12 11/02/2008 02:02:29 [id number] Giovanni Orozco MD , [facility], OFFICE [address] [place] [id number] 1 06/29/2003 11:30:23 06/29/2003 17:45:12 [id number] [facility] - [address] [place] [id number] 06/30/2003 07:39:51 06/30/2003 12:56:35 [id number] ASP, CELENA BEGUM MD ASP, [address] [place] [id number] 01/18/2004 10:14:28 01/18/2004 17:48:28 [id number] AMY Patel, [facility], OFFICE [address] [place] [id number] 1 05/15/2004 13:13:42 05/16/2004 08:39:31 [id number] [facility] - [address] [place] [id number] 05/18/2004 07:31:25 05/18/2004 08:59:02 [id number] Honey Luther NP , [facility], OFFICE [address] [place] [id number] 01/15/2005 09:34:53 01/17/2005 08:36:24 [id number] [facility] Techn[facility]iology , [address] [place] [id number] 02/01/2005 11:10:01 02/01/2005 15:52:52 [id number] [facility] , [address] [address] 02/01/2005 00:00:00 11/02/2008 02:02:29 [id number] Sandrita Ron, PT Physical Therapy, [address] [address] 02/05/2005 08:12:44 02/05/2005 08:29:55 [id number] Sandrita Ron, PT Physical Therapy, [address] [address] 1 02/15/2005 08:24:31 02/18/2005 10:04:56 [id number] Fabrizio Dotson III, MD , [facility], OFFICE [address] [place] [id number] 02/01/2005 10:54:42 02/01/2005 16:29:03 [id number] Fabrizio Dotson III, MD , [facility], OFFICE [address] [place] [address] 1 02/21/2005 14:22:21 02/21/2005 16:04:19 [id number] [facility] , [address] [address] 02/21/2005 14:50:47 02/21/2005 15:41:55 [id number] [facility] , [address] [address] 02/21/2005 00:00:00 11/02/2008 02:02:29 [id number] Oly Gregg M.D . , [facility], OFFICE [address] [place] [address] 06/29/2005 13:33:03 06/30/2005 09:35:19 [id number] Giovanni Orozco MD , [facility], OFFICE [address] [place] [id number] 12/27/2005 11:49:15 12/30/2005 08:51:54 [id number] Giovanni Orozco MD , [facility], OFFICE [address] [place] [id number] 1 01/13/2006 08:47:15 01/13/2006 14:43:40 [id number] [facility] , [address] [place] [address] 02/10/2006 09:05:08 02/10/2006 10:03:13 [id number] [facility] Radiology , [facility] [address] [place] [id number] 02/10/2006 00:00:00 11/02/2008 02:02:29 [id number] Kevon Jones, OD Eye Care, [facility] [address] [place] [id number] 04/21/2006 09:52:50 04/21/2006 12:55:24 [id number] Giovanni Orozco MD , [facility], OFFICE [address] [place] [address] 1 07/09/2006 07:55:47 07/10/2006 07:11:21 [id number] Eugenie ECHEVARRIA , [facility], OFFICE [address] [place] [address] 1 03/05/2007 16:39:52 03/06/2007 08:14:04 [id number] [facility] Techn[facility] Radiology , [facility] [address] [place] [id number] 03/05/2007 17:13:21 03/05/2007 17:23:05 [id number] [facility] , [facility] [address] [place] [id number] 03/05/2007 00:00:00 11/02/2008 02:02:29 [id number] Giovanni Orozco MD , [facility], OFFICE [address] [place] [address] 1 08/17/2007 10:02:01 08/18/2007 11:31:32 [id number] Giovanni Orozco MD , [facility], OFFICE [address] [place] [address] 1 04/08/2008 12:04:44 11/02/2008 02:02:29 [id number] Giovanni Orozco MD , [facility], OFFICE [address] [place] [address] 1 07/21/2008 10:26:14 11/02/2008 02:02:29 [id number] Kristie Dixon D.O. , [facility], OFFICE [address] [place] [address] 1 10/23/2009 14:46:20 10/23/2009 16:15:48 [id number] Fabrizio Dotson III, MD , [facility], OFFICE [address] [place] [address] 1 12/04/2009 13:29:35 12/05/2009 10:05:56 [id number] Олег Garcia MD , [facility], OFFICE [address] [place] [address] 1 05/29/2010 09:11:13 05/29/2010 14:06:34 [id number] Cristal Butt NP , [facility], OFFICE [address] [place] [address] [place] [address] 1 07/17/2010 10:03:30 07/17/2010 11:20:53 [id number] [facility] , [address] [place] [address] 1 07/17/2010 10:22:12 07/18/2010 11:06:53 [id number] Fabrizio Dotson III, MD , [facility], OFFICE [address] [place] [address] 1 08/17/2010 08:49:20 08/17/2010 09:26:46 [id number] [facility] Radiology , [address] [place] [id number] 09/21/2010 08:56:13 09/24/2010 11:02:45 [id number] Fabrizio Dotson III, MD , [facility] OFFICE [address] [place] [address] [place] [address] 1 01/31/2011 09:03:08 02/01/2011 08:54:47 [id number] Nhi Collazo, OT Physical Therapy, [address] [place] [address] 1 02/04/2011 12:02:28 02/05/2011 11:15:33 [id number] Nhi Collazo, OT Physical Therapy, [address] [place] [id number] 02/07/2011 09:23:39 02/08/2011 10:04:06 [id number] Nhi Collazo, OT Physical Therapy, [address] [place] [address] 1 02/13/2011 09:23:27 02/14/2011 11:16:55 [id number] Fabrizio Dotson III, MD , [facility], OFFICE [address] [place] [address] [place] [id number] 1 11/25/2011 08:43:52 11/25/2011 09:18:15 [id number] Sandrita Ron PT Physical Therapy, [address] [place] [address] 01/07/2012 13:41:13 01/08/2012 16:15:11 [id number] Sandrita Ron PT Physical Therapy, [address] [place] [address] 1 01/20/2012 14:26:25 01/21/2012 14:31:15 [id number] Олег Garcia MD , [facility], OFFICE [address] [place] [address] 1 01/31/2012 14:59:37 01/31/2012 15:57:55 [id number] Sandrita Ron PT Physical Therapy, [address] [place] [address] 02/10/2012 15:00:15 02/11/2012 09:24:11 [id number] Sandrita Ron PT Physical Therapy, [address] [place] [address] 1 02/18/2012 14:32:02 02/19/2012 10:14:44 [id number] Sandrita Ron PT Physical Therapy, [address] [place] [address] 1 02/25/2012 14:28:13 02/26/2012 09:51:59 [id number] Sandrita Ron PT Physical Therapy, [address] [place] [address] 1 03/11/2012 14:25:26 03/12/2012 10:23:45 [id number] Sandrita Ron PT Physical Therapy, [address] [place] [address] 1 03/12/2012 12:41:13 03/12/2012 12:41:20 [id number] Fabrizio Dotson III, MD , [facility], OFFICE [address] [place] [address] 1 11/12/2012 14:31:15 11/12/2012 14:47:44 [id number] Fabrizio Dotson III, MD , [facility], OFFICE [address] [place] [address] 1 02/16/2013 09:23:45 02/16/2013 09:57:11 [id number] Fabrizio Dotson III, MD , [facility], OFFICE [address] [place] [address] 04/07/2013 14:22:56 04/07/2013 14:47:16 [id number] Kristie Dixon D.O. , [facility], OFFICE [address] [place] [id number] 07/02/2013 16:42:01 07/02/2013 17:38:01 Low back pain [id number] left sided pain, acute onset with radiculopa thy. no known injury or precipitan t. some mild weakness of left leg. suspect herniated disc. discussed xray or mri, which he prefers to defer for now will have close f.u with PCP within 7 days. if any numbness or weakness, will call. if slowly improving, recommend PT in 1 week [id number] Fabrizio Dotson III, MD , [facility], OFFICE [address] [place] [address] 07/06/2013 14:21:27 07/06/2013 14:51:25 Low back pain [id number] Acute sciatica 900093512 [id number] Sandrita Ron, PT Physical Therapy, [address] [address] 07/12/2013 14:58:33 07/13/2013 15:26:03 [id number] Sandrita Ron PT Physical Therapy, [address] [address] 1 07/13/2013 14:45:20 07/13/2013 14:45:32 [id number] Sandrita Ron PT Physical Therapy, [address] [address] 1 07/16/2013 08:17:59 07/20/2013 11:08:26 [id number] Sandrita Ron PT Physical Therapy, [address] [address] 1 07/23/2013 08:56:20 07/26/2013 07:39:55 [id number] Sandrita Ron PT Physical Therapy, [address] [place] [address] 08/06/2013 08:55:56 08/11/2013 08:46:05 [id number] Sandrita Ron PT Physical Therapy, [address] [place] [address] 1 08/13/2013 09:24:57 08/16/2013 08:52:10 Low back pain [id number] Thai Irving MD , [facility], OFFICE [address] [place] [address] 1 06/30/2014 15:41:30 06/30/2014 17:00:50 Varicella vaccination 01575977 Olecranon bursitis 728780250 drained 10cc and injected. compressio n bandage aplied. rest/ice/n saids [id number] Fabrizio Dotson III, MD , [facility], OFFICE [address] [place] [address] 07/01/2014 13:36:10 07/01/2014 14:16:28 Olecranon bursitis 161365318 NSAIDS and a warm pack. Possible cellulitis . [id number] Fabrizio Dotson III, MD , [facility], OFFICE [address] [place] [address] 08/04/2014 10:30:44 08/04/2014 11:00:48 Mixed hyperlipidemia 104129894 Renzo lorenz is at goal Continue to work on diet and exercise as discussed Adult [facility] th examination [id number] see Risk Assessment and Lifestyle Change Counseling section above Counseling [id number] Hearing loss 75963548 Olecranon bursitis 985106254 Gradually healing Primary insomnia 6961382 Anxiety disorder 939371415 Uses prn meds Hernia of abdominal cavity 41757193 [id number] Fabrizio Dotson III, MD , [facility], OFFICE [address] [place] [address] 1 08/11/2014 10:10:49 08/11/2014 10:32:15 Olecranon bursitis 929482463 Discomfort persisting . 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 91705682 [id number] Harjinder Raymond MD , [facility], OFFICE [address] [place] [address] 1 11/10/2015 13:39:27 11/10/2015 14:50:46 Screening for disorder 825044597 Z11.59 Varicella vaccination 68 758580 Z23 Mixed hyperlipidemia 267 771910 E78.2 Cholestero l is at goal Cholestero l is not at goal Continue to work on diet and exercise as discussed Adult heal th examination 716244769 Z00.00 see Risk Assessment and Lifestyle Change Counseling section above Counseling 857216803 Z71 .9 Generalize d anxiety disorder 82257308 F41.1 Hernia of abdominal cavity 53197855 K46.9 Lesion of eyelid 6861723 02 H02.89 Active or passive immunization 167142306 Z23 [id number] Harjinder Raymond MD , [facility], OFFICE [address] [place] [address] 01/02/2017 10:57:07 01/03/2017 13:21:00 Mixed hyperlipidemia 049961090 E78.2 Cholestero l is at goal Cholestero l is not at goal Continue to work on diet and exercise as discussed Adult heal th examination 060989292 Z00.00 see Risk Assessment and Lifestyle Change Counseling section above Counseling 979841859 Z71 .9 Insomnia 876341164 G47.0 0 Active or passive immunization 220208890 Z23 Venous varices 661440572 I83.90 [id number] Kristie Dixon D.O. , [facility], OFFICE [address] [place] [address] 1 03/25/2017 09:00:16 03/26/2017 09:41:26 Screening for malignant neoplasm of colon 670085287 Z12.11 done 04/24/2011 with 10 yr repeat Laceration of finger 274 208444 S61.211A L finger wound closed5 sutures removed easilyf/u prn [id number] Harjinder Raymond MD , [facility], OFFICE [address] [place] [address] 1 06/11/2017 11:29:52 06/11/2017 11:58:15 Venous varices 346008881 I83.90 Active or passive immunization 339945911 Z23 M ni re's disease 95151692 H81.03 [id number] Harjinder Raymond MD , [facility], OFFICE [address] [place] [address] 1 09/25/2017 09:43:27 09/25/2017 10:12:01 M ni re's disease 40469960 H81.03 Generalize d anxiety disorder 08033751 F41.1 Mixed hyperlipidemia 267 187024 E78.2 Cholestero l is at goal Cholestero l is not at goal Continue to work on diet and exercise as discussed Insomnia 692070605 G47.0 0 [id number] Harjinder Raymond MD , [facility], OFFICE [address] [place] [address] 01/08/2018 10:56:52 01/08/2018 11:59:03 Mixed hyperlipidemia 714267579 E78.2 Cholestero l is at goal Cholestero l is not at goal Continue to work on diet and exercise as discussed Adult heal th examination 753506679 Z00.00 see Risk Assessment and Lifestyle Change Counseling section above Counseling 798946190 Z71 .9 Depression screening 171 214061 Z13.89 depression screening tool administer ed, entered into emr, scored and discussed, time greater than 7.5 minutes Anxiety 16585061 F41.9 Insomnia 451159274 G47.0 0 [id number] Kristie Dixon D.O. , [facility], OFFICE [address] [place] [address] 1 04/06/2018 09:31:46 04/06/2018 10:52:18 Strain of tendon of medial thigh muscle 050780423 S76.811A Injury of hip region 125 147773 S79.911A [id number] Harjinder Raymond MD , [facility], OFFICE [address] [place] [address] 1 07/09/2018 09:05:49 07/09/2018 09:38:29 Insomnia 401642925 G47.00 Anxiety 79831142 F41.9 Active or passive immunization 121080667 Z23 [id number] Harjinder Raymond MD , [facility], OFFICE [address] [place] [address] 1 01/13/2019 10:13:48 01/13/2019 11:00:12 Adult health examination 892643176 Z00.00 see Risk Assessment and Lifestyle Change Counseling section above Counseling 479760355 Z71 .9 Depression screening 171 498659 Z13.89 depression screening tool administer ed, entered into emr, scored and discussed, time greater than 7.5 minutes Mixed hyperlipidemia 267 837077 E78.2 Cholestero l is at goal Cholestero l is not at goal Continue to work on diet and exercise as discussed Venous varices 725494658 I83.90 Anxiety 45606502 F41.9 Insomnia 791777331 G47.0 0 [id number] Harjinder Raymond MD , [facility], OFFICE [address] [place] [address] 1 04/12/2020 10:23:57 04/12/2020 10:47:45 Adult health examination 367093634 Z00.00 see Risk Assessment and Lifestyle Change Counseling section above Counseling 786106165 Z71 .9 including cardiovasc ular risk reduction counseling Depression screening 171 524839 Z13.89 depression screening tool administer ed, entered into emr, scored and discussed, time greater than 7.5 minutes Screening for alcohol abuse [id number] Z13.39 Mixed hyperlipidemia 267 [id number] E78.2 Cholestero l is at goal Cholestero l is not at goal Continue to work on diet and exercise as discussed Venous varices [id number] I83.90 Insomnia [id number] G47.0 0 Bilateral arthritis of hip [id number] M13.115 [id number] Harjinder Raymond MD , [facility] [place], OFFICE [address] [place] [address] 05/24/2020 14:48:22 05/25/2020 11:40:31 Low back pain [id number] M54.5 Bilateral arthritis of hip [id number] 170621 M13.275 [id number] Олег Garcia MD , [facility] [place], OFFICE [address] [place] [address] 06/23/2020 13:37:45 06/28/2020 18:18:58 Headache [id number] R51 band like temples parietal to occiputawo [...] , optic disc seen and is normal ODNADGirma givenrto if needed [id number] Harjinder Raymond MD , [facility] [place], [place]ICE [address] [place] [address] 06/26/2020 14:35:48 06/28/2020 16:55:15 Groin mass [id number] R19.00 [id number] Harjinder Raymond MD , [facility] [place], [place]ICE [address] [place] [address] 07/06/2020 10:46:06 07/07/2020 15:51:20 Epidermoid cyst 402460339 L72.0 [id number] Sammi Lomax . MD NOEL, [facility] [place], [address]ICE [address] [place] [address] 01/04/2021 14:24:38 01/05/2021 13:41:45 Pain of sacroiliac joint 777332487 M53.3 I am going to refer him to physical therapy and obtain x-ray of his SI joints. He may continue low-dose ibuprofen if needed in the evening. Call with any concerns. Insomnia 689880742 G47.0 0 He wishes to have a refill on his alprazolam . Warned of dependency , also chronic use may lead to cognitive impairment with aging. He is not using it on a regular basis. Will refill today and revisit the issue at next visit. [id number] Sammi Lomax . , [facility] [place], OFFICE [address] [place] [address] 02/23/2021 11:27:32 02/23/2021 12:16:41 Pain of sacroiliac joint 837869623 M53.3 He will continue with physical therapy, stop ibuprofen and I will put him on Celebrex as well as a muscle relaxer for bedtime. Call with any concerns. [id number] Sammi Lomax . MD NOEL, [facility] [place], OFFICE [address] [place] [address] 04/19/2021 11:17:44 04/19/2021 12:39:47 Adult health examination 807925811 Z00.00 USPSTF guidelines reviewed and discussed with patient.wi ll need tetanus booster in October.roberson s first Shingrix end of March.colon oscopy April 2011, refer back. Counseling 289346946 Z71 .9 including cardiovasc ular risk reduction counseling , on asa, declines statin with 10 Y CV event risk 13%, see below. Depression screening 171 647116 Z13.31 depression screening tool administer ed, entered into emr, scored and discussed, time greater than 7.5 minutes, negative screen. Screening for alcohol abuse 652661442 Z13.39 negative screen. Advance di rective discussed with patient 462198886 Z71.89 discussed, form given to complete. Mixed hyperlipidemia 267 070189 E78.2 LDL ideally should be below 100, is hesitant to take statin, 10 Y CV event geovanna is mildly elevated at 13%, work on diet further, less cheese, more vegetables . Bilateral arthritis of hip 4650489869 213053 M13.851 celebrex, PT and myofascial massage helped. Varicose v eins of lower extremity 23259193 I83.93 has had phlebitis on the left, has spider veins and bluish hue on the left foot with good pedal pulses. remains on asa. M ni re's disease 53836731 H81.01 no recent vertigo since cutting back on salt, has left hearing loss much worse than right. Insomnia 646702625 G47.0 0 uses lorazepam and alprazolam , not daily. Warned of dependency if used regularly. also chronic use may lead to cognitive impairment with aging. He is not using it on a regular basis. Generalize d anxiety disorder 50306439 F41.1 gets sx only if he cannot sleep. Screening for malignant neoplasm of colon 926326218 Z12.11 last colonoscop y on record April 2011. refer for repeat. [id number] Jadon Gifford MD [facility], [facility] [place] [address] [facility] [place] [address] 07/26/2021 08:52:26 07/26/2021 14:11:05 [id number] Sammi Lomax . , [facility] [place], OFFICE [address] [place] [address] 06/11/2022 13:24:58 06/11/2022 16:31:57 Active or passive immunization [id number] Z23 needs Td and Pneumovax today. Swelling of eyelid 08426 7004 R22.0 I do not find any stye or redundant tissue in lower eyelids, wonder about problems with his tear ducts, I advised him to see his ophthalmol ogist first, use warm compresses meanwhile, may need to discuss it with a plastic surgeon. Insomnia 293252705 G47.0 0 uses lorazepam and alprazolam , not daily. Warned of dependency if used regularly. He is not using it on a regular basis. will call when needs a refill. Generalize d anxiety disorder 33363836 F41.1 gets sx only if he cannot sleep. Mixed hyperlipidemia 267 508680 E78.2 LDL ideally should be below 100, is hesitant to take statin, 10 Y CV event risk was mildly elevated at 13%, work on diet further, less cheese, more vegetables . recheck labs. Venous varices 219790016 I83.90 left leg with large varicositi es since he had phlebitis several years ago, now takes half a baby aspirin daily, no phlebitis recurrence . Tachycardia 8036108 R00. 0 ECH showed SR at 68 BPM, axis 66, RBBB, no old tracing available. will do a 24 H Holter and schedule for stress echo to rule out cardiac ischemia or arrhythmia as cause for his sx. [id number] Sammi Lomax . MD NOEL, [facility] [place], OFFICE [address] [place] [address] 06/13/2022 11:27:04 06/13/2022 11:33:07 Tachycardia 0060963 R00.0 ECH showed SR at 68 BPM, axis 66, RBBB, no old tracing available. will do a 24 H Holter and schedule for stress echo to rule out cardiac ischemia or arrhythmia as cause for his sx. [id number] Sammi Lomax . MD NOEL, [facility] [place], OFFICE [address] [place] [address] 11/21/2022 08:45:31 11/21/2022 09:52:26 Adult health examination 126926265 Z00.00 USPSTF guidelines reviewed and discussed with patient. Depression screening 171 601705 Z13.31 depression screening tool administer ed, negative screen Screening for alcohol abuse 407766683 Z13.39 Alcohol use screening tool administer ed, negative screen Mixed hyperlipidemia 267 320141 E78.2 Cholestero l is at goal, LDL below 01035 Y CV risk is over 10% but given lack of other CV risks he does not wish to take a statin.Con tinue to work on diet and exercise as discussed Venous varices 799698032 I83.90 left leg with large varicositi es since he had phlebitis several years ago, now takes half a baby aspirin daily, ( on hold for eye surgery) no phlebitis recurrence . Pruritus ani 43111396 L2 9.0 uses topical cream prn. 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 Bilateral arthritis of hip 2374358995 565989 M13.851 PT and myofascial massage helped. M ni re's disease 92910455 H81.01 no recent vertigo since cutting back on salt, has left hearing loss much worse than right. Insomnia 407286132 G47.0 0 uses lorazepam and alprazolam , not daily. aware of risk of dependency if used regularly. He is not using it on a regular basis. will call when needs a refill. Generalize d anxiety disorder 21905353 F41.1 gets sx only if he cannot sleep. Pain in left thumb 82651 99606 397284 M79.645 He may use a short course of over-the-c ounter NSAIDs and use a thumb spica splint to immobilize the thumb and help to decrease inflammati on. Joint hypertroph y will persist. Family his tory of Aortic aneurysm 065722023 Z82.49 Father of ruptured aortic aneurysm in his 60s. The patient never smoked but he would be prudent to screen for aortic aneurysm. [id number] Kristie NOEL, [facility] [place], OFFICE [address] [place], [place] [address] 06/10/2023 16:03:33 06/10/2023 16:57:07 Congestion of nasal sinus 21174696 R09.81 URI symptoms started 1.5 weeks ago [...] for continued symptomsRe turn precaution s discussed [id number] Sammi Lomax . MD NOEL, [facility] [place], OFFICE [address] [place] [address] 07/24/2023 10:32:50 07/24/2023 12:17:14 Paresthesia of lower extremity 533412888 R20.2 it would be dermatome C7-C8, ? ulnar nerve neuropathy , but he also has paresthesi as of feet toes 4 and 5 right side, ? more central nerve entrapment . may need EMG or imaging, refer to neurology to decide. Paresthesi a of upper limb 63099611 R20.2 it would be dermatome L5-S1, as above. [id number] Sammi Lomax . MD NOEL, [facility] [place], OFFICE [address] [place] [address] 07/30/2023 08:25:43 07/30/2023 16:38:24 Paresthesia of upper limb 33447498 R20.2 See last week by Dr Lomax [...] of c-spine Paresthesi a of lower extremity 907718717 R20.2 see above Insomnia 025648270 G47.0 0 start gabapentin for pain and sleepdo not take zolpidem if taking gabapentin [id number] Marianna Jain , OTR/L, C[facility] Physical Therapy, [facility] [place] [address] [place] [address] 08/01/2023 11:45:05 08/01/2023 14:17:16 Neuritis of left ulnar nerve 6874239954 4659234 G56.22 [id number] MD SADIE Garner, [facility] [place], OFFICE [address] [place] [address] 08/13/2023 13:07:51 08/13/2023 15:19:40 Spinal stenosis in cervical region 97408405 M48.02 So far has not had lasting benefit from conservati ve therapy, but has just started PT and home traction. Did not benefit from po steroid. New c/o weakness concerning . Advised upcoming databases software consultant appts to help delineate if other pathology present, ? direct to neurosurge ry consult. He may trial half dose alprazolam and requested muscle relaxant as he already has this on hand, and familiar with med side effects. He will start weaning gabapentin , since not effective. [id number] Sammi Lomax . , [facility] [place], OFFICE [address] [place] [address] 09/22/2023 11:18:00 09/22/2023 17:14:47 COVID-19 363949406 U07.1 Tested positive Sat night.Symp toms started [...] dyspnea call office Generalize d anxiety disorder 31093778 F41.1 hold alprazolam while on paxlovid (takes PRN) Spinal sharon nosis in cervical region 91136162 M48.02 reports spinal surgery 10 days ago went well, consult note not on file will request [id number] Sammi Lomax . , [facility] [place], OFFICE [address] [place] [address] 11/24/2023 10:02:26 11/24/2023 11:01:03 Adult health examination 915447338 Z00.00 USPSTF guidelines reviewed and discussed with patient.co lonoscopy 07-26-21, redo 5 Y.Health care proxy in place.vacc inations UTD.CV counseling done. takes aspirin daily for V Veins. declines statin. Depression screening 171 123106 Z13.31 depression screening tool administer ed, negative Screening for alcohol abuse 423399632 Z13.39 Alcohol use screening tool administer ed, negative Screening for malignant neoplasm of prostate 985623169 Z12.5 PSA testing for ages 55-69 risks and benefits discussed will not test. Cervical myelopathy 2025 04882 G95.9 right forearm and fingers with pain, started lyrica, also numb 4 and 5th fingers. Impaired f asting glycemia 081597570 R73.01 very mild, BS 102-103 fasting. Right bund le branch block 61038127 I45.0 benign, no sx. M ni re's disease 84883734 H81.01 no recent vertigo since cutting back on salt, has left hearing loss much worse than right. Insomnia 669708447 G47.0 0 uses lorazepam and alprazolam , not daily. aware of risk of dependency if used regularly. He is not using it on a regular basis. will call when needs a refill. Generalize d anxiety disorder 96830632 F41.1 gets sx only if he cannot sleep. Mixed hyperlipidemia 267 664696 E78.2 Cholestero l is at goal, LDL below 00842 Y CV risk is over 10% but given lack of other CV risks he does not wish to take a statin.Armin burton to work on diet and exercise as discussed Left inguinal hernia 236 205044 K40.90 he feels it is larger, would like surgical consult. [id number] Sammi Lomax . , [facility] [place], OFFICE [address] [place] [address] 03/04/2024 10:37:03 03/04/2024 14:30:38 COVID-19 807932968 U07.1 A discussion regarding the use of [...] for 5 days, with or without food. eGFR 30-60: 150mg nirmatrelv ir with 100mg ritonavir. Both tablets taken together twice daily for 5 days, with or without food. The patient was advised that the treatment is sent to a local pharmacy. 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 Data from clinical trials have shown that these treatments reduce the risk of ER visits, hospitaliz ation, and in patients with mild to moderate symptoms, and those at high risk of complicati ons. Side effects were discussed: 1. Allergic reactions are possible, notify the nurse with any concerning symptoms2. Liver problems notify your provider if you experience loss [...] zolpidem and alprazolam with paxlovid.n l GFR. [id number] NATALIIA EDGE MD , [facility] [place], OFFICE [address] [place] [address] 11/10/2024 10:27:53 11/10/2024 13:34:38 Effects of high altitude 15096787 T70.20XA Pt traveling to [facility], will be there for 6-7 days. Pt requesting diamox. No prior problems at high altitude. No contraindi cations for use. Normal renal function, liver function, electrolyt es-- med sent in as below, reviewed possible side effects-- adivsed to push fluids, avoid alcohol at mariia altitude [id number] NATALIIA EDGE MD , [facility] [place], OFFICE [address] [place] [address] 01/10/2025 11:55:06 01/10/2025 13:40:39 Adult health examination 371834707 Z00.00 Doing well. Up to date with screenings . Continue healthy lifestyle measures including a diet rich in fruits and vegetables as well as regular exercise. Depression screening 171 699959 Z13.31 depression screening tool administer ed Screening for alcohol abuse 433578043 Z13.39 Alcohol use screening tool administer ed Impaired f asting glycemia 477472537 R73.01 A1c at 5.6%, at goal. Will continue to monitor. M ni re's disease 17855567 H81.01 Left hearing loss much worse than right. Insomnia 117682866 G47.0 0 uses lorazepam and alprazolam , not daily. Mixed hyperlipidemia 267 949659 E78.2 Cholestero l is at goal, LDL [place] 24204 Y CV risk is over 10% but given lack of other CV risks he does not wish to take a statin.Con tinue to work on diet and exercise as discussed Pruritus ani 82128113 L2 9.0 Intermitte nt anal rash, improves with cream, will refill. Low back pain 822145108 M54.50 Some tightness/ tenderness to muscles of R lower back. Muscle tightness noted to that area on exam. Working on stretching . Discussed PT, he will call if he wants to pursue. [id number] Cristal De La Rosa MD , [facility] [place], OFFICE [address] [place] [address] 02/10/2025 11:42:13 02/10/2025 13:21:56 Chronic low back pain 713980991 M54.50 G89.29 in a gentleman with hx ulnar neuropathy /cubital tunnel syndrome, FHx IBD, and prior SI Xrays showing early spondylosi s. Will rx antiinflam matory (celecoxib helped in past), and update xrays, inflammato ry markers and check HLA-B27 [id number] NATALIIA EDGE MD , [facility] [place], OFFICE [address] [place] [address] 03/02/2025 10:49:45 03/08/2025 15:10:16 Chronic low back pain 006368976 M54.50 G89.29 Back pain with prolonged activity, improves with bending forward, consistent with stenosis. Blood work reassuring . Will try Tylenol ES and/or Aleve. Ok to stop celecoxib. Will have him work with physiatry and PT to help improve symptoms and to discuss further pain control. [id number] Yasmin Simon Physical Therapy, [facility] [place] [address] [place] [address] 03/21/2025 08:58:13 03/24/2025 11:22:08 Low back pain 245846418 M54.50 Health Concerns Section Related Observation LastModified by Organization Detai ls LastModified Time None Recorded Concern Status LastModified by Organization Details LastModified Time None Recorded Advance Directives Directive None Recorded Payers Insurance Date Sequence Insurance Name Policy Number Policy Vega Covered Member ID Vega Member ID Guarantor Name 04/04/2025 2 [facility] (MEDICARE SUPPLEMENT) Celena Batista [id number] Celena Batista 09/28/2024 2 [facility] (O) [id number] Celena Soler Lynne [id number] Celena Batista 03/16/2025 1 MEDICARE [place]: [facility] Celena Ceeler [id number] Celena Lynne 03/17/2017 1 [facility] (HMO) [id number] Angélica Bro [id number] Celena Batista 03/17/2017 1 [facility] (O) [id number] Angélica Bro [id number] Celena Batista 09/28/2024 2 [facility] (O) [id number] Celena Soler Lynne [id number] Celena Batista 02/09/2025 [facility] Angélica Martin [id number] Celena Batista 03/17/2017 1 [facility] - [facility] - NAVIGATOR (POS) [id number] Angélica Bro [id number] Celena Batista Notes Date Note Type Note Provider Name and Address Organization Details Recorded Time 01/10/2025 text/html Risk Assessment and Lifestyle Change [...] upper extremity. 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 NATALIIA EDGE MD [address] [place] [address], [phone], [facility] 01/10/2025 12:42:09 02/10/2025 text/html Acute Low Back [...] for spinal stenosis. Otherwise has been well/stable. Cristal De La Rosa MD [address] [place], [address], [facility] 02/10/2025 12:46:21 03/02/2025 text/html Chronic low back pain, right side: saw Dr. De La Rosa on 02/10. Started celecoxib, helped briefly but then the deep pain recurred. Initially when he walks he doesn't have pain, but the more he walks the more uncomfortable it is. Stopped celecoxib after day 10 - no change in symptoms. Aching in the hips as well while he was sick. Got a massage recently, saw a muscular imbalance. NATALIIA EDGE MD [address] [place], [address], [facility] 03/03/2025 13:23:38 03/21/2025 text/html Pt referred to P T secondary to insidious onset of low back pain beginning about 5 months ago. First noticed while snorkel swimming with flippers in November 2024. Pt reports that 04/21 variable aching low back pain that has not changed but continues to be bothersome. Pt reprots that he has noticed increased weakness. Pt wakes up without low back pain and it increases with walking > ~1000 steps. Pt notes specific point of pain in R low back. Able to bike without pain. Increased pain with walking. Child's pose, cat/cow, bridges, but has not helped. Was prescribed celecoxib with only 3 days of relief. Pt works full-time in [employer] and is sitting for about 6 hours. Pt reports he enjoys hiking, walking, and bikes 12-15 miles, but does not usually stretch. XR 02/14/25 LS: FINDINGS: Grade 1 anterolisthesis at L4/L5. Grade 1 retrolisthesis of L3/L4.Grade 1 retrolisthesis of L2/L3. Degenerative disc and endplate changes at multiple levels. Degenerative facet joint changes, most pronounced within the lower lumbar spine. No substantial lumbar vertebral body compression deformity. IMPRESSION: Degenerative changes within the lumbar spine. Spondylolisthesis at multiple levels. XR SI joint 02/14/25: IMPRESSION: No acute bony abnormality seen. Patient Specific Functional Score:70 Percent limitation in walking.70 Percent limitation in standing. Ernesto Cardona, DPT [address] [place] [address], [phone], [facility] 03/24/2025 08:09:04
== END 2025-04-11 11:00 | disposition home or self-care (01) ==
LOC: HO.PMC 10:20
PROVIDERS: Referring Provider Orthopaedic Surgery; Visit Provider Internal Medicine
DX: G95.9 Disease of spinal cord, unspecified (principal); Z98.1 Arthrodesis status; M54.12 Radiculopathy, cervical region
CPT/HCPCS: 99204

== ENCOUNTER → 2025-04-11 10:20 | Outpatient (BNVA) | payer MEDICARE, OTHER, SELFPAY | PROVIDERS: Referring Provider Orthopaedic Surgery; Visit Provider Internal Medicine | DX: M54.12 Radiculopathy, cervical region (principal); G95.9 Disease of spinal cord, unspecified; Z98.1 Arthrodesis status | CPT/HCPCS: 99202 ==

== ENCOUNTER 2025-04-12 09:57 | Outpatient (REF) | payer MEDICARE, OTHER, SELFPAY ==
--- NOTE | ~2025-04-12 | MR_ITS ---
Examination: MRI of the right forearm without contrast. TECHNIQUE: Multiplanar multisequence MR imaging was performed through an upper extremity, without contrast. INDICATION: Right elbow pain, surgery in 2023 for ulnar nerve impingement Prior: None FINDINGS: SOFT TISSUES: There is low level edema within flexor carpi ulnaris muscle and mild patchy edema within the flexor digitorum profundus muscle. There is subtle edema like signal in the superficial aspect of the flexor digitorum superficialis, palmaris longus, flexor carpi radialis, and possibly pronator teres muscles which are innervated by median nerve There is mild edema within extensor carpi ulnaris muscle which is innervated by posterior interosseous nerve (C7+C8), branch of the radial nerve.. There is no fatty streaking or atrophy. NEUROVASCULAR: There is low intermediate signal in the subcutaneous soft tissues near the cubital tunnel at the elbow. Ulnar nerve signal on fluid sensitive sequences is mildly increased through the cubital tunnel, but hypointense relative to venous signal otherwise, negative signal is unremarkable. Neurovascular structures are otherwise unremarkable. MARROW/BONES: Tumor signal is physiologic. There are no marrow replacing lesions. There is no marrow edema. MR/MR forearm RT wo con IMPRESSION: Nonspecific patchy areas of muscle edema without a convincing single pattern of nerve compression related muscle edema. The highest level of muscle edema, which is still mild, does involve flexor carpi ulnaris and flexor digitorum profundus muscles which are innervated by ulnar nerve. However, there is a similar level of muscle edema within extensor carpi ulnaris muscle which is innervated by posterior interosseous nerve (or C7+C8). There is subtle muscle edema within other muscles in the flexor compartment better innervated by median nerve. Electronically signed by: Nash Caceres MD 04/12/2025 11:12 AM EDT
--- OUTSIDE RECORDS SUMMARY | 2025-04-12 10:58 | XMS_ITS | Data Portability ---
Author Organization [facility], [facility] Address [address] [place] [address] Care Team Providers Care Medicine Worker Name Role Phone YEMI LUCERO [facility] Sleep Medicine [facility] Sleeve Turner [phone] [facility] OTHER [facility] NEUROSURGERY Neurosurgeon [phone] TAMICA WHARTON General Surgeon ANDREI LIN Neurologist [facility] Orthopedic Surgeon [phone] NATALIIA EDGE Primary Care Provider [phone] Assessment Encounter Date Assessment Date Assessment LastModified [...] meeting your goals. Please visit our website [employer] for more patient resources. As part of your care plan, we will help coordinate your ongoing medical needs, arrange for durable medical equipment, renew prescriptions and necessary prior authorizations, facilitate getting referrals and collaborating with specialist, referrals for VNA services. [email or web address] Not available 02/10/2025 10:24:50 03/02/2025 03/02/2025 Patient agreed t o this visit via a secure telehealth platform. Patient understands this is a scheduled visit and the usual procedures with regard to billing and confidentiality apply. Patient was notified that the provider location is [facility] Patient location: home During the visit the [...] meeting your goals. Please visit our website [employer] for more patient resources. As part of [...] Physical Therapy Treatments may include (as appropriate): 24724 Therapeutic exercise 03417 Neuromuscular Re-education, Taping. 98933 Gait Training 59232 Manual 09115 Therapeutic Activities, Patient education, HEP instruction. 86565 Self-care Management 14965 Attended Electrical Stimulation for strength, ROM, flexibility, endurance, power, functional mechanics. 43388: Ultrasound Rehab potential is . Next visit: [...] Not available LAB Follow-Up 2025 09:05A M [facility] Not available Not available Not available Wellness Visit 2025 11:30A M NATALIIA EDGE MD Not available Not available Not available Lab hla-B27 genotype, blood 2024 025 [facility], [address] [place] [address], [address], 02/16/2025 22:38:05 ESR (erythroc yte sedimenta tion rate), blood 2024 025 [facility], [address] [place] [address], [address], 02/14/2025 15:18:49 C-reactiv e protein, quantitat sarahi, serum or plasma 2024 025 [facility], [address] [place] [address], [address], 02/14/2025 14:56:20 Referral physical medicine and rehabilit ation referral 2024 025 [email or web address] [facility], [address] [place], [address], 03/16/2025 10:48:52 physical therapist referral 2024 025 [email or web address] [facility], [address], [place], [address], 03/24/2025 09:43:10 Procedures None recorded. Surgeries None recorded. Imaging XR, sacroilia c joint(s) 2024 025 [facility] (Imaging), [address], [place], [address], 02/14/2025 13:35:28 XR, lumbar spine 2024 025 [facility] ([facility]), [address], [place], [address], 02/14/2025 13:33:39 Medication Orders celecoxib 400 mg capsule 2024 025 [facility]/Pharmacy #[id number], [address] [place], [address], 02/10/2025 12:45:54 clotrimaz ole-betam ethasone 1 %-0.05 % topical cream 2024 025 [facility]/Pharmacy #[id number], [address] [place], [address], 01/10/2025 12:29:52 acetazola mide 125 mg tablet 2024 025 [id number] [address] [place], [address], 01/10/2025 12:00:21 Patient TargetsNo targets recorded. Patient Instructions Encounter Date Encounter Id Patient Instructions Last Modified By Organization Details Last Modified Time 01/10/2025 [id number] preventing falls : care instructions Not available [...] furth er confi rmati on Not Available [address], [address], 12/09/2024 11:54:15 12/09/1912/09/2024 HGB A1C estimated average glucose 114.0 mg/dL Not Available [address], [address], 12/09/2024 11:54:15 12/09/1912/10/2024 LIPID PANEL cholesterol 146 mg/dL <200 mg/dl Reginaldo able 200-2 39 mg/dl Borde rline High >240 mg/dl High Not Available [address], [address], 12/10/2024 10:30:00 12/09/1912/10/2024 LIPID PANEL triglyceride s 64 mg/dL <150 mg/dL Corina l 150-1 99 mg/dL Borde rline High 200-4 99 mg/dL High >500 mg/dL Very High Not Available [address], [address], 12/10/2024 10:30:00 12/09/1912/10/2024 LIPID PANEL direct HDL 57 mg/dL <40 mg/dl - Major Risk for CHD >60 mg/dl - Negat sarahi Risk for CHD Not Available [address], [address], 12/10/2024 10:30:00 12/09/19 25 12/10/2024 GLUCO SE glucose 100 mg/dL 70-100 Not Available [address], [address], 12/10/2024 10:30:02 12/09/19 25 12/10/2024 LDL - [...] r is not necjordyn aviva. Not Available [address], [address], 12/10/2024 10:30:04 02/15/20 25 02/14/2025 C-BRENT CTIVE PROTE IN (RCRP ) C-reactive protein (rcrp) 1.1 mg/L 0.5-9. 0 Not Available [address], [address], 02/14/2025 14:56:20 02/15/20 25 02/14/2025 ESR sed rate 0.0 0.0-20 .0 Not Available [address], [address], 02/14/2025 15:18:49 02/15/20 25 02/16/2025 HLA-B 27 ANTIG EN hla-B27 antigen NEGATI VE negati ve Not Available [facility] [address] [place] [address], [address], 02/16/2025 22:38:05 02/15/20 25 02/14/2025 XR, lumba [...] . Marjorie estrada Physic paige: Javad miller [email or web address] [facility] (Imaging) [address] [place], [address], 02/23/2025 12:05:40 02/15/2002/14/2025 XR, sacro iliac joint [...] seen. Marjorie estrada Physic paige: Javad miller [email or web address] [facility] (Imaging) [address] [place], [address], 02/23/2025 12:05:40 Result Notes Documentation Provider Name [...] at multiple levels. Reading Physician: LISSETH Healy, [facility] 02/23/2025 12:05:40 Xr, Sacroiliac Joint(s) : CLINICAL [...] bony abnormality seen. Reading Physician: LISSETH Healy, [facility] 02/23/2025 12:05:40 Problems Name Problem SNOMED Code Status Onset Date Resolution Date Notes Provider Name and Address Organization Details Recorded Time Mixed hyperlipi demia 599042776 Active 2003 Not Available [facility] 3 11:44:38 Injury of shoulder region 860728893 Completed 200402/15/2013 Not Available [facility] 3 03:03:32 Varicose veins of lower extremity 27931537 Completed 02/15/2013 Not Available [facility] 3 03:03:32 Presbyopi a 21794042 Completed 200501/31/2012 Not Available [facility] 3 03:03:32 Precordia l pain 95717753 Completed 200202/15/2013 Not Available [facility] 3 03:03:32 Migraine without aura 24364723 Completed 200708/17/2010 Not Available [facility] 3 03:03:32 Phlebitis and thromboph lebitis Completed 200008/17/2010 Not Available [facility] 3 03:03:32 Lateral epicondyl itis 525932826 Completed 200202/15/2013 Not Available [facility] 3 03:03:32 Neck pain 97002810 Completed 200401/31/2012 Not Available [facility] 3 03:03:32 Allergic rhinitis 59799823 Completed 200108/17/2010 Not Available [facility] 3 03:03:32 Epidermoi d cyst of skin 035724402 Completed 200201/31/2012 Not Available [facility] 3 03:03:32 Acute suppurati ve otitis media without spontaneo us rupture of ear drum 35115061 Completed 200008/17/2010 Not Available [facility] 3 03:03:32 Sciatica 62245213 Completed 200102/15/2013 Not Available [facility] 3 03:03:32 Knee pain Completed 200108/17/2010 Not Available [facility] 3 03:03:32 Sprain of shoulder and upper arm Completed 200402/15/2013 Not Available [facility] 3 03:03:32 Hyperlipi demia 65606780 Completed 200108/17/2010 Not Available [facility] 3 03:03:32 Acute bronchiti s 34773838 Completed 200502/15/2013 Not Available [facility] 3 03:03:32 Otogenic otalgia 40970061 Completed 200108/17/2010 Not Available [facility] 3 03:03:32 Headache 80159151 Completed 200508/17/2010 Not Available [facility] 3 03:03:32 Disorder of tendon of shoulder region 92494509 Completed 200408/17/2010 Not Available [facility] 3 03:03:32 Migraine variants 815270697 Completed 200608/17/2010 Not Available [facility] 3 03:03:32 Cough 73229738 Completed 200508/17/2010 Not Available [facility] 3 03:03:32 Pain of shoulder region 35708400 Completed 01/31/2012 Not Available [facility] 3 03:03:32 Pain of shoulder region 28435722 Completed 200408/17/2010 Not Available [facility] 3 03:03:32 Generaliz ed anxiety disorder 46489565 Active Not Available [facility] 3 11:44:38 Migraine with aura 0003996 Completed 200402/15/2013 Not Available [facility] 3 03:03:32 Astigmati sm 68871782 Completed 200502/15/2013 Not Available [facility] 3 03:03:32 Impacted cerumen 90747137 Completed 200708/17/2010 Not Available [facility] 3 03:03:32 Abnormali ty of systemic vein 573504718 Completed 200002/15/2013 Not Available [facility] 3 03:03:32 Allergic asthma without status asthmatic us 63969900 Completed 200102/15/2013 Not Available [facility] 3 03:03:32 Insomnia 923160860 Completed 01/31/2012 Harjinder Raymond MD [address] [place] [address], [address] , [facility] 7 11:37:01 Common cold 88587562 Completed 200408/17/2010 Not Available [facility] 3 03:03:32 Pain of joint of hand 231672093 Completed 01/31/2012 Not Available [facility] 3 03:03:32 Inflammat ory disorder of extremity 637693086 Completed 200008/17/2010 Not Available [facility] 3 03:03:32 On examinati on - a rash Completed 200708/17/2010 Not Available [facility] 3 03:03:32 Non-organ ic sleep disorder 716009021 Completed 200501/31/2012 Not Available [facility] 3 03:03:32 Injury of knee 666855783 Completed 200102/15/2013 Not Available [facility] 3 03:03:32 Hearing loss 80100870 Active 2007 Not Available [facility] 3 11:44:38 Thromboph lebitis of superfici al veins of upper extremiti es 65740637 Completed 200002/15/2013 Not Available [facility] 3 03:03:32 Migraine 76405011 Completed 200602/15/2013 Not Available [facility] 3 03:03:32 Tinnitus 39376429 Completed 01/31/2012 Not Available [facility] 3 03:03:32 Pain in limb 41157560 Completed 200008/17/2010 Not Available [facility] 3 03:03:32 Inguinal hernia 975065341 Active 2016 Not Available [facility] 3 11:44:38 Venous varices 181903609 Active 2016 Not Available [facility] 3 11:44:38 Insomnia 616271597 Active 2016 Not Available [facility] 3 11:44:38 M ni re's disease 92856662 Active 2016 Not Available [facility] 3 11:44:38 Bilateral arthritis of hip 27550587568 21749 Active 2019 Not Available [facility] 3 11:44:38 Right bundle branch block 31902108 Active 2022 Not Available [facility] 3 11:44:38 Pruritus ani 92325680 Active 2022 Not Available [facility] 3 11:44:38 Impaired fasting glycemia 052343902 Active 2023 very mild Sammi Lomax . [address] [place] [address], [address] , [facility] 4 19:13:09 Cervical myelopath y 047724866 Active 2023 Sammi Lomax . [address] [place] [address], [address] , [facility] 4 19:13:33 Problem Notes None recorded. Procedures Surgical History Date Name Laterality Status Provider Name and Address Organization Details Recorded Time 03/21/20 25 97688: Therapeutic Exercise completed Ernesto Cardona DPT [address] [place] [address], [address], [facility] 03/24/2025 08:07:48 03/21/20 25 Smoking Cessation Counselling completed Ernesto Cardona DPT [address] [place], [address], [facility] 03/21/2025 09:00:34 03/21/20 25 Physical Activity Counselling completed Ernesto Cardona DPT [address] [place], [address], [facility] 03/21/2025 09:00:34 03/21/20 25 55509: PT Eval Low Complexity completed Ernesto Cardona DPT [address] [place], [address], [facility] 03/21/2025 09:00:34 03/21/20 25 Treatment and Advice completed Ernesto Cardona DPT [address] [place], [address], [facility] 03/21/2025 09:45:19 01/11/20 25 Medicare Wellness Visit completed Brittanie Colón [facility] 01/10/2025 09:15:27 11/24/19 24 Medicare Wellness Visit completed BRIAN Brown [facility] 11/20/2023 17:00:24 11/24/19 24 Cardiovascular disease risk reduction counseling completed BRIAN Brown [facility] 11/20/2023 17:01:00 11/24/19 24 prevention-annual alcohol misuse screening completed BRIAN Brown [facility] 11/20/2023 17:00:59 10/10/20 23 excision of cervical intervertebral disc completed Sammi Lomax. [address] [place], [address], [facility] 11/23/2023 19:32:02 08/19/20 23 [address]5551: Therapeutic Exercise cancelled Marianna Jain OTR/L, CHT [address] [place], [address], [facility] 08/17/2023 18:02:48 08/19/20 23 35105: Manual Therapy cancelled Marianna Jain, OTR/L, CHT [address] [place], [address], [facility] 08/17/2023 18:02:44 08/12/20 23 27817: Therapeutic Exercise cancelled Marianna Jain, OTR/L, CHT [address] [place], [address], [facility] 08/10/2023 19:40:25 08/12/20 23 47275: Manual Therapy cancelled Marianna Jain, OTR/L, CHT [address] [place], [address], [facility] 08/10/2023 19:40:20 08/01/20 23 Physical Activity Counselling completed Marianna Jain, OTR/L, CHT [address] [place], [address], [facility] 08/01/2023 09:22:38 08/01/20 23 38134: OT Eval, Low Complexity completed Marianna Jain, OTR/L, CHT [address] [place], [address], [facility] 08/01/2023 09:22:35 11/21/19 23 Medicare Wellness Visit completed Christa Palma [facility] 11/20/2022 16:28:06 11/21/19 23 Depression Screening completed Samm[place], [address], [facility] 11/21/2022 09:51:03 11/21/19 23 prevention-annual alcohol misuse screening completed Sammi [place], [address], [facility] 11/21/2022 09:51:13 07/26/20 21 Tassoni - Colonoscopy completed Jadon Gifford MD [address] [place] [address], [address], [facility] 07/26/2021 10:17:09 07/26/20 21 colonoscopy completed Sammi Lomax. [address] [place] [address], [address], [facility] 07/30/2021 20:12:48 04/19/20 21 Medicare Wellness Visit completed Liliya Pitt [facility] 04/19/2021 11:59:20 04/19/20 21 prevention-cardiov ascular risk reduction counseling completed Liliya Pitt [facility] 04/19/2021 11:59:20 04/19/20 21 prevention-annual alcohol misuse screening completed Liliya Pitt [facility] 04/19/2021 11:59:20 04/19/20 21 Advanced Care Planning completed Sammi Lomax. [address] [place] [address], [address], [facility] 04/19/2021 12:19:26 04/12/20 20 Medicare Wellness Visit completed [facility] 04/12/2020 09:44:58 04/12/20 20 prevention-cardiov ascular risk reduction counseling completed [facility] 04/12/2020 09:44:58 04/12/20 20 prevention-annual alcohol misuse screening completed [facility] 04/12/2020 09:44:58 01/14/20 19 Medicare Wellness Visit completed Carmina De Leon LPN [facility] 01/13/2019 10:28:26 01/09/20 18 Medicare Wellness Visit completed Chrissy Rust LPN [facility] 01/08/2018 11:15:16 06/30/20 14 Aspiration Intermediate Joint/Bursa completed Sushil Simmons PA-C [address] [place] [address], [address], [facility] 06/30/2014 17:05:51 02/05/20 11 Treatment and Advice completed Nhi Collazo OT [address] [place] [address], [address], [facility] 02/04/2011 12:50:47 Imaging Results None recorded. [...] ular syringe TO BE ADMINIST ERED BY [facility] FOR IMMUNIZA TION 01/02 completed Not [...] Updated DateTime 5 180.34 cm 24.5 kg/m2 45432.2 6 g 98 % 98 % 90 /min 126 mm[Hg] 66 mm[Hg] Liliya Pitt [facility] 12:05:38 Date Recorded Body height Body mass index (BMI) Body weight Heart rate Oxygen saturation Oxygen saturation in Arterial blood by Pulse oximetry Systolic blood pressure Diastolic blood pressure Provider Name and Address Organization Details Last Updated DateTime 180.34 cm 24.4 kg/m2 15453.6 6 g 103 /min 98 % 98 % 128 mm[Hg] 78 mm[Hg] Brittanie Colnó [facility] 11:58:46 Date Recorded Body height Body mass index (BMI) Body weight Provider Name and Address Organization Details Last Updated DateTime 03/02/2025 180.34 cm 23.6 kg/m2 00794.11 g [facility] 03/02/2025 10:50:17 Social History Question Answer Notes LastModified by Organizat ion Details LastModified Time Tobacco Smoking Status Never Smoker [facility]10[facility]2024 11:48:26 Do You Wear A Helmet When Biking? Yes Information not available 11/10/2015 What Is Your Level Of Caffeine Consumption? Moderate 2 Cups Coffee Qd Information not available 02/16/2013 How Much Tobacco Do You Chew? None Information not available 02/16/2013 What Type Of Diet Are You Following? REGULAR Low Sugar And Carb [email or web address] Information not available 01/10/2025 Which Illicit Or Recreational Drugs Have You Used? None Information not available 04/19/2021 Education Post Graduate Masters Information not available 02/16/2013 What Is The Highest Grade Or Level Of School You Have Completed Or The Highest Degree You Have Received? [id number] [email or web address] Information not available 11/24/2023 Have There Been Any Changes To Your Family Or Social Situation? No Loss His Dog 3 Weeks Ago 11/24/23 NR [email or web address] Information not available 01/10/2025 How Many Days In The Past Year Have You Had A Heavy Drinking Consumption (4+ Female, 5+ Male)? 0 Information not available 11/10/2015 Are There Any Guns Present In Your Home? No Information not available 02/16/2013 Do You Use Insect Repellent Routinely? No [email or web address] Information not available 11/21/2022 Live Alone Or With Others? With Others [facility] Information not available 04/19/2021 CSRP Contract Signed And Discussed Yes [email or web address] Information not available 03/25/2017 Patient Has Health Care Proxy Signed And In Chart Yes 03/25/17 [email or web address] Information not available 04/20/2021 CCM Consent Discussion 03/26/2017 [email or web address] Information not available 09/25/2017 Marital Status vasile Informatio n not available 02/16/2013 Mosquito Repellent Used Routinely Yes Information not available 02/16/2013 What Was The Date Of Your Most Recent Tobacco Screening? 02/10/2025 [email or web address] Information not available 02/10/2025 How Many Children Do You Have? 1 Daughter In [place], [place] Information not available 11/24/2023 What Is Your Relationship Status? Female Spouse Information not available 11/21/2022 Do You Use Your Seat Belt Or Car Seat Routinely? Yes [email or web address] Information not available 11/21/2022 Seat Belts Used Routinely Yes Information not available 02/16/2013 Smoke Alarm In Home Yes Information not available 02/16/2013 Do You Have Smoke And Carbon Monoxide Detectors In Your Home? Yes [email or web address] Information not available 11/21/2022 Are You Passively Exposed To Smoke? No [email or web address] Information not available 11/21/2022 General Stress Level Medium Information not available 02/16/2013 Do You Use Sunscreen Routinely? Yes Information not available 02/16/2013 Sex: Male Functional Status Question Answer Note LastModified by Organizat ion Details LastModified Time Do you use any illicit or recreational drugs? Yes cannabis [facility]christus [facility] Information not available 11/21/2022 What is your level of alcohol consumption? Moderate 1-2 nightly. Information not available 11/24/2023 Do you or have you ever used smokeless tobacco? Never used smokeless tobacco [email or web address] Information not available 06/11/2022 Are you currently employed? Yes Information not available 11/21/2022 What is your occupation? Other [email or web address] Information not available 03/15/2025 Do you or have you ever used e-cigarettes or vape? Never used electronic cigarettes [email or web address] Information not available 06/11/2022 What is your exercise level? Moderate biking in good weather, home exercises, walking and light weight in winter [email or web address] Information not available 11/24/2023 Mental Status None [...] 05/2021 12:12:42 Sister Malignant tumor of breast [facility] Not available 05/2021 12:12:55 Medical History No medical history recorded. Immunizations Vaccine Type Date Status Note Provider Nam e and Address Organization Details Recorded Time Td(adult) unspecified formulation 6 completed Laurence Pinto RN null, [facility] 06/30/2023 12:15:10 influenza, unspecified formulation 7 completed Laurence Pinto RN null, [facility] 06/30/2023 12:15:10 Influenza, split virus, quadrivalent, PF 5 completed Not Available [facility] 10/30/2019 02:27:11 zoster live 6 completed Not Available [facility] 10/30/2019 02:33:41 pneumococcal polysaccharide PPV23 6 completed Not Available [facility] 10/30/2019 02:20:15 Pneumococcal conjugate PCV 13 7 completed Not Available [facility] 10/30/2019 02:38:50 Tdap 2 completed Laurence Pinto RN null, [facility] 06/30/2023 12:15:10 influenza, unspecified formulation 4 completed Laurence Pinto RN null, [facility] 06/30/2023 12:15:10 Influenza, high-dose, trivalent, PF 7 completed Not Available [facility] 10/30/2019 02:21:40 Influenza, high-dose, trivalent, PF 8 completed Not Available [facility] 10/30/2019 02:23:02 Influenza, high-dose, trivalent, PF 6 completed Laurence Pinto RN null, [facility] 06/30/2023 12:15:10 Td (adult), 2 Lf tetanus toxoid, preservative free, adsorbed 2 completed Sammi Monie. [address] [place] [address], [address], [facility] 06/11/2022 14:22:55 pneumococcal polysaccharide PPV23 2 completed Sammi Monie. [address] [place] [address], [address], [facility] 06/11/2022 14:22:55 COVID-19, mRNA, LNP-S, PF, 30 mcg/0.3 mL dose 1 completed Laurence Pinto RN null, [facility] 06/30/2023 12:15:10 COVID-19, mRNA, LNP-S, PF, 30 mcg/0.3 mL dose 1 completed Laurence Pinto RN null, [facility] 06/30/2023 12:15:10 Influenza, split virus, quadrivalent, preservative 0 completed Laurence Pinto RN null, [facility] 06/30/2023 12:15:10 COVID-19, mRNA, LNP-S, PF, 30 mcg/0.3 mL dose 1 completed Laurence Pinto RN null, [facility] 06/30/2023 12:15:10 Influenza, split virus, quadrivalent, preservative 1 completed Laurence Pinto RN null, [facility] 06/30/2023 12:15:10 COVID-19, mRNA, LNP-S, PF, 30 mcg/0.3 mL dose 2 completed Laurence Pinto RN null, [facility] 06/30/2023 12:15:10 Influenza, split virus, quadrivalent, PF 0 completed Laurence Pinto RN null, [facility] 06/30/2023 12:15:10 influenza, unspecified formulation 2 completed Laurence Pinto RN null, [facility] 06/30/2023 12:15:10 COVID-19, mRNA, LNP-S, bivalent, PF, 3 mcg/0.2 mL dose 2 completed Laurence Pinto RN null, [facility] 06/30/2023 12:15:10 RSV, recombinant, protein subunit RSVpreF, adjuvant reconstituted, 0.5 mL, PF 3 completed Laurence Pinto RN null, [facility] 06/30/2023 12:15:10 zoster recombinant 1 completed NilallaniALEXA Daron null, [facility] 07/22/2023 16:16:01 zoster recombinant 1 completed Nilmari RMA Neri null, [facility] 07/22/2023 16:16:11 Influenza, high-dose, quadrivalent, PF 3 completed Nilmari RMA Daron null, [facility] 07/22/2023 16:16:41 COVID-19, mRNA, LNP-S, PF, willis-sucrose, 10 mcg/0.3 mL 3 completed Nilmari RMDaiana rinaldi [facility] 07/22/2023 16:16:55 Past Encounters Encounter ID Performer Location Encounter Start Date Encounter Closed Date Diagnosis/Indication Diagnosis SNOMED-CT Code Diagnosis ICD10 Code Diagnosis Note [id number] [facility] , [facility] [address] [place], [place] [address] 02/03/2001 15:00:00 11/02/2008 02:02:29 [id number] Giovanni Orozco MD , [facility] [address] [place] [address] [place] [address] 1 02/03/2001 08:15:00 11/02/2008 02:02:29 [id number] Giovanni Orozco MD , [facility] [address] [place] [address] [place] [address] 1 02/19/2001 13:30:00 11/02/2008 02:02:29 [id number] Chen Lopez NP , [facility] [address] [place] [address] [place] [address] 1 03/12/2001 13:00:00 11/02/2008 02:02:29 [id number] [facility] , [facility] [address] [place], [place] [address] 03/20/2001 15:00:00 11/02/2008 02:02:29 [id number] Giovanni Orozco MD , [address] [place] [address] 1 03/20/2001 10:00:00 11/02/2008 02:02:29 [id number] Sue Vargas MD , [address] [place] [address] 1 04/10/2001 12:45:00 11/02/2008 02:02:29 [id number] Sue NOEL, [facility] [address] [place] [address] [place] [address] 1 10/12/2001 14:30:00 11/02/2008 02:02:29 [id number] MD SADIE John, [address] [place] [address] 1 10/26/2001 11:30:00 11/02/2008 02:02:29 [id number] AMY Patel, [address] [place] [address] 1 05/05/2002 09:03:50 11/02/2008 02:02:29 [id number] [facility] - [address] [place] [address] 05/05/2002 07:41:57 11/02/2008 02:02:29 [id number] [facility] , [address] [place] [id number] 05/31/2002 17:21:50 11/02/2008 02:02:29 [id number] Giovanni Orozco MD , [facility] [address] [place] [id number] 05/31/2002 16:40:58 11/02/2008 02:02:29 [id number] AMY Patel, [facility] [address] [place] [id number] 1 08/24/2002 11:25:12 11/02/2008 02:02:29 [id number] Giovanni Orozco MD , [facility] [address] [place] [id number] 1 06/29/2003 11:30:23 06/29/2003 17:45:12 [id number] [facility] - [address] [place] [id number] 06/30/2003 07:39:51 06/30/2003 12:56:35 [id number] ASP, CELENA BEGUM MD ASP, [address] [place] [id number] 01/18/2004 10:14:28 01/18/2004 17:48:28 [id number] MAY Patel, [facility] [address] [place] [id number] 1 05/15/2004 13:13:42 05/16/2004 08:39:31 [id number] [facility] - [address] [place] [id number] 05/18/2004 07:31:25 05/18/2004 08:59:02 [id number] Honey Luther NP , [facility] [address] [place] [address] 1 01/15/2005 09:34:53 01/17/2005 08:36:24 [id number] [facility] , [address] [place] [id number] 02/01/2005 11:10:01 02/01/2005 15:52:52 [id number] [facility] , [address] [address] 02/01/2005 00:00:00 11/02/2008 02:02:29 [id number] Sandrita Ron, PT Physical Therapy, [address] [address] 02/05/2005 08:12:44 02/05/2005 08:29:55 [id number] Sandrita Ron, PT Physical Therapy, [address] [address] 1 02/15/2005 08:24:31 02/18/2005 10:04:56 [id number] Fabrizio Dotson III, MD , [facility] [address] [place] [address] 02/01/2005 10:54:42 02/01/2005 16:29:03 [id number] Fabrizio Dotson III, MD , [facility] OFF[facility] [address] [place] [address] 1 02/21/2005 14:22:21 02/21/2005 16:04:19 [id number] [facility] , [address] [address] 1 02/21/2005 14:50:47 02/21/2005 15:41:55 [id number] [facility] , [address] [address] 02/21/2005 00:00:00 11/02/2008 02:02:29 [id number] Oly Gregg M.D . , [facility], OFFICE [address] [place] [address] 06/29/2005 13:33:03 06/30/2005 09:35:19 [id number] Giovanni Orozco MD , [facility] [address] [place] [id number] 12/27/2005 11:49:15 12/30/2005 08:51:54 [id number] Giovanni Orozco MD , [facility] OFFICE [address] [place] [id number] 1 01/13/2006 08:47:15 01/13/2006 14:43:40 [id number] [facility] , [address] [place] [address] 02/10/2006 09:05:08 02/10/2006 10:03:13 [id number] [facility] , [facility] [address] [place] [id number] 02/10/2006 00:00:00 11/02/2008 02:02:29 [id number] Kevon Jones, OD Eye [facility], [facility] [address] [place] [id number] 04/21/2006 09:52:50 04/21/2006 12:55:24 [id number] Giovanni Orozco MD , [facility] OFFICE [address] [place] [address] 1 07/09/2006 07:55:47 07/10/2006 07:11:21 [id number] Eugenie ECHEVARRIA , [facility] OFFICE [address] [place] [address] 1 03/05/2007 16:39:52 03/06/2007 08:14:04 [id number] [facility] , [facility] [address] [place] [id number] 03/05/2007 17:13:21 03/05/2007 17:23:05 [id number] [facility] , [facility] [address] [place] [id number] 03/05/2007 00:00:00 11/02/2008 02:02:29 [id number] Giovanni Orozco MD , [facility] OFF[facility] [address] [place] [address] 1 08/17/2007 10:02:01 08/18/2007 11:31:32 [id number] Giovanni Orozco MD , [facility] OFFICE [address] [place] [address] 1 04/08/2008 12:04:44 11/02/2008 02:02:29 [id number] Giovanni Orozco MD , [facility] OFFICE [address] [place] [address] 1 07/21/2008 10:26:14 11/02/2008 02:02:29 [id number] Kristie Dixon D.O. , [facility] OFFICE [address] [place] [address] 1 10/23/2009 14:46:20 10/23/2009 16:15:48 [id number] Fabrizio Dotson III, MD , [facility] OFFICE [address] [place] [address] 12/04/2009 13:29:35 12/05/2009 10:05:56 [id number] Олег Garcia MD , [facility] OFFICE [address] [place] [address] 1 05/29/2010 09:11:13 05/29/2010 14:06:34 [id number] Cristal Btut NP , [facility] OFFICE [address] [place] [address] [place] [address] 1 07/17/2010 10:03:30 07/17/2010 11:20:53 [id number] [facility] , [address] [place] [address] 07/17/2010 10:22:12 07/18/2010 11:06:53 [id number] Fabrizio Dotson III, MD , [facility] OFFICE [address] [place] [address] 1 08/17/2010 08:49:20 08/17/2010 09:26:46 [id number] [facility] , [address] [place] [id number] 09/21/2010 08:56:13 09/24/2010 11:02:45 [id number] Fabrizio Dotson III, MD , [facility] [address] [place] [address] [place] [address] 1 01/31/2011 09:03:08 02/01/2011 08:54:47 [id number] Nhi Collazo, OT Physical Therapy, [address] [place] [address] 1 02/04/2011 12:02:28 02/05/2011 11:15:33 [id number] Nhi Collazo, OT Physical Therapy, [address] [place] [id number] 1 02/07/2011 09:23:39 02/08/2011 10:04:06 [id number] Nhi Collazo, OT Physical Therapy, [address] [place] [address] 1 02/13/2011 09:23:27 02/14/2011 11:16:55 [id number] Fabrizio Dotson III, MD , [facility] OFFICE [address] [place] [address] [place] [id number] 1 11/25/2011 08:43:52 11/25/2011 09:18:15 [id number] Sandrita Ron PT Physical Therapy, [address] [place] [address] 1 01/07/2012 13:41:13 01/08/2012 16:15:11 [id number] Sandrita Ron PT Physical Therapy, [address] [place] [address] 1 01/20/2012 14:26:25 01/21/2012 14:31:15 [id number] Олег Garcia MD , [facility] OFFICE [address] [place] [address] 1 01/31/2012 14:59:37 01/31/2012 15:57:55 [id number] Sandrita Ron PT Physical Therapy, [address] [place] [address] 1 02/10/2012 15:00:15 02/11/2012 09:24:11 [id number] Sandrita Ron PT Physical Therapy, [address] [place] [address] 1 02/18/2012 14:32:02 02/19/2012 10:14:44 [id number] Sandrita Ron PT Physical Therapy, [address] [place] [address] 1 02/25/2012 14:28:13 02/26/2012 09:51:59 [id number] Sandrita Ron PT Physical Therapy, [address] [place] [address] 1 03/11/2012 14:25:26 03/12/2012 10:23:45 [id number] Sandrita Ron PT Physical Therapy, [address] [place] [address] 1 03/12/2012 12:41:13 03/12/2012 12:41:20 [id number] Fabrizio Dotson III, MD , [facility] OFFICE [address] [place] [address] 1 11/12/2012 14:31:15 11/12/2012 14:47:44 [id number] Fabrizio Dotson III, MD , [facility] OFFICE [address] [place] [address] 1 02/16/2013 09:23:45 02/16/2013 09:57:11 [id number] Fabrizio Dotson III, MD , [facility] [place] [address] [place] [address] 04/07/2013 14:22:56 04/07/2013 14:47:16 [id number] Kristie Dixon D.O. , [facility] [place] [address] [place] [address] 07/02/2013 16:42:01 07/02/2013 17:38:01 Low back pain [id number] left sided pain, acute onset with radiculopa thy. no known injury or precipitan t. some mild weakness of left leg. suspect herniated disc. discussed xray or mri, which he prefers to defer for now will have close f.u with PCP within 7 days. if any numbness or weakness, will call. if slowly improving, recommend PT in 1 week [id number] Fabrizio Dotson III, MD , [facility] [address] [place] [address] 07/06/2013 14:21:27 07/06/2013 14:51:25 Low back pain [id number] Acute sciatica 330600671 [id number] Sandrita Ron, PT Physical Therapy, [address] [address] 07/12/2013 14:58:33 07/13/2013 15:26:03 [id number] Sandrita Ron PT Physical Therapy, [address] [address] 1 07/13/2013 14:45:20 07/13/2013 14:45:32 [id number] Sandrita Ron PT Physical Therapy, [address] [address] 1 07/16/2013 08:17:59 07/20/2013 11:08:26 [id number] Sandrita Ron PT Physical Therapy, [address] [address] 1 07/23/2013 08:56:20 07/26/2013 07:39:55 [id number] Sandrita Ron PT Physical Therapy, [address] [place] [address] 1 08/06/2013 08:55:56 08/11/2013 08:46:05 [id number] Sandrita Ron PT Physical Therapy, [address] [place] [address] 1 08/13/2013 09:24:57 08/16/2013 08:52:10 Low back pain 624725318 [id number] Thai Irving MD , [facility] OFFICE [address] [place] [address] 1 06/30/2014 15:41:30 06/30/2014 17:00:50 Varicella vaccination 39017897 Olecranon bursitis 355943978 drained 10cc and injected. compressio n bandage aplied. rest/ice/n saids [id number] Fabrizio Dotson III, MD , [facility] OFFICE [address] [place] [address] 1 07/01/2014 13:36:10 07/01/2014 14:16:28 Olecranon bursitis 869649800 NSAIDS and a warm pack. Possible cellulitis . [id number] Fabrizio Dotson III, MD , [facility] OFFICE [address] [place] [address] 1 08/04/2014 10:30:44 08/04/2014 11:00:48 Mixed hyperlipidemia 755622644 Renzo lorenz is at goal Continue to work on diet and exercise as discussed Adult [facility] th examination [id number] see Risk Assessment and Lifestyle Change Counseling section above Counseling 124168855 Hearing loss 21679119 Olecranon bursitis 297445123 Gradually healing Primary insomnia 5657926 Anxiety disorder 573821485 Uses prn meds Hernia of abdominal cavity 83379031 [id number] Fabrizio Dotson III, MD , [facility] OFFICE [address] [place] [address] 1 08/11/2014 10:10:49 08/11/2014 10:32:15 Olecranon bursitis 786210136 Discomfort persisting . [id number] Thai Irving MD , [facility] OFFICE [address] [place] [address] 1 06/27/2015 08:59:18 06/28/2015 13:33:20 Generalized anxiety disorder 02808859 Primary insomnia 7642975 Influenza vaccine needed [id number] 106 Cervical radiculitis 88905099 Spinal sharon nosis in cervical region 05675777 [id number] Harjinder Raymond MD , [facility] OFFICE [address] [place] [address] 1 11/10/2015 13:39:27 11/10/2015 14:50:46 Screening for disorder 071755433 Z11.59 Varicella vaccination 68 295274 Z23 Mixed hyperlipidemia 267 369339 E78.2 Cholestero l is at goal Cholestero l is not at goal Continue to work on diet and exercise as discussed Adult heal th examination 642487234 Z00.00 see Risk Assessment and Lifestyle Change Counseling section above Counseling 139333920 Z71 .9 Generalize d anxiety disorder 47784167 F41.1 Hernia of abdominal cavity 88856412 K46.9 Lesion of eyelid 5696934 02 H02.89 Active or passive immunization 965156363 Z23 [id number] Harjinder Raymond MD , [facility] OFFICE [address] [place] [address] 1 01/02/2017 10:57:07 01/03/2017 13:21:00 Mixed hyperlipidemia 538133915 E78.2 Cholestero l is at goal Cholestero l is not at goal Continue to work on diet and exercise as discussed Adult heal th examination 860739495 Z00.00 see Risk Assessment and Lifestyle Change Counseling section above Counseling 108924647 Z71 .9 Insomnia 890581263 G47.0 0 Active or passive immunization 274902699 Z23 Venous varices 722148481 I83.90 [id number] Kristie Dixon D.O. , [facility] OFFICE [address] [place] [address] 1 03/25/2017 09:00:16 03/26/2017 09:41:26 Screening for malignant neoplasm of colon 519934145 Z12.11 done 04/24/2011 with 10 yr repeat Laceration of finger 274 081259 S61.211A L finger wound closed5 sutures removed easilyf/u prn [id number] Harjinder Raymond MD , [facility] OFFICE [address] [place] [address] 1 06/11/2017 11:29:52 06/11/2017 11:58:15 Venous varices 870348167 I83.90 Active or passive immunization 327930816 Z23 M ni re's disease 18137010 H81.03 [id number] Harjinder Raymond MD , [facility] OFFICE [address] [place] [address] 1 09/25/2017 09:43:27 09/25/2017 10:12:01 M ni re's disease 43933374 H81.03 Generalize d anxiety disorder 17350761 F41.1 Mixed hyperlipidemia 267 237677 E78.2 Cholestero l is at goal Cholestero l is not at goal Continue to work on diet and exercise as discussed Insomnia 896820048 G47.0 0 [id number] Harjinder Raymond MD , [facility] OFFICE [address] [place] [address] 1 01/08/2018 10:56:52 01/08/2018 11:59:03 Mixed hyperlipidemia 015392326 E78.2 Cholestero l is at goal Cholestero l is not at goal Continue to work on diet and exercise as discussed Adult heal th examination 919241379 Z00.00 see Risk Assessment and Lifestyle Change Counseling section above Counseling 943509846 Z71 .9 Depression screening 171 917345 Z13.89 depression screening tool administer ed, entered into emr, scored and discussed, time greater than 7.5 minutes Anxiety 18916225 F41.9 Insomnia 935078485 G47.0 0 [id number] Kristie Dixon D.O. , [facility] OFFICE [address] [place] [address] 1 04/06/2018 09:31:46 04/06/2018 10:52:18 Strain of tendon of medial thigh muscle 820453548 S76.811A Injury of hip region 125 477955 S79.911A [id number] Harjinder Raymond MD , [facility] OFFICE [address] [place] [address] 1 07/09/2018 09:05:49 07/09/2018 09:38:29 Insomnia 906057297 G47.00 Anxiety 24454351 F41.9 Active or passive immunization 997038207 Z23 [id number] Harjinder Raymond MD , [facility] OFFICE [address] [place] [address] 1 01/13/2019 10:13:48 01/13/2019 11:00:12 Adult health examination 406329190 Z00.00 see Risk Assessment and Lifestyle Change Counseling section above Counseling 565282138 Z71 .9 Depression screening 171 274853 Z13.89 depression screening tool administer ed, entered into emr, scored and discussed, time greater than 7.5 minutes Mixed hyperlipidemia 267 764185 E78.2 Cholestero l is at goal Cholestero l is not at goal Continue to work on diet and exercise as discussed Venous varices 705495858 I83.90 Anxiety 84027062 F41.9 Insomnia 804836791 G47.0 0 [id number] Harjinder Raymond MD , [facility] OFFICE [address] [place] [address] 1 04/12/2020 10:23:57 04/12/2020 10:47:45 Adult health examination 391874457 Z00.00 see Risk Assessment and Lifestyle Change Counseling section above Counseling 687261819 Z71 .9 including cardiovasc ular risk reduction counseling Depression screening 171 369089 Z13.89 depression screening tool administer ed, entered into emr, scored and discussed, time greater than 7.5 minutes Screening for alcohol abuse 755330947 Z13.39 Mixed hyperlipidemia 267 021112 E78.2 Cholestero l is at goal Cholestero l is not at goal Continue to work on diet and exercise as discussed Venous varices 250931133 I83.90 Insomnia 553053412 G47.0 0 Bilateral arthritis of hip 3176730858 691279 M13.999 [id number] Harjinder Raymond MD , [facility] OFFICE [address] [place] [address] 05/24/2020 14:48:22 05/25/2020 11:40:31 Low back pain 543805012 M54.5 Bilateral arthritis of hip 5411630666 134492 M13.137 [id number] Олег Garcia MD , [facility] OFFICE [address] [place] [address] 1 06/23/2020 13:37:45 06/28/2020 18:18:58 Headache 48749305 R51 band like temples parietal to occiputawo [...] and is normal ODNADGirma givenrto if needed [id number] Harjinder Raymond MD , [facility] OFFICE [address] [place] [address] 1 06/26/2020 14:35:48 06/28/2020 16:55:15 Groin mass 643141529 R19.00 [id number] Harjinder Raymond MD , [facility] OFFICE [address] [place] [address] 1 07/06/2020 10:46:06 07/07/2020 15:51:20 Epidermoid cyst 052776844 L72.0 [id number] Sammi Lomax . MD NOEL, [facility] OFFICE [address] [place] [address] 1 01/04/2021 14:24:38 01/05/2021 13:41:45 Pain of sacroiliac joint 819615148 M53.3 I am going to refer him to physical therapy and obtain x-ray of his SI joints. He may continue low-dose ibuprofen if needed in the evening. Call with any concerns. Insomnia 396770119 G47.0 0 He wishes to have a refill on his alprazolam . Warned of dependency , also chronic use may lead to cognitive impairment with aging. He is not using it on a regular basis. Will refill today and revisit the issue at next visit. [id number] Sammi Lomax . , [facility] OFFICE [address] [place] [address] 1 02/23/2021 11:27:32 02/23/2021 12:16:41 Pain of sacroiliac joint 433159581 M53.3 He will continue with physical therapy, stop ibuprofen and I will put him on Celebrex as well as a muscle relaxer for bedtime. Call with any concerns. [id number] Sammi Lomax . MD NOEL, [facility], OFFICE [address] [place] [address] 1 04/19/2021 11:17:44 04/19/2021 12:39:47 Adult health examination 498987511 Z00.00 USPSTF guidelines reviewed and discussed with patient.wi ll need tetanus booster in October.roberson s first Shingrix end of March.colon oscopy April 2011, refer back. Counseling 476768659 Z71 .9 including cardiovasc ular risk reduction counseling , on asa, declines statin with 10 Y CV event risk 13%, see below. Depression screening 171 354433 Z13.31 depression screening tool administer ed, entered into emr, scored and discussed, time greater than 7.5 minutes, negative screen. Screening for alcohol abuse 174326959 Z13.39 negative screen. Advance di rective discussed with patient 535836547 Z71.89 discussed, form given to complete. Mixed hyperlipidemia 267 162421 E78.2 LDL ideally should be below 100, is hesitant to take statin, 10 Y CV event geovanna is mildly elevated at 13%, work on diet further, less cheese, more vegetables . Bilateral arthritis of hip 0623679483 982138 M13.851 celebrex, PT and myofascial massage helped. Varicose v eins of lower extremity 93316381 I83.93 has had phlebitis on the left, has spider veins and bluish hue on the left foot with good pedal pulses. remains on asa. M ni re's disease 66060165 H81.01 no recent vertigo since cutting back on salt, has left hearing loss much worse than right. Insomnia 902589488 G47.0 0 uses lorazepam and alprazolam , not daily. Warned of dependency if used regularly. also chronic use may lead to cognitive impairment with aging. He is not using it on a regular basis. Generalize d anxiety disorder 79693977 F41.1 gets sx only if he cannot sleep. Screening for malignant neoplasm of colon 094127504 Z12.11 last colonoscop y on record April 2011. refer for repeat. [id number] Jadon Gifford MD [facility], [facility] [address] [facility] [address] 07/26/2021 08:52:26 07/26/2021 14:11:05 [id number] Sammi Lomax . , [facility] OFFICE [address] [place] [address] 1 06/11/2022 13:24:58 06/11/2022 16:31:57 Active or passive immunization 985452807 Z23 needs Td and Pneumovax today. Swelling of eyelid 39541 7004 R22.0 I do not find any stye or redundant tissue in lower eyelids, wonder about problems with his tear ducts, I advised him to see his ophthalmol ogist first, use warm compresses meanwhile, may need to discuss it with a plastic surgeon. Insomnia 728179739 G47.0 0 uses lorazepam and alprazolam , not daily. Warned of dependency if used regularly. He is not using it on a regular basis. will call when needs a refill. Generalize d anxiety disorder [id number] F41.1 gets sx only if he cannot sleep. Mixed hyperlipidemia [id number] E78.2 LDL ideally should be below 100, is hesitant to take statin, 10 Y CV event risk was mildly elevated at 13%, work on diet further, less cheese, more vegetables . recheck labs. Venous varices [id number] I83.90 left leg with large varicositi es since he had phlebitis several years ago, now takes half a baby aspirin daily, no phlebitis recurrence . Tachycardia [id number] R00. 0 ECH showed SR at 68 BPM, axis 66, RBBB, no old tracing available. will do a 24 H Holter and schedule for stress echo to rule out cardiac ischemia or arrhythmia as cause for his sx. [id number] Sammi Lomax . MD [facility], [facility] [place] [address] [place] [id number] 06/13/2022 11:27:04 06/13/2022 11:33:07 Tachycardia [id number] R00.0 ECH showed SR at 68 BPM, axis 66, RBBB, no old tracing available. will do a 24 H Holter and schedule for stress echo to rule out cardiac ischemia or arrhythmia as cause for his sx. [id number] Sammi Lomax . MD [facility], [facility] [place] [address] [place] [id number] 11/21/2022 08:45:31 11/21/2022 09:52:26 Adult health examination [id number] Z00.00 USPSTF guidelines reviewed and discussed with patient. Depression screening [id number] Z13.31 depression screening tool administer ed, negative screen Screening for alcohol abuse [id number] Z13.39 Alcohol use screening tool administer ed, negative screen Mixed hyperlipidemia 267 354696 E78.2 Cholestero l is at goal, [place] 20807 Y CV risk is over 10% but given lack of other CV risks he does not wish to take a statin.Con tinue to work on diet and exercise as discussed Venous varices [id number] I83.90 left leg with large varicositi es since he had phlebitis several years ago, now takes half a baby aspirin daily, ( on hold for eye surgery) no phlebitis recurrence . Pruritus ani 27422068 L2 9.0 uses topical cream prn. Right bund le branch block 77889060 I45.0 benign, no sx. Bilateral arthritis of hip [id number] 381634 M13.851 PT and myofascial massage helped. M ni re's disease 17548295 H81.01 no recent vertigo since cutting back on salt, has left hearing loss much worse than right. Insomnia 249606200 G47.0 0 uses lorazepam and alprazolam , not daily. aware of risk of dependency if used regularly. He is not using it on a regular basis. will call when needs a refill. Generalize d anxiety disorder 89239744 F41.1 gets sx only if he cannot sleep. Pain in left thumb 04410 16161 292202 M79.645 He may use a short course of over-the-c ounter NSAIDs and use a thumb spica splint to immobilize the thumb and help to decrease inflammati on. Joint hypertroph y will persist. Family his tory of Aortic aneurysm [id number] Z82.49 Father of ruptured aortic aneurysm in his 60s. The patient never smoked but he would be prudent to screen for aortic aneurysm. [id number] Kristie NOEL, [facility] [place] [address] [place], [place] [address] 06/10/2023 16:03:33 06/10/2023 16:57:07 Congestion of nasal sinus 35089115 R09.81 URI symptoms started 1.5 weeks ago [...] for continued symptomsRe turn precaution s discussed [id number] Sammi Lomax . MD NOEL, [facility] [place] [place]ICE [address] [place] [address] 07/24/2023 10:32:50 07/24/2023 12:17:14 Paresthesia of lower extremity 467847333 R20.2 it would be dermatome C7-C8, ? ulnar nerve neuropathy , but he also has paresthesi as of feet toes 4 and 5 right side, ? more central nerve entrapment . may need EMG or imaging, refer to neurology to decide. Paresthesi a of upper limb 07391630 R20.2 it would be dermatome L5-S1, as above. [id number] Sammi Lomax . MD NOEL, [facility] [place] OFFICE [address] [place] [address] 07/30/2023 08:25:43 07/30/2023 16:38:24 Paresthesia of upper limb 41233140 R20.2 See last week by Dr Lomax [...] of c-spine Paresthesi a of lower extremity 114627573 R20.2 see above Insomnia 270347643 G47.0 0 start gabapentin for pain and sleepdo not take zolpidem if taking gabapentin [id number] Marianna Jain , OTR/L, CHT Physical Therapy, [facility] [place] [address] [place] [id number] 08/01/2023 11:45:05 08/01/2023 14:17:16 Neuritis of left ulnar nerve [id number] G56.22 [id number] MD SADIE Garner, [facility] [place] [address]ICE [address] [place] [address] 08/13/2023 13:07:51 08/13/2023 15:19:40 Spinal stenosis in cervical region 45330654 M48.02 So far has not had lasting benefit from conservati ve therapy, but has just started PT and home traction. Did not benefit from po steroid. New c/o weakness concerning . Advised upcoming change management consultant appts to help delineate if other pathology present, ? direct to neurosurge ry consult. He may trial half dose alprazolam and requested muscle relaxant as he already has this on hand, and familiar with med side effects. He will start weaning gabapentin , since not effective. [id number] Sammi Lomax . , [facility] [place] [place]ICE [address] [place] [address] 09/22/2023 11:18:00 09/22/2023 17:14:47 COVID-19 310524198 U07.1 Tested positive Sat night.Symp toms started [...] dyspnea call office Generalize d anxiety disorder 20282141 F41.1 hold alprazolam while on paxlovid (takes PRN) Spinal sharon nosis in cervical region 50561239 M48.02 reports spinal surgery 10 days ago went well, consult note not on file will request [id number] Sammi Lomax . , [facility] [place] OFFICE [address] [place] [address] 11/24/2023 10:02:26 11/24/2023 11:01:03 Adult health examination 181175611 Z00.00 USPSTF guidelines reviewed and discussed with patient.co lonoscopy 07-26-21, redo 5 Y.Health care proxy in place.vacc inations UTD.CV counseling done. takes aspirin daily for V Veins. declines statin. Depression screening 171 305888 Z13.31 depression screening tool administer ed, negative Screening for alcohol abuse 613115628 Z13.39 Alcohol use screening tool administer ed, negative Screening for malignant neoplasm of prostate 909207517 Z12.5 PSA testing for ages 55-69 risks and benefits discussed will not test. Cervical myelopathy 2025 71566 G95.9 right forearm and fingers with pain, started lyrica, also numb 4 and 5th fingers. Impaired f asting glycemia 922045999 R73.01 very mild, BS 102-103 fasting. Right bund le branch block 80788422 I45.0 benign, no sx. M ni re's disease 77933368 H81.01 no recent vertigo since cutting back on salt, has left hearing loss much worse than right. Insomnia 580698520 G47.0 0 uses lorazepam and alprazolam , not daily. aware of risk of dependency if used regularly. He is not using it on a regular basis. will call when needs a refill. Generalize d anxiety disorder 82242306 F41.1 gets sx only if he cannot sleep. Mixed hyperlipidemia 267 419715 E78.2 Cholestero l is at goal, LDL below 65788 Y CV risk is over 10% but given lack of other CV risks he does not wish to take a statin.Armin burton to work on diet and exercise as discussed Left inguinal hernia 236 754672 K40.90 he feels it is larger, would like surgical consult. [id number] Sammi Lomax . , [facility] [place], OFFICE [address] [place] [address] 03/04/2024 10:37:03 03/04/2024 14:30:38 COVID-19 764772658 U07.1 A discussion regarding the use of [...] checked availabili ty through this website: https://ww w.ChatStat.gov /info-deta ils/inform ation-for- providers- about-ther apeutic-tr eatments-f or-covid-1 9#covid-19 -therapeut ic-cleat layer - This medication is authorized by the [...] zolpidem and alprazolam with paxlovid.n l GFR. [id number] NATALIIA EDGE MD , [facility] [place], OFFICE [address] [place] [address] 11/10/2024 10:27:53 11/10/2024 13:34:38 Effects of high altitude 21779192 T70.20XA Pt traveling to [facility], will be there for 6-7 days. Pt requesting diamox. No prior problems at high altitude. No contraindi cations for use. Normal renal function, liver function, electrolyt es-- med sent in as below, reviewed possible side effects-- adivsed to push fluids, avoid alcohol at mariia altitude [id number] NATALIIA EDGE MD , [facility] [place], OFFICE [address] [place] [address] 01/10/2025 11:55:06 01/10/2025 13:40:39 Adult health examination 750910154 Z00.00 Doing well. Up to date with screenings . Continue healthy lifestyle measures including a diet rich in fruits and vegetables as well as regular exercise. Depression screening 171 516180 Z13.31 depression screening tool administer ed Screening for alcohol abuse 049636423 Z13.39 Alcohol use screening tool administer ed Impaired f asting glycemia 476224981 R73.01 A1c at 5.6%, at goal. Will continue to monitor. M ni re's disease 73602462 H81.01 Left hearing loss much worse than right. Insomnia 854569609 G47.0 0 uses lorazepam and alprazolam , not daily. Mixed hyperlipidemia 267 617794 E78.2 Cholestero l is at goal, LDL below 14931 Y CV risk is over 10% but given lack of other CV risks he does not wish to take a statin.Con tinue to work on diet and exercise as discussed Pruritus ani 71876452 L2 9.0 Intermitte nt anal rash, improves with cream, will refill. Low back pain 732193951 M54.50 Some tightness/ tenderness to muscles of R lower back. Muscle tightness noted to that area on exam. Working on stretching . Discussed PT, he will call if he wants to pursue. [id number] Cristal De La Rosa MD , [facility] [place], OFFICE [address] [place] [address] 02/10/2025 11:42:13 02/10/2025 13:21:56 Chronic low back pain 108424390 M54.50 G89.29 in a gentleman with hx ulnar neuropathy /cubital tunnel syndrome, FHx IBD, and prior SI Xrays showing early spondylosi s. Will rx antiinflam matory (celecoxib helped in past), and update xrays, inflammato ry markers and check HLA-B27 [id number] NATALIIA EDGE MD , [facility] [place], OFFICE [address] [place] [address] 03/02/2025 10:49:45 03/08/2025 15:10:16 Chronic low back pain 451708080 M54.50 G89.29 Back pain with prolonged activity, improves with bending forward, consistent with stenosis. Blood work reassuring . Will try Tylenol ES and/or Aleve. Ok to stop celecoxib. Will have him work with physiatry and PT to help improve symptoms and to discuss further pain control. [id number] Yasmin Simon Physical Therapy, [facility] [address] [place] [id number] 03/21/2025 08:58:13 03/24/2025 11:22:08 Low back pain 321137297 M54.50 Health Concerns Section Related Observation LastModified by Organization Detai ls LastModified Time None Recorded Concern Status LastModified by Organization Details LastModified Time None Recorded Advance Directives Directive None Recorded Payers Insurance Date Sequence Insurance Name Policy Number Policy Vega Covered Member ID Vega Member ID Guarantor Name 04/04/2025 2 [facility] (MEDICARE SUPPLEMENT) Celena Batista [id number] Celena Batista 09/28/2024 2 [facility] (O) [id number] Celena Soler Lynne [id number] Celena Batista 03/16/2025 1 MEDICARE [place]: [facility] Celena Ceeler [id number] Celena Lynne 03/17/2017 1 [facility] (HMO) [id number] Angélica Bro [id number] Celena Batista 03/17/2017 1 [facility] (O) [id number] Angélica Bro [id number] Celena Batista 09/28/2024 2 [facility] (O) [id number] Celena Soler Lynne [id number] Celena Batisat 02/09/2025 [facility] Angélica Martin [id number] Celena Batista 03/17/2017 1 [facility] - NAVIG[facility] (POS) [id number] Angélica Bro [id number] Celena Batista Notes Date Note Type Note [...] upper extremity. 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 NATALIIA EDGE MD [address] [place] [address], [phone], [facility] 01/10/2025 12:42:09 02/10/2025 text/html Acute Low [...] well/stable. Cristal De La Rosa MD [address] [place], [address], [facility] 02/10/2025 12:46:21 03/02/2025 text/html Chronic low [...] a muscular imbalance. NATALIIA EDGE MD [address] [place], [phone], [facility] 03/03/2025 13:23:38 03/21/2025 text/html Pt referred [...] days of relief. Pt works full-time in [employer] and is sitting for about 6 hours. [...] Percent limitation in standing. Ernesto Cardona, DPT [address] [place] [address], [phone], [facility] 03/24/2025 08:09:04
== END 2025-04-12 09:58 | disposition home or self-care (01) ==
LOC: HO.MRI 09:57
PROVIDERS: Visit Provider Orthopaedic Surgery
DX: M79.631 Pain in right forearm (principal); M77.11 Lateral epicondylitis, right elbow; G56.21 Lesion of ulnar nerve, right upper limb
CPT/HCPCS: 73218

== ENCOUNTER → 2025-04-12 09:57 | Outpatient (BNV) | payer MEDICARE, OTHER, SELFPAY | PROVIDERS: Visit Provider Radiology Diagnostic Radiology | DX: R60.0 Localized edema (principal) | CPT/HCPCS: 73218 ==

== ENCOUNTER 2025-05-05 06:46 | Outpatient (REF) | payer MEDICARE, OTHER, SELFPAY ==
--- NOTE | ~2025-05-05 | FL_ITS ---
EXAMINATION: FL GUIDANCE ONLY HISTORY: M54.12 - Radiculopathy, cervical region COMPARISON: None available. TECHNIQUE: Fluoroscopy time: 0.2 minutes. Cumulative Dose: 1.58 mGy. DAP: 0.89298 mGym2 Images: 2. FINDINGS: Fluoroscopic spot films of the cervical spine demonstrate a needle and contrast material in place. FL/FL guidance in treatment room IMPRESSION: Fluoroscopy during procedure. Please see procedure report for additional information. Electronically signed by: Олег Batres MD 05/05/2025 03:49 PM EDT
--- OUTSIDE RECORDS SUMMARY | 2025-05-05 06:48 | XMS_ITS | Clinical Summary ---
Author Organization [facility] Address [address] [facility] [address] [place] [address] Phone Care Team Providers Care Marketing Sales Manager Name Role Phone Sammi Lomax MD Primary Care Provider Allergies Active Allergy Reactions Criticality Noted Date Comments Gabapentin Constipation 05/05/2024 Medications flaxseed oiL 1,000 mg Cap Take 1,000 mg by mouth daily. Active omega 1-lfs-yjb-fish oil 1,000 mg (120 mg-180 mg) Cap Take 1 capsule by mouth daily. Active cholecalciferol (VITAMIN D3) 4,000 unit tablet Take 1,000 Units by mouth daily. Active aspirin 81 mg chewable tablet Take 40 mg by mouth daily. Active ALPRAZolam (XANAX) 1 MG tablet 12/08/2023 Active zolpidem (AMBIEN) 10 mg tablet Take 10 mg by mouth nightly at bedtime as needed for sleep. Take 1/2 tablet by mouth as needed Active TURMERIC ORAL Take 1,000 mg by mouth daily. Active amitriptyline (ELAVIL) 10 MG tablet Take 10 mg by mouth nightly at bedtime. Active oxyCODONE-aceta minophen (PERCOCET) 5-325 mg per tablet take 1 tablet orally every 6 hours as needed for pain 10/11/2024 Active magnesium oxide 250 mg (150 mg elemental) Tab Take 500 mg by mouth daily. Active Active Problems Problem Noted Date Diagnosed Date S/P inguinal hernia repair using synthetic patch 05/10/2024 Resolved Problems Problem Noted Date Diagnosed Date Resolved Date Mass of soft tissue of face 08/12/2022 05/10/2024 Immunizations Immunization Administration Dates Next Due Influenza High-Dose Quadriva lent Preservative Free IM 08/21/2019 Influenza High-Dose Trivalen t Preservative Free IM 08/21/2019,07/09/2018,06/11/2017,08/10 Influenza Quadrivalent Adjuv anted Preservative Free IM 07/16/2021 Influenza Quadrivalent Prese rvative Free IM 07/14/2020,06/27/2015 Influenza, Unspecified Formulation 07/30/2014, Pneumococcal conjugate PCV13 01/02/2017 Pneumococcal polysaccharide PPSV23 06/11/2022, Td (adult),2 Lf Tetanus Toxo id, PF, Adsorbed 06/11/2022 Td, unspecified formulation 01/13/2006 Tdap 10/13/2011 Zoster live 11/10/2015 Zoster recombinant 06/17/2021,04/07/2021 Family History Medical History Relation Comments Aortic aneurysm Father Heart disease Father Hyperlipidemia Father Crohn's disease Mother Hypertension Mother Breast cancer Sister Diabetes mellitus Sister Hyperlipidemia Sister Relation Status Comments Father (Age 63) Mother (Age 81) Sister Social History Tobacco Use Types Packs/Day Years Used Date Smoking Tobacco: Never Smokeless Tobacco: Never Alcohol Use Standard Drinks/Week Comments Yes 5 (1 standard drink = 0.6 oz pur e alcohol) Education Answer Date Recorded Are you interested in more education? Not on corry e 02/07/2023 Are you concerned about learning? Not on file 02/07/2023 No 02/07/2023 No 02/07/2023 Digital Access Answer Date Recorded No 03/08/2023 No 03/08/2023 Reliable internet access at home? Not on file 03/08/2023 Device with a working camera? Not on file Sex and Gender Information Value Date Recorded Sex Assigned at Not on file Legal Sex Male 10:01 PM EDT Gender Identity Not on file Sexual Orientation Not on file Last Filed Vital Signs Vital Sign Reading Time Taken Comments Blood Pressure 124/70 10/28/2024 2:17 PM EST Pulse 74 10/28/2024 2:17 PM EST Temperature 36.4 C (97.6 F) 10/28/2024 2:17 PM EST Respiratory Rate 18 04/26/2024 11:10 AM EDT Oxygen Saturation 96% 10/28/2024 2:17 PM EST Inhaled Oxygen Concentration - - Weight 80.6 kg (177 lb 9.6 oz) 10/28/2024 2:17 P M EST Height 182.9 cm (6') 04/26/2024 7:35 AM EDT Body Mass Index 24.09 04/26/2024 7:35 AM EDT Plan of Treatment Health Maintenance Due Date Last Done Comments LIPID PANEL 1950 DEPRESSION SCREENING 1962 HEPATITIS C SCREENING 1968 COLOGUARD 12/21/1995 COLONOSCOPY 12/21/1995 COLORECTAL CANCER SCREENING 12/21/1995 FIT TEST 12/21/1995 FOBT 12/21/1995 SIGMOIDOSCOPY 12/21/1995 VIRTUAL COLONOSCOPY 12/21/1995 COVID-19 VACCINE ( season) 2024 07/17/2023, 07/18/2022, 07/18/2022, Additional history exists Adult Td,Tdap Booster 06/11/2032 06/11/2022 , 10/13/2011, 01/13/2006 ZOSTER VACCINES Completed 06/17/2021, 03/14, 11/10/2015 PNEUMOCOCCAL VACCINES (50+ years) Completed 06/11/2022, 01/02/2017, 11/10/2015 RSV VACCINE Completed 06/26/2023 SMOKING STATUS SCREENING (Once After 26 Yrs) Completed 10/28/2024 HEPATITIS A VACCINES Aged Out No long er eligible based on patient's age to complete this topic HIB VACCINES Aged Out No longer eligi ble based on patient's age to complete this topic MENINGOCOCCAL VACCINES (ACWY) Aged Out No longer eligible based on patient's age to complete this topic MENINGOCOCCAL VACCINES (B) Aged Out N o longer eligible based on patient's age to complete this topic Medical Devices Implanted Type Area Urology Physician Device Identifier Shelf Expiration Date Model / Serial / Lot [employer]od[employer] NOD[employer] Spine Cervical Mesh Graft 1.6x1.9in 4.1 4.8cm Lg Perfix Polypropylene Monofilament Plug Inguinal Hernia Soft Tissue Repair Cs/2ea - [id number] Implanted:Qty: 1 on 04/26/2024 by Luci Eduardo MD at [facility] STANDARD Left: Groin [employer] 08/09/2028 [id number] / / [id number] Mesh Graft 1.3x1.55in 3.3 3.9cm Med Perfix Polypropylene Monofilament Plug Inguinal Hernia Soft Tissue Repair /a - [id number] Implanted:Qty: 1 on 04/26/2024 by Luci Eduardo MD at [facility] STANDARD Left: Groin [employer] 03/09/2027 [id number] / / [id number] Insurance [employer]IC[employer] ENHANCE SUPPLEMENT [facility] MEDICARE ENHANCE SUPPLEMENT MEDICARE PART A & B [facility] MEDICARE ENHANCE SUPPLEMENT MEDICARE PART A & [place] [address] [place] [address] MEDICARE ENHANCE SUPPLEMENT MEDICARE PART A & B [facility] MEDICARE ENHANCE SUPPLEMENT [facility] MEDICARE ENHANCE SUPPLEMENT MEDICARE PART A & B [facility] MEDICARE ENHANCE SUPPLEMENT [employer] MEDIC[employer] ENHANCE SUPPLEMENT MEDICARE PART A & B [facility] MEDICARE ENHANCE SUPPLEMENT Advance Directives For more information, please contact: [phone] (9AM - 5PM [facility], Friday-Friday) * Full Code (Latest Code Status on File) Date Activated Date Inactivated Comments 04/26/2024 7:33 AM Question Answer Comments Code Status Confirmed With: Patient Care Teams Marketing Sales Manager Relationship Specialty Start Date End Date Sammi Lomax MD [address] [place] [address] [place] [address] [email or web address] PCP - General Internal Medicine 04/19/24 Additional Source Comments The information contained in this document represents components of the legal health record. It is not the complete legal health record.[facility]
--- OUTSIDE RECORDS SUMMARY | 2025-05-05 06:49 | XMS_ITS | Data Portability ---
Author Organization [facility], [facility] Address [address] [place] [address] Care Team Providers Care Chemical Dependency Professional Name Role Phone YEMI LUCERO Pharmacist Apprentice [facility] Sleep Medicine [phone] [facility] Pre Billing Specialist [phone] [facility] OTHER [facility] NEUROSURGERY Neurosurgeon [phone] TAMICA WHARTON General Surgeon ANDREI LIN Neurologist [facility] PAIN MANAGEMENT Pain Management [phone] [facility] Orthopedic Surgeon [phone] NATALIIA EDGE Primary Care Provider Assessment Encounter [...] meeting your goals. Please visit our website [employer] for more patient resources. As part of your care plan, we will help coordinate your ongoing medical needs, arrange for durable medical equipment, renew prescriptions and necessary prior authorizations, facilitate getting referrals and collaborating with specialist, referrals for VNA services. [email or web address] Not available 02/10/2025 10:24:50 03/02/2025 03/02/2025 Patient [...] meeting your goals. Please visit our website [employer] for more patient resources. As part of [...] Physical Therapy Treatments may include (as appropriate): 26448 Therapeutic exercise 97189 Neuromuscular Re-education, Taping. 90932 Gait Training 49172 Manual 59239 Therapeutic Activities, Patient education, HEP instruction. 15772 Self-care Management 86936 Attended Electrical Stimulation for strength, ROM, flexibility, endurance, power, functional mechanics. 93477: Ultrasound Rehab potential is . Next visit: [...] HEP. new [email or web address] Not available 03/24/2025 08:07:39 04/21/2025 04/21/2025 A: Pt demo improvement of pelvic and low back motor control. Improvement of low back AROM and PROM especially tolerance to supported rotation. Core and TA training went well, continue per POC. Rehab potential is . Next visit: review HEP. modify/progress/re janet as needed. RA Date: 06/21/25, Visit # 2/12 STG/LTG Time to Achieve Goal Progress per [...] in comprehensive HEP. new [email or web address] Not available 04/21/2025 10:06:01 Plan of Treatment Reminders Order Date Submit Date Provider Last Modified By Organization Details Last Modified Time Details Appointments Follow Up, 2024 04:00P M Ernesto Cardona DPT Not available Not available Not available LAB Follow-Up 2025 09:05A M [facility] Lab Not available Not available Not available Wellness Visit 2025 11:30A M NATALIIA EDGE MD Not available Not available Not available Lab hla-B27 genotype, blood 2024 025 [facility], [address] [place] [address], [address], 02/16/2025 22:38:05 ESR (erythroc yte sedimenta tion rate), blood 2024 025 [facility], [address] [place] [address], [address], 02/14/2025 15:18:49 C-reactiv e protein, quantitat sarahi, serum or plasma 2024 025 [facility], [address] [place] [address], [address], 02/14/2025 14:56:20 Referral physical medicine and rehabilit ation referral 2024 025 [facility], [address] [place], [address], 04/12/2025 19:46:40 physical therapist referral 2024 025 [email or web address] [facility], [address], [place], [address], 03/24/2025 09:43:10 Procedures None recorded. Surgeries None recorded. Imaging XR, sacroilia c joint(s) 2024 025 [facility] (Imaging), [address], [place], [address], 02/14/2025 13:35:28 XR, lumbar spine 2024 025 [facility] (Imaging), [address], [place], [place], [address], 02/14/2025 13:33:39 Medication Orders celecoxib 400 mg capsule 2024 025 [id number], [address] [place], [address], 02/10/2025 12:45:54 clotrimaz ole-betam ethasone 1 %-0.05 % topical cream 2024 025 [id number], [address] [place], [address], 01/10/2025 12:29:52 Patient TargetsNo targets recorded. Patient Instructions Encounter Date Encounter Id Patient Instructions Last Modified By Organization Details Last Modified Time 01/10/2025 [id number] preventing falls : care instructions Not available 01/10/2025 12:29:50 hearing loss information Not available 01/10/2025 12:29:50 advance directives: care instructions Not available 01/10/2025 12:29:50 well visit, over 65: care instructions Not available 01/10/2025 12:29:50 Reason for Referral Physical Medicine And Rehabi litation Referral for Chronic low back pain Referring Physician: Nataliia Edge [facility], Encounter Date: 03/02/2025 Physical Therapist Referral for Chronic low back pain Referring Physician: Nataliia Edge [facility], Encounter Date: 03/02/2025 Results Created Date Observation Date Name Description Value Unit Range Abnormal Flag Note LastModifiedBy Organization Detail LastModifiedTime 02/15/20 25 02/14/2025 C-BRENT CTIVE PROTE IN (RCRP ) C-reactive protein (rcrp) 1.1 mg/L 0.5-9. 0 Not Available [address], [address], 02/14/2025 14:56:20 02/15/20 25 02/14/2025 ESR sed rate 0.0 0.0-20 .0 Not Available [address], [address], 02/14/2025 15:18:49 02/15/20 25 02/16/2025 HLA-B 27 ANTIG EN hla-B27 antigen NEGATI VE negati ve Not Available [facility] [address], [address], 02/16/2025 22:38:05 02/15/20 25 02/14/2025 XR, lumba [...] . Marjorie estrada Physic paige: Javad miller [facility] (Imaging) [address], [place], [address], 02/23/2025 12:05:40 02/15/20 25 02/14/2025 XR, sacro iliac joint [...] seen. Marjorie estrada Physic paige: Javad miller [email or web address] [facility] (Imaging) [address], [place], [address], 02/23/2025 12:05:40 Result Notes Documentation Provider Name [...] at multiple levels. Reading Physician: LISSETH He[place], [place] - [facility] 02/23/2025 12:05:40 Xr, Sacroiliac Joint(s) : CLINICAL [...] No acute bony abnormality seen. Reading Physician: Javad Banks RN [facility] 02/23/2025 12:05:40 Problems Name Problem SNOMED Code Status Onset Date Resolution Date Notes Provider Name and Address Organization Details Recorded Time Varicose veins of lower extremity 32811713 Completed 02/15/2013 Not Available [facility] 3 03:03:32 Pain of shoulder region 12571000 Completed 01/31/2012 Not Available [facility] 3 03:03:32 Generaliz ed anxiety disorder 43329882 Active Not Available [facility] 3 11:44:38 Insomnia 320791752 Completed 01/31/2012 Harjinder Raymond MD [address] [place] [address], [phone] [place] [address] 7 11:37:01 Pain of joint of hand 906142772 Completed 01/31/2012 Not Available [facility] 3 03:03:32 Tinnitus 82667046 Completed 01/31/2012 Not Available [facility] 3 03:03:32 Inflammat ory disorder of extremity 215461807 Completed 200008/17/2010 Not Available [facility] 3 03:03:32 Pain in limb 05882474 Completed 200008/17/2010 Not Available [facility] 3 03:03:32 Thromboph lebitis of superfici al veins of upper extremiti es 36996094 Completed 200002/15/2013 Not Available [facility] 3 03:03:32 Phlebitis and thromboph lebitis Completed 200008/17/2010 Not Available [facility] 3 03:03:32 Abnormali ty of systemic vein 650733965 Completed 200002/15/2013 Not Available [facility] 3 03:03:32 Acute suppurati ve otitis media without spontaneo us rupture of ear drum 16936497 Completed 200008/17/2010 Not Available [facility] 3 03:03:32 Allergic rhinitis 98505371 Completed 200108/17/2010 Not Available [facility] 3 03:03:32 Otogenic otalgia 29034782 Completed 200108/17/2010 Not Available [facility] 3 03:03:32 Allergic asthma without status asthmatic us 00499057 Completed 200102/15/2013 Not Available [facility] 3 03:03:32 Hyperlipi demia 78678251 Completed 200108/17/2010 Not Available [facility] 3 03:03:32 Knee pain Completed 200108/17/2010 Not Available [facility] 3 03:03:32 Injury of knee 107731176 Completed 200102/15/2013 Not Available [facility] 3 03:03:32 Sciatica 40372113 Completed 200102/15/2013 Not Available [facility] 3 03:03:32 Precordia l pain 58256059 Completed 200202/15/2013 Not Available [facility] 3 03:03:32 Lateral epicondyl itis 276647639 Completed 200202/15/2013 Not Available [facility] 3 03:03:32 Epidermoi d cyst of skin 012300100 Completed 200201/31/2012 Not Available [facility] 3 03:03:32 Mixed hyperlipi demia 592355793 Active 2003 Not Available [facility] 3 11:44:38 Common cold 73965133 Completed 200408/17/2010 Not Available [facility] 3 03:03:32 Injury of shoulder region 652365384 Completed 200402/15/2013 Not Available [facility] 3 03:03:32 Sprain of shoulder and upper arm Completed 200402/15/2013 Not Available [facility] 3 03:03:32 Disorder of tendon of shoulder region 79162391 Completed 200408/17/2010 Not Available [facility] 3 03:03:32 Pain of shoulder region 57671398 Completed 200408/17/2010 Not Available [facility] 3 03:03:32 Neck pain 04100624 Completed 200401/31/2012 Not Available [facility] 3 03:03:32 Migraine with aura 8289874 Completed 200402/15/2013 Not Available [facility] 3 03:03:32 Acute bronchiti s 66112633 Completed 200502/15/2013 Not Available [facility] 3 03:03:32 Cough 75642836 Completed 200508/17/2010 Not Available [facility] 3 03:03:32 Presbyopi a 93649504 Completed 200501/31/2012 Not Available [facility] 3 03:03:32 Astigmati sm 17329508 Completed 200502/15/2013 Not Available [facility] 3 03:03:32 Headache 32597519 Completed 200508/17/2010 Not Available [facility] 3 03:03:32 Non-organ ic sleep disorder 516608675 Completed 200501/31/2012 Not Available [facility] 3 03:03:32 Migraine variants 322243548 Completed 200608/17/2010 Not Available [facility] 3 03:03:32 Migraine 97107134 Completed 200602/15/2013 Not Available [facility] 3 03:03:32 Migraine without aura 02201942 Completed 200708/17/2010 Not Available [facility] 3 03:03:32 Impacted cerumen 31063428 Completed 200708/17/2010 Not Available [facility] 3 03:03:32 Hearing loss 10499964 Active 2007 Not Available [facility] 3 11:44:38 On examinati on - a rash Completed 200708/17/2010 Not Available [facility] 3 03:03:32 Inguinal hernia 582312641 Active 2016 Not Available [facility] 3 11:44:38 Venous varices 251647883 Active 2016 Not Available [facility] 3 11:44:38 Insomnia 796217489 Active 2016 Not Available [facility] 3 11:44:38 M ni re's disease 93556401 Active 2016 Not Available [facility] 3 11:44:38 Bilateral arthritis of hip 15326663089 91809 Active 2019 Not Available [facility] 3 11:44:38 Right bundle branch block 56953444 Active 2022 Not Available [facility] 3 11:44:38 Pruritus ani 74260335 Active 2022 Not Available [facility] 3 11:44:38 Impaired fasting glycemia 344792735 Active 2023 very mild Sammi Monie . [address] [place] [address], [address] , [facility] 4 19:13:09 Cervical myelopath y 812135601 Active 2023 Sammi Lomax . [address] [place] [address], [phone] , [facility] 4 19:13:33 Problem Notes None recorded. Procedures Surgical History Date Name Laterality Status Provider Name and Address Organization Details Recorded Time 04/21/20 52833: Therapeutic Exercise completed Ernesto Cardona DPT [address] [place] [address], [address], [facility] 04/21/2025 08:30:24 04/21/20 25 17164: Neuromuscular Re-Education completed Ernesto Cardona DPT [address] [place], [address], [facility] 04/21/2025 10:06:22 04/21/20 25 Treatment and Advice completed Ernesto Cardona DPT [address] [place], [address], [facility] 04/21/2025 10:06:06 03/21/20 25 [address]8523: Therapeutic Exercise completed Ernesto Cardona DPT [address] [place], [address], [facility] 03/24/2025 08:07:48 03/21/20 25 Smoking Cessation Counselling completed Ernesto Cardona DPT [address] [place], [address], [facility] 03/21/2025 09:00:34 03/21/20 25 Physical Activity Counselling completed Ernesto Cardona DPT [address] [place], [address], [facility] 03/21/2025 09:00:34 03/21/20 25 29608: PT Eval Low Complexity completed Ernesto Cardona DPT [address] [place], [address], [facility] 03/21/2025 09:00:34 03/21/20 25 Treatment and Advice completed Ernesto Cardona DPT [address] [place], [address], [facility] 03/21/2025 09:45:19 01/11/20 25 Medicare Wellness Visit completed Brittanie Colón [facility] 01/10/2025 09:15:27 11/24/19 24 Medicare Wellness Visit completed BRIAN Brown [facility] 11/20/2023 17:00:24 11/24/19 24 Cardiovascular disease risk reduction counseling completed BRIAN Brown [facility] 11/20/2023 17:01:00 11/24/19 24 prevention-annual alcohol misuse screening completed BRIAN Brown [facility] 11/20/2023 17:00:59 10/10/20 23 excision of cervical intervertebral disc completed Sammi Frankel MD [address] [place], [address], [facility] 11/23/2023 19:32:02 08/19/20 23 75304: Therapeutic Exercise cancelled Marianna Jain, OTR/L, CHT [address] [place], [address], [facility] 08/17/2023 18:02:48 08/19/20 23 22511: Manual Therapy cancelled Marianna Jain, OTR/L, CHT [address] [place], [address], [facility] 08/17/2023 18:02:44 08/12/20 23 74732: Therapeutic Exercise cancelled Marianna Jain, OTR/L, CHT [address] [place], [address], [facility] 08/10/2023 19:40:25 08/12/20 23 40576: Manual Therapy cancelled Marianna Jain, OTR/L, CHT [address] [place], [address], [facility] 08/10/2023 19:40:20 08/01/20 23 Physical Activity Counselling completed Marianna Jain OTR/L, CHT [address] [place], [address], [facility] 08/01/2023 09:22:38 08/01/20 23 60451: OT Eval, Low Complexity completed Marianna Jain OTR/L, CHT [address] [place], [address], [facility] 08/01/2023 09:22:35 11/21/19 23 Medicare Wellness Visit completed Christa Palma [facility] 11/20/2022 16:28:06 11/21/19 23 Depression Screening completed Sammi Lomax. [address] [place] [address], [address], [facility] 11/21/2022 09:51:03 11/21/19 23 prevention-annual alcohol misuse screening completed Sammi Lomax. [address] [place] [address], [address], [facility] 11/21/2022 09:51:13 07/26/20 21 Tassoni - Colonoscopy completed Jadon Gifford MD [address] [place] [address], [address], [facility] 07/26/2021 10:17:09 07/26/20 21 colonoscopy completed Sammi Lomax. [address] [place] [address], [address], [facility] 07/30/2021 20:12:48 04/19/20 21 Medicare Wellness Visit completed Liliya Pitt [facility] 04/19/2021 11:59:20 04/19/20 21 prevention-cardiov ascular risk reduction counseling completed Liliya Pitt [facility] 04/19/2021 11:59:20 04/19/20 21 prevention-annual alcohol misuse screening completed Liliya Pitt [facility] 04/19/2021 11:59:20 04/19/20 21 Advanced Care Planning completed Sammi Lomax. [address] [place] [address], [address], [facility] 04/19/2021 12:19:26 04/12/20 20 [facility] 09:44:58 04/12/20 20 prevention-cardiov ascular risk reduction counseling completed [facility] 04/12/2020 09:44:58 04/12/20 20 prevention-annual alcohol misuse screening completed [facility] 04/12/2020 09:44:58 01/14/20 19 Medicare Wellness Visit completed Carmina De Leon LPN [facility] 01/13/2019 10:28:26 01/09/20 18 Medicare Wellness Visit completed Chrissy Rust LPN [facility] 01/08/2018 11:15:16 06/30/20 14 Aspiration Intermediate Joint/Bursa completed Sushil Simmons PA-C [address] [place] [address], [address], [facility] 06/30/2014 17:05:51 02/05/20 11 Treatment and Advice completed Nhi Collazo OT [address] [facility], [place], [address], [facility] 02/04/2011 12:50:47 Imaging Results None recorded. Procedure [...] mg tablet 11/23 completed NOT USING 09/22/23 Not Available Not Available Not Available [employer]- [...] blood by Pulse oximetry Heart rate Systolic And Diastolic Provider Name and Address Organization Details Last Updated DateTime 180.34 cm 24.5 kg/m2 37512.2 6 g 98 % 98 % 90 /min 126/66 mm[Hg] Liliya Pitt [facility] 12:05:38 Date Recorded Body height Body mass index (BMI) Body weight Heart rate Oxygen saturation Oxygen saturation in Arterial blood by Pulse oximetry Systolic And Diastolic Provider Name and Address Organization Details Last Updated DateTime 180.34 cm 24.4 kg/m2 42589.6 6 g 103 /min 98 % 98 % 128/78 mm[Hg] Brittanie Colón [facility] 11:58:46 Date Recorded Body height Body mass index (BMI) Body weight Provider Name and Address Organization Details Last Updated DateTime 03/02/2025 180.34 cm 23.6 kg/m2 21473.11 g Sonia Levy [facility] 03/02/2025 10:50:17 Social History Question Answer Notes LastModified by Organizat ion Details LastModified Time Tobacco Smoking Status Never Smoker [facility]/10[facility]24[facility]/10/2024 11:48:26 Do You Wear A Helmet When Biking? Yes Information not available 11/10/2015 What Is Your Level Of Caffeine Consumption? Moderate 2 Cups Coffee Qd Information not available 02/16/2013 How Much Tobacco Do You Chew? None Information not available 02/16/2013 What Type Of Diet Are You Following? REGULAR Low Sugar And Carb Information not available 01/10/2025 Which Illicit Or Recreational Drugs Have You Used? 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 [id number] Information not available 11/24/2023 Have There Been [...] Do You Use Insect Repellent Routinely? No [email or web address] Information not available 11/21/2022 Live Alone Or With Others? With Others [email or web address] Information not available 04/19/2021 CSRP Contract Signed And Discussed Yes [email or web address] Information not available 03/25/2017 Patient Has Health Care Proxy Signed And In Chart Yes 03/25/17 [email or web address] Information not available 04/20/2021 CCM Consent Discussion 03/26/2017 [email or web address] Information not available 09/25/2017 Marital Status Informatio n not available 02/16/2013 Mosquito Repellent Used Routinely Yes Information not available 02/16/2013 What Was The Date Of Your Most Recent Tobacco Screening? 02/10/2025 [email or web address] Information not available 02/10/2025 How Many Children Do You Have? 1 Daughter In [place], [place] [email or web address] Information not available 11/24/2023 What Is Your Relationship Status? Female Spouse [email or web address] Information not available 11/21/2022 Do You Use Your Seat Belt Or Car Seat Routinely? Yes [email or web address] Information not available 11/21/2022 Seat Belts Used Routinely Yes Information not available 02/16/2013 Smoke Alarm In Home Yes Information not available 02/16/2013 Do You Have Smoke And Carbon Monoxide Detectors In Your Home? Yes [email or web address] Information not available 11/21/2022 Are You Passively Exposed To Smoke? No [email or web address] Information not available 11/21/2022 General Stress Level Medium Information not available 02/16/2013 Do You Use Sunscreen Routinely? Yes Information not available 02/16/2013 Sex: Male Functional Status Question Answer Note LastModified by Organizat ion Details LastModified Time Do you use any illicit or recreational drugs? Yes [email or web address] Information not available 11/21/2022 What is your level of alcohol consumption? Moderate 1-2 nightly. Information not available 11/24/2023 Do you or have you ever used smokeless tobacco? Never used smokeless tobacco [email or web address] Information not available 06/11/2022 Are you currently employed? Yes Information not available 11/21/2022 What is your occupation? Other [email or web address] Information not available 03/15/2025 Do you or have you ever used e-cigarettes or vape? Never used electronic cigarettes [email or web address] Information not available 06/11/2022 What is your exercise level? Moderate biking in good weather, home exercises, walking and light weight in winter [email or web address] Information not available 11/24/2023 Mental Status None [...] formulation 6 completed Laurence Pinto RN null, [facility] 06/30/2023 12:15:10 influenza, unspecified formulation 7 completed Laurence Pinto RN null, [facility] 06/30/2023 12:15:10 Influenza, split virus, quadrivalent, PF 5 completed Not Available [facility] 10/30/2019 02:27:11 zoster live 6 completed Not Available [facility] 10/30/2019 02:33:41 pneumococcal polysaccharide PPV23 6 completed Not Available [facility] 10/30/2019 02:20:15 Pneumococcal conjugate PCV 13 7 completed Not Available [facility] 10/30/2019 02:38:50 Tdap 2 completed Laurence Pinto RN null, [facility] 06/30/2023 12:15:10 influenza, unspecified formulation 4 completed Laurence Pinto RN null, [facility] 06/30/2023 12:15:10 Influenza, high-dose, trivalent, PF 7 completed Not Available [facility] 10/30/2019 02:21:40 Influenza, high-dose, trivalent, PF 8 completed Not Available [facility] 10/30/2019 02:23:02 Influenza, high-dose, trivalent, PF 6 completed Laurence Pinto RN null, [facility] 06/30/2023 12:15:10 Td (adult), 2 Lf tetanus toxoid, preservative free, adsorbed 2 completed Sammi Shoushtari. [address] [place] [address], [address], [facility] 06/11/2022 14:22:55 pneumococcal polysaccharide PPV23 2 completed Sammi Shoushtari. [address] [place] [address], [address], [facility] 06/11/2022 14:22:55 COVID-19, mRNA, LNP-S, PF, 30 mcg/0.3 mL dose 1 completed Laurence Pinto RN null, [facility] 06/30/2023 12:15:10 COVID-19, mRNA, LNP-S, PF, 30 mcg/0.3 mL dose 1 completed Laurence Pinto RN null, [facility] 06/30/2023 12:15:10 Influenza, split virus, quadrivalent, preservative 0 completed Laurence Pinto RN null, [facility] 06/30/2023 12:15:10 COVID-19, mRNA, LNP-S, PF, 30 mcg/0.3 mL dose 1 completed Laurence Pinto RN null, [facility] 06/30/2023 12:15:10 Influenza, split virus, quadrivalent, preservative 1 completed Laurence Pinto RN null, [facility] 06/30/2023 12:15:10 COVID-19, mRNA, LNP-S, PF, 30 mcg/0.3 mL dose 2 completed Laurence Pinto RN null, [facility] 06/30/2023 12:15:10 Influenza, split virus, quadrivalent, PF 0 completed Laurence Pinto RN null, [facility] 06/30/2023 12:15:10 influenza, unspecified formulation 2 completed Laurence Pinto RN null, [facility] 06/30/2023 12:15:10 COVID-19, mRNA, LNP-S, bivalent, PF, 3 mcg/0.2 mL dose 2 completed Laurence Pinto RN null, [facility] 06/30/2023 12:15:10 RSV, recombinant, protein subunit RSVpreF, adjuvant reconstituted, 0.5 mL, PF 3 completed Laurence Pinto RN null, [facility] 06/30/2023 12:15:10 zoster recombinant 1 completed BRIAN Brown, [facility] 07/22/2023 16:16:01 zoster recombinant 1 completed BRIAN Brown null, [facility] 07/22/2023 16:16:11 Influenza, high-dose, quadrivalent, PF 3 completed BRIAN Brown, [facility] 07/22/2023 16:16:41 COVID-19, mRNA, LNP-S, PF, willis-sucrose, 10 mcg/0.3 mL 3 completed BRIAN Brown, [facility] 07/22/2023 16:16:55 Past Encounters Encounter ID Performer Location Encounter Start Date Encounter Closed Date Diagnosis/Indication Diagnosis SNOMED-CT Code Diagnosis ICD10 Code Diagnosis Note [id number] [facility]iology , [facility] [place] [facility] [address] [facility] [place] [id number] 02/03/2001 15:00:00 11/02/2008 02:02:29 [id number] Giovanni Orozco MD , [address] [place] [address] 02/03/2001 08:15:00 11/02/2008 02:02:29 [id number] Giovanni Orozco MD , [address] [place] [address] 1 02/19/2001 13:30:00 11/02/2008 02:02:29 [id number] Chen Lopez NP , [address] [place] [address] 1 03/12/2001 13:00:00 11/02/2008 02:02:29 [id number] [facility] [place] [facility] , [facility] [place] [address] [facility] [place] [address] 03/20/2001 15:00:00 11/02/2008 02:02:29 [id number] Giovanni Orozco MD , [address] [place] [address] 1 03/20/2001 10:00:00 11/02/2008 02:02:29 [id number] Sue Vargas MD , [facility] [place] OFFICE [address] [place] [address] [place] [address] 1 04/10/2001 12:45:00 11/02/2008 02:02:29 [id number] Sue Maki , [address] [place] [address] 1 10/12/2001 14:30:00 11/02/2008 02:02:29 [id number] Giovanni Orozco MD , [facility] [address] [place] [address] [place] [address] 1 10/26/2001 11:30:00 11/02/2008 02:02:29 [id number] AMY Patel, [facility] [place] OFFICE [address] [place] [address] 1 05/05/2002 09:03:50 11/02/2008 02:02:29 [id number] [facility] [place] [facility] - [facility] [place] [address] [place] [id number] 05/05/2002 07:41:57 11/02/2008 02:02:29 [id number] [facility] [place] [facility] Technologi Radiology , [facility] [place] [address] [place] [id number] 05/31/2002 17:21:50 11/02/2008 02:02:29 [id number] MD SADIE John, [facility] [place] OFF[facility] [address] [place] [id number] 05/31/2002 16:40:58 11/02/2008 02:02:29 [id number] AMY Patel, [facility] [place] OFFICE [address] [place] [address] [place] [id number] 08/24/2002 11:25:12 11/02/2008 02:02:29 [id number] MD SADIE John, [facility] [place] OFF[facility] [address] [place] [id number] 06/29/2003 11:30:23 06/29/2003 17:45:12 [id number] [facility] [place] [facility] - [address] [place] [address] 06/30/2003 07:39:51 06/30/2003 12:56:35 [id number] [facility], CELENA BEGUM MD ASP, [address] [place] [id number] 01/18/2004 10:14:28 01/18/2004 17:48:28 [id number] AMY Patel, [facility] [place] OFF[facility] [address] [place] [id number] 05/15/2004 13:13:42 05/16/2004 08:39:31 [id number] [facility] [place] [facility] - [address] [place] [id number] 1 05/18/2004 07:31:25 05/18/2004 08:59:02 [id number] Honey Luther NP , [facility] [place], OFFICE [address] [place] [id number] 01/15/2005 09:34:53 01/17/2005 08:36:24 [id number] [facility] [place] [facility] Technologi st Radiology , [address] [place] [address] 02/01/2005 11:10:01 02/01/2005 15:52:52 [id number] [facility] [place] [facility] Technologi Radiology , [address] [place] [address] 02/01/2005 00:00:00 11/02/2008 02:02:29 [id number] Sandrita Ron, PT Physical Therapy, [address] [place] [address] 02/05/2005 08:12:44 02/05/2005 08:29:55 [id number] Sandrita Ron, PT Physical Therapy, [address] [place] [address] 1 02/15/2005 08:24:31 02/18/2005 10:04:56 [id number] Fabrizio Dotson III, MD , [facility] [place] OFFICE [address] [place] [address] 02/01/2005 10:54:42 02/01/2005 16:29:03 [id number] Fabrizio Dotson III, MD , [facility] [place] OFFICE [address] [place] [address] 1 02/21/2005 14:22:21 02/21/2005 16:04:19 [id number] [facility] [place] [facility] Technologi Radiology , [address] [place] [address] 02/21/2005 14:50:47 02/21/2005 15:41:55 [id number] [facility] [place] [facility] Technologi st Radiology , [address] [place] [address] 02/21/2005 00:00:00 11/02/2008 02:02:29 [id number] Oly Gregg M.D . , [facility], OFFICE [address] [place] [address] 06/29/2005 13:33:03 06/30/2005 09:35:19 [id number] Giovanni Orozco MD , [facility] [place], OFFICE [address] [place] [address] 1 12/27/2005 11:49:15 12/30/2005 08:51:54 [id number] Giovanni Orozco MD FP, [facility] [place] OFFICE [address] [place] [id number] 01/13/2006 08:47:15 01/13/2006 14:43:40 [id number] [facility] [place] [facility] Technologi st Radiology , [address] [place] [id number] 02/10/2006 09:05:08 02/10/2006 10:03:13 [id number] [facility] [place] [facility] Technologi st Radiology , [address] [place] [id number] 02/10/2006 00:00:00 11/02/2008 02:02:29 [id number] Kevon Jones, OD [facility], [address] [place] [id number] 04/21/2006 09:52:50 04/21/2006 12:55:24 [id number] Giovanni Orozco MD , [facility] [place] OFFICE [address] [place] [id number] 07/09/2006 07:55:47 07/10/2006 07:11:21 [id number] Eugenie ECHEVARRIA , [facility] [place] OFFICE [address] [place] [id number] 03/05/2007 16:39:52 03/06/2007 08:14:04 [id number] [facility] [place] [facility] Technologi st Radiology , [address] [place] [address] 03/05/2007 17:13:21 03/05/2007 17:23:05 [id number] [facility] [place] [facility] Technologi st Radiology , [address] [place] [address] 03/05/2007 00:00:00 11/02/2008 02:02:29 [id number] Giovanni Orozco MD , [facility] [place] OFFICE [address] [place] [id number] 08/17/2007 10:02:01 08/18/2007 11:31:32 [id number] Giovanni Orozco MD , [facility] [place], OFFICE [address] [place] [address] [address] [place] [id number] 04/08/2008 12:04:44 11/02/2008 02:02:29 [id number] Giovanni Orozco MD , [facility] [place], OFFICE [address] [place] [id number] 07/21/2008 10:26:14 11/02/2008 02:02:29 [id number] Kristie Dixon D.O. , [facility] [place], OFFICE [address] [place] [address] 10/23/2009 14:46:20 10/23/2009 16:15:48 [id number] Fabrizio Dotson III, MD , [facility] [place] OFFICE [address] [place] [address] 1 12/04/2009 13:29:35 12/05/2009 10:05:56 [id number] Олег Garcia MD , [facility] [place], OFFICE [address] [place], [place] [id number] 05/29/2010 09:11:13 05/29/2010 14:06:34 [id number] Cristal Butt NP , [facility] [place], OFFICE [address] [place] [address] 1 07/17/2010 10:03:30 07/17/2010 11:20:53 [id number] [facility] [place] [facility] Technologi st Radiology , [address] [place] [address] 1 07/17/2010 10:22:12 07/18/2010 11:06:53 [id number] Fabrizio Dotson III, MD , [facility] [place] OFFICE [address] [place] [address] 1 08/17/2010 08:49:20 08/17/2010 09:26:46 [id number] [facility] [place] [facility] Technologi st Radiology , [address] [place] [address] 09/21/2010 08:56:13 09/24/2010 11:02:45 [id number] Fabrizio Dotson III, MD , [facility] [place], OFFICE [address] [place] [address] [place] [address] 1 01/31/2011 09:03:08 02/01/2011 08:54:47 [id number] Nhi Collazo, OT Physical Therapy, [address] [place] [address] 02/04/2011 12:02:28 02/05/2011 11:15:33 [id number] Nhi Collazo, OT Physical Therapy, [address] [place] [address] 1 02/07/2011 09:23:39 02/08/2011 10:04:06 [id number] Nhi Collazo, OT Physical Therapy, [address] [place] [address] 1 02/13/2011 09:23:27 02/14/2011 11:16:55 [id number] Fabrizio Dotson III, MD , [facility] [place] OFFICE [address] [place] [address] 1 11/25/2011 08:43:52 11/25/2011 09:18:15 [id number] Sandrita Ron PT Physical Therapy, [address] [place] [address] 1 01/07/2012 13:41:13 01/08/2012 16:15:11 [id number] Sandrita Ron PT Physical Therapy, [address] [place] [address] 1 01/20/2012 14:26:25 01/21/2012 14:31:15 [id number] Олег Garcia MD , [facility] [place] OFFICE [address] [place] [address] 1 01/31/2012 14:59:37 01/31/2012 15:57:55 [id number] Sandrita Ron PT Physical Therapy, [address] [place] [address] 1 02/10/2012 15:00:15 02/11/2012 09:24:11 [id number] Sandrita Ron, PT Physical Therapy, [address] [place] [address] 1 02/18/2012 14:32:02 02/19/2012 10:14:44 [id number] Sandrita Ron PT Physical Therapy, [address] [place] [address] 1 02/25/2012 14:28:13 02/26/2012 09:51:59 [id number] Sandrita Ron PT Physical Therapy, [address] [place] [address] 1 03/11/2012 14:25:26 03/12/2012 10:23:45 [id number] Sandrita Ron PT Physical Therapy, [address] [place] [address] 1 03/12/2012 12:41:13 03/12/2012 12:41:20 [id number] Fabrizio Dotson III, MD , [facility] [place] OFFICE [address] [place] [address] 1 11/12/2012 14:31:15 11/12/2012 14:47:44 [id number] Fabrizio Dotson III, MD , [facility] [place] OFFICE [address] [place] [address] 1 02/16/2013 09:23:45 02/16/2013 09:57:11 [id number] Fabrizio Dotson III, MD , [facility] [place] OFFICE [address] [place] [address] 1 04/07/2013 14:22:56 04/07/2013 14:47:16 [id number] Kristie Dixon D.O. , [facility] [place] OFFICE [address] [place] [address] 07/02/2013 16:42:01 07/02/2013 17:38:01 Low back pain [id number] left sided pain, acute onset with radiculopa thy. no known injury or precipitan t. some mild weakness of left leg. suspect herniated disc. discussed xray or mri, which he prefers to defer for now will have close f.u with PCP within 7 days. if any numbness or weakness, will call. if slowly improving, recommend PT in 1 week [id number] Fabrizio Dotson III, MD , [facility] [place] OFFICE [address] [place] [address] 07/06/2013 14:21:27 07/06/2013 14:51:25 Low back pain [id number] Acute sciatica 011468389 [id number] Sandrita Ron, PT Physical Therapy, [address] [place] [address] 07/12/2013 14:58:33 07/13/2013 15:26:03 [id number] Sandrita Ron PT Physical Therapy, [address] [place] [address] 1 07/13/2013 14:45:20 07/13/2013 14:45:32 [id number] Sandrita Ron PT Physical Therapy, [address] [place] [address] 1 07/16/2013 08:17:59 07/20/2013 11:08:26 [id number] Sandrita Ron PT Physical Therapy, [address] [place] [address] 1 07/23/2013 08:56:20 07/26/2013 07:39:55 [id number] Sandrita Ron PT Physical Therapy, [address] [place] [address] 1 08/06/2013 08:55:56 08/11/2013 08:46:05 [id number] Sandrita Ron, PT Physical Therapy, [address] [place] [address] 1 08/13/2013 09:24:57 08/16/2013 08:52:10 Low back pain 291562935 [id number] Thai Irving MD , [facility] [place] OFFICE [address] [place] [address] 1 06/30/2014 15:41:30 06/30/2014 17:00:50 Varicella vaccination 36662469 Olecranon bursitis 303524865 drained 10cc and injected. compressio n bandage aplied. rest/ice/n saids [id number] Fabrizio Dotson III, MD , [facility] [place] OFFICE [address] [place] [address] [place] [address] 1 07/01/2014 13:36:10 07/01/2014 14:16:28 Olecranon bursitis 835069585 NSAIDS and a warm pack. Possible cellulitis . [id number] Fabrizio Dotson III, MD , [facility] [place] OFFICE [address] [place] [address] 1 08/04/2014 10:30:44 08/04/2014 11:00:48 Mixed hyperlipidemia 198247888 Cholestero l is at goal Continue to work on diet and exercise as discussed Adult [facility] th examination 124924339 see Risk Assessment and Lifestyle Change Counseling section above Counseling [id number] Hearing loss 70915883 Olecranon bursitis 884656179 Gradually healing Primary insomnia 8194843 Anxiety disorder 233693413 Uses prn meds Hernia of abdominal cavity 48050266 [id number] Fabrizio Dotson III, MD , [facility] [place] OFFICE [address] [place] [address] 1 08/11/2014 10:10:49 08/11/2014 10:32:15 Olecranon bursitis 390478350 Discomfort persisting . [id number] Thai Irving MD , [facility] [place] OFFICE [address] [place] [address] 06/27/2015 08:59:18 06/28/2015 13:33:20 Generalized anxiety disorder 48815712 Primary insomnia 7198101 Influenza vaccine needed [id number] 106 Cervical radiculitis 02405703 Spinal sharon nosis in cervical region 45394827 [id number] Harjinder Raymond MD , [facility] [place] OFFICE [address] [place] [address] 11/10/2015 13:39:27 11/10/2015 14:50:46 Screening for disorder 881308394 Z11.59 Varicella vaccination 68 914707 Z23 Mixed hyperlipidemia 267 283766 E78.2 Cholestero l is at goal Cholestero l is not at goal Continue to work on diet and exercise as discussed Adult heal th examination 700472200 Z00.00 see Risk Assessment and Lifestyle Change Counseling section above Counseling 797317137 Z71 .9 Generalize d anxiety disorder 52755094 F41.1 Hernia of abdominal cavity 69538875 K46.9 Lesion of eyelid 6827224 02 H02.89 Active or passive immunization 347190511 Z23 [id number] Harjinder Raymond MD , [facility] [place] OFFICE [address] [place] [address] 01/02/2017 10:57:07 01/03/2017 13:21:00 Mixed hyperlipidemia 294741428 E78.2 Cholestero l is at goal Cholestero l is not at goal Continue to work on diet and exercise as discussed Adult heal th examination 394859806 Z00.00 see Risk Assessment and Lifestyle Change Counseling section above Counseling 525134938 Z71 .9 Insomnia 373368205 G47.0 0 Active or passive immunization 344218308 Z23 Venous varices 667828742 I83.90 [id number] Kristie Dixon D.O. , [facility] [place] OFFICE [address] [place] [address] 1 03/25/2017 09:00:16 03/26/2017 09:41:26 Screening for malignant neoplasm of colon 526958187 Z12.11 done 04/24/2011 with 10 yr repeat Laceration of finger 274 325189 S61.211A L finger wound closed5 sutures removed easilyf/u prn [id number] Harjinder Raymond MD , [facility] [place] OFFICE [address] [place] [address] 06/11/2017 11:29:52 06/11/2017 11:58:15 Venous varices 303651157 I83.90 Active or passive immunization 489224537 Z23 M ni re's disease 56417147 H81.03 [id number] Harjinder Raymond MD , [facility] [place] OFFICE [address] [place] [address] 1 09/25/2017 09:43:27 09/25/2017 10:12:01 M ni re's disease 25627843 H81.03 Generalize d anxiety disorder 27353068 F41.1 Mixed hyperlipidemia 267 236162 E78.2 Cholestero l is at goal Cholestero l is not at goal Continue to work on diet and exercise as discussed Insomnia 055715000 G47.0 0 [id number] Harjinder Raymond MD , [facility] [place] OFFICE [address] [place] [address] 01/08/2018 10:56:52 01/08/2018 11:59:03 Mixed hyperlipidemia 286315146 E78.2 Cholestero l is at goal Cholestero l is not at goal Continue to work on diet and exercise as discussed Adult heal th examination 672358396 Z00.00 see Risk Assessment and Lifestyle Change Counseling section above Counseling 649093893 Z71 .9 Depression screening 171 170187 Z13.89 depression screening tool administer ed, entered into emr, scored and discussed, time greater than 7.5 minutes Anxiety 80588867 F41.9 Insomnia 729423580 G47.0 0 [id number] Kristie Dixon D.O. , [facility] [place] OFFICE [address] [place] [address] 1 04/06/2018 09:31:46 04/06/2018 10:52:18 Strain of tendon of medial thigh muscle 010257991 S76.811A Injury of hip region 125 745092 S79.911A [id number] Harjinder Raymond MD , [facility] [place] OFFICE [address] [place] [address] 07/09/2018 09:05:49 07/09/2018 09:38:29 Insomnia 150916767 G47.00 Anxiety 51792132 F41.9 Active or passive immunization 182141119 Z23 [id number] Harjinder Raymond MD , [facility] [place] OFFICE [address] [place] [address] 1 01/13/2019 10:13:48 01/13/2019 11:00:12 Adult health examination 153838534 Z00.00 see Risk Assessment and Lifestyle Change Counseling section above Counseling 365851906 Z71 .9 Depression screening 171 783980 Z13.89 depression screening tool administer ed, entered into emr, scored and discussed, time greater than 7.5 minutes Mixed hyperlipidemia 267 858386 E78.2 Cholestero l is at goal Cholestero l is not at goal Continue to work on diet and exercise as discussed Venous varices 628775986 I83.90 Anxiety 10751968 F41.9 Insomnia 281110931 G47.0 0 [id number] Harjinder Raymond MD , [facility] [place] OFFICE [address] [place] [address] 1 04/12/2020 10:23:57 04/12/2020 10:47:45 Adult health examination 926969711 Z00.00 see Risk Assessment and Lifestyle Change Counseling section above Counseling 106809510 Z71 .9 including cardiovasc ular risk reduction counseling Depression screening 171 613679 Z13.89 depression screening tool administer ed, entered into emr, scored and discussed, time greater than 7.5 minutes Screening for alcohol abuse 511829290 Z13.39 Mixed hyperlipidemia 267 844049 E78.2 Cholestero l is at goal Cholestero l is not at goal Continue to work on diet and exercise as discussed Venous varices 483090156 I83.90 Insomnia 912067441 G47.0 0 Bilateral arthritis of hip 5156750549 099970 M13.168 [id number] Harjinder Raymond MD , [facility] [place] OFFICE [address] [place] [address] 1 05/24/2020 14:48:22 05/25/2020 11:40:31 Low back pain 973144420 M54.5 Bilateral arthritis of hip 2693651278 234141 M13.091 [id number] Олег Garcia MD , [facility] [place] OFFICE [address] [place] [address] 1 06/23/2020 13:37:45 06/28/2020 18:18:58 Headache 68653920 R51 band like temples parietal to occiputawo joi from bed with same, r/w naproxenis caffeine addicted - as a routine gets intense ROBERSON if misses his 3 AM cupsbut this ROBERSON persists despite caffineuse d to get migraines with visual aura, warded off my ibuprofen , last 2015this event was preceeded by visual auras (periphera l spots sat morning)no other symptomscy cling still will schedule toradol 60 IMseen on office , no TA tenderness , optic disc seen and is normal Girma DEE givenrto if needed [id number] Harjinder Raymond MD , [facility] [place] OFFICE [address] [place] [address] 1 06/26/2020 14:35:48 06/28/2020 16:55:15 Groin mass 650923146 R19.00 [id number] Harjinder Raymond MD , [facility] [place] OFFICE [address] [place] [address] 1 07/06/2020 10:46:06 07/07/2020 15:51:20 Epidermoid cyst 514012876 L72.0 [id number] Sammi Lomax . MD NOEL, [facility] [place] OFFICE [address] [place] [address] 01/04/2021 14:24:38 01/05/2021 13:41:45 Pain of sacroiliac joint 121077345 M53.3 I am going to refer him to physical therapy and obtain x-ray of his SI joints. He may continue low-dose ibuprofen if needed in the evening. Call with any concerns. Insomnia 905496759 G47.0 0 He wishes to have a refill on his alprazolam . Warned of dependency , also chronic use may lead to cognitive impairment with aging. He is not using it on a regular basis. Will refill today and revisit the issue at next visit. [id number] Sammi Lomax . MD NOEL, [facility] OFFICE [address] [place] [address] 02/23/2021 11:27:32 02/23/2021 12:16:41 Pain of sacroiliac joint 442267973 M53.3 He will continue with physical therapy, stop ibuprofen and I will put him on Celebrex as well as a muscle relaxer for bedtime. Call with any concerns. [id number] Sammi Lomax . MD NOEL, [facility] [place] [address]ICE [address] [place] [address] 04/19/2021 11:17:44 04/19/2021 12:39:47 Adult health examination [id number] Z00.00 USPSTF guidelines reviewed and discussed with patient.wi ll need tetanus booster in October.roberson s first Shingrix end of March.colon oscopy April 2011, refer back. Counseling [id number] Z71 .9 including cardiovasc ular risk reduction counseling , on asa, declines statin with 10 Y CV event risk 13%, see below. Depression screening [id number] Z13.31 depression screening tool administer ed, entered into emr, scored and discussed, time greater than 7.5 minutes, negative screen. Screening for alcohol abuse [id number] Z13.39 negative screen. Advance di rective discussed with patient [id number] Z71.89 discussed, form given to complete. Mixed hyperlipidemia [id number] E78.2 LDL ideally should be below 100, is hesitant to take statin, 10 Y CV event geovanna is mildly elevated at 13%, work on diet further, less cheese, more vegetables . Bilateral arthritis of hip [id number] 166931 M13.851 celebrex, PT and myofascial massage helped. Varicose v eins of lower extremity [id number] I83.93 has had phlebitis on the left, has spider veins and bluish hue on the left foot with good pedal pulses. remains on asa. M ni re's disease [id number] H81.01 no recent vertigo since cutting back on salt, has left hearing loss much worse than right. Insomnia [id number] G47.0 0 uses lorazepam and alprazolam , not daily. Warned of dependency if used regularly. also chronic use may lead to cognitive impairment with aging. He is not using it on a regular basis. Generalize d anxiety disorder [id number] F41.1 gets sx only if he cannot sleep. Screening for malignant neoplasm of colon [id number] Z12.11 last colonoscop y on record April 2011. refer for repeat. [id number] Jadon Gifford MD [facility], [facility] [place] [address] [facility] [place] [id number] 07/26/2021 08:52:26 07/26/2021 14:11:05 [id number] Sammi Lomax . , [facility] [place] OFFICE [address] [place] [address] 06/11/2022 13:24:58 06/11/2022 16:31:57 Active or passive immunization [id number] Z23 needs Td and Pneumovax today. Swelling of eyelid 01517 7004 R22.0 I do not find any stye or redundant tissue in lower eyelids, wonder about problems with his tear ducts, I advised him to see his ophthalmol ogist first, use warm compresses meanwhile, may need to discuss it with a plastic surgeon. Insomnia 906524400 G47.0 0 uses lorazepam and alprazolam , not daily. Warned of dependency if used regularly. He is not using it on a regular basis. will call when needs a refill. Generalize d anxiety disorder 95420100 F41.1 gets sx only if he cannot sleep. Mixed hyperlipidemia 267 284250 E78.2 LDL ideally should be below 100, is hesitant to take statin, 10 Y CV event risk was mildly elevated at 13%, work on diet further, less cheese, more vegetables . recheck labs. Venous varices 816415015 I83.90 left leg with large varicositi es since he had phlebitis several years ago, now takes half a baby aspirin daily, no phlebitis recurrence . Tachycardia 3475806 R00. 0 ECH showed SR at 68 BPM, axis 66, RBBB, no old tracing available. will do a 24 H Holter and schedule for stress echo to rule out cardiac ischemia or arrhythmia as cause for his sx. [id number] Sammi Lomax . MD NOEL, [facility] [place] OFFICE [address] [place] [address] 06/13/2022 11:27:04 06/13/2022 11:33:07 Tachycardia 9168198 R00.0 ECH showed SR at 68 BPM, axis 66, RBBB, no old tracing available. will do a 24 H Holter and schedule for stress echo to rule out cardiac ischemia or arrhythmia as cause for his sx. [id number] Sammi Lomax . MD NOEL, [facility] [place], OFFICE [address] [place] [address] 11/21/2022 08:45:31 11/21/2022 09:52:26 Adult health examination 204292679 Z00.00 USPSTF guidelines reviewed and discussed with patient. Depression screening 171 959950 Z13.31 depression screening tool administer ed, negative screen Screening for alcohol abuse 436874928 Z13.39 Alcohol use screening tool administer ed, negative screen Mixed hyperlipidemia 267 511844 E78.2 Cholestero l is at goal, LDL below 45161 Y CV risk is over 10% but given lack of other CV risks he does not wish to take a statin.Armin burton to work on diet and exercise as discussed Venous varices 277797485 I83.90 left leg with large varicositi es since he had phlebitis several years ago, now takes half a baby aspirin daily, ( on hold for eye surgery) no phlebitis recurrence . Pruritus ani 42072905 L2 9.0 uses topical cream prn. 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 Bilateral arthritis of hip [id number] 333739 M13.851 PT and myofascial massage helped. M ni re's disease 94443960 H81.01 no recent vertigo since cutting back on salt, has left hearing loss much worse than right. Insomnia 469777354 G47.0 0 uses lorazepam and alprazolam , not daily. aware of risk of dependency if used regularly. He is not using it on a regular basis. will call when needs a refill. Generalize d anxiety disorder 64642265 F41.1 gets sx only if he cannot sleep. Pain in left thumb 56494 91304 578324 M79.645 He may use a short course of over-the-c ounter NSAIDs and use a thumb spica splint to immobilize the thumb and help to decrease inflammati on. Joint hypertroph y will persist. Family his tory of Aortic aneurysm 460852037 Z82.49 Father of ruptured aortic aneurysm in his 60s. The patient never smoked but he would be prudent to screen for aortic aneurysm. [id number] Kristie NOEL, [facility] [place], OFFICE [address] [place] [address] 06/10/2023 16:03:33 06/10/2023 16:57:07 Congestion of nasal sinus 63126003 R09.81 URI symptoms started 1.5 weeks ago [...] for continued symptomsRe turn precaution s discussed [id number] Sammi Lomax . MD NOEL, [facility] [place], OFFICE [address] [place] [address] 07/24/2023 10:32:50 07/24/2023 12:17:14 Paresthesia of lower extremity 764778011 R20.2 it would be dermatome C7-C8, ? ulnar nerve neuropathy , but he also has paresthesi as of feet toes 4 and 5 right side, ? more central nerve entrapment . may need EMG or imaging, refer to neurology to decide. Paresthesi a of upper limb 85305393 R20.2 it would be dermatome L5-S1, as above. [id number] Sammi Lomax . MD NOEL, [facility] [place], OFFICE [address] [place] [address] 07/30/2023 08:25:43 07/30/2023 16:38:24 Paresthesia of upper limb 74332718 R20.2 See last week by Dr Lomax [...] of c-spine Paresthesi a of lower extremity 785548415 R20.2 see above Insomnia 594870520 G47.0 0 start gabapentin for pain and sleepdo not take zolpidem if taking gabapentin [id number] Marianna Jain , OTR/L, CHT Physical Therapy, [facility] [place] [address] [place] [id number] 08/01/2023 11:45:05 08/01/2023 14:17:16 Neuritis of left ulnar nerve 2142315394 9798378 G56.22 [id number] Cristal De La Rosa MD , [facility] [place], [address]ICE [address] [place] [address] 08/13/2023 13:07:51 08/13/2023 15:19:40 Spinal stenosis in cervical region 38178158 M48.02 So far has not had lasting benefit from conservati ve therapy, but has just started PT and home traction. Did not benefit from po steroid. New c/o weakness concerning . Advised upcoming analytical consultant appts to help delineate if other pathology present, ? direct to neurosurge ry consult. He may trial half dose alprazolam and requested muscle relaxant as he already has this on hand, and familiar with med side effects. He will start weaning gabapentin , since not effective. [id number] Sammi Lomax . MD NOEL, [facility] [place], OFFICE [address] [place] [address] 09/22/2023 11:18:00 09/22/2023 17:14:47 COVID-19 308443978 U07.1 Tested positive Sat night.Symp toms started [...] dyspnea call office Generalize d anxiety disorder 36678343 F41.1 hold alprazolam while on paxlovid (takes PRN) Spinal sharon nosis in cervical region 64273116 M48.02 reports spinal surgery 10 days ago went well, consult note not on file will request [id number] Sammi Lomax . , [facility] [place], OFFICE [address] [place] [address] 11/24/2023 10:02:26 11/24/2023 11:01:03 Adult health examination 029337513 Z00.00 USPSTF guidelines reviewed and discussed with patient.co lonoscopy 07-26-21, redo 5 Y.Health care proxy in place.vacc inations UTD.CV counseling done. takes aspirin daily for V Veins. declines statin. Depression screening 171 837465 Z13.31 depression screening tool administer ed, negative Screening for alcohol abuse 718523926 Z13.39 Alcohol use screening tool administer ed, negative Screening for malignant neoplasm of prostate 378080411 Z12.5 PSA testing for ages 55-69 risks and benefits discussed will not test. Cervical myelopathy 2025 15515 G95.9 right forearm and fingers with pain, started lyrica, also numb 4 and 5th fingers. Impaired f asting glycemia 651755752 R73.01 very mild, BS 102-103 fasting. Right bund le branch block 41719845 I45.0 benign, no sx. M ni re's disease 15843913 H81.01 no recent vertigo since cutting back on salt, has left hearing loss much worse than right. Insomnia 186227525 G47.0 0 uses lorazepam and alprazolam , not daily. aware of risk of dependency if used regularly. He is not using it on a regular basis. will call when needs a refill. Generalize d anxiety disorder 85207444 F41.1 gets sx only if he cannot sleep. Mixed hyperlipidemia 267 177679 E78.2 Cholestero l is at goal, LDL below 77498 Y CV risk is over 10% but given lack of other CV risks he does not wish to take a statin.Con amandaue to work on diet and exercise as discussed Left inguinal hernia 236 907206 K40.90 he feels it is larger, would like surgical consult. [id number] Sammi Lomax . , [facility] [place], OFFICE [address] [place] [address] 03/04/2024 10:37:03 03/04/2024 14:30:38 COVID-19 182562455 U07.1 A discussion regarding the use of [...] checked availabili ty through this website: https://ww w.[employer].gov /info-deta ils/inform ation-for- providers- about-ther apeutic-tr eatments-f or-covid-1 9#covid-19 -therapeut ic-auto hauler - This medication is authorized by the [...] zolpidem and alprazolam with paxlovid.n l GFR. [id number] NATALIIA EDGE MD , [facility] [place], OFFICE [address] [place] [address] 11/10/2024 10:27:53 11/10/2024 13:34:38 Effects of high altitude 40993331 T70.20XA Pt traveling to [facility], will be there for 6-7 days. Pt requesting diamox. No prior problems at high altitude. No contraindi cations for use. Normal renal function, liver function, electrolyt es-- med sent in as below, reviewed possible side effects-- adivsed to push fluids, avoid alcohol at mariia altitude [id number] NATALIIA EDGE MD , [facility] [place], OFFICE [address] [place] [address] 01/10/2025 11:55:06 01/10/2025 13:40:39 Adult health examination 996996754 Z00.00 Doing well. Up to date with screenings . Continue healthy lifestyle measures including a diet rich in fruits and vegetables as well as regular exercise. Depression screening 171 947442 Z13.31 depression screening tool administer ed Screening for alcohol abuse 620878121 Z13.39 Alcohol use screening tool administer ed Impaired f asting glycemia 217947858 R73.01 A1c at 5.6%, at goal. Will continue to monitor. M ni re's disease 20463499 H81.01 Left hearing loss much worse than right. Insomnia 864663268 G47.0 0 uses lorazepam and alprazolam , not daily. Mixed hyperlipidemia 267 885253 E78.2 Cholestero l is at goal, LDL below 99468 Y CV risk is over 10% but given lack of other CV risks he does not wish to take a statin.Con tinue to work on diet and exercise as discussed Pruritus ani 17773418 L2 9.0 Intermitte nt anal rash, improves with cream, will refill. Low back pain 377343761 M54.50 Some tightness/ tenderness to muscles of R lower back. Muscle tightness noted to that area on exam. Working on stretching . Discussed PT, he will call if he wants to pursue. [id number] Cristal De La Rosa MD , [facility] [place], OFFICE [address] [place] [address] 02/10/2025 11:42:13 02/10/2025 13:21:56 Chronic low back pain 325764306 M54.50 G89.29 in a gentleman with hx ulnar neuropathy /cubital tunnel syndrome, FHx IBD, and prior SI Xrays showing early spondylosi s. Will rx antiinflam matory (celecoxib helped in past), and update xrays, inflammato ry markers and check HLA-B27 [id number] NATALIIA EDGE MD , [facility] [place], OFFICE [address] [place] [address] 03/02/2025 10:49:45 03/08/2025 15:10:16 Chronic low back pain 613630129 M54.50 G89.29 Back pain with prolonged activity, improves with bending forward, consistent with stenosis. Blood work reassuring . Will try Tylenol ES and/or Aleve. Ok to stop celecoxib. Will have him work with physiatry and PT to help improve symptoms and to discuss further pain control. [id number] Yasmin Simon Physical Therapy, [facility] [place] [address] [facility] [place] [address] 03/21/2025 08:58:13 03/24/2025 11:22:08 Low back pain 118522337 M54.50 [id number] Yasmin Simon Physical Therapy, [facility] [place] [address] [place] [address] 04/21/2025 09:08:50 04/21/2025 10:12:46 Low back pain 203337039 M54.50 Health Concerns Section Related Observation LastModified by Organization Detai ls LastModified Time None Recorded Concern Status LastModified by Organization Details LastModified Time None Recorded Advance Directives Directive None Recorded Payers Insurance Date Sequence Insurance Name Policy Number Policy Vega Covered Member ID Vega Member ID Guarantor Name 05/01/2025 2 [facility] (MEDICARE SUPPLEMENT) Celena Batista [id number] Celena Batista 09/28/2024 2 [facility] [employer] [facility] (O) [id number] Celena Batista [id number] Celena Batista 04/19/2025 1 MEDICARE [place]: [facility] [employer] Celena Batista [id number] Celena Batista 03/17/2017 1 [facility] (HMO) [id number] Angélica Bro [id number] Celena Batista 03/17/2017 1 [facility] (PPO) [id number] Angélica Bro [id number] Celena Batista 09/28/2024 2 [facility] (O) [id number] Celena Batista [id number] Celena Batista 04/21/2025 [facility] Angélica Martin [id number] Celena Batista 03/17/2017 1 [facility] (POS) [id number] Angélica Bro [id number] Celena Batista Notes Date Note Type Note Provider Name and Address Organization Details Recorded Time 5 text/html Risk Assessment and Lifestyle Change Counseling (Medicare)Reported by PatientRisk AssessmentFor breast cancer risk assessment, patient reportsfamily history of breast cancer one first degree relativebut reportsno history of breast cancer or dcis. For safety risk assessment, patient reportsno grab bars in bathroombut reportshas rails on steps,no falls, andno evidence of abuse/neglect. For functional status, patient reportspatient has trouble hearing the television or radio when others do not.andpatient has to strain or struggle to hear/understand conversations.but reportspatient does not need help with preparing meals, transportation, shopping, taking medicine, managing finances, or other activities of daily living.,patient does not have visual loss that interferes with daily activities,does not live alone,patient was not unsteady and did not take longer than 30 seconds during the timed get up and go test., andpatient reports no falls in the past 6 months.(left ear significant hearing loss, r ear age related hearing loss). For coronary artery disease risk assessment, patient reportsno family history of coronary artery disease,no personal history of diabetes,no history of peripheral vascular disease, aaa, or carotid disease, andno personal history of coronary artery disease. For colon cancer risk assessment, patient reportsno family history of pre cancerous colon polyps or cancer(history of colon polyp). For lung cancer risk assessment, patient reportsnever smoked. For fracture risk assessment, patient reportsno unexplained fractureandbalance is normal. For cognitive/behavioral risk assessment, patient reportsno personal history of mental illnessandno family history of mental illness(no cognitive impairment).Diet CounselingFordiet:, patient reportscounseled about appropriate portion sizeandcounseled about eating a diet low in trans and saturated fats and high in fiber, fruits and vegetables.Physical Activity CounselingFor exercise counseling, patient reportsdiscussed the importance of daily physical activityanddiscussed the importance of weight bearing exercise. Social DeterminantsReported by PatientROS as noted in the HPI Patient with history of neuropathy, osteoarthritis of [...] upper extremity. 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 NATALIIA EDGE MD [address] [place] [address], [phone], [facility] 01/10/2025 12:42:09 5 text/html Acute Low Back Pain - SciaticaReported by PatientHPIFor patient presents for evaluation of acute low back pain., patient reportsno recent trauma,not experiencing fever/chills,no saddle anesthesia,no weakness in legs,no history of cancer,no change in bowel or bladder function,no history of osteoporosis, andpresent for 6 days (taking ibuprofen 600mg tid)(known severe c spine degenerative [id number] xray si joints + ankylosis, ? early sacroiliitis).ROS as noted in the HPI 74yo non-smoker with hx OA hips, spine, [...] been well/stable. Cristal De La Rosa MD [address] [place] [address], [phone], [facility] 02/10/2025 12:46:21 5 text/html Chronic low back pain, right side: [...] saw a muscular imbalance. NATALIIA EDGE MD [address] [place] [address], [phone], [facility] 03/03/2025 13:23:38 5 text/html Pt referred to PT secondary to insidious onset of low back pain beginning about 5 months ago. First noticed while snorkel swimming with flippers in November 2024. Pt reports that 7/10 variable aching low back pain that has [...] days of relief. Pt works full-time in [employer] and is sitting for about 6 hours. [...] Percent limitation in standing. Ernesto Cardona, DPT [address] [place] [address], [phone], [facility] 03/24/2025 08:09:04 5 text/html Pt 0/10 R sided low back. Pt reports he is able to walk about a few thousand steps. Pt has 4/10 pain with standing at the end of the day and walking > ~3000'.XR 02/14/25 LS: FINDINGS: Grade 1 anterolisthesis at [...] Percent limitation in standing. Ernesto Cardona, DPT [address] [place] [address], [phone], [facility] 04/21/2025 10:06:33
== END 2025-05-05 06:47 | disposition home or self-care (01) ==
LOC: CF 06:46
PROVIDERS: Visit Provider Internal Medicine
DX: M54.12 Radiculopathy, cervical region (principal)
CPT/HCPCS: 62321; J2003; J3301; Q9967

== ENCOUNTER 2025-05-05 13:21 | Outpatient (AMB) | payer MEDICARE, OTHER, SELFPAY ==
--- NOTE | 2025-05-05 13:33 | MHC.OFFVIS ---
Vital Signs 05/05/25 13:34 05/05/25 14:16 Height 6 ft 6 ft Weight 170 lb 170 lb BMI 23.1 23.1 BP 138/74 138/77 Blood Pressure Location Lt brachial Lt brachial Position Sitting Sitting Respiration 16 16 Pulse 63 58 Pulse Source Pulse Oximeter Pulse Oximeter Pulse Oximetry (%) 98 99 Oxygen Delivery Method Room Air Room Air Intake Visit Reasons: Right C7-T1 SHILA Neurodiagnostic Tech Required: No Allergies No Known Allergies Allergy (Verified 05/05/25 13:34) Medication List - Last Reconciled 05/05/25 by Shadia Lam, COMPUTER SUPPORT TECHNICIAN alprazolam 1 mg PO DAILY PRN arm brace (FELICIA Elbow Brace) As directed [Baby Aspirin 81 mg] HPI HPI Right C7-T1 SHILA: Details: Patient presents for scheduled procedure. Denies any recent cough, cold, infection, fever or other significant changes in medical history since last office visit. 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 The patient was placed in the prone position. The cervicothoracic area was widely prepped with chloraprep and draped in sterile fashion. Fluoroscopic guidance was used to identify the desired interlaminar space and for needle placement. Subcutaneous 0.5% lidocaine was used to anesthetize the skin overlying the target. A 20-gauge Stevens needle was advanced to the epidural space using loss of resistance to contrast technique under fluoroscopic AP and contralateral oblique views. There was no evidence of heme or CSF and no paresthesias were elicited with needle placement. Confirmation of epidural needle placement was performed with 1cc of omnipaque 180. Next 3 ml 0.5% lidocaine mixed with 80 mg triamcinilone was administered epidurally with no pain elicited on injection. The needle tract tubing was then cleared with 1 ml of 0.5% lidocaine. The needle was removed, skin cleansed and a sterile bandage was applied. The patient tolerated the procedure well and no complications were encountered. Following the procedure the patient's vital signs were stable. The patient was discharged home in good condition with post-procedural instructions. Time Out: Immediately prior to the procedure, the following was verbally confirmed that there is a signed consent form and that the correct patient, planned procedure, site and side are consistent with documentation and that necessary equipment and/or blood products are available prior to the start of the case. Complications: none EBL: <2 cc Coding 41803 - Cervical Epidural/Interlaminar with fluoroscopy Procedure code (CPT) selection complete Assessment & Plan Assessment & Plan (1) Cervical radiculopathy: Comment: Affecting C7-C8, seen on NCS Code(s): M54.12 - Radiculopathy, cervical region Category: Medical Plan Patient is status post right parasagittal C7/T1 interlaminar SHILA. Patient tolerated procedure well and was discharged home in stable condition with discharge instructions. All questions were answered. We will follow-up via telephone or in clinic to assess response to therapy. A follow-up appointment was made during today's visit. Orders: Orders FL guidance in treatment room 05/05/25 M54.12 - Radiculopathy, cervical region Coding Level of Care Code Procedure Only Diagnoses Cervical radiculopathy M54.12 CPT Codes Coding - Joint 10: 03940 - Cervical Epidural/Interlaminar with fluoroscopy ([id number])
[2025-05-05 13:34] VITALS: BP 138/74; PULSE 63; RESP 16; O2SAT 98; BMI 23.1
[2025-05-05 14:16] VITALS: BP 138/77; PULSE 58; RESP 16; O2SAT 99; BMI 23.1
== END 2025-05-05 14:24 | disposition home or self-care (01) ==
LOC: HO.PMCPRC 13:21
PROVIDERS: PCP Family Medicine; Visit Provider Internal Medicine
DX: M54.12 Radiculopathy, cervical region (principal)
CPT/HCPCS: 62321

== ENCOUNTER 2025-05-17 09:41 | Outpatient (AMB) | payer MEDICARE, OTHER, SELFPAY ==
[2025-05-17 09:49] VITALS: BMI 23.1
--- NOTE | 2025-05-17 09:49 | A.OFFVIS_ITS ---
Vital Signs 05/17/25 09:49 Height 6 ft Weight 170 lb BMI 23.1 Intake Visit Reasons: OV - right forearm/elbow MRI review Intake Note: Sha 74 yr old male presents today for a follow up visit for his Right elbow lateral epicondylitis MRI review to visualize his forearm to look for any possible inflammation or impingement At his last visit he was also referred to Dr. Du in pain Management for assessment after his MRI is completed. States he was seen with Dr. Du and received a neck injection 05/05/25 with no relief as of now. Right forearm MRI IMPRESSION: Nonspecific patchy areas of muscle edema without a convincing single pattern of nerve compression related muscle edema. The highest level of muscle edema, which is still mild, does involve flexor carpi ulnaris and flexor digitorum profundus muscles which are innervated by ulnar nerve. However, there is a similar level of muscle edema within extensor carpi ulnaris muscle which is innervated by posterior interosseous nerve (or C7+C8). There is subtle muscle edema within other muscles in the flexor compartment better innervated by median nerve. Allergies No Known Allergies Allergy (Verified 05/17/25 09:53) HPI HPI OV - right forearm/elbow MRI review: Details: Sha 74 yr old [id number]-xyiqvrmt man who returns today to follow up following his right forearm MRI. Again he complains of pain in the dorsal lateral aspect of his right forearm that is worse with activities. He also complains of a snapping sensation in the medial aspect of his right elbow that occurs only when he is doing pushups passing between full flexion and beginning of extension. He is status post a right cubital tunnel release with pr on 10/11/2024. He had dense numbness prior to that surgery and still has dense numbness in the ulnar nerve distribution, as well as persistent loss of the 1st dorsal interosseous. He is also status post a C5-C6 diskectomy and fusion in August of 2023 by an outside provider. He says that that is surgery helped some with his symptoms of pain radiating from the neck to his upper arm, but not the numbness, and not the pain he was having in the dorsal lateral aspect of his forearm. Interestingly, he also gives a history of having had a lidocaine injection with Dr. Hidalgo in what appears to be the area of the radial tunnel in the dorsal proximal forearm. He said that this gave no improvement to his symptoms. At his last visit he was also referred to Dr. Du in pain Management for assessment after his MRI is completed. States he was seen with Dr. Du and received a neck injection 05/05/25 with no relief as of now.? 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 Neuro: Dense numbness in the ulnar nerve distribution & ulnar side of the hand. Normal sensation to the median nerve distribution Some intrinsic wasting & significant wasting of 1st dorsal interosseous Pos Froment's sign Good APB muscle belly firing and good finger cross He can ABduct & ADduct his fingers, with only weak adduction of the small finger. Vascular: Cap refill brisk ROM: He can make a fist and extend all his digits No locking or catching Patient reports pain in the dorsal ulnar aspect of his forearm, extending up to the lateral epicondyle. This primarily occurs with activities and is not particularly symptomatic today in clinic. No pain with resisted wrist or finger extension. He demonstrates a discomfort mostly when his arm is extended in his wrist is brought into flexion. New finding: The patient told me he was having a snapping sensation in the medial aspect of his elbow. Indeed, when he actively achieves full flexion at the elbow I appreciate subluxation of what I believe can only be the ulnar nerve from posterior, onto the medial epicondyle. This then subluxates back behind the medial epicondyle with extension. This does not appear to cause any kind of pain in the local area or referred pain down the forearm. He says it is a little uncomfortable at the elbow but not really painful. Says he notices this mostly only when he is doing pushups or working out with weights. MRI right forearm 04/12/2025: FINDINGS: SOFT TISSUES: There is low level edema within flexor carpi ulnaris muscle and mild patchy edema within the flexor digitorum profundus muscle. There is subtle edema like signal in the superficial aspect of the flexor digitorum superficialis, palmaris longus, flexor carpi radialis, and possibly pronator teres muscles which are innervated by median nerve There is mild edema within extensor carpi ulnaris muscle which is innervated by posterior interosseous nerve (C7+C8), branch of the radial nerve.. There is no fatty streaking or atrophy. NEUROVASCULAR: There is low intermediate signal in the subcutaneous soft tissues near the cubital tunnel at the elbow. Ulnar nerve signal on fluid sensitive sequences is mildly increased through the cubital tunnel, but hypointense relative to venous signal otherwise, negative signal is unremarkable. Neurovascular structures are otherwise unremarkable, MR/MR forearm RT wo con IMPRESSION: Nonspecific patchy areas of muscle edema without a convincing single pattern of nerve compression related muscle edema. The highest level of muscle edema, which is still mild, does involve flexor carpi ulnaris and flexor digitorum profundus muscles which are innervated by ulnar nerve. However, there is a similar level of muscle edema within extensor carpi ulnaris muscle which is innervated by posterior interosseous nerve (or C7+C8). There is subtle muscle edema within other muscles in the flexor compartment better innervated by median nerve. Electronically signed by: Nash Caceres MD 04/12/2025 11:12 AM EDT RP Nerve Conduction Study: Right-side only IMPRESSION: 1. This is an abnormal study. 2. There is electrodiagnostic evidence for ulnar neuropathy, proximal to take off of FCU. 3. Chronic reinnervation changes are seen on muscles innervated by C7/C8 nerve roots, suggesting chronic radiculopathy. 4. There is no electrodiagnostic evidence for median neuropathy or brachial plexopathy. CLINICAL COMMENT: Comparison with previous EMG would be helpful. Shima Rodarte MD, KAYLIE 02/20/24 Assessment & Plan Assessment & Plan (1) Right lateral epicondylitis: Code(s): M77.11 - Lateral epicondylitis, right elbow Category: Medical (2) Right forearm pain: Code(s): M79.631 - Pain in right forearm Category: Medical Plan Assessment and plan: 1. Right ulnar nerve subluxation at the elbow Occurs only at tight/full active flexion, as when doing pushups or weights Somewhat bothersome locally but not painful. No pain radiating down the forearm Patient status post cubital tunnel release, but this not appreciated with gentle flexion at the time of surgery. I educated him about this problem and we discussed operative and non operative treatment options At this point I think it comes down to how much this is bothering him. If this bothers him then certainly we can proceed with an ulnar nerve transposition. He understands that the recovery would be similar to that of the cubital tunnel release He is going to think about this and let me know how much it is bothering him. 2. Right lateral epicondylitis versus radial tunnel symptoms This has been present for a long time. I again explained that this is unrelated to the ulnar nerve issues including the recent revelation of ulnar nerve subluxation, and the longstanding problem with numbness and muscle wasting in the ulnar nerve distribution. The MRI did not appear to show any kind of mass or inflammation or impingement near the radial nerve in the radial tunnel area. In addition, it sounds like Dr. Hidalgo did a lidocaine injection to the radial tunnel area that provided no relief of his symptoms. I am recommending activity modification. He was seen by Dr. Du in pain management for his assessment, and it sounds like he gave him a C-spine level injection which did not alleviate his symptoms. 3. Right cubital tunnel syndrome, S/P release DOS: 10/11/24 With some intrinsic wasting & significant wasting of 1st interosseous Pre-operatively with dense numbness in the ulnar nerve distribution Post-operatively with dense numbness, unchanged following surgery 4. Possible chronic right-side radiculopathy Affecting C7-C8, seen on NCS from 02/20/24 5. History of right C-spine fusion Of C5-C6, DOS: 09/10/23 at an outside clinic Please note that greater than 45 minutes was spent with this patient going over the history, evaluating the patient and radiographs, MRI, formulating possible treatment options, discussing them with the patient, and documenting the visit. Coding Level of Care Code Est Pt Level 5 (84673) Diagnoses Right lateral epicondylitis M77.11 Right forearm pain M79.631
--- OUTSIDE RECORDS SUMMARY | 2025-05-17 10:07 | XMS_ITS | Clinical Summary ---
Author Organization [facility] Address [address] [facility] [address] [place] [id number] Phone Care Team Providers Care Transition Rn Name Role Phone Sammi Lomax MD Primary Care Provider Allergies Active Allergy Reactions Criticality Noted Date Comments Gabapentin Constipation 05/05/2024 Medications flaxseed oiL 1,000 mg Cap Take 1,000 mg by mouth daily. Active omega 6-yfn-mjw-fish oil 1,000 mg (120 mg-180 mg) Cap [...] this topic Medical Devices Implanted Type Area Folder Machine Device Identifier Shelf Expiration Date Model / Serial / Lot Nodata NODATA Spine Cervical Mesh Graft 1.6x1.9in 4.1 4.8cm Lg Perfix Polypropylene Monofilament Plug Inguinal Hernia Soft Tissue Repair Cs/2ea - [id number] Implanted:Qty: 1 on 04/26/2024 by Luci Eduardo MD at [facility] STANDARD Left: Groin [employer] 08/09/2028 [id number] / / [id number] Mesh Graft 1.3x1.55in 3.3 3.9cm Med Perfix Polypropylene Monofilament Plug Inguinal Hernia Soft Tissue Repair /a - [id number] Implanted:Qty: 1 on 04/26/2024 by Luci Eduardo MD at [facility] STANDARD Left: Groin [employer] 03/09/2027 [id number] / / [id number] Insurance [employer]IC[employer] ENHANCE SUPPLEMENT [facility] MEDICARE ENHANCE SUPPLEMENT MEDICARE PART A & B [facility] MEDICARE ENHANCE SUPPLEMENT MEDICARE PART A & [place] [address] [address] MEDICARE ENHANCE SUPPLEMENT MEDICARE PART A & B [facility] MEDICARE ENHANCE SUPPLEMENT [facility] MEDICARE ENHANCE SUPPLEMENT MEDICARE PART A & B [facility] MEDICARE ENHANCE SUPPLEMENT [employer] ENHANCE SUPPLEMENT MEDICARE PART A & B [facility] MEDICARE ENHANCE SUPPLEMENT Advance Directives For more information, please contact: [phone] (9AM - 5PM [facility], Friday-Friday) * Full Code (Latest Code Status on File) Date Activated Date Inactivated Comments 04/26/2024 7:33 AM Question Answer Comments Code Status Confirmed With: Patient Care Teams Transition Rn Relationship Specialty Start Date End Date Sammi Lomax MD [address] [place] [address] [place] [id number] [email or web address] PCP - General Internal Medicine 04/19/24 Additional Source Comments The information contained in this document represents components of the legal health record. It is not the complete legal health record.[facility]
== END 2025-05-17 10:42 | disposition home or self-care (01) ==
LOC: HO.HOS 09:42
PROVIDERS: Visit Provider Orthopaedic Surgery
DX: M77.11 Lateral epicondylitis, right elbow (principal); M79.631 Pain in right forearm
CPT/HCPCS: 99215

== ENCOUNTER → 2025-05-17 09:41 | Outpatient (BNVA) | payer MEDICARE, OTHER, SELFPAY | PROVIDERS: Visit Provider Orthopaedic Surgery | DX: M77.11 Lateral epicondylitis, right elbow (principal); M79.631 Pain in right forearm | CPT/HCPCS: 99212 ==

== ENCOUNTER 2025-05-26 11:00 | Outpatient (AMB) | payer MEDICARE, OTHER, SELFPAY ==
--- NOTE | 2025-05-26 11:11 | MHC.OFFVIS ---
Vital Signs 05/26/25 11:15 Height 5 ft 11 in Weight 175 lb BMI 24.4 Intake Visit Reasons: OV f/u Spinal cord disease-3 month follow up Intake Note: Sha is a 74 year old male who presents today as a 3 month follow up for his Spinal cord disease. At today's visit he states no changes to report at this time. He states that he had an injection in the spine with about 3 weeks ago and has another follow up with pain management. Allergies No Known Allergies Allergy (Verified 05/26/25 11:15) HPI Comments Details: Since last time I saw him, patient has followed with hand surgery Dr. Garg and pain management Dr. Du. Notes from them were reviewed by me. We also reviewed MRI forearm reading today. 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 Again see fasciculations on right extensor tendon, same as previous. No focal weakness in right upper extremity that I can see. Vital Signs: BMI result Body Mass Index 24.4 Results Reviewed Results Reviewed: Ordering Physician: Miracle Garg MD Date of Service: 04/12/25 Procedure(s): MR forearm RT wo con Accession Number(s): [id number] cc: Physician,Unknown ; Miracle Garg MD~ Examination: MRI of the right forearm without contrast. TECHNIQUE: Multiplanar multisequence MR imaging was performed through an upper extremity, without contrast. INDICATION: Right elbow pain, surgery in 2023 for ulnar nerve impingement Prior: None FINDINGS: SOFT TISSUES: There is low level edema within flexor carpi ulnaris muscle and mild patchy edema within the flexor digitorum profundus muscle. There is subtle edema like signal in the superficial aspect of the flexor digitorum superficialis, palmaris longus, flexor carpi radialis, and possibly pronator teres muscles which are innervated by median nerve There is mild edema within extensor carpi ulnaris muscle which is innervated by posterior interosseous nerve (C7+C8), branch of the radial nerve.. There is no fatty streaking or atrophy. NEUROVASCULAR: There is low intermediate signal in the subcutaneous soft tissues near the cubital tunnel at the elbow. Ulnar nerve signal on fluid sensitive sequences is mildly increased through the cubital tunnel, but hypointense relative to venous signal otherwise, negative signal is unremarkable. Neurovascular structures are otherwise unremarkable. MARROW/BONES: Tumor signal is physiologic. There are no marrow replacing lesions. There is no marrow edema. MR/MR forearm RT wo con IMPRESSION: Nonspecific patchy areas of muscle edema without a convincing single pattern of nerve compression related muscle edema. The highest level of muscle edema, which is still mild, does involve flexor carpi ulnaris and flexor digitorum profundus muscles which are innervated by ulnar nerve. However, there is a similar level of muscle edema within extensor carpi ulnaris muscle which is innervated by posterior interosseous nerve (or C7+C8). There is subtle muscle edema within other muscles in the flexor compartment better innervated by median nerve. Electronically signed by: Nash Caceres MD 04/12/2025 11:12 AM EDT EMG findings from 02/2024. IMPRESSION: 1. This is an abnormal study. 2. There is electrodiagnostic evidence for ulnar neuropathy, proximal to take off of FCU. 3. Chronic reinnervation changes are seen on muscles innervated by C7/C8 nerve roots, suggesting chronic radiculopathy. 4. There is no electrodiagnostic evidence for median neuropathy or brachial plexopathy. I reviewed records from the following: Ortho Pain management Assessment & Plan Assessment & Plan (1) Tendinitis of extensor tendon of right hand: Code(s): M77.8 - Other enthesopathies, not elsewhere classified Category: Medical (2) Ulnar neuropathy of right upper extremity: Code(s): G56.21 - Lesion of ulnar nerve, right upper limb Category: Medical (3) Cervical radiculopathy: Comment: Affecting C7-C8, seen on NCS Code(s): M54.12 - Radiculopathy, cervical region Category: Medical Plan He maintains that the pain is along the extensor tendons in his forearm. I still see the fasciculations on that tendon/muscle. I did trigger point injection to that site that did not provide any relief at all. Reviewed MRI report, did mention mild edema on the extensor carpi ulnaris muscle. Continues to have atrophy on FDI muscle which could be either ulnar nerve or C8-T1 radiculopathy. Both seen on EMG done last year. However ulnar surgery and recent C7-T1 epidural injection did not help. He continues to complain of laxity of the ulnar nerve as he flexes/extends his right elbow. 1. Suggested trial of ulnar nerve block? Is this something Dr. Du can do? Patient will discuss with Dr. Du. 2. I wonder if he is begginning to have CRPS? 3. We discussed repeating EMG but I don't think it would give us more information that will help us tease out the diagnosis. 4. Avoid activities/exercises that puts pressure on the elbow such as planks. Assessment and plan discussed with patient, and patient was agreeable. All questions were answered thoroughly. Would like to see him again in 3 months to see where he is at. Total of 30 minute spent today including chart review, results review, history taking, physical examination, discussion of assessment and plan, and coordination of care. Shima Rodarte MD, KAYLIE Board Certified, [place] Board of Physical Medicine and Rehabilitation (ABPMR) Board Certified, [place] Board of Electrodiagnostic Medicine (ABEM) Coding Level of Care Code Est Pt Level 4 (87632) Diagnoses Tendinitis of extensor tendon of right hand M77.8 Ulnar neuropathy of right upper extremity G56.21 Cervical radiculopathy M54.12
[2025-05-26 11:15] VITALS: BMI 24.4
--- OUTSIDE RECORDS SUMMARY | 2025-05-26 12:11 | XMS_ITS | Clinical Summary ---
Author Organization [facility] Address [address] [facility] [address] [place] [address] Phone Care Team Providers Care Court Security Officer Name Role Phone Sammi Lomax MD Primary Care Provider Allergies Active Allergy Reactions Criticality Noted Date Comments Gabapentin Constipation 05/05/2024 Medications flaxseed oiL 1,000 mg Cap Take 1,000 mg by mouth daily. Active omega 8-vdl-dbw-fish oil 1,000 mg (120 mg-180 mg) Cap [...] this topic Medical Devices Implanted Type Area Printing Manager Device Identifier Shelf Expiration Date Model / Serial / Lot [employer] NODATA Spine Cervical Mesh Graft 1.6x1.9in 4.1 4.8cm Lg Perfix Polypropylene Monofilament Plug Inguinal Hernia Soft Tissue Repair Cs/2ea - [id number] Implanted:Qty: 1 on 04/26/2024 by Luci Eduardo MD at [facility] STANDARD Left: Groin [employer] 08/09/2028 [id number] / / [id number] Mesh Graft 1.3x1.55in 3.3 3.9cm Med Perfix Polypropylene Monofilament Plug Inguinal Hernia Soft Tissue Repair /a - [id number] Implanted:Qty: 1 on 04/26/2024 by Luci Eduardo MD at [facility] STANDARD Left: Groin [employer] 03/09/2027 [id number] / / [id number] Insurance [employer] ENHANCE SUPPLEMENT [facility] MEDICARE ENHANCE SUPPLEMENT MEDICARE PART A & B [facility] MEDICARE ENHANCE SUPPLEMENT MEDICARE PART A & [place] [address] [address] [place] [address] MEDICARE ENHANCE SUPPLEMENT MEDICARE PART A & B [facility] MEDICARE ENHANCE SUPPLEMENT [facility] MEDICARE ENHANCE SUPPLEMENT MEDICARE PART A & B [facility] MEDICARE ENHANCE SUPPLEMENT [employer] ENHANCE SUPPLEMENT MEDICARE PART A & B [facility] MEDICARE ENHANCE SUPPLEMENT Advance Directives For more information, please contact: [phone] (9AM - 5PM [facility], Friday-Friday) * Full Code (Latest Code Status on File) Date Activated Date Inactivated Comments 04/26/2024 7:33 AM Question Answer Comments Code Status Confirmed With: Patient Care Teams Court Security Officer Relationship Specialty Start Date End Date Smami Lomax MD [address] [place] [address] [place] [id number] [email or web address] PCP - General Internal Medicine 04/19/24 Additional Source Comments The information contained in this document represents components of the legal health record. It is not the complete legal health record.[facility]
== END 2025-05-26 11:51 | disposition home or self-care (01) ==
LOC: HO.HOS 11:01
PROVIDERS: Visit Provider Physical Medicine & Rehabilitation
DX: M77.8 Other enthesopathies, not elsewhere classified (principal); G56.21 Lesion of ulnar nerve, right upper limb; M54.12 Radiculopathy, cervical region
CPT/HCPCS: 99214

== ENCOUNTER → 2025-05-26 11:00 | Outpatient (BNVA) | payer MEDICARE, OTHER, SELFPAY | PROVIDERS: Visit Provider Physical Medicine & Rehabilitation | DX: M77.8 Other enthesopathies, not elsewhere classified (principal); G56.21 Lesion of ulnar nerve, right upper limb | CPT/HCPCS: 99212 ==

== ENCOUNTER 2025-05-30 09:06 | Outpatient (AMB) | payer MEDICARE, OTHER, SELFPAY ==
--- NOTE | 2025-05-30 09:09 | MHC.OFFVIS ---
Vital Signs 05/30/25 09:11 Height 5 ft 11 in Weight 172 lb BMI 24.0 BP 144/78 H Blood Pressure Location Lt brachial Position Sitting Respiration 16 Pulse 64 Pulse Source Pulse Oximeter Pulse Oximetry (%) 100 Oxygen Delivery Method Room Air Intake Visit Reasons: s/p Right C7-T1 SHILA Sole Leveling Machine Operator Required: No Allergies No Known Allergies Allergy (Verified 05/30/25 09:12) Medication List - Last Reconciled 05/30/25 by Christine Gallegos LPN alprazolam 1 mg PO DAILY PRN [Baby Aspirin 81 mg] HPI HPI s/p Right C7-T1 SHILA: Details: History of Present Illness The patient is a 74-year-old male presenting for follow-up after a cervical epidural interlaminar injection, which was not effective in relieving his pain. The patient reports constant pain with a burning sensation and stiffness, primarily affecting the neck and radiating along ulnar/media nerve pathways. He denies significant tingling but notes discomfort and stiffness, which have worsened over time. In September, the patient underwent surgery for ulnar nerve impingement at the elbow, performed by Dr. Garg. Post-surgery, he continues to experience discomfort and movement of the ulnar nerve across the elbow, which increases with arm use. The patient has a history of cervical discectomy performed nearly two years ago, which initially relieved pain radiating from the shoulder to the neck but left residual arm and hand pain. An MRI revealed persistent myelomalacia at the C5-6 level, attributed to prior disc herniation and compression, which has not resolved. The patient engages in biking several times a week but finds that physical activity exacerbates his symptoms. He reports that ice and rest provide some relief, but the discomfort persists, affecting his ability to exercise and sleep. Pain Description - Onset and Timing: Persistent pain with no relief from recent cervical epidural injection. - Quality and Character: Constant burning sensation and stiffness in the neck. - Primary Location: Neck, with radiation along nerve pathways. - Exacerbating Factors: Physical activity and arm use increase discomfort. - Relieving Factors: Ice and rest provide some relief. - Interference: Pain affects ability to exercise and sleep. Physical Exam - FDI atrophy on the right Results - MRI: Revealed myelomalacia at C5-6 level, indicating unresolved spinal cord damage. Pain Management - Affect: Pain interferes with sleep and daily activities, causing significant discomfort. - Analgesia: Recent cervical epidural injection was ineffective; patient uses ice for relief. - Activities of Daily Living: Pain limits physical activity and exercise. 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, 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 Physical Exam Vital Signs: Last Vital Signs Pulse 64 05/30/25 09:11 Resp 16 05/30/25 09:11 BP 144/78 H 05/30/25 09:11 Pulse Ox 100 05/30/25 09:11 Oxygen Delivery Method Room Air 05/30/25 09:11 BMI result Body Mass Index 24.0 Assessment & Plan Assessment & Plan (1) Cervical myelopathy: Code(s): G95.9 - Disease of spinal cord, unspecified Category: Medical (2) History of fusion of cervical spine: Onset Date: 09/10/23 Comment: C5-C6 diskectomy and fusion Code(s): Z98.1 - Arthrodesis status Category: Surgical (3) Postlaminectomy syndrome of cervical region: Code(s): M96.1 - Postlaminectomy syndrome, not elsewhere classified Category: Medical Plan Plan - Discussed the potential for spinal cord stimulation to manage post-laminectomy pain and myelomalacia-related symptoms. - Plan to consult with neurosurgeon regarding the need for decompression one level below the previous ACDF to accommodate spinal cord stimulator leads. - Initiate psychological clearance process for spinal cord stimulation trial. - Provided patient with a brochure on spinal cord stimulation for further information. Patient was informed and verbally consented to the use of an ambient scribe for clinic note documentation during this visit. Discussion Notes I discussed with the patient the nature and potential sources of his symptoms, including myelomalacia and post-laminectomy syndrome. We explored spinal cord stimulation as a treatment option, considering its potential benefits and risks, and the need for possible decompression surgery to facilitate lead placement. Discussed both pain control and SCI therapeutic roles for SCS in his setting. I explained the process of psychological clearance and provided a brochure for further reading. Patient Instructions - Review the brochure on spinal cord stimulation provided during the visit. - Await contact for scheduling psychological clearance evaluation. - Follow up with the clinic after the psychological evaluation is completed. Coding Level of Care Code New Pt Level 4 (29005) Diagnoses Cervical myelopathy G95.9 History of fusion of cervical spine Z98.1 Postlaminectomy syndrome of cervical region M96.1
[2025-05-30 09:11] VITALS: BP 144/78; PULSE 64; RESP 16; O2SAT 100; BMI 24.0
--- OUTSIDE RECORDS SUMMARY | 2025-05-30 09:35 | XMS_ITS | Clinical Summary ---
Author Organization [facility] Address [address] [facility] [address] [place] [id number] Phone Care Team Providers Care Housekeeping Cleaner Name Role Phone Sammi Lomax MD Primary Care Provider Allergies Active Allergy Reactions Criticality Noted Date Comments Gabapentin Constipation 05/05/2024 Medications flaxseed oiL 1,000 mg Cap Take 1,000 mg by mouth daily. Active omega 2-ila-ywr-fish oil 1,000 mg (120 mg-180 mg) Cap [...] this topic Medical Devices Implanted Type Area Manager E Learning Device Identifier Shelf Expiration Date Model / Serial / Lot [employer] Spine Cervical Mesh Graft 1.6x1.9in 4.1 4.8cm Lg Perfix Polypropylene Monofilament Plug Inguinal Hernia Soft Tissue Repair Cs/2ea - [id number] Implanted:Qty: 1 on 04/26/2024 by Luci Eduardo MD at [facility] STANDARD Left: Groin [employer] 08/09/2028 [id number] / / [id number] Mesh Graft 1.3x1.55in 3.3 3.9cm Med Perfix Polypropylene Monofilament Plug Inguinal Hernia Soft Tissue Repair /a - [id number] Implanted:Qty: 1 on 04/26/2024 by Luci Eduardo MD at [facility] STANDARD Left: Groin [employer] 03/09/2027 [id number] / / [id number] Insurance [employer] ENHANCE SUPPLEMENT [facility] MEDICARE ENHANCE SUPPLEMENT MEDICARE PART A & B [facility] MEDICARE ENHANCE SUPPLEMENT MEDICARE PART A & [place] [address] [address] [place] [address] MEDICARE ENHANCE SUPPLEMENT MEDICARE PART A & B [facility] MEDICARE ENHANCE SUPPLEMENT [facility] MEDICARE ENHANCE SUPPLEMENT MEDICARE PART A & B [facility] MEDICARE ENHANCE SUPPLEMENT [employer] MED[employer] ENHANCE SUPPLEMENT MEDICARE PART A & B [facility] MEDICARE ENHANCE SUPPLEMENT Advance Directives For more information, please contact: [phone] (9AM - 5PM [facility], Friday-Friday) * Full Code (Latest Code Status on File) Date Activated Date Inactivated Comments 04/26/2024 7:33 AM Question Answer Comments Code Status Confirmed With: Patient Care Teams Housekeeping Cleaner Relationship Specialty Start Date End Date Sammi Lomax MD [address] [place] [address] [place] [id number] [email or web address] PCP - General Internal Medicine 04/19/24 Additional Source Comments The information contained in this document represents components of the legal health record. It is not the complete legal health record.[facility]
== END 2025-05-30 10:05 | disposition home or self-care (01) ==
LOC: HO.PMC 09:07
PROVIDERS: Visit Provider Internal Medicine
DX: G95.9 Disease of spinal cord, unspecified (principal); Z98.1 Arthrodesis status; M96.1 Postlaminectomy syndrome, not elsewhere classified
CPT/HCPCS: 99214

== ENCOUNTER → 2025-05-30 09:06 | Outpatient (BNVA) | payer MEDICARE, OTHER, SELFPAY | PROVIDERS: Visit Provider Internal Medicine | DX: M96.1 Postlaminectomy syndrome, not elsewhere classified (principal); Z98.1 Arthrodesis status; G95.9 Disease of spinal cord, unspecified | CPT/HCPCS: 99212 ==